=== PATIENT | male | born 1955 | race Caucasian/White ===

== ENCOUNTER 2020-03-13 07:28 | Outpatient (REF) | payer OTHER, SELFPAY ==
[2020-03-13 08:22] LABS: Alanine Aminotransferase 15 U/L (0-40); Albumin Level 4.3 g/dL (3.5-5.0); Alkaline Phosphatase 101 U/L (39-117); Aspartate Amino Transferase 14 U/L (5-37); Cholesterol 198 mg/dL; Total Protein 6.4 g/dL (6.5-8.0); Triglycerides 235 mg/dL
[2020-03-13 09:06] LABS: Bilirubin Direct 0.2 mg/dL (0.0-0.5); Bilirubin Total 0.5 mg/dL (0.0-1.0); HDL Cholesterol 22 mg/dL; LDL Cholesterol Calculated 129 mg/dl
== END 2020-03-13 07:29 | disposition home or self-care (01) ==
LOC: HO.LAB 07:28
PROVIDERS: PCP Internal Medicine; Visit Provider Internal Medicine
DX: E78.00 Pure hypercholesterolemia, unspecified (principal)
CPT/HCPCS: 80061; 80076

== ENCOUNTER 2020-06-23 06:02 | Outpatient (REF) | payer OTHER, SELFPAY ==
[2020-06-23 07:09] LABS: MANUAL DIFF FLAG NO
[2020-06-23 07:13] LABS: Basophils Absolute Auto 0.1 X10*3/uL (0.0-0.2); Basophils Percent Auto 0.7 % (0-2); Eosinophils Absolute Auto 0.2 X10*3/uL (0.0-0.4); Eosinophils Percent Auto 1.6 % (0-4); Hematocrit 45.2 % (42-52); Hemoglobin 14.6 g/dl (14.0-18.0); Imm Gran Abs Auto 0.06 X10*3/uL (0.00-0.03); Imm Gran Pct Auto 0.5 % (0.0-0.4); Lymphocytes Absolute Auto 2.8 X10*3/uL (1.2-4.9); Lymphocytes Percent Auto 24.9 % (20-40); Mean Corpuscular HGB Conc 32.3 g/dl (31.0-36.0); Mean Corpuscular Hemoglobin 29.7 pg (27.0-33.0); Mean Corpuscular Volume 91.9 fL (80-98); Monocytes Absolute Auto 0.5 X10*3/uL (0.1-1.2); Monocytes Percent Auto 4.8 % (2-11); Neutrophils Absolute Auto 7.5 X10*3/uL (2.0-8.3); Neutrophils Percent Auto 67.5 % (45-73); Platelet Count 189 X10*3/uL (160-400); Red Blood Count 4.92 X10*6/uL (4.60-5.80); Red Cell Distribution Width 12.9 % (11.0-16.0); White Blood Count 11.1 X10*3/uL (4.8-10.8)
[2020-06-23 07:57] LABS: Alanine Aminotransferase 14 U/L (0-40); Albumin Level 4.1 g/dL (3.5-5.0); Alkaline Phosphatase 95 U/L (39-117); Anion Gap 11 (12-20); Aspartate Amino Transferase 12 U/L (5-37); Bilirubin Total 0.4 mg/dL (0.0-1.0); Blood Urea Nitrogen 23 mg/dL (9-16); Calcium 8.6 mg/dL (8.4-10.2); Carbon Dioxide 25 mmol/L (22-29); Chloride 108 mmol/L (96-108); Cholesterol 163 mg/dL; Estimated Glomerular Filt Rate > 60; Glucose Random 95 mg/dL (60-115); HDL Cholesterol 21 mg/dL; LDL Cholesterol Calculated 82 mg/dl; Potassium 4.1 mmol/L (3.3-5.1); Sodium 140 mmol/L (135-145); Total Protein 6.1 g/dL (6.5-8.0); Triglycerides 304 mg/dL
[2020-06-23 08:01] LABS: Free T4 (Free Thyroxine) 1.01 ng/dL (0.71-1.85); Prostate Specific Antigen Scr 0.66 ng/mL (<0.05-4.0); Thyroid Stimulating Hormone 1.25 uIU/mL (0.32-4.0)
[2020-06-27 06:08] LABS: Folate 8.8 ng/mL (> or = 4.0); Vitamin B12 326 pg/mL (200-900)
== END 2020-06-23 06:03 | disposition home or self-care (01) ==
LOC: HO.LAB 06:02
PROVIDERS: PCP Internal Medicine; Visit Provider Internal Medicine
DX: Z12.5 Encounter for screening for malignant neoplasm of prostate (principal); E78.00 Pure hypercholesterolemia, unspecified; I25.10 Atherosclerotic heart disease of native coronary artery without angina pectoris
CPT/HCPCS: 36415; 80053; 80061; 82607; 82746; 84153; 84439; 84443; 85025

== ENCOUNTER 2020-10-06 12:29 | Outpatient (REF) | payer OTHER, SELFPAY | END 2020-10-06 12:30 | disposition home or self-care (01) | LOC: HO.LAB 12:29 | PROVIDERS: PCP Internal Medicine; Visit Provider Internal Medicine | DX: Z20.822 Contact with and (suspected) exposure to COVID-19 (principal) | CPT/HCPCS: U0003; U0005 ==

== ENCOUNTER 2021-01-14 07:15 | Outpatient (REF) | payer OTHER, SELFPAY ==
[2021-01-14 08:09] LABS: Alanine Aminotransferase 15 U/L (0-40); Albumin Level 4.1 g/dL (3.5-5.0); Alkaline Phosphatase 93 U/L (39-117); Anion Gap 9 (12-20); Aspartate Amino Transferase 12 U/L (5-37); Bilirubin Total 0.5 mg/dL (0.0-1.0); Blood Urea Nitrogen 20 mg/dL (9-16); Calcium 9.2 mg/dL (8.4-10.2); Carbon Dioxide 27 mmol/L (22-29); Chloride 110 mmol/L (96-108); Cholesterol 209 mg/dL; Estimated Glomerular Filt Rate > 60; Glucose Random 93 mg/dL (60-115); HDL Cholesterol 22 mg/dL; Potassium 4.4 mmol/L (3.3-5.1); Sodium 142 mmol/L (135-145); Total Protein 6.2 g/dL (6.5-8.0); Triglycerides 429 mg/dL
== END 2021-01-14 07:16 | disposition home or self-care (01) ==
LOC: HO.LAB 07:15
PROVIDERS: PCP Internal Medicine; Visit Provider Internal Medicine
DX: E78.00 Pure hypercholesterolemia, unspecified (principal)
CPT/HCPCS: 36415; 80053; 80061

== ENCOUNTER 2021-02-20 14:20 | Outpatient (REF) | payer OTHER, SELFPAY ==
[2021-02-20 16:06] LABS: Amphetamine Screen Urine Not Detected (Not Detect); Barbiturates, Urine Not Detected (Not Detect); Benzodiazepines Screen Urine Not Detected (Not Detect); Cannabinoid Screen Urine Not Detected (Not Detect); Cocaine Screen Urine Not Detected (Not Detect); Fentanyl, urine Not Detected (Not Detect); Opiate Screen Urine Not Detected (Not Detect); Phencyclidine Screen Urine Not Detected (Not Detect)
== END 2021-02-20 14:21 | disposition home or self-care (01) ==
LOC: HO.LAB 14:20
PROVIDERS: PCP Internal Medicine; Visit Provider Internal Medicine
DX: G89.29 Other chronic pain (principal); M54.50 Low back pain, unspecified
CPT/HCPCS: 80307; 80364; 80365

== ENCOUNTER 2021-03-10 11:25 | Outpatient (REF) | payer OTHER, SELFPAY ==
[2021-03-10 14:12] LABS: Amphetamine Screen Urine Not Detected (Not Detect); Barbiturates, Urine Not Detected (Not Detect); Benzodiazepines Screen Urine Not Detected (Not Detect); Cannabinoid Screen Urine Not Detected (Not Detect); Cocaine Screen Urine Not Detected (Not Detect); Fentanyl, urine Not Detected (Not Detect); Opiate Screen Urine Not Detected (Not Detect); Phencyclidine Screen Urine Not Detected (Not Detect)
== END 2021-03-10 11:26 | disposition home or self-care (01) ==
LOC: HO.LAB 11:25
PROVIDERS: PCP Internal Medicine; Visit Provider Internal Medicine
DX: F11.90 Opioid use, unspecified, uncomplicated (principal)
CPT/HCPCS: 80307

== ENCOUNTER 2021-03-24 13:16 | Outpatient (REF) | payer OTHER, SELFPAY | END 2021-03-24 13:17 | disposition home or self-care (01) | LOC: HO.LAB 13:16 | PROVIDERS: PCP Internal Medicine; Visit Provider Internal Medicine | DX: Z20.822 Contact with and (suspected) exposure to COVID-19 (principal) | CPT/HCPCS: C9803; U0003; U0005 ==

== ENCOUNTER 2021-05-29 12:30 | Outpatient (REF) | payer OTHER, SELFPAY ==
[2021-05-29 13:25] LABS: Alanine Aminotransferase 25 U/L (0-40); Albumin Level 4.4 g/dL (3.5-5.0); Alkaline Phosphatase 78 U/L (39-117); Anion Gap 12 (12-20); Aspartate Amino Transferase 20 U/L (5-37); Bilirubin Total 0.4 mg/dL (0.0-1.0); Blood Urea Nitrogen 18 mg/dL (9-16); Calcium 9.6 mg/dL (8.4-10.2); Carbon Dioxide 25 mmol/L (22-29); Chloride 107 mmol/L (96-108); Cholesterol 188 mg/dL; Estimated Glomerular Filt Rate > 60; Glucose Random 89 mg/dL (60-115); HDL Cholesterol 20 mg/dL; LDL Cholesterol Calculated 116 mg/dl; Potassium 4.2 mmol/L (3.3-5.1); Sodium 140 mmol/L (135-145); Total Protein 6.8 g/dL (6.5-8.0); Triglycerides 263 mg/dL
== END 2021-05-29 12:31 | disposition home or self-care (01) ==
LOC: HO.LAB 12:30
PROVIDERS: PCP Internal Medicine; Visit Provider Internal Medicine
DX: E78.00 Pure hypercholesterolemia, unspecified (principal)
CPT/HCPCS: 36415; 80053; 80061

== ENCOUNTER → 2021-07-29 13:39 | Outpatient (BNVA) | payer OTHER, SELFPAY | PROVIDERS: PCP Internal Medicine; Referring Provider Internal Medicine; Visit Provider Nurse Practitioner Family | DX: I21.3 ST elevation (STEMI) myocardial infarction of unspecified site (principal); I73.9 Peripheral vascular disease, unspecified; I25.10 Atherosclerotic heart disease of native coronary artery without angina pectoris; E78.00 Pure hypercholesterolemia, unspecified; Z98.890 Other specified postprocedural states; Z72.0 Tobacco use | CPT/HCPCS: 99212 ==

== ENCOUNTER 2021-09-15 13:45 | Outpatient (REF) | payer OTHER, SELFPAY ==
--- NOTE | ~2021-09-15 | US_ITS ---
EXAMINATION: NONINVASIVE ASSESSMENT OF THE ARTERIES OF BOTH LOWER EXTREMITIES WITH ANKLE PRESSURE MEASUREMENTS, ANKLE-BRACHIAL INDICES, PVR MEASUREMENTS AND BILATERAL LOWER EXTREMITY DUPLEX. CLINICAL INFORMATION: Peripheral arterial disease. History of aortobifemoral bypass graft in 2019. TECHNIQUE: Ankle pressure measurements, ankle-brachial indices and PVR tracings were obtained of the lower extremity arterial system bilaterally. In addition, duplex Doppler techniques with wave form analysis and measurement of velocities in the common femoral, profunda femoral, superficial femoral, popliteal and tibial arteries was performed. The study was performed only at rest. COMPARISON: Arterial ultrasound 09/06/2019 and CTA runoff on 02/23/2019. FINDINGS: NONINVASIVE ASSESSMENT OF THE ARTERIES OF BOTH LOWER EXTREMITIES WITH ABIs: RIGHT LEG: Right ankle-brachial index: VALENTÍN 1.08 PVR (ankle): Dampened. LEFT LEG: Ankle-brachial index: VALENTÍN 0.94. PVR (ankle): Dampened. BILATERAL LOWER EXTREMITY DUPLEX ULTRASOUND: RIGHT LEG: Iliac limb, bypass graft: 140 cm/s, monophasic flow. Common femoral artery: 134 cm/s, Diastolic flow reversal: Yes Profunda femoris artery: 165 cm/s, Diastolic flow reversal: Yes Superficial femoral artery (proximal): 115 cm/s, Diastolic flow reversal: Yes Superficial femoral artery (mid): 182 cm/s, Diastolic flow reversal: Yes Superficial femoral artery (distal): 215 cm/s, Diastolic flow reversal: Yes Popliteal artery: 70.7 cm/s, Diastolic flow reversal: Yes Posterior tibial artery: 66.8 cm/s, Diastolic flow reversal: Yes Peroneal artery: 34 cm/s, Diastolic flow reversal: Yes LEFT LEG: Iliac limb, bypass graft: 74.6 cm/s, monophasic flow. Common femoral artery: 201 cm/s, Diastolic flow reversal: Yes Profunda femoris artery: Not visualized Superficial femoral artery (proximal): 127 cm/s, Diastolic flow reversal: Yes Superficial femoral artery (mid): 169 cm/s, Diastolic flow reversal: Yes Superficial femoral artery (distal): 165 cm/s, Diastolic flow reversal: Yes Popliteal artery: 89.1 cm/s, Diastolic flow reversal: Yes Posterior tibial artery: 44 cm/s, Diastolic flow reversal: Yes Peroneal artery: 61.3 cm/s, Diastolic flow reversal: Yes US/US arterial duplex LE BI IMPRESSION: RIGHT LEG: VALENTÍN 1.08. Duplex evaluation of the right iliac limb of the bypass graft demonstrates normal velocity with a monophasic waveform. There is mildly increased velocity within the distal superficial femoral artery consistent with a mild stenosis. There are otherwise multiphasic waveforms throughout the right lower extremity. LEFT LEG: VALENTÍN 0.94. Similar to the contralateral side, duplex evaluation of the left iliac limb of the bypass graft demonstrates normal velocity with a monophasic waveform. The profunda femoris artery is not visualized. Mildly elevated velocity within the left common femoral artery. Otherwise multiphasic waveforms are present throughout the left lower extremity. No additional hemodynamically significant stenosis identified. VALENTÍN Reference: - >0.97-1.25 = normal - no significant arterial disease - 0.75-0.96 = mild peripheral arterial disease - 0.5-0.74 = moderate peripheral arterial disease - <0.50 = severe peripheral arterial disease
== END 2021-09-15 13:46 | disposition home or self-care (01) ==
LOC: HO.US 13:45
PROVIDERS: Visit Provider Surgery Vascular Surgery
DX: I70.213 Atherosclerosis of native arteries of extremities with intermittent claudication, bilateral legs (principal)
CPT/HCPCS: 93923; 93925

== ENCOUNTER → 2021-10-01 15:26 | Outpatient (BNVA) | payer OTHER, SELFPAY | PROVIDERS: PCP Internal Medicine; Visit Provider Surgery Vascular Surgery | DX: I73.9 Peripheral vascular disease, unspecified (principal); F17.210 Nicotine dependence, cigarettes, uncomplicated | CPT/HCPCS: 99212 ==

== ENCOUNTER 2021-10-05 06:30 | Outpatient (REF) | payer OTHER, SELFPAY ==
[2021-10-05 07:02] LABS: MANUAL DIFF FLAG NO
[2021-10-05 07:27] LABS: Basophils Absolute Auto 0.1 X10*3/uL (0.0-0.2); Basophils Percent Auto 0.9 % (0-2); Eosinophils Absolute Auto 0.2 X10*3/uL (0.0-0.4); Hematocrit 45.3 % (42.0-52.0); Hemoglobin 14.9 g/dl (14.0-18.0); Imm Gran Abs Auto 0.04 X10*3/uL (0.00-0.03); Imm Gran Pct Auto 0.4 % (0.0-0.4); Lymphocytes Absolute Auto 2.6 X10*3/uL (1.2-4.9); Lymphocytes Percent Auto 26.5 % (20-40); Mean Corpuscular HGB Conc 32.9 g/dl (31.0-36.0); Mean Corpuscular Hemoglobin 30.1 pg (27.0-33.0); Mean Corpuscular Volume 91.5 fL (80.0-98.0); Mean Platelet Volume 11.1 fL (9.4-12.4); Monocytes Absolute Auto 0.7 X10*3/uL (0.1-1.2); Monocytes Percent Auto 6.5 % (2-11); Neutrophils Absolute Auto 6.3 x10*3/uL (2.0-8.3); Neutrophils Percent Auto 63.7 % (45-73); Platelet Count 223 X10*3/uL (160-400); Red Blood Count 4.95 X10*6/uL (4.60-5.80); Red Cell Distribution Width 13.1 % (11.0-16.0)
[2021-10-05 08:10] LABS: Alanine Aminotransferase 27 U/L (0-40); Albumin Level 4.2 g/dL (3.5-5.0); Alkaline Phosphatase 71 U/L (39-117); Anion Gap 13 (12-20); Aspartate Amino Transferase 22 U/L (5-37); Bilirubin Total 0.5 mg/dL (0.0-1.0); Blood Urea Nitrogen 16 mg/dL (9-16); Calcium 9.2 mg/dL (8.4-10.2); Carbon Dioxide 22 mmol/L (22-29); Chloride 108 mmol/L (96-108); Cholesterol 120 mg/dL; Estimated Glomerular Filt Rate > 60; Glucose Random 97 mg/dL (60-115); HDL Cholesterol 20 mg/dL; LDL Cholesterol Calculated 57 mg/dl; Sodium 139 mmol/L (135-145); Total Protein 6.2 g/dL (6.5-8.0); Triglycerides 217 mg/dL
== END 2021-10-05 06:31 | disposition home or self-care (01) ==
LOC: HO.LAB 06:30
PROVIDERS: PCP Internal Medicine; Visit Provider Internal Medicine
DX: E78.00 Pure hypercholesterolemia, unspecified (principal)
CPT/HCPCS: 36415; 80053; 80061; 85025

== ENCOUNTER → 2021-12-23 12:38 | Outpatient (BNVA) | payer OTHER, SELFPAY | PROVIDERS: PCP Internal Medicine; Referring Provider Internal Medicine; Visit Provider Internal Medicine Cardiovascular Disease | DX: F17.210 Nicotine dependence, cigarettes, uncomplicated (principal); I25.10 Atherosclerotic heart disease of native coronary artery without angina pectoris; I25.2 Old myocardial infarction | CPT/HCPCS: 99212 ==

== ENCOUNTER 2022-01-06 13:19 | Outpatient (REF) | payer OTHER, SELFPAY ==
--- NOTE | ~2022-01-06 | XR_ITS ---
EXAMINATION: XR SHOULDER, LEFT CLINICAL INFORMATION: Pain left shoulder COMPARISON: None TECHNIQUE: AP external rotation, Grashey, scapular Y, and axillary views of the left shoulder. FINDINGS: The bones and soft tissues are normal. No fracture. Glenohumeral and acromioclavicular alignment is anatomic with normal joint space. There is lateral acromial spurring. No abnormal soft tissue calcifications. XR/XR shoulder LT min 2V IMPRESSION: Lateral acromial spurring otherwise no acute fracture, dislocation or subluxation seen. No bony erosive changes.
== END 2022-01-06 13:20 | disposition home or self-care (01) ==
LOC: HO.XRAY 13:19
PROVIDERS: PCP Internal Medicine; Visit Provider Internal Medicine
DX: M25.512 Pain in left shoulder (principal)
CPT/HCPCS: 73030

== ENCOUNTER → 2022-03-16 13:53 | Outpatient (BNVA) | payer OTHER, SELFPAY | PROVIDERS: PCP Internal Medicine; Visit Provider Physician Assistant | DX: M75.102 Unspecified rotator cuff tear or rupture of left shoulder, not specified as traumatic (principal); M54.12 Radiculopathy, cervical region | CPT/HCPCS: 99202; J1040 ==

== ENCOUNTER 2022-05-24 14:18 | Outpatient (REF) | payer OTHER, SELFPAY ==
--- NOTE | ~2022-05-24 | US_ITS ---
EXAMINATION: US SCROTUM CLINICAL INFORMATION: Enlarged scrotal sac. COMPARISON: None TECHNIQUE: A sonogram of the scrotum was performed assessing comer-scale appearance and color Doppler flow. Spectral Doppler analysis of the arterial and venous flow were performed in the testes bilaterally. FINDINGS: RIGHT: Right testicle measures 4.2 x 2.7 x 2.8 cm, volume 16.2 mL. No focal testicular parenchymal lesions are visualized. Spectral Doppler analysis of the arterial and venous flow is normal in the right testis. Right epididymal head is normal in size. No right varicocele is seen. A 7 mm left epididymal head cyst versus spermatocele is seen. There is a large hydrocele. Right epididymal Doppler flow is normal. LEFT: Left testicle measures 4.1 x 2.4 x 2.7 cm, volume 14.0 mL. No focal testicular parenchymal lesions are visualized. Spectral Doppler analysis of the arterial and venous flow is normal in the left testis. The appendix testis is noted. Left epididymal head is normal in size. A 6 mm left epididymal head cyst versus spermatocele is seen. No left varicocele is seen. There is a large hydrocele. Left epididymal Doppler flow is normal. US/US scrotum IMPRESSION: 1. There are are large bilateral hydroceles. 2. There are bilateral epididymal head cysts versus spermatoceles.
== END 2022-05-24 14:19 | disposition home or self-care (01) ==
LOC: HO.US 14:18
PROVIDERS: PCP Internal Medicine; Visit Provider Internal Medicine
DX: N50.89 Other specified disorders of the male genital organs (principal)
CPT/HCPCS: 76870

== ENCOUNTER → 2022-07-21 14:40 | Outpatient (BNVA) | payer MEDICAID, SELFPAY | PROVIDERS: PCP Internal Medicine; Referring Provider Internal Medicine; Visit Provider Internal Medicine Cardiovascular Disease | DX: I25.10 Atherosclerotic heart disease of native coronary artery without angina pectoris (principal); J43.9 Emphysema, unspecified | CPT/HCPCS: 93005; 99212 ==

== ENCOUNTER 2022-07-23 09:22 | Outpatient (REF) | payer MEDICAID, SELFPAY ==
[2022-07-23 09:46] LABS: MANUAL DIFF FLAG NO
[2022-07-23 11:01] LABS: Basophils Absolute Auto 0.1 X10*3/uL (0.0-0.2); Basophils Percent Auto 0.6 % (0-2); Eosinophils Absolute Auto 0.1 X10*3/uL (0.0-0.4); Eosinophils Percent Auto 0.8 % (0-4); Hematocrit 46.6 % (42.0-52.0); Hemoglobin 15.4 g/dl (14.0-18.0); Imm Gran Abs Auto 0.03 X10*3/uL (0.00-0.03); Imm Gran Pct Auto 0.3 % (0.0-0.4); Lymphocytes Absolute Auto 2.7 X10*3/uL (1.2-4.9); Lymphocytes Percent Auto 22.8 % (20-40); Mean Corpuscular Hemoglobin 29.9 pg (27.0-33.0); Mean Corpuscular Volume 90.5 fL (80.0-98.0); Mean Platelet Volume 11.2 fL (9.4-12.4); Monocytes Absolute Auto 0.7 X10*3/uL (0.1-1.2); Monocytes Percent Auto 5.9 % (2-11); Neutrophils Absolute Auto 8.4 x10*3/uL (2.0-8.3); Neutrophils Percent Auto 69.6 % (45-73); Platelet Count 236 X10*3/uL (160-400); Red Blood Count 5.15 X10*6/uL (4.60-5.80); Red Cell Distribution Width 13.3 % (11.0-16.0)
[2022-07-23 11:23] LABS: Alanine Aminotransferase 14 U/L (0-40); Albumin Level 4.2 g/dL (3.5-5.0); Alkaline Phosphatase 73 U/L (39-117); Anion Gap 14 (12-20); Aspartate Amino Transferase 16 U/L (5-37); Bilirubin Total 0.4 mg/dL (0.0-1.0); Blood Urea Nitrogen 15 mg/dL (9-16); Calcium 9.2 mg/dL (8.4-10.2); Carbon Dioxide 25 mmol/L (22-29); Chloride 107 mmol/L (96-108); Cholesterol 111 mg/dL; Estimated Glomerular Filt Rate > 60; Glucose Random 91 mg/dL (60-115); HDL Cholesterol 24 mg/dL; LDL Cholesterol Calculated 55 mg/dl; Potassium 4.1 mmol/L (3.3-5.1); Sodium 142 mmol/L (135-145); Triglycerides 161 mg/dL
[2022-07-23 11:56] LABS: Free T4 (Free Thyroxine) 1.08 ng/dL (0.71-1.85); Prostate Specific Antigen Scr 0.81 ng/mL (<0.05-4.0); Vitamin B12 468 pg/mL (200-900)
== END 2022-07-23 09:23 | disposition home or self-care (01) ==
LOC: HO.LAB 09:22
PROVIDERS: PCP Internal Medicine; Visit Provider Internal Medicine
DX: Z12.5 Encounter for screening for malignant neoplasm of prostate (principal); I25.10 Atherosclerotic heart disease of native coronary artery without angina pectoris; E78.00 Pure hypercholesterolemia, unspecified
CPT/HCPCS: 36415; 80053; 80061; 82607; 82746; 84153; 84439; 84443; 85025

== ENCOUNTER → 2022-08-18 13:27 | Outpatient (BNVA) | payer MEDICAID, SELFPAY | PROVIDERS: PCP Internal Medicine; Visit Provider Nurse Practitioner | DX: R19.5 Other fecal abnormalities (principal); K21.9 Gastro-esophageal reflux disease without esophagitis; E78.00 Pure hypercholesterolemia, unspecified; Z98.890 Other specified postprocedural states; Z95.5 Presence of coronary angioplasty implant and graft; Z95.820 Peripheral vascular angioplasty status with implants and grafts | CPT/HCPCS: 99202 ==

== ENCOUNTER 2022-11-12 14:27 | Outpatient (AMB) | payer MEDICARE, MEDICAID, SELFPAY ==
[2022-11-12 14:43] VITALS: BP 116/80; PULSE 77; O2SAT 97; BMI 22.5
--- NOTE | 2022-11-12 14:43 | MHC.PC.OV ---
Vital Signs 11/12/22 14:43 Height 5 ft 5 in Weight 135 lb BMI 22.5 BP 116/80 Blood Pressure Location Lt brachial Position Standing Pulse 77 Pulse Source Pulse Oximeter Pulse Oximetry (%) 97 Oxygen Delivery Method Room Air Intake Visit Reasons: increased fatigue and loss of balance Mud Temperer Required: No Accompanied by: Self / Same As Patient Allergies No Known Allergies [No Known Allergies*] Allergy (Verified 11/12/22 14:44) Medication List - Last Reconciled 11/12/22 by Jami Martin MD aspirin (Adult Aspirin Regimen) 81 mg PO DAILY bisacodyl 10 mg AL DAILY PRN clopidogrel (Plavix) 75 mg PO DAILY lactulose 10 grams (15 mL) PO TID metoprolol tartrate 12.5 mg (1/2 x 25 mg) PO BID multivitamin 1 tab PO DAILY nicotine 1 patch transdermal DAILY nicotine 1 patch transdermal Q24H pantoprazole 20 mg PO DAILY paroxetine HCl 10 mg PO DAILY rosuvastatin (Crestor) 40 mg PO DAILY thiamine HCl (vitamin B1) 100 mg PO DAILY Tobacco use date assessed: 11/12/22 Fall risk assessment: 1 Fall in past year Last assessed Fall Risk: 11/12/22 Dental Screening Dental Screen Date: 11/12/22 Did you have a dental visit in the last 12 months?: No Did you have a dental problem in the last 6 months where you did not have access to dental care?: No Was dental information given to patient?: No HPI increased fatigue and loss of balance HPI Details 67-year-old male smoker with a history of coronary artery disease COPD GERD hypercholesterolemia with recent CVA 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 This was complicated by an aspiration pneumonia and has been placed on a G-tube. Patient has not been using the G-tube in is been eating through the mouth and since discharge so far has not had any other complications. Recently went to the emergency room November 08 for an infected G-tube. This was worked and has advised to have the G-tube taken out on the original date November 2022. Patient was worked up had a CT scan done in [facility](I do not have the results) which was negative and to follow-up with gastroenterology. Had a lengthy conversation and discussion with the patient and regarding his case as the patient has not been taking care of himself sustaining heart attacks and strokes but this time advised to stop smoking eat healthy drink enough fluids and concentrate on exercising and following physical therapy to be able to move and be productive. As for the G-tube called gastroenterology to see him sooner for recommendations regarding taking out the G-tube as it is not being used. Patient declined taking the antibiotic as he does not feel that it is infected. [facility] Medical History (Updated 11/03/22 @ 12:37 by Jami Martin MD) Aspiration pneumonia CAD (coronary artery disease) Chronic low back pain COPD (chronic obstructive pulmonary disease) CVA (cerebral vascular accident) GERD (gastroesophageal reflux disease) Hypercholesterolemia Metabolic encephalopathy Peripheral arterial disease PFO (patent foramen ovale) Tobacco abuse Surgical History History of aorto-femoral bypass History of coronary artery stent placement S/P cardiac catheterization Family History Father Hypertension Mother Hypertension Brother In good health Brother In good health Sister In good health Sister In good health Son In good health Son In good health Son In good health Son In good health Social History Housing: House Alcohol intake: current Alcohol intake frequency: holidays/special occasions only Patient Tobacco Use Status: Former Tobacco user Tobacco use type: Cigarette Cigarette Packs Per Day: 1 Cigarettes Per Day: 20 Years Smoked: 55 +/- e-Cigarette/Vaping Use: Never Used Second Hand Smoke Exposure: Yes service: No Current occupational status: employed Cognitive needs: Yes Hearing needs: No Vision needs: No Questionnaire PHQ-9 Over the last 2 weeks, how often have you been bothered by any of the following problems? 1. Little interest or pleasure in doing things: not at all 2. Feeling down, depressed, or hopeless: not at all 3. Trouble falling or staying asleep, or sleeping too much: not at all 4. Feeling tired or having little energy: not at all 5. Poor appetite or overeating: not at all 6. Feeling bad about yourself - or that you are a failure or have let yourself or your family down: not at all 7. Trouble concentrating on things, such as reading the newspaper or watching television: not at all 8. Moving or speaking so slowly that other people could have noticed. Or the opposite - being so fidgety or restless that you have been moving around a lot more than usual: not at all 9. Thoughts that you would be better off or of hurting yourself in some way: not at all Total score: 0 Depression Screening Interpretation: Negative Source: Developed by Drs. Meet Flores, Nidia Gordon, Eddy Arriaga and colleagues, with an educational nicole from [employer]. Thrive Questionnaire Date Thrive assessed: 11/12/22 I am a: Parent/Caregiver What is your living situation today?: I have a steady place to live Within the past 12 months, did the food you bought not last and you didn't have the money to get more?: Never true Within the past 12 months, did you worry whether your food would run out before you got money to buy more?: Never true Do you have trouble paying for medicines?: No Do you have trouble getting transportation to medical appointments?: No Do you have trouble paying your heating and electricity bill?: No Do you have trouble taking care of your child, family member or friend?: No Do you have trouble with day-to-day activities such as bathing, preparing meals, shopping, managing finances, etc.?: No Are you currently unemployed and looking for a job?: No Are you interested in more education?: No Currently or been in a relationship where the following occur: no concerns reported AUDIT C Alcohol Use Questionnaire (AUDIT-C) 1. How often do you have a drink containing alcohol?: Never 3. How often do you have six or more drinks on one occasion?: Never Total Score: 0 JACQUES-7 AMB Questionnaire JACQUES-7 Date JACQUES - 7 assessed: 11/12/22 Feeling nervous, anxious, or on edge: 0 = Not at all Not being able to stop or control worryin = Not at all Worrying too much about different things: 0 = Not at all Trouble relaxin = Not at all Being so restless that it is hard to sit still: 0 = Not at all Becoming easily annoyed or irritable: 0 = Not at all Feeling afraid as if something awful might happen: 0 = Not at all Total JACQUES-7 score (0-4 normal; 5-9 mild; 10-14 moderate; 15-21 severe): 0 Source: Developed by Drs. Meet Flores, Nidia Gordon, Eddy Arriaga and colleagues, with an educational nicole from [employer]. Physical exam (Primary Care) Vital Signs: Last Vital Signs Pulse 77 11/12/22 14:43 BP 116/80 11/12/22 14:43 Pulse Ox 97 11/12/22 14:43 Oxygen Delivery Method Room Air 11/12/22 14:43 Care Plan Goal for BP management: Patient uses a walker to walk and is wobbly on the left side but is able to move around has a G-tube in the abdomen BMI result Body Mass Index 22.5 Tobacco/Smoking Status: Tobacco use Status Tobacco use date assessed 11/12/22 11/12/22 14:46 Patient Tobacco Use Status Former Tobacco user 11/12/22 14:46 Tobacco use type Cigarette 11/12/22 14:46 e-Cigarette/Vaping Use Never Used 11/12/22 14:46 PHQ-9: PHQ-9 Score PHQ-9: Total score 0 11/12/22 14:46 Depression Screening Interpretation: Negative Thrive Assessment: Date of Thrive Assessment Date Thrive assessed 11/12/22 11/12/22 14:46 Currently or been in a relationship where the following occur: no concerns reported Const General: alert; No acute distress Eyes Conjunctivae: conjunctivae normal Resp Auscultation: clear to auscultation bilaterally Cardio Rate: regular rate Rhythm: regular rhythm GI Inspection: Yes normal to inspection Extrem General: Yes normal to inspection and No edema Assessment and Plan Assessment & Plan (1) CVA (cerebral vascular accident): Comment: August 2022 basilar thrombus Code(s): I63.9 - Cerebral infarction, unspecified Plan: CVA Control the cholesterol, weight, blood pressure,stop smoking (2) Tobacco abuse: Code(s): Z72.0 - Tobacco use Plan: Stop smoking! (3) CAD (coronary artery disease): Comment: [place] [employer] 2014 Dr. Reid angioplasty GERA mid RCA March 2018 STEMI 06/2021, mid RCA thrombus, GERA placed ECHO EF 63% Code(s): I25.10 - Atherosclerotic heart disease of [place] coronary artery without angina pectoris Qualifiers: Associated angina: without angina Coronary Disease-Associated Artery/Lesion type: [place] artery [place] vs. transplanted heart: [place] heart Qualified Code(s): I25.10 - Atherosclerotic heart disease of [place] coronary artery without angina pectoris Plan: Control the cholesterol, weight, blood pressure (4) Hypercholesterolemia: Code(s): E78.00 - Pure hypercholesterolemia, unspecified Plan: Avoid fried foods, chicken skin, eggs, butter margarine, pastries and meat. Be it pork or beef they have a lot of cholesterol LDL goal of less than 70 (5) Peripheral arterial disease: Comment: 04/10/2019 - open aortobifemoral bypass Code(s): I73.9 - Peripheral vascular disease, unspecified Plan: Patient on aspirin and clopidogrel (6) G tube feedings: Code(s): Z93.1 - Gastrostomy status Plan: Patient states has been causing pain. Gastroenterology called left message and will tried to get him a soon schedule. Medications: Refilled paroxetine HCl 10 mg PO DAILY 90 tabs 1RF I63.9 - Cerebral infarction, unspecified Coding Level of Care Code Est Pt Level 4 (54552) Diagnoses CVA (cerebral vascular accident) I63.9 Tobacco abuse Z72.0 CAD (coronary artery disease) I25.10 Associated angina: without angina Coronary Disease-Associated Artery/Lesion type: [place] artery [place] vs. transplanted heart: [place] heart Hypercholesterolemia E78.00 Peripheral arterial disease I73.9 G tube feedings Z93.1
== END 2022-11-12 15:46 | disposition home or self-care (01) ==
PROVIDERS: PCP Internal Medicine; Visit Provider Internal Medicine
DX: I63.9 Cerebral infarction, unspecified (principal); I25.10 Atherosclerotic heart disease of native coronary artery without angina pectoris; I73.9 Peripheral vascular disease, unspecified; Z93.1 Gastrostomy status; Z72.0 Tobacco use; E78.00 Pure hypercholesterolemia, unspecified
CPT/HCPCS: 99214

== ENCOUNTER 2022-11-17 08:34 | Outpatient (AMB) | payer MEDICARE, MEDICAID, SELFPAY ==
--- NOTE | 2022-11-17 08:36 | MHC.OFFVIS ---
Intake Vital Signs 11/17/22 08:44 Height 5 ft 4 in Weight 140 lb BMI 24.0 BP 134/76 Blood Pressure Location Rt brachial Position Sitting Pulse 81 Intake Visit Reasons: G-tube removal Intake Note: Patient referred for G-tube removal. Tube was last used 4wks ago. C/o pain, redness and oozing yellowish discharge with bad odor. Visual Basic Programmer Required: No Accompanied by: Spouse Allergies No Known Allergies [No Known Allergies*] Allergy (Verified 11/17/22 08:42) HPI HPI Comments History of Present Illness Details Patient presents with his . He is status post a stroke which a 4 she required a G-tube for nutrition. He has resolved this situation is able to tolerate diet. He no longer requires the G-tube. He is here for its removal. [facility] Medical History Aspiration pneumonia CAD (coronary artery disease) Chronic low back pain COPD (chronic obstructive pulmonary disease) CVA (cerebral vascular accident) GERD (gastroesophageal reflux disease) Hypercholesterolemia Metabolic encephalopathy Peripheral arterial disease PFO (patent foramen ovale) Tobacco abuse Surgical History History of aorto-femoral bypass History of coronary artery stent placement S/P cardiac catheterization Family History Father Hypertension Mother Hypertension Brother In good health Brother In good health Sister In good health Sister In good health Son In good health Son In good health Son In good health Son In good health Social History Housing: House Alcohol intake: current Alcohol intake frequency: holidays/special occasions only Patient Tobacco Use Status: Former Tobacco user Tobacco use type: Cigarette Cigarette Packs Per Day: 1 Cigarettes Per Day: 20 Years Smoked: 57 +/- e-Cigarette/Vaping Use: Never Used Second Hand Smoke Exposure: Yes service: No Current occupational status: employed Cognitive needs: Yes Hearing needs: No Vision needs: No Physical Exam Vital Signs: Last Vital Signs Pulse 81 11/17/22 08:44 BP 134/76 11/17/22 08:44 BMI result Body Mass Index 24.0 GI Other: Abdomen soft, benign. G-tube uneventfully removed. Dressing applied. Assessment & Plan Assessment & Plan (1) G tube feedings: Code(s): Z93.1 - Gastrostomy status Plan Patient and significant other have been given local instructions including daily dressing changes until the drainage no longer stand dressing. They will follow-up p.r.n.. Coding Level of Care Code New Pt Level 3 (98859) Diagnoses G tube feedings Z93.1
[2022-11-17 08:44] VITALS: BP 134/76; PULSE 81; BMI 24.0
== END 2022-11-17 09:01 | disposition home or self-care (01) ==
PROVIDERS: PCP Internal Medicine; Referring Provider Internal Medicine; Visit Provider Surgery
DX: Z93.1 Gastrostomy status (principal)
CPT/HCPCS: 99203

== ENCOUNTER → 2022-11-17 08:34 | Outpatient (BNVA) | payer MEDICARE, MEDICAID, SELFPAY | PROVIDERS: PCP Internal Medicine; Referring Provider Internal Medicine; Visit Provider Surgery | DX: Z93.1 Gastrostomy status (principal) | CPT/HCPCS: 99202 ==

== ENCOUNTER 2022-12-22 09:57 | Outpatient (REF) | payer MEDICAID, SELFPAY ==
--- NOTE | ~2022-12-22 | XR_ITS ---
EXAMINATION: XR CHEST CLINICAL INFORMATION: Post aspiration pneumonia secondary to a stroke. COMPARISON: CT chest 02/24/2018 TECHNIQUE: 2 views of the chest were obtained. FINDINGS: No significant abnormality is noted involving the heart, lungs, mediastinum, bony thorax or soft tissues. The small pulmonary micronodules seen on the CAT scan are beyond the resolution of the plain film radiograph. XR/XR chest 2V IMPRESSION: No acute intrathoracic disease.
== END 2022-12-22 09:58 | disposition home or self-care (01) ==
LOC: HO.XRAY 09:57
PROVIDERS: PCP Internal Medicine; Visit Provider Internal Medicine
DX: J43.9 Emphysema, unspecified (principal); F17.200 Nicotine dependence, unspecified, uncomplicated; Z79.899 Other long term (current) drug therapy
CPT/HCPCS: 71046; 99212

== ENCOUNTER 2022-12-22 09:57 | Outpatient (AMB) | payer MEDICARE, MEDICAID, SELFPAY ==
[2022-12-22 10:00] VITALS: BP 134/70; PULSE 71; O2SAT 99; BMI 24.2
--- NOTE | 2022-12-22 10:00 | A.OFFVIS_ITS ---
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 HE WAS ALSO ADVISED TO GO FOR ANNUAL LUNG SCREENING BUT HE DID NOT GO FOR HIS APPOINTMENT. THIS GENTLEMAN WAS TREATED AT [facility] IN AUGUST 2022 WITH AN ACUTE STROKE CAUSED BY BASILAR ARTERY THROMBOSIS, IS COURSE WAS COMPLICATED BY DYSPHAGIA, ASPIRATION PNEUMONIA, G-TUBE PLACEMENT FOR FEEDING. HE HAD STENT PLACEMENT IN THE BASILAR ARTERIES, LUCKILY RECOVERED FROM HIS STROKE, EXCEPT FOR RESIDUAL UNSTABLE GAIT, HE HAD ASPIRATION PNEUMONIA HAD G-TUBE FOR FEEDING, LATELY OUTPATIENT THE TU BE HAS BEEN REMOVED AND HE IS ABLE TO EAT WELL. PATIENT ALSO HAD ATRIAL FIBRILLATION, HE WAS FOUND TO HAVE PFO, AND FROM CARDIOLOGY POINT OF VIEW WAS FELT NOT A CANDIDATE FOR CLOSURE. PATIENT IS BEING TREATED WITH ANTIPLATELET AGENT PLAVIX, AND HE IS BEING MONITORED FOR RHYTHM IRREGULARITIES. BREATHING FLOWERS HE IS FAIRLY STABLE, DENIES MUCH COUGH OR EXPECTORATION. HE WALKS SLOW WITH THE WALKER HE DOES NOT REALLY HAVE ANY SHORTNESS OF BREATH ON EXERTION. HE DENIES ANY WHEEZING. HE IS NOT USING ANY INHALERS UNFORTUNATELY HE STILL SMOKING NOW HE IS USING CIGARS ABOUT 5-6 PER DAY. STRESSED THAT HE MUST QUIT COMPLETELY Allergies No Known Allergies [No Known Allergies*] Allergy (Verified 12/22/22 10:43) Medication List - Last Reconciled 12/22/22 by Millie Castro MD aspirin (Adult Aspirin Regimen) 81 mg PO DAILY bisacodyl 10 mg [place] DAILY PRN clopidogrel (Plavix) 75 mg PO DAILY lactulose 10 grams (15 mL) PO TID metoprolol tartrate 12.5 mg PO BID multivitamin 1 tab PO DAILY pantoprazole 20 mg PO BID 90 days paroxetine HCl 10 mg PO DAILY rosuvastatin (Crestor) 40 mg PO DAILY thiamine HCl (vitamin B1) 100 mg PO DAILY [facility] Medical History (Updated 12/28/22 @ 08:54 by Millie Castro MD) Aspiration pneumonia CAD (coronary artery disease) Chronic low back pain COPD (chronic obstructive pulmonary disease) CVA (cerebral vascular accident) GERD (gastroesophageal reflux disease) Hypercholesterolemia Metabolic encephalopathy Peripheral arterial disease PFO (patent foramen ovale) Smoker Tobacco abuse Surgical History (Updated 11/17/22 @ 08:50 by Velasquez Flood MD) History of aorto-femoral bypass History of coronary artery stent placement S/P cardiac catheterization Family History Father Hypertension Mother Hypertension Brother In good health Brother In good health Sister In good health Sister In good health Son In good health Son In good health Son In good health Son In good health Social History (Updated 12/22/22 @ 10:07 by Valentina Jimenez CMA) Housing: House Alcohol intake: current Alcohol intake frequency: holidays/special occasions only Patient Tobacco Use Status: Current everyday Tobacco user Tobacco use type: Cigarette Cigarettes Per Day: 10 Years Smoked: 55 +/- e-Cigarette/Vaping Use: Never Used Second Hand Smoke Exposure: Yes service: No Current occupational status: employed Cognitive needs: Yes Hearing needs: No Vision needs: No Review of Systems Const All systems reviewed & are unremarkable except as noted in HPI and below Eyes Reports no additional complaints ENT Reports no additional complaints and Denies dysphagia Card Denies chest pain, Denies irregular heart rhythm (Has the monitor on), Denies leg edema and Reports dyspnea on exertion (Mild) Resp Reports cough (Minimal and infrequent) and Reports dyspnea on exertion (Mild) GI Denies dysphagia, Denies dyspepsia and Reports heartburn (Being treated with Protonix for prevention of GERD) Musc Reports abnormal gait (Uses walker) and Reports muscle weakness Skin/Breast Reports system reviewed and no additional complaints, except as documented Neuro Reports abnormal gait (Uses walker) Psych Reports depression (Treated with med) Endo Reports no additional complaints Sergei/Lymph Reports no additional complaints Physical Exam Vital Signs: Last Vital Signs Pulse 71 12/22/22 10:00 BP 134/70 12/22/22 10:00 Pulse Ox 99 12/22/22 10:00 Oxygen Delivery Method Room Air 12/22/22 10:00 BMI result Body Mass Index 24.2 Const General: comfortable, no acute distress, alert and awake Orientation/consciousness: patient oriented x3 HEENT Head: Yes normal to inspection General nose exam: No nasal polyps present and No nasal discharge present Face and sinus: Yes sinuses nontender Mouth: oropharynx normal Throat: Yes posterior oropharynx normal Eyes General: appearance normal, both eyes and all related structures Neck Neck: Yes normal visual inspection, Yes no lymphadenopathy, Yes trachea midline and Yes no JVD Thyroid: Thyroid normal Chest Chest palpation & inspection: normal inspection of the chest, normal palpation of entire chest wall and no tenderness Resp Other: Percussion note is resonant, has be equal breath sounds on both sides, the breath sounds are distant with prolonged expiratory phase. A few fine inspiratory Creps over the left. lower lobe No wheezes are heard. Cardio Palpation: normal PMI Rate: regular rate Rhythm: regular rhythm Heart sounds: no gallops and no murmurs GI Other: Abdomen soft, benign. G-tube uneventfully removed. Dressing applied. Palpation (GI): Soft to palpation, nontender, No hepatosplenomegaly present and no masses Auscultation: normal bowel sounds Back/Spine/Pelvis Thoracic/Lumbar Spine: thoracic and lumbar spine normal to inspection and Thoracic/lumbar scoliosis (Mild to moderate) Skin General skin exam: no rashes or lesions noted Neuro General: patient oriented x3, No gait normal (The gait is somewhat unstable, due to poor balance, needs walker) and no focal motor deficits Cranial nerves: Yes CN's II-XII intact bilaterally Extrem General: Yes normal to inspection, Yes no clubbing, cyanosis or edema and Yes no calf tenderness Psych Appearance: grossly normal and well kempt Speech and movement: Normal speech and movement present Results Reviewed Results Reviewed: CHEST XRAY TODAY : NO ABNORMALITY NOTED Assessment & Plan Assessment & Plan (1) COPD (chronic obstructive pulmonary disease): Comment: HE IS KNOWN TO HAVE MILD TO MODERATE DEGREE OF OBSTRUCTIVE AIRWAY DISORDER, IT HAS REMAINED VERY STABLE. HE IS RELATIVELY ASYMPTOMATIC AT THIS TIME. TX: ALBUTEROL HFA 2 PUFFS Q 4-6 HOURS ONLY P.R.N. Code(s): J44.9 - Chronic obstructive pulmonary disease, unspecified Qualifiers: COPD type: emphysema Emphysema type: unspecified Qualified Code(s): J43.9 - Emphysema, unspecified (2) Smoker: Comment: [employer]EL[employer] SMOKER, HAS CUT DOWN TO 5-6 CIGARS/ DAY. I HAD A GOOD DISCUSSION WITH HIM AND TOLD HIM THE RISKS OF CONTINUED SMOKING. HE IS NOT INTERESTED IN USING ANY NICOTINE AGENTS. WILL TRY TO CUT DOWN THE NUMBER OF CIGARETTES MUCH POSSIBLE. Code(s): F17.200 - Nicotine dependence, unspecified, uncomplicated Orders: Orders XR chest 2V 12/22/22 F17.200 - Nicotine dependence, unspecified, uncomplicated, J44.9 - Chronic obstructive pulmonary disease, unspecified Coding Level of Care Code Est Pt Level 4 (86296) Diagnoses COPD (chronic obstructive pulmonary disease) J43.9 COPD type: emphysema Emphysema type: unspecified Smoker F17.200
--- NOTE | 2022-12-28 09:13 | MHC.OFFVIS ---
Intake Vital Signs 12/22/22 10:00 Height 5 ft 5 in Weight 145 lb 8.081 oz BMI 24.2 BP 134/70 Blood Pressure Location Lt brachial Position Sitting Pulse 71 Pulse Source Pulse Oximeter Pulse Oximetry (%) 99 Oxygen Delivery Method Room Air Intake Visit Reasons: COPD Allergies No Known Allergies [No Known Allergies*] Allergy (Verified 02/07/23 12:59) Medication List - Last Reconciled 12/22/22 by Millie Castro MD aspirin (Adult Aspirin Regimen) 81 mg PO DAILY bisacodyl 10 mg [place] DAILY PRN clopidogrel (Plavix) 75 mg PO DAILY lactulose 10 grams (15 mL) PO TID metoprolol tartrate 12.5 mg PO BID multivitamin 1 tab PO DAILY pantoprazole 20 mg PO BID 90 days paroxetine HCl 10 mg PO DAILY rosuvastatin (Crestor) 40 mg PO DAILY thiamine HCl (vitamin B1) 100 mg PO DAILY PFSH Medical History Smoker Aspiration pneumonia Metabolic encephalopathy PFO (patent foramen ovale) CVA (cerebral vascular accident) Hypercholesterolemia Peripheral arterial disease Tobacco abuse COPD (chronic obstructive pulmonary disease) CAD (coronary artery disease) GERD (gastroesophageal reflux disease) Chronic low back pain Surgical History S/P cardiac catheterization History of coronary artery stent placement History of aorto-femoral bypass Family History Father Hypertension Mother Hypertension Brother In good health Brother In good health Sister In good health Sister In good health Son In good health Son In good health Son In good health Son In good health Social History Housing: House Alcohol intake: current Alcohol intake frequency: holidays/special occasions only Patient Tobacco Use Status: Current someday Tobacco user Tobacco use type: Cigarette Cigarettes Per Day: 10 Years Smoked: 55 +/- e-Cigarette/Vaping Use: Never Used Second Hand Smoke Exposure: Yes service: No Current occupational status: employed Cognitive needs: Yes Hearing needs: No Vision needs: No Physical Exam Vital Signs: Last Vital Signs Pulse 71 12/22/22 10:00 BP 134/70 12/22/22 10:00 Pulse Ox 99 12/22/22 10:00 Oxygen Delivery Method Room Air 12/22/22 10:00 BMI result Body Mass Index 24.2 Assessment & Plan Assessment & Plan (1) COPD (chronic obstructive pulmonary disease): Comment: HE IS KNOWN TO HAVE MILD TO MODERATE DEGREE OF OBSTRUCTIVE AIRWAY DISORDER, IT HAS REMAINED VERY STABLE. HE IS RELATIVELY ASYMPTOMATIC AT THIS TIME. TX: ALBUTEROL HFA 2 PUFFS Q 4-6 HOURS ONLY P.R.N. Code(s): J44.9 - Chronic obstructive pulmonary disease, unspecified Qualifiers: COPD type: emphysema Emphysema type: unspecified Qualified Code(s): J43.9 - Emphysema, unspecified (2) Smoker: Comment: [employer]ELONG SMOKER, HAS CUT DOWN TO 5-6 CIGARS/ DAY. I HAD A GOOD DISCUSSION WITH HIM AND TOLD HIM THE RISKS OF CONTINUED SMOKING. HE IS NOT INTERESTED IN USING ANY NICOTINE AGENTS. WILL TRY TO CUT DOWN THE NUMBER OF CIGARETTES MUCH POSSIBLE. Code(s): F17.200 - Nicotine dependence, unspecified, uncomplicated Orders: Orders XR chest 2V 12/22/22 F17.200 - Nicotine dependence, unspecified, uncomplicated, J44.9 - Chronic obstructive pulmonary disease, unspecified Coding Diagnoses Pulmonary emphysema, unspecified emphysema type J43.9 COPD type: emphysema Emphysema type: unspecified Smoker F17.200
== END 2022-12-22 10:32 | disposition home or self-care (01) ==
PROVIDERS: PCP Internal Medicine; Visit Provider Internal Medicine
DX: J43.9 Emphysema, unspecified (principal); F17.200 Nicotine dependence, unspecified, uncomplicated
CPT/HCPCS: 99214

== ENCOUNTER 2023-01-12 13:35 | Outpatient (AMB) | payer MEDICARE, MEDICAID, SELFPAY ==
--- NOTE | 2023-01-12 13:37 | MHC.OFFVIS ---
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: No Allergies No Known Allergies [No Known Allergies*] Allergy (Verified 01/12/23 13:44) Medication List - Last Reconciled 01/12/23 by Albert Pierce MD aspirin (Adult Aspirin Regimen) 81 mg PO DAILY bisacodyl 10 mg [place] DAILY PRN bisacodyl (Dulcolax (bisacodyl)) 10 mg (2 x 5 mg) PO ONCE 1 day clopidogrel (Plavix) 75 mg PO DAILY lactulose 10 grams (15 mL) PO TID metoprolol tartrate 12.5 mg PO BID multivitamin 1 tab PO DAILY pantoprazole 20 mg PO BID 90 days paroxetine HCl 10 mg PO DAILY polyethylene glycol 3350 (Miralax) 238 grams PO ONCE 1 day rosuvastatin (Crestor) 40 mg PO DAILY thiamine HCl (vitamin B1) 100 mg PO DAILY HPI HPI Comments History of Present Illness Details Background: 67-year-old gentleman here for follow-up. He has background history of tobacco abuse and previous right coronary artery PCI in 2014 when presenting inferior wall PR. Subsequent to that he had cardiac catheterization in 2017 when he developed chest discomfort showing 2 areas of stenosis in the mid and distal right coronary artery which were treated with drug-eluting stents. He continued to smoke 3 packs per day which he has cut down to 1 pack per day at this stage. In July 2021 he was in of [facility] in [place] very developed chest discomfort and was taken to hospital where was found to have inferior wall PR. He had a thrombotic occlusion of the distal right coronary artery which was treated with drug-eluting stent. He has been on aspirin and Brilinta since then. He also has peripheral vascular disease and follows up with Dr. Martinez closely. Unfortunately continues to smoke. I have discussed smoking cessation with him multiple times but it appears he is not mentally ready to quit. He was referred to pulmonology on last visit [place] go for the appointment. He is back for follow-up. He is smoking 1 pack per day. He is denying chest discomfort shortness of breath. 01/12/23: He returns for follow-up. Unfortunately was admitted to [facility] with acute CVA. He has left-sided hemiparesis with leg involvement more than the arm. He has been experiencing balance issues and has been walking with walker. Unfortunately continues to smoke. He also has colonoscopy scheduled because his Cologuard test was abnormal. [facility] Medical History (Updated 01/12/23 @ 14:09 by Albert Pierce MD) Smoker Aspiration pneumonia Metabolic encephalopathy PFO (patent foramen ovale) CVA (cerebral vascular accident) Hypercholesterolemia Peripheral arterial disease Tobacco abuse COPD (chronic obstructive pulmonary disease) CAD (coronary artery disease) GERD (gastroesophageal reflux disease) Chronic low back pain Surgical History S/P cardiac catheterization History of coronary artery stent placement History of aorto-femoral bypass Family History Father Hypertension Mother Hypertension Brother In good health Brother In good health Sister In good health Sister In good health Son In good health Son In good health Son In good health Son In good health Social History Housing: House Alcohol intake: current Alcohol intake frequency: holidays/special occasions only Patient Tobacco Use Status: Current everyday Tobacco user Tobacco use type: Cigarette Cigarettes Per Day: 10 Years Smoked: 55 +/- e-Cigarette/Vaping Use: Never Used Second Hand Smoke Exposure: Yes service: No Current occupational status: employed Cognitive needs: Yes Hearing needs: No Vision needs: No Review of Systems ENT Reports dizziness Card Denies chest pain, Denies chest pain at rest, Denies chest pain with activity, Denies rapid heart rate, Denies pedal edema, Denies edema, Denies leg edema, Denies lightheadedness, Denies palpitations, Denies dyspnea, Denies dyspnea on exertion and Denies orthopnea Resp Denies cough, Denies dyspnea and Denies dyspnea on exertion GI Denies hematochezia and Denies change in stool character Musc Denies abnormal gait, Reports limited range of motion, Reports muscle cramps, Denies muscle weakness, Denies numbness, Denies radiating pain into limb, Denies stiffness and Denies tingling Neuro Denies abnormal gait, Reports dizziness, Denies numbness and Denies tingling Endo Denies palpitations Physical Exam Vital Signs: Last Vital Signs Pulse 57 01/12/23 13:38 BP 132/74 01/12/23 13:38 BMI result Body Mass Index 23.3 GENERAL APPEARANCE: in no acute distress, pleasant. NECK: no carotid bruit, no jugular venous distention. SKIN: no suspicious lesions, warm and dry. HEART: no murmurs, regular rate and rhythm. LUNGS: clear to auscultation bilaterally. ABDOMEN: soft, nontender. EXTREMITIES: no edema. PERIPHERAL PULSES: equal. NEUROLOGIC: Left hand power 3/5, left leg 3/5. Normal right side. Assessment & Plan Assessment & Plan (1) CAD (coronary artery disease): Comment: MABEL Lopez 2014 Dr. Reid angioplasty GERA mid RCA March 2018 STEMI 06/2021, mid RCA thrombus, GERA placed ECHO EF 63% Code(s): I25.10 - Atherosclerotic heart disease of [place] coronary artery without angina pectoris Qualifiers: Coronary Disease-Associated Artery/Lesion type: [place] artery [place] vs. transplanted heart: [place] heart Associated angina: without angina Qualified Code(s): I25.10 - Atherosclerotic heart disease of [place] coronary artery without angina pectoris (2) Tobacco abuse: Code(s): Z72.0 - Tobacco use (3) CVA (cerebral vascular accident): Comment: August 2022 basilar thrombus Code(s): I63.9 - Cerebral infarction, unspecified (4) Preop cardiovascular exam: Code(s): Z01.810 - Encounter for preprocedural cardiovascular examination Plan 67-year-old gentleman who is here for follow-up. He is known to us for coronary artery disease and underwent RCA PCI in the past for acute coronary syndrome. Unfortunately he had CVA and is here for follow-up. He has left-sided weakness and is walking with a walker. Unfortunately continues to smoke. Once again I had a detailed discussion with him and his that he must stop smoking. The is saying that if he does not get cigarettes he gets very aggressive and they eventually have to give cigarettes back to him. I think this is his main issue at this point. He is on good medications otherwise. Blood pressure control is good. In terms of proceeding with colonoscopy, he has intermediate risk for perioperative cardiovascular complications. Follow-up in 6 months. Thank you for allowing me to participate in the care of your patient. Please feel free to contact me if you have any questions. Coding Level of Care Code Est Pt Level 4 (69068) Diagnoses Coronary artery disease involving [place] coronary artery of [place] heart without angina pectoris I25.10 Coronary Disease-Associated Artery/Lesion type: [place] artery [place] vs. transplanted heart: [place] heart Associated angina: without angina Tobacco abuse Z72.0 CVA (cerebral vascular accident) I63.9 Preop cardiovascular exam Z01.810
[2023-01-12 13:38] VITALS: BP 132/74; PULSE 57; BMI 23.3
== END 2023-01-12 14:05 | disposition home or self-care (01) ==
PROVIDERS: PCP Internal Medicine; Referring Provider Internal Medicine; Visit Provider Internal Medicine Cardiovascular Disease
DX: I25.10 Atherosclerotic heart disease of native coronary artery without angina pectoris (principal); Z72.0 Tobacco use; I63.9 Cerebral infarction, unspecified; Z01.810 Encounter for preprocedural cardiovascular examination
CPT/HCPCS: 99214

== ENCOUNTER → 2023-01-12 13:35 | Outpatient (BNVA) | payer MEDICAID, SELFPAY | PROVIDERS: PCP Internal Medicine; Referring Provider Internal Medicine; Visit Provider Internal Medicine Cardiovascular Disease | DX: Z01.810 Encounter for preprocedural cardiovascular examination (principal); I25.10 Atherosclerotic heart disease of native coronary artery without angina pectoris; I69.354 Hemiplegia and hemiparesis following cerebral infarction affecting left non-dominant side; F17.210 Nicotine dependence, cigarettes, uncomplicated; Z71.6 Tobacco abuse counseling | CPT/HCPCS: 99212 ==

== ENCOUNTER 2023-01-14 11:10 | Day surgery (SDC) | payer MEDICARE, MEDICAID, SELFPAY ==
[2023-01-11 15:45] VITALS: BMI 24.2
--- NOTE | 2023-01-13 12:16 | HO.ANESPROP2 ---
Documented by User: Khushi Melgar NP 01/13/23 12:22 HPI - Anesthesia Eval Consult details Narrative: 67yo M for Colonoscopy Hx CVA 08/2022. On clopidogrel. Left side weakness. Cardiac optimized Smoker PMF Active Problems Active Problems: All Active Problems (Updated 01/12/23 @ 14:09 by Albert Pierce MD) Preop cardiovascular exam (Acute) Smoker (Acute) G tube feedings (Acute) Incisional pain (Acute) Metabolic encephalopathy (Acute) Aspiration pneumonia (Acute) CVA (cerebral vascular accident) (Acute) Recurrent epistaxis (Acute) PFO (patent foramen ovale) (Acute) Seizure disorder (Acute) Vision blurring (Acute) Generalized anxiety disorder (Acute) Hydrocele (Acute) Positive colorectal cancer screening using Cologuard test (Acute) Erectile dysfunction (Acute) Scrotal sac enlargement (Acute) Hearing deficit (Acute) Vision changes (Acute) Colonoscopy refused (Acute) Colon cancer screening (Acute) Annual physical exam (Acute) Cervical radiculopathy (Acute) Painful arc syndrome of left shoulder (Acute) Shoulder pain, left (Acute) Hospital discharge follow-up (Acute) S/P cardiac catheterization (Acute) STEMI (ST elevation myocardial infarction) (Acute) Vision changes (Acute) Otitis media (Acute) Hypercholesterolemia (Acute) Peripheral arterial disease (Acute) Tobacco abuse (Acute) COPD (chronic obstructive pulmonary disease) (Acute) CAD (coronary artery disease) (Acute) GERD (gastroesophageal reflux disease) (Acute) Chronic low back pain (Acute) Past Medical History Medical History Smoker Aspiration pneumonia Metabolic encephalopathy PFO (patent foramen ovale) CVA (cerebral vascular accident) Hypercholesterolemia Peripheral arterial disease Tobacco abuse COPD (chronic obstructive pulmonary disease) CAD (coronary artery disease) GERD (gastroesophageal reflux disease) Chronic low back pain Family History Family History Father Hypertension Mother Hypertension Brother In good health Brother In good health Sister In good health Sister In good health Son In good health Son In good health Son In good health Son In good health Surgical History Surgical History S/P cardiac catheterization History of coronary artery stent placement History of aorto-femoral bypass Social History Social History Housing: House Alcohol intake: current Alcohol intake frequency: holidays/special occasions only Patient Tobacco Use Status: Current someday Tobacco user Tobacco use type: Cigarette Cigarettes Per Day: 10 Years Smoked: 55 +/- Smoked in Last 30 Days: Yes e-Cigarette/Vaping Use: Never Used Second Hand Smoke Exposure: Yes Are you DNR?: No Advance Directives: No Advance Directives Information Provided: Yes Advance Directives on File: No service: No Current occupational status: employed Cognitive needs: Yes Hearing needs: No Vision needs: No Meds Allergies Allergy/AdvReac Type Severity Reaction Status Date / Time No Known Allergies Allergy Verified 01/12/23 13:44 [No Known Allergies*] Home Medications Medication Instructions Recorded Confirmed Last Taken Type bisacodyl 10 mg rectal suppository 10 mg WI DAILY PRN 10/13/22 01/12/23 Unknown History multivitamin 1 tab PO DAILY 10/27/22 01/12/23 Unknown History metoprolol tartrate 25 mg tablet 12.5 mg PO BID 12/22/22 01/12/23 Unknown History Exam Exam Date and Time: January 13, 2023 1216 Height,Weight and Vital Signs: Height 5 ft 5 in Weight 65.998 kg Pertinent Lab Results Pertinent Lab Results: Laboratory Tests 07/23/22 09:45 WBC 12.0 H Hgb 15.4 Hct 46.6 Plt Count 236 Sodium 142 Potassium 4.1 Chloride 107 Carbon Dioxide 25 BUN 15 Creatinine 0.84 Narrative Narrative: EKG 06/2022 NSR @ 67 ECHO 08/2022 LV poorly visualized. Apical views foreshortened. LV size is normal. LV wall thickness is nml LV systolic function is normal LV EF 55-60% No obvious wall motion abn Nml diastolic function Aortic valve trileaflet. Left coronary cusp mildly thickened and calcified No . No Aortic regurg RV is nml in size and function R to L shunting suggestive of PFO Assessment and Plan Assessment Anesthesia Assessment: Chart Reviewed Documented by User: Tamanna Rice MD 01/14/23 12:54 HPI - Anesthesia Eval Consult details Narrative: 67yo M for Colonoscopy Hx CVA 07/2022. On clopidogrel. Left side weakness. Last dose 01/09/23 Cardiac optimized Smoker PMF Active Problems Active Problems: All Active Problems (Updated 01/14/23 @ 11:49 by Tamanna Rice MD) Preop cardiovascular exam (Acute) Smoker (Acute) G tube feedings (Acute) Incisional pain (Acute) Metabolic encephalopathy (Acute) Aspiration pneumonia (Acute) post CVA. Resolved CVA (cerebral vascular accident) (Acute). Residual Left sided weakness Recurrent epistaxis (Acute) PFO (patent foramen ovale) (Acute) Seizure disorder (Acute) Vision blurring (Acute) Generalized anxiety disorder (Acute) Hydrocele (Acute) Positive colorectal cancer screening using Cologuard test (Acute) Erectile dysfunction (Acute) Scrotal sac enlargement (Acute) Hearing deficit (Acute) Vision changes (Acute) Colonoscopy refused (Acute) Colon cancer screening (Acute) Annual physical exam (Acute) Cervical radiculopathy (Acute) Painful arc syndrome of left shoulder (Acute) Shoulder pain, left (Acute) Hospital discharge follow-up (Acute) S/P cardiac catheterization (Acute). Stent 07/21. On plavix STEMI (ST elevation myocardial infarction) (Acute). Denies recent chest pain Vision changes (Acute) Otitis media (Acute) Hypercholesterolemia (Acute) Peripheral arterial disease (Acute) Tobacco abuse (Acute) COPD (chronic obstructive pulmonary disease) (Acute) CAD (coronary artery disease) (Acute) GERD (gastroesophageal reflux disease) (Acute) Chronic low back pain (Acute) Past Medical History Medical History Smoker Aspiration pneumonia Metabolic encephalopathy PFO (patent foramen ovale) CVA (cerebral vascular accident) Hypercholesterolemia Peripheral arterial disease Tobacco abuse COPD (chronic obstructive pulmonary disease) CAD (coronary artery disease) GERD (gastroesophageal reflux disease) Chronic low back pain Family History Family History Father Hypertension Mother Hypertension Brother In good health Brother In good health Sister In good health Sister In good health Son In good health Son In good health Son In good health Son In good health Family history of problems with anesthesia: No Surgical History Surgical History S/P cardiac catheterization History of coronary artery stent placement History of aorto-femoral bypass History of Problems with Anesthesia: No Social History Social History Housing: House Alcohol intake: current Alcohol intake frequency: holidays/special occasions only Patient Tobacco Use Status: Current someday Tobacco user Tobacco use type: Cigarette Cigarettes Per Day: 10 Years Smoked: 55 +/- Smoked in Last 30 Days: Yes e-Cigarette/Vaping Use: Never Used Second Hand Smoke Exposure: Yes Are you DNR?: No Advance Directives: No Advance Directives Information Provided: Yes Advance Directives on File: No service: No Current occupational status: employed Cognitive needs: Yes Hearing needs: No Vision needs: No Meds Allergies Allergy/AdvReac Type Severity Reaction Status Date / Time No Known Allergies Allergy Verified 01/12/23 13:44 [No Known Allergies*] Home Medications Medication Instructions Recorded Confirmed Last Taken Type bisacodyl 10 mg rectal suppository 10 mg WI DAILY PRN 10/13/22 01/12/23 Unknown History multivitamin 1 tab PO DAILY 10/27/22 01/12/23 Unknown History metoprolol tartrate 25 mg tablet 12.5 mg PO BID 12/22/22 01/12/23 Unknown History Exam Height,Weight and Vital Signs: Height 5 ft 5 in Weight 65.998 kg Vital Signs Temp Pulse Resp BP Pulse Ox O2 Del Method 01/14/23 11:42 98.0 F 52 18 126/70 97 Room Air Airway Mallampati Class: II TM Dist: >3cm Neck ROM: Full Loose/Missing/Broken Teeth: Yes (Edentulous) Heart: RRR Lungs: Occasional wheezes. Does not use inhalers Assessment and Plan Assessment Anesthesia Assessment: Anesthesia Plan Discussed Final Anesthetic Review Family History of Problems with Anesthesia: No History of Problems with Anesthesia: No NPO: Yes ASA Class: IV Final Preanesthetic Review: No Changes in Pt Med Stat, Meds/Allgs Chart Reviewed, Consent Obtained/Reviewed and Anes Risks/Benef Reviewed Patient Risk: High Procedure Risk: Low Assessment/Block/Sedation in SS: Assess/Block/Sedation-SS Anesthetic Plan Anesthetic Plan: MAC: Disposition: Standard PACU
--- OUTSIDE RECORDS SUMMARY | 2023-01-14 11:13 | XMS_ITS | Continuity of Care Document ---
Author Name Unknown Organization [facility] Address [address] [place] [phone]- Care Team Providers Care Presser And Shaper [employer]s Name Role Phone Po Jami FREDERICK Primary Care Physician Encounter 10/08/22 - 12/03/22 [facility] [address] [place] [id number]- Discharge Disposition: GOALS MET Allergies, Adverse Reactions, Alerts No Known Allergies Immunizations Given and Recorded Vaccine Date Status Refusal Reason SARS-CoV-2 (COVID-19) mRNA BNT-162b2 vac 09/23/20 Recorded SARS-CoV-2 (COVID-19) mRNA BNT-162b2 vac 09/02/20 Recorded Medications acetaminophen 325 mg oral tablet 650 mg, 2, tablet, Nasogastric Tube, Every 6 hours, PRN, Refills 0, Maintenance, Pain , Mild, 09/17/22 14:14:00 EDT, Partial fill upon patient request if the prescription is for a schedule II opioid drug. Start Date: 09/17/22 Status: Ordered Aspirin Low Dose 81 mg oral delayed release tablet 1 tablet = 81 mg, By Mouth, Daily, Maintenance, 08/26/22 12:04:00 EDT, EC Tablet, Partial fill uponpatient request if the prescription is for a schedule II opioid drug. Start Date: 08/26/22 Status: Ordered bisacodyl 10 mg rectal suppository 1 supp = 10 mg, Rectally, Daily, PRN Constipation, 0 Refills, Maintenance, 09/17/22 14:13:00 EDT, Suppository, Partial fill upon patient request if the prescription is for a schedule II opioid drug. Start Date: 09/17/22 Status: Ordered Enoxaparin 0.4 mL = 40 mg, Subcutaneous Injection, Daily, 0 Refills, Maintenance, 09/17/22 14:13:00 EDT, Injection, Partial fill upon patient request if the prescription is for a schedule II opioid drug. Start Date: 09/17/22 Status: Ordered lactulose 10 gm/15 ml oral syrup 30 mL = 20 Gm, Nasogastric Tube, 4 times a day, PRN Constipation, 0 Refills, Maintenance, 09/17/22 14:14:00 EDT, Syrup, Partial fill upon patient request if the prescription is for a schedule II opioid drug. Start Date: 09/17/22 Status: Ordered metoprolol 25 mg oral tablet 12.5 mg, 0.5, tablet, By Mouth, 2 times a day, Refills 0, Maintenance, 09/17/22 16:11:00 EDT, Partial fill upon patient request if the prescription is for a schedule II opioid drug. Start Date: 09/17/22 Status: Ordered modafinil 100 mg oral tablet 2 tablet = 200 mg, By Mouth, Daily, 0 Refills, Maintenance, 09/17/22 14:14:00 EDT, Tablet, Partial fill upon patient request if the prescription is for a schedule II opioid drug. Start Date: 09/17/22 Status: Ordered Nicotine = 21 mg, Topically, Daily, 0 Refills, Maintenance, 09/17/22 14:14:00 EDT, Patch, Partial fill upon patient request if the prescription is for a schedule II opioid drug. Start Date: 09/17/22 Status: Ordered Plavix 75 mg oral tablet 75 mg, 1, tablet, Nasogastric Tube, Daily, Refills 0, Maintenance, 09/17/22 14:13:00 EDT, Partial fill upon patient request if the prescription is for a schedule II opioid drug. Start Date: 09/17/22 Status: Ordered Remove Patch 1 each, Topically, Daily, 0 Refills, Maintenance, Patch Start Date: 09/17/22 Status: Ordered rosuvastatin 40 mg oral tablet 1 tablet = 40 mg, By Mouth, Daily, Maintenance, 08/26/22 12:05:00 EDT, Tablet, Partial fill upon patient request if the prescription is for a schedule II opioid drug. Start Date: 08/26/22 Status: Ordered Salinex [place] 1 sprays, Nares, Both, 4 times a day, PRN Other, dryness, 0 Refills, Maintenance, 09/17/22 14:14:00EDT, Nasal [place], Partial fill upon patient request if the prescription is for a schedule II opioiddrug. Start Date: 09/17/22 Status: Ordered Salinex [place] 1 sprays, Nares, Both, 2 times a day, dryness, 0 Refills, Maintenance, 09/17/22 14:14:00 EDT, NasalSpray, Partial fill upon patient request if the prescription is for a schedule II opioid drug. Start Date: 09/17/22 Status: Ordered sildenafil 100 mg oral tablet 1 tablet = 100 mg, By Mouth, Daily, 1 hour before sexual activity, Maintenance, 08/26/22 12:04:00 EDT, Tablet, Partial fill upon patient request if the prescription is for a schedule II opioid drug. Start Date: 08/26/22 Status: Ordered thiamine 100 mg oral tablet 100 mg, 1, tablet, By Mouth, Daily, Refills 0, Maintenance, 09/17/22 14:14:00 EDT, Partial fill upon patient request if the prescription is for a schedule II opioid drug. Start Date: 09/17/22 Status: Ordered traZODone 50 mg oral tablet 25 mg, 0.5, tablet, By Mouth, Daily at bedtime, Refills 0, Maintenance, 09/17/22 14:14:00 EDT, Partial fill upon patient request if the prescription is for a schedule II opioid drug. Start Date: 09/17/22 Status: Ordered Problem List Condition Confirmation Course Effective Dates Status H ealth Status Informant CAD (coronary artery disease) Confirmed Active Dyslipidemia Confirmed Active Hyperlipidemia Confirmed Active Hypertension Confirmed Active Current smoker Confirmed Active Social History Social History Type Response Smoking Status Former smoker; Type: Cigarettes; Other: Quit in July 02 after surgery; entered on: 08/01/14 Sex Male Patient Care team information Care Team Personnel Name: Edi Carreon RN Position: [facility] RN Member Role: Primary Care Nurse Name: Jeromy Nova RN Position: S RN Member Role: Primary Care Nurse Name: Eulalia Santos RN Position: S RN Member Role: Primary Care Nurse Name: Lulu Soriano RN Position: S RN Member Role: Primary Care Nurse Name: Miller Campbell RN Position: S RN Member Role: Primary Care Nurse Name: Kia Louis RN Position: S RN Member Role: Primary Care Nurse Name: Grant Austin RN Position: S RN Member Role: Primary Care Nurse Name: Albert Pierce MD Position: [facility] Cardiology MD Member Role: Lifetime Consulting Physician Address: Address: [address] [place] [address] [facility] [place] [address]- Name: Mirela Andrade Position: S RN Member Role: Primary Care Nurse Name: Jami Martin MD Position: Reference Physician Member Role: PCP Address: Address: [address] [place] [address] - Name: Karoline Reid RN Position: S RN Member Role: Primary Care Nurse Name: Taylor Christopher RN Position: [facility] RN Supv Member Role: Primary Care Nurse Care Team Related Persons Name: SISSY POWER Address: [address] [address]
--- OUTSIDE RECORDS SUMMARY | 2023-01-14 11:13 | XMS_ITS | Continuity of Care Document ---
Author Name Unknown Organization [facility] Address [address] [place] [id number]- Care Team Providers Care Inspector Floor Sub Assembly Name Role Phone Po Jami FREDERICK Primary Care Physician Encounter [facility] [place] Date(s): 11/04/22 - 11/04/[address] [address]- Encounter Diagnosis Skin infection at gastrostomy tube site(Final) - 11/04/22 Discharge Disposition: A-D/C Home Attending Physician: Dana Dougherty MD Admitting Physician: Dana Dougherty MD Referring Physician: Not on Staff, Referring MD Allergies, Adverse Reactions, Alerts No Known Allergies [...] opioid drug. Start Date: 09/17/22 Status: Ordered cephalexin monohydrate 500 mg oral capsule 1 capsule = 500 mg, By Mouth, 4 times a day, for 7 days, # 28 capsule, 0 Refills, Acute 11/11/22 19:57:00 EDT, 11/04/22 19:57:00 EDT, Capsule, [facility]/pharmacy #[id number], Partial fill upon patient request ifthe prescription is for a schedule II opioid drug.,... Start Date: 11/04/22 Stop Date: 11/11/22 Status: Ordered doxycycline hyclate 100 mg oral capsule 1 capsule = 100 mg, By Mouth, Every 12 hours, for 7 days, # 14 capsule, 0 Refills, Acute 11/11/22 19:56:00 EDT, 11/04/22 19:56:00 EDT, Capsule, [facility]/pharmacy #[id number], Partial fill upon patient request if the prescription is for a schedule II opioid drug.... Start Date: 11/04/22 Stop Date: 11/11/22 Status: Ordered Enoxaparin 0.4 mL = 40 [...] drug. Start Date: 08/26/22 Status: Ordered Salinex [place] 1 sprays, Nares, Both, 4 times a day, PRN Other, dryness, 0 Refills, Maintenance, 09/17/22 14:14:00EDT, Nasal [place], Partial fill upon patient request if the prescription is for a schedule II opioiddrug. Start Date: 09/17/22 Status: Ordered Salinex [place] 1 sprays, Nares, Both, 2 times a [...] Hypertension Confirmed Active Current smoker Confirmed Active Results Radiology Reports * Exam Date Time Procedure Performing Provider Status 11/04/22 6:[address] Abd/Pelvis W/ IV Contrast Only Tony ChristianoTrinity; Auth (Verified) Notes: (CT Abd/Pelvis W/ IV Contrast Only) Reason For Exam: stoma purulent fluid;Other: RESULT: CT Abd/Pelvis W/ IV Contrast Only CT Abd/Pelvis W/ IV Contrast Only Hx of Present Illness: ? G tube infection . tube has not been used for feeding since august. tube place after stroke in july of 2022 . now able to eat and not have feedings; Reason: Other:; stoma purulent fluid; Clinical Question(s): Abscess; stoma infection; Order Comment: TECHNIQUE: Spiral CT through the abdomen and pelvis with IV contrast formatted in 3 planes. 75 cc of Omnipaque 300 was administered intravenously. This study was performed without oral contrast. Weight-based protocol using automatic tube modulation was used to optimize exposure parameters. CTDIvol Body: 12.30 mGy, DLP Body: 675 mGy*cm. COMPARISON: None. FINDINGS: Bootmaker Hand View Findings, Lines and Tubes: None. Visualized Chest: Lung bases are clear. No pleural effusion. The heart is normal in size. No pericardial effusion. Diaphragm: Normal. Liver: Normal. Gallbladder: No CT evidence of gallbladder pathology. Bile ducts: No biliary ductal dilation. Spleen: Normal. Pancreas: Atrophic. Adrenal glands: Normal. Kidneys and ureters: No hydronephrosis, stones, or suspicious masses. Bilateral cysts again noted, not significantly changed. Bladder: Evaluation limited by nondistended state. No abnormalities identified given this limitation. Reproductive organs: Unremarkable. Stomach, small bowel, and large bowel: Evaluation of the gastrointestinal tract limited without enteric contrast. There is a G-tube with the tip and balloon in the stomach. There is no evidence for bowel obstruction. No significant retention of stool or constipation. No diverticulitis or colitis.. Appendix: Normal. Peritoneum and retroperitoneum: No ascites or pneumoperitoneum. No omental or mesenteric lesions. Lymph nodes: No enlarged lymph nodes. Blood vessels: Stable appearance of aortoiliac bypass. No aneurysm. Abdominal and pelvic wall: There is no skin thickening, subcutaneous edema, or abscess seen along the course of the G-tube tract. Bones: No acute abnormality. Lumbosacral fusion hardware is intact. IMPRESSION: Well-positioned G-tube. There is no skin thickening, subcutaneous edema, or abscess seen along the course of the G-tube tract. No acute intra-abdominal pathology is identified. WSN: [id number] Ordering Physician: Farnaz Nix Dictated By: Hong Ceballos MD Dictated Date/Time: 11/04/22 7:09 pm Reviewed By: Hong Ceballos MD Signed By: Hong Ceballos MD Signed Date/Time: 11/04/22 7:09 pm Transcribed By: ISACC Transcribed Date/Time: 11/04/22 7:02 pm Vital Signs Most recent to oldest [Reference Range]: 1 Height 158 cm (11/04/22 10:07 AM) Oxygen Saturation [94-100 %] 98 % (11/04/22 10:07 AM) Pulse Rate [55-90 bpm] 58 bpm (11/04/22 10:07 AM) Blood Pressure [90-138/55-84 mm Hg] 117/ 69mm Hg (11/04/22 10:07 AM) Respiratory Rate [16-30 br/min] 18 br/mi n (11/04/22 10:07 AM) Temperature [96.8-100.4 DegF] 97.5 DegF (11/04/22 10:07 AM) Mode of Delivery (Oxygen) Room air (11/04/22 10:07 AM) Blood pressure sites Arm, left (11/04/22 10:07 AM) Temperature Route Oral (11/04/22 10:07 AM) Dry Weight 66.5 kg (11/04/22 10:07 AM) Dry Weight Obtained Via Patient/family s tated (11/04/22 10:07 AM) Social History Social History Type Response Smoking Status Former smoker; Type: Cigarettes; Other: Quit in July 02 after surgery; entered on: 08/01/14 Sex Male Patient Care team information Care Team Personnel Name: Julieta Marie RN Position: [facility] RN Member Role: Primary Care Nurse Name: Edi Carreon RN Position: [facility] RN Member Role: Primary Care Nurse Name: Jeromy Nova RN Position: [facility] RN Member Role: Primary Care Nurse Name: Eulalia Santos RN Position: [facility] RN Member Role: Primary Care Nurse Name: Lulu Soriano RN Position: [facility] RN Member Role: Primary Care Nurse Name: Miller Campbell RN Position: [facility] RN Member Role: Primary Care Nurse Name: Kia Louis RN Position: [facility] RN Member Role: Primary Care Nurse Name: Grant Austin RN Position: [facility] RN Member Role: Primary Care Nurse Name: Albert Pierce MD Position: [facility] Cardiology MD Member Role: Lifetime Consulting Physician Address: Address: [address] [place] [address] [facility] [place] [place] - Name: Mirela Andrade Position: [facility] RN Member Role: Primary Care Nurse Name: Jami Martin MD Position: Reference Physician Member Role: PCP Address: Address: [address] [place] [address] - Name: Karoline Reid RN Position: [facility] RN Member Role: Primary Care Nurse Name: Taylor Christopher RN Position: [facility] RN Supv Member Role: Primary Care Nurse Name: Concepcion Flores Position: [facility] ED TA [facility] Name: John Bowman RN Position: [facility] ED RN W/OE and Tasks Member Role: Patient Care Provider Name: Dana Dougherty MD Position: [facility] Resident Member Role: Admitting Physician Address: Address: [address] [place] [id number]- [place] Name: Farnaz Nix MD Position: [facility] Resident Member Role: ED Resident Address: Address: [address] [place] [id number]- Care Team Related Persons Name: SISSY POWER Address: home [address] [place] [address]
--- OUTSIDE RECORDS SUMMARY | 2023-01-14 11:13 | XMS_ITS | Continuity of Care Document ---
Author Name Unknown Organization [facility] Address [address] [facility], 3r d Floor, [address] [place] [id number]- Care Team Providers Care Security Installation Technician Name Role Phone Po Jami FREDERICK Primary Care Physician [phone] Encounter [facility] [place] Date(s): 11/24/22 - 12/24/22 [facility] [address], 3[address] Floor, [address] [place] [address]- Attending Physician: David Ambriz Admitting Physician: AdmtrDavid Referring Physician: Admtr, [id number] Allergies, Adverse Reactions, Alerts No Known Allergies [...] drug. Start Date: 08/26/22 Status: Ordered Salinex [place] 1 sprays, Nares, Both, 4 times a day, PRN Other, dryness, 0 Refills, Maintenance, 09/17/22 14:14:00EDT, Nasal [place], Partial fill upon patient request if the prescription is for a schedule II opioiddrug. Start Date: 09/17/22 Status: Ordered Salinex [place] 1 sprays, Nares, Both, 2 times a [...] Team Personnel Name: Edi Carreon RN Position: S RN Member Role: Primary Care Nurse Name: Jeromy Nova RN Position: S RN Member Role: Primary Care Nurse Name: Eulalia Santos RN Position: S RN Member Role: Primary Care Nurse Name: Lulu Soriano RN Position: S RN Member Role: Primary Care Nurse Name: Miller Campbell RN Position: [facility] RN Member Role: Primary Care Nurse Name: Kia Louis RN Position: S RN Member Role: Primary Care Nurse Name: Grant Austin RN Position: [facility] RN Member Role: Primary Care Nurse Name: Albert Pierce MD Position: [facility] Cardiology MD Member Role: Lifetime Consulting Physician Address: Address: [address] [place] [address] [place] [place] [address]- Name: Mirela Andrade Position: [facility] RN Member Role: Primary Care Nurse Name: Jami Martin MD Position: Reference Physician Member Role: PCP Address: Address: [address] [place] [id number]- Name: Karoline Reid RN Position: [facility] RN Member Role: Primary Care Nurse Name: Taylor Christopher RN Position: [facility] RN Supv Member Role: Primary Care Nurse Care Team Related Persons Name: SISSY POWER Address: home [address] [place] [id number]
--- OUTSIDE RECORDS SUMMARY | 2023-01-14 11:13 | XMS_ITS | Continuity of Care Document ---
Author Name Unknown Organization [facility] Address [address] [place] [id number]- Care Team Providers Care Deadener Name Role Phone Po Jami FREDERICK Primary Care Physician Encounter [facility] Date(s): 10/05/22 - 11/04/[address] [address] Attending Physician: Not on Staff, Attending MD Admitting Physician: Not on Staff, Admitting MD Referring Physician: Not on Staff, Referring [...] 11/11/22 19:57:00 EDT, 11/04/22 19:57:00 EDT, Capsule, [facility]/pharmacy #[id number], Partial fill upon patient request ifthe prescription is for a schedule II opioid drug.,... Start Date: 11/04/22 Stop Date: 11/11/22 Status: Ordered doxycycline hyclate 100 mg oral capsule 1 capsule = 100 mg, By Mouth, Every 12 hours, for 7 days, # 14 capsule, 0 Refills, Acute 11/11/22 19:56:00 EDT, 11/04/22 19:56:00 EDT, Capsule, [facility]/pharmacy #[id number], Partial fill upon patient request if [...] drug. Start Date: 08/26/22 Status: Ordered Salinex [place] 1 sprays, Nares, Both, 4 times a day, PRN Other, dryness, 0 Refills, Maintenance, 09/17/22 14:14:00EDT, Nasal [place], Partial fill upon patient request if the prescription is for a schedule II opioiddrug. Start Date: 09/17/22 Status: Ordered Salinex [place] 1 sprays, Nares, Both, 2 times a [...] Team Personnel Name: Julieta Marie RN Position: [facility] RN Member Role: Primary Care Nurse Name: Edi Carreon RN Position: [facility] RN Member Role: Primary Care Nurse Name: Jeromy Nova RN Position: S RN Member Role: Primary Care Nurse Name: Eulalia Santos RN Position: S RN Member Role: Primary Care Nurse Name: Lulu Soriano RN Position: [facility] RN Member Role: Primary Care Nurse Name: Miller Campbell RN Position: [facility] RN Member Role: Primary Care Nurse Name: Kia Louis RN Position: [facility] RN Member Role: Primary Care Nurse Name: Grant Austin RN Position: [facility] RN Member Role: Primary Care Nurse Name: Albert Pierce MD Position: [facility] Cardiology MD Member Role: Lifetime Consulting Physician Address: Address: [address] [place] [address] [facility] [place], [place] [address] Name: Mirela Andrade Position: [facility] RN Member Role: Primary Care Nurse Name: Jami Martin MD Position: Reference Physician Member Role: PCP Address: Address: [address] [place] [phone]- Name: Karoline Reid RN Position: S RN Member Role: Primary Care Nurse Name: Taylor Christopher RN Position: [facility] RN Supverito Member Role: Primary Care Nurse Care Team Related Persons Name: SISSY POWER Address: home [address] [place] [address]
--- OUTSIDE RECORDS SUMMARY | 2023-01-14 11:13 | XMS_ITS | Continuity of Care Document ---
Author Name Unknown Organization [facility] Address [address] [facility], 3r d Floor, [address] [place] [phone]- Care Team Providers Care Client Services Coordinator Name Role Phone Po Jami FREDERICK Primary Care Physician [place] [facility] [place]): [place] - 12/24/22 [facility] [address], [address] Floor, [address] [place] [id number]- Attending Physician: Marisela Chavez MD Admitting Physician: Marisela Chavez MD Allergies, Adverse Reactions, Alerts No Known [...] drug. Start Date: 08/26/22 Status: Ordered Salinex [place] 1 sprays, Nares, Both, 4 times a day, PRN Other, dryness, 0 Refills, Maintenance, 09/17/22 14:14:00EDT, Nasal [place], Partial fill upon patient request if the prescription is for a schedule II opioiddrug. Start Date: 09/17/22 Status: Ordered Salinex [place] 1 sprays, Nares, Both, 2 times a [...] Care Nurse Name: Miller Campbell RN Position: [facility] RN Member Role: Primary Care Nurse Name: Kia Louis RN Position: S RN Member Role: Primary Care Nurse Name: Grant Austin RN Position: S RN Member Role: Primary Care Nurse Name: Albert Pierce MD Position: [facility] Cardiology MD Member Role: Lifetime Consulting Physician Address: Address: [address] [place] [address] [place] [address]- Name: Mirela Andrade Position: [facility] RN Member Role: Primary Care Nurse Name: Jami Martin MD Position: Reference Physician Member Role: PCP Address: Address: [address] [place] [address]- Name: Karoline Reid RN Position: [facility] RN Member Role: Primary Care Nurse Name: Taylor Christopher RN Position: [facility] RN Supv Member Role: Primary Care Nurse Care Team Related Persons Name: SISSY POWER Address: [address] [address]
--- OUTSIDE RECORDS SUMMARY | 2023-01-14 11:13 | XMS_ITS | Continuity of Care Document ---
Author Name Unknown Organization [facility] ter Address [address] [place] [id number] Care Team Providers Care Oracle Adf Developer Name Role Phone Po Jami FREDERICK Primary Care Physician [phone] [facility] Date(s): 08/26/22 - 09/17/[address] [id number]- Encounter Diagnosis CVA (cerebral vascular accident)(Final) - 08/26/22 Discharge Disposition: Transferred to short-term general hospit Attending Physician: Laxmi Santizo MD Admitting Physician: Juan Rust MD Referring Physician: Not on Staff, Referring [...] opioid drug. Start Date: 09/17/22 Status: Ordered acetaminophen 325 mg oral tablet 650 mg, Tablet, Nasogastric Tube, Every 6 hours, PRN for Pain , Mild, Routine, 08/30/22 13:01:00 EDT Start Date: 08/30/22 Stop Date: 09/18/22 Status: Discontinued Aspirin Low Dose 81 mg oral delayed [...] metoprolol 25 mg oral tablet 12.5 mg, Tablet, By Mouth, 09/17/22 9:00:00 EDT Start Date: 09/17/22 Stop Date: 09/17/22 Status: Completed modafinil 100 mg oral tablet 2 tablet [...] drug. Start Date: 08/26/22 Status: Ordered Salinex [place] 1 sprays, Nares, Both, 4 times a day, PRN Other, dryness, 0 Refills, Maintenance, 09/17/22 14:14:00EDT, Nasal [place], Partial fill upon patient request if the prescription is for a schedule II opioiddrug. Start Date: 09/17/22 Status: Ordered Salinex [place] 1 sprays, Nares, Both, 2 times a [...] Confirmed Active Current smoker Confirmed Active Results Orders for Microbiology Reports Name Date Blood Culture 09/16/22 Blood Culture #2 09/16/22 Blood Culture 09/04/22 Blood Culture #2 09/04/22 Sputum Culture w/ Gram Smear 08/27/22 Blood Culture 08/27/22 Blood Culture #2 08/27/22 Microbiology Reports TEST:Blood Culture STATUS:Unauthenticated BODY SITE: SOURCE:Blood COLLECTED DATE/TIME:09/16/22 11:03 AM Blood Culture SPECIMEN DESCRIPTION : BLOOD R ARM SPECIAL REQUESTS : NONE CULTURE : NO GROWTH AFTER 24 HOURS REPORT STATUS : PRELIMINARY REPORT TEST:Blood Culture, Second Order STATUS:Unauthenticated BODY SITE: SOURCE:Blood COLLECTED DATE/TIME:09/16/22 11:00 AM Blood Culture, Second Order SPECIMEN DESCRIPTION : BLOOD NO SITE SPECIAL REQUESTS : NONE CULTURE : NO GROWTH AFTER 24 HOURS REPORT STATUS : PRELIMINARY REPORT TEST:Blood Culture, Second Order STATUS:Auth (Verified) BODY SITE: SOURCE:Blood COLLECTED DATE/TIME:09/04/22 11:20 AM Blood Culture, Second Order SPECIMEN DESCRIPTION : BLOOD L SPECIAL REQUESTS : NONE CULTURE : NO GROWTH 5 DAYS. REPORT STATUS : FINAL 09/09/2022 TEST:Blood Culture STATUS:Auth (Verified) BODY SITE: SOURCE:Blood COLLECTED DATE/TIME:09/04/22 10:35 AM Blood Culture SPECIMEN DESCRIPTION : BLOOD R SPECIAL REQUESTS : NONE CULTURE : NO GROWTH 5 DAYS. REPORT STATUS : FINAL 09/09/2022 TEST:Blood Culture, Second Order STATUS:Auth (Verified) BODY SITE: SOURCE:Blood COLLECTED DATE/TIME:08/27/22 11:23 PM Blood Culture, Second Order SPECIMEN DESCRIPTION : BLOOD NO SITE SPECIAL REQUESTS : NONE CULTURE : NO GROWTH 5 DAYS. REPORT STATUS : FINAL 09/02/2022 TEST:Sputum Culture STATUS:Auth (Verified) BODY SITE: SOURCE:ENDOTR COLLECTED DATE/TIME:08/27/22 11:10 PM Sputum Culture SPECIMEN DESCRIPTION : ENDOTRACHEAL ASPIRATE SPECIAL REQUESTS : NONE GRAM STAIN : 2+ POLYMORPHONUCLEAR LEUKOCYTES 3+ GRAM POSITIVE COCCI 1+ GRAM NEGATIVE RODS CULTURE : 4+ STREPTOCOCCUS PNEUMONIAE. This isolate was identified using Maldi-TOF system These AST results were performed on the Microscan ID and AST system THIS PENICILLIN RESULT INDICATES SUSCEPTIBILITY FOR PENICILLIN THERAPY OF INFECTIONS AT ALL BODY SITES, INCLUDING CSF. FOR NONMENINGITIS ISOLATES, PENICILLIN MICS OF LESS THAN OR EQUAL TO 2.0 MCG/ML INDICATE SUSCEPTIBILITY TO AMOXICILLIN. REPORT STATUS : FINAL 08/30/2022 ORGANISM 4+ STREPTOCOCCUS PNEUMONIAE. This isolate was identified using Maldi-TOF system These AST results were performed on the Microscan ID and AST system METHOD MIN. INHIB. CONC. (MCG/ML) PENICILLIN SUSCEPTIBLE PENICILLIN PEN TRACY <0.03 CEFTRIAXONE SUSCEPTIBLE ERYTHROMYCIN SUSCEPTIBLE LEVOFLOXACIN SUSCEPTIBLE MEROPENEM SUSCEPTIBLE TETRACYCLINE SUSCEPTIBLE TRIMETH/SULFAMETHOX SUSCEPTIBLE CEFTRIAXONE(MENINGIT SUSCEPTIBLE TEST:Blood Culture STATUS:Auth (Verified) BODY SITE: SOURCE:Blood COLLECTED DATE/TIME:08/27/22 10:49 PM Blood Culture SPECIMEN DESCRIPTION : BLOOD RFA SPECIAL REQUESTS : NONE CULTURE : NO GROWTH 5 DAYS. REPORT STATUS : FINAL 09/02/2022 Radiology Reports (Most Recent Ten) * Exam Date Time Procedure Performing Provider Status 09/16/22 12:35 PM IR End of Case Report Au th (Verified) IR End of Case Report * Exam Date Time Procedure Performing Provider Status 09/16/22 1:36 PM IR Insert Gastrostomy Tube Auth (Verified) Notes: (IR Insert Gastrostomy Tube) Reason For Exam: Dysphagia;Other: IR Insert Gastrostomy Tube Patient: CATIE MARTINEZ Study Date: 09/16/2022 Performing: Lex Benitez MD Referring: : 1955 Age: 67 Gender: MALE Pre-procedure diagnosis and Indication: Request for G-tube dyphagia 67 year old Bosnian speaking male with past history significant for CAD (STEMI s/p GERA to RCA 1 in 2014 and x 2 in 2018), CVA without deficits in June 2021 on DAPT, hyperlipidemia, inhaled tobacco use disorder who initially presented 08/25 with sudden onset vision change and right facial droop and in the ED became unresponsive with sonorous breathing, right eye deviation and right upper extremity jerks requiring intubation. CT head/CTA with basilar true occlusion and was out of window for TNK and taken for basilar arterial stent placement. Exam: Prior to the procedure, the patient was seen and the nature of the procedure explained along with its attendant risks and benefits to a family member over the phone . Informed consent was obtained from, a family member over the phone . The patient underwent a pre-anesthesia assessment. On completion of this it was determined the patient is suitable for moderate sedation. The patient arrived in IR room 1 for a gastrostomy tube insertion PROCEDURE: The patient was positioned supine and secured with arm boards. The access site was evaluated, then prepped with chloraprep and draped in the usual sterile fashion. Patient received moderate sedation administered under my direct supervision. Local anesthetic was given and Using multiplanar fluoroscopy and with substantial difficulty as the patient is unable to retain much in the way of gas to distend the stomach or to displace the heavily opacified transverse colon out of the way t-fasteners were used to secure the stomach contrast was used to verify placement of each. A 18g needle was inserted into the area that had been secured with the T fasteners and a wire was inserted. A serial dilator was used to dilate the tract and a , 16 FR gastrostomy tube.was inserted the retention balloon was filled to a volume of 5 ml's of water at a depth of 3 cm. contrast injected to check placement of new tube and the tube was secured using 0 prolene suture. , 16 FR gastrostomy tube . and patient tolerated the procedure well with no complications of the procedure Tube inserted: Yevgeniyyard (Avanos) GASTROSTOMY TUBE ENFIT 16FR - Qty: 1 Each Part #: [id number] Requires extended level of service as it is difficult to see a clear way to the stomach. This patient unable to hold gas in. The heavily opacified transverse colon was also obscuring view of the stomach required multiple orientations with multiplanar imaging to identify a safe tract in the stomach well beyond the usual level of service required for G-tube insertion. estimated blood loss was minimal Specimens/samples: no specimens or samples were sent for this procedure Patient transferred [address] Post procedure instructions sent in envelope with the patient Impression: Satisfactory ultrasound and fluoroscopically guided placement of a gastrostomy tube patient tolerated the procedure well with no complications of the procedure Please Note: Arrangements should be made for the patent to have the 3 retention sutures removed in 10-14 days. The sutures are held in place by 1cm diameter buttons on the skin. Cut these. Do not cut the any suture encircling the G-tube collar. 1. The G-tube can be used after 6 hours if clear gastric juices are draining from the G-tube and there is no evidance of peritoneal irritation (i.e. no abdominal pain, or tenderness, normal bowel sounds). 2. Please consult with nutrition service concerning starting g-tube feeds. 3. When initiating G-tube feeds have the patient in right side down decubitus. 4. Written instructions and other information concerning G-tubes were given to [ ] and/or also placed in the patients chart. These orders were entered into [facility]. 5. We recommend that the patient return for removal of the retention sutures 10-14 days after G-tube placement. The sutures should not remain in place longer than 2 weeks.. 6. Please ensure that the white port on the hub of the catheter is used for balloon inflation and deflation only. This port should only be manipulated by an interventional radiologist. This should not be used for flushing or administration of feeds. 7. We recommend that G-tubes of this type be replaced at 3 month intervals to avoid inadvertent loss of access due to deterioration in the G-tube retention balloon material. We will make arrangements. TO PREVENT CLOGGING OF THE G-TUBE FLUSH VIGOROUSLY WITH 30ML OF WATER AFTER EACH FEEDING. WHENEVER POSSIBLE GIVE MEDICATIONS IN LIQUID FORM; IF SOLID MEDICATIONS ARE ABSOLUTELY REQUIRED HAVE THE MEDICATIONS GROUND TO A FINE PASTE (preferably by a compounding pharmacy) SUSPEND IN WATER AND FLUSH AFTER EACH DOSE. IF CLUMPS OF MEDICATION ARE SEEN IN THE SUSPENSION, RESUSPEND. Fluoroscopy time and dose Total Fluoro Time: 4.3 mins Total dose 150 mGy Total DAP 1126.6 - ?Gy/m2 Contrast used Contrast used: Omnipaque_300 20 ml's Local Anesthetic Lidocaine 1% w/ 4.2% sodium bicarbonate 10 ml's SQ Bupivacaine 0.5% 10 ml's SQ Moderate sedation was provided From 13:06:00 to 13:30:00 Moderate Sedation Agent Dose Route Time By Fentanyl 25 mcg IV 13:06:44 LC Versed 0.5 mg IV 13:06:50 LC Fentanyl 25 mcg IV 13:24:42 LC Signed By Lex Benitez MD On 09/16/2022 13:42:35 Lex Benitez MD Dictated By: Lex Benitez MD Dictated Date/Time: 09/16/22 12:35 p Reviewed By: Lex Benitez MD Signed By: Lex Benitez MD Signed Date/Time: 09/16/22 1:36 pm Transcribed By: [facility] Transcribed Date/Time: 09/16/22 1:36 pm * Exam Date Time Procedure Performing Provider Status 09/15/22 9:16 PM Chest Portable Jostin Joy; Auth (Ve rified) Notes: (Chest Portable) Reason For Exam: Tube Placement RESULT: Chest Portable Chest Portable Reason: Tube Placement; Clinical Question(s): Tube Placement COMPARISON: 09/04/2022 FINDINGS: LINES AND TUBES: Central venous catheter tip in the SVC/RA junction area. Enteric tube tip in the stomach. LUNGS AND PLEURA: Clear lungs. Normal pulmonary vascularity. No pleural effusion. No pneumothorax. HEART, MEDIASTINUM AND CASSANDRA: Heart is normal in size. Normal mediastinal and hilar contour. BONES AND SOFT TISSUES: No acute abnormality. IMPRESSION: PICC line and enteric tube appear in good position. WSN: [id number] Ordering Physician: Yared Roberts Dictated By: Dario Pond MD Dictated Date/Time: 09/15/22 9:59 pm Reviewed By: Dario Pond MD Signed By: Dario Pond MD Signed Date/Time: 09/15/22 9:59 pm Transcribed By: ISACC Transcribed Date/Time: 09/15/22 9:59 pm * Exam Date Time Procedure Performing Provider Status 09/10/22 10:32 AM Modified Barium Swal low W/ Speech (Radio Ramon , Antonina; Auth (Verified) Notes: (Modified Barium Swallow W/ Speech (Radio) Reason For Exam: Aspiration;Aspiration RESULT: Modified Barium Swallow W/ Speech (Radio Modified Barium Swallow WITH SPEECH PATHOLOGY CLINICAL INDICATION: Reason: Aspiration; Clinical Question(s): Aspiration; Order Comment: Modified Barium Swallow W Speech (Radiology) Prep COMPARISON: None Technique: Lateral cine-videofluoroscopy was performed during the oral administration of various barium containing consistencies, as described below. Fluoroscopic imaging provided by Ceasar Ag PA-C. Pulsed fluoroscopy time: 2.1 minutes Dose Area Product (DAP): 123.4 uGy*m2 Findings: Honey, applesauce, pudding, and nectar barium consistencies were tested. Subglottic aspiration of nectar consistency was seen, prompting a cough response. Inconsistent deep laryngeal penetration was seen with Honey consistency. The oral and pharyngeal phases of swallowing were otherwise without evidence of laryngeal penetration or subglottic aspiration box revealed significant vallecular and piriform retention of food consistencies. IMPRESSION: Subglottic aspiration, laryngeal penetration and residuals as described. For dietary concerns or recommendations, please refer to speech pathologist report. By undersigning and finalizing the report, the attending radiologist confirms he/she has personallyreviewed and interpreted the images and agrees with the description of the findings. I have personally reviewed the images and I agree with this report. WSN: [id number] Ordering Physician: Atiya Souza Dictated By: Alvaro Rice Dictated Date/Time: 09/10/22 11:42 a Reviewed By: Ector Palencia MD, V Signed By: Ector Palencia MD, V Signed Date/Time: 09/10/22 11:47 am Transcribed By: ISACC Transcribed Date/Time: 09/10/22 9:56 am * Exam Date Time Procedure Performing Provider Status 09/08/22 2:56 PM US Doppler Ext Upper Venous Bilat Prov Dorcas ferrer (Verified) Notes: (US Doppler Ext Upper Venous Bilat) Reason For Exam: Swelling;Immobility RESULT: US Doppler Ext Upper Venous Bilat US Doppler Ext Upper Venous Bilat REASON: Swelling; Clinical Question(s): Thrombosis COMPARISON: None. IMAGING TECHNIQUE: Ultrasound examination of the bilateral upper extremity deep venous systems was performed using grayscale, color, and spectral wave analysis including response to compression. FINDINGS: RIGHT UPPER EXTREMITY: Internal jugular vein: Patent. No thrombosis. Subclavian vein: Patent. No thrombosis. Axillary vein: Patent. No thrombosis. Brachial vein: Patent. No thrombosis. Basilic vein: Patent. No thrombosis. Cephalic vein: Occlusive thrombus from the antecubital fossa to the mid arm measuring greater than 5 cm in length. LEFT UPPER EXTREMITY: Internal jugular vein: Patent. No thrombosis. Subclavian vein: Patent. No thrombosis. Axillary vein: Patent. No thrombosis. Brachial vein: Patent. No thrombosis. Basilic vein: Patent. No thrombosis. Cephalic vein: Patent. No thrombosis. IMPRESSION: Occlusive thrombus of the SUPERFICIAL cephalic vein from the antecubital fossa to the mid arm measure greater than 5 cm in length. No DEEP vein thrombosis in the upper arms bilaterally. Findings discussed by Abhi Díaz with Atiya Souza DO on 09/08/2022 at 3:20 PM. I have personally reviewed the images and I agree with this report. WSN: [id number] Ordering Physician: Atiya Souza Dictated By: Abhi Díaz DO Dictated Date/Time: 09/08/22 3:28 pm Reviewed By: Hong Cintron MD Signed By: Hong Cintron MD Signed Date/Time: 09/08/22 3:33 pm Transcribed By: ISACC Transcribed Date/Time: 09/08/22 3:20 pm * Exam Date Time Procedure Performing Provider Status 09/05/22 6:[address] Angio Neck Aisha Nicole; Auth (Verified) Notes: (CT Angio Neck) Reason For Exam: coughing up blood;Other: RESULT: CT Angio Neck CT Angio Neck Reason: Hemoptysis: TECHNIQUE: CT angiogram of the neck was performed after bolus administration of intravenous contrast. 100 mL of Omnipaque 300 was administered intravenously. Coronal and sagittal MIP reformatted images were obtained. All stenoses are measured using NASCET criteria. Weight-based protocol using automatic tube modulation was used to optimize exposure parameters. RADIATION DOSE PARAMETERS: COMPARISON: Noncontrast CT head performed concurrently. FINDINGS: CTA OF THE NECK: Arch: There is a three vessel aortic arch. The origins of the supra aortic vessels are patent. Right carotid system: The common carotid and cervical internal carotid arteries are patent. No stenosis (0%) by NASCET criteria. There is no dissection or aneurysm. Left carotid system: The common carotid and cervical internal carotid arteries are patent. No stenosis (0%) by NASCET criteria. There is no dissection or aneurysm. There is a right-dominant vertebral artery system. Right vertebral: No significant stenosis. No evidence of dissection or aneurysm. Left vertebral: No significant stenosis. No evidence of dissection or aneurysm. Other: Soft tissues and bones: No evidence of lymphadenopathy or mass. No active hemorrhage into the trachea or upper aerodigestive tract. There is some fluid- debris within the nasopharynx possibly relatedto secretions. IMPRESSION: Normal carotid and vertebral arteries. No tumor within the cervical trachea. No active hemorrhage within the visualized aerodigestive tract . WSN: [id number] Ordering Physician: Meet Keller Dictated By: Hong Ceballos MD Dictated Date/Time: 09/05/22 7:54 pm Reviewed By: Hong Ceballos MD Signed By: Hong Ceballos MD Signed Date/Time: 09/05/22 7:54 pm Transcribed By: ISACC Transcribed Date/Time: 09/05/22 7:49 pm * Exam Date Time Procedure Performing Provider Status 09/05/22 6:[address] Angio Chest Aisha Nicole; Auth (Verified) Notes: (CT Angio Chest) Reason For Exam: coughing up blood;Other: RESULT: CT Angio Chest CT Angio Chest INDICATION: Hemoptysis. TECHNIQUE: Spiral CTA of the chest was performed after rapid IV contrast administration without cardiac gating, triggered by an GUZMAN on the main pulmonary artery. Images are formatted in multiple planes using 2-D multiplanar and 3-D maximum intensity projection. 100 cc of Omnipaque 300 was administered intravenously. Weight-based protocol using automatic tube modulation was used to optimize exposure parameters. CTDIvol Body: 13.31 mGy, DLP Body: 698 mGy*cm. COMPARISONS: Chest CT performed 5 days ago dated 08/31/2022. ANGIOGRAPHIC FINDINGS: Evaluation is mildly limited by motion artifact. No pulmonary embolism to the subsegmental level. Normal caliber pulmonary arteries. No acute aortic abnormality seen on this study performed without cardiac gating. NON-ANGIOGRAPHIC FINDINGS: Truck Farmer View Findings, Lines and Tubes: None. Trachea and Airways: Patent without evidence of tracheal or endobronchial lesion. No site of activebleeding is identified. Lungs and Pleura: There are patchy indistinct groundglass opacities within the posterior medial dependent aspects of both lower lobes, slightly worse on the left. This is a nonspecific finding that can be seen in association with intra- alveolar blood of indeterminate etiology. No pleural effusion or pneumothorax. No consolidative pneumonia. Mediastinum and cassandra: No mass or hematoma. No mediastinal or hilar lymphadenopathy. No esophageal abnormality. Heart: Heart is normal in size. No pericardial effusion. Chest Wall Soft Tissues: Unremarkable. Diaphragm and upper abdomen: No significant abnormality. Bones: No acute abnormality. IMPRESSION: No evidence of pulmonary embolism. No active hemorrhage into the airway is identified. Patchy groundglass opacities within the posterior medial aspects of both lower lobes consistent with intra-alveolar blood. No endobronchial lesion is identified. No pulmonary mass is identified. WSN: [id number] Ordering Physician: Meet Keller Dictated By: Hong Ceballos MD Dictated Date/Time: 09/05/22 7:49 pm Reviewed By: Hong Ceballos MD Signed By: Hong Ceballos MD Signed Date/Time: 09/05/22 7:49 pm Transcribed By: ISACC Transcribed Date/Time: 09/05/22 7:41 pm * Exam Date Time Procedure Performing Provider Status 09/04/22 11:38 AM Shoulder Min 2 Views Left Avtar Peralta; Carmen (Verified) Notes: (Shoulder Min 2 Views Left) Reason For Exam: fall on , having left shoulder pain prior to intubation;Pain RESULT: Shoulder Min 2 Views Left Shoulder Min 2 Views Left, 2 views Reason: Pain; fall on , having left shoulder pain prior to intubation; Clinical Question(s): Fracture COMPARISON: None. FINDINGS: No fracture or dislocation. No arthritic change of the glenohumeral joint. Normal AC joint and portions of the clavicle included on the exam. No calcification of the rotator cuff. IMPRESSION: Normal. WSN: [id number] Ordering Physician: Elo Grissom Dictated By: Zafar Luna MD Dictated Date/Time: 09/04/22 2:53 pm Reviewed By: Zafar Luna MD Signed By: Zafar Luna MD Signed Date/Time: 09/04/22 2:53 pm Transcribed By: ISACC Transcribed Date/Time: 09/04/22 2:53 pm * Exam Date Time Procedure Performing Provider Status 09/04/22 3:57 AM Chest Portable [place]; Carmen (V erified) Notes: (Chest Portable) Reason For Exam: Hemoptysis RESULT: Chest Portable Chest Portable AP upright at 3:39 AM Reason: Hemoptysis; Clinical Question(s): Aspiration COMPARISON: Multiple priors, the most recent 09/03/2022 FINDINGS: LINES AND TUBES: Tip of endotracheal tube 2.2 cm above the aminata. Enteric tube in good position with tip and side-port in the stomach. LUNGS AND PLEURA: Clear lungs. Normal pulmonary vascularity. No pleural effusion. No pneumothorax. HEART, MEDIASTINUM AND CASSANDRA: Heart is normal in size. Normal mediastinal and hilar contour. BONES AND SOFT TISSUES: Normal. IMPRESSION: Tip of endotracheal tube 2.2 cm above the aminata. Enteric tube in good position. No acute disease. WSN: [id number] Ordering Physician: Valentina Jacinto Dictated By: Zafar Luna MD Dictated Date/Time: 09/04/22 10:46 a Reviewed By: Zafar Luna MD Signed By: Zafar Luna MD Signed Date/Time: 09/04/22 10:46 am Transcribed By: ISACC Transcribed Date/Time: 09/04/22 10:44 am * Exam Date Time Procedure Performing Provider Status 09/03/22 8:54 PM Elbow Min 3 Views Left Jostin Joy; Avtar ut (Verified) Notes: (Elbow Min 3 Views Left) Reason For Exam: Pain RESULT: Elbow Min 3 Views Left Elbow Min 3 Views Left CLINICAL INDICATION: Reason: Pain; Clinical Question(s): Other: COMPARISONS: None TECHNIQUE: 3 views of the left elbow were obtained. FINDINGS: No fracture or dislocation. No joint effusion. No foreign body. IMPRESSION: No fracture or dislocation. WSN: [id number] Ordering Physician: Braxton Braden Dictated By: Hong Ceballos MD Dictated Date/Time: 09/03/22 10:52 p Reviewed By: Hong Ceballos MD Signed By: Hong Ceballos MD Signed Date/Time: 09/03/22 10:52 pm Transcribed By: ISACC Transcribed Date/Time: 09/03/22 10:52 pm Vital Signs Most recent to oldest [Reference Range]: 1 2 3 Height 168 cm (09/15/22 3:40 PM) 168 cm (09/15/22 11:47 AM) 168 cm (09/15/22 7:35 AM) Weight 61.2 kg (09/17/22 5:05 AM) 61.8 kg (09/16/22 8:11 AM) 62.2 kg (09/16/22 3:37 AM) Oxygen Saturation [94-100 %] 99 % (09/17/22 3:00 PM) 98 % (09/17/22 11:00 AM) 100 % (09/17/22 7:00 AM) Pulse Rate [55-90 bpm] 82 bpm (09/17/22 3:00 PM) 90 bpm (09/17/22 11:51 AM) 90 bpm (09/17/22 7:00 AM) Body Mass Index [18.5-24.99 kg/m2] 24.38 kg/m2 (08/26/22 6:41 AM) Blood Pressure [90-138/55-84 mm Hg] 103/60mm Hg (09/17/22 3:00 PM) 116/66mm Hg (09/17/22 11:51 AM) 116/66mm Hg (09/17/22 7:00 AM) Respiratory Rate [16-30 br/min] 19 br/min (09/17/22 3:00 PM) 19 br/min (09/17/22 12:52 PM) 19 br/min (09/17/22 11:00 AM) Temperature [96.8-100.4 DegF] 97.8 DegF (09/17/22 3:00 PM) 98.5 DegF (09/17/22 11:00 AM) 98.0 DegF (09/17/22 7:00 AM) Liters per Minute 6 L/min (09/04/22 9:00 PM) 6 L/min (09/04/22 8:00 PM) 6 L/min (09/04/22 7:00 PM) Mode of Delivery (Oxygen) Room air (09/17/22 3:00 PM) Room air (09/17/22 11:00 AM) Room air (09/17/22 7:00 AM) Blood pressure sites Leg, right (09/17/22 3:00 PM) Leg, right (09/17/22 11:00 AM) Leg, left (09/17/22 7:00 AM) Temperature Route Temporal (09/17/22 3:00 PM) Temporal (09/17/22 11:00 AM) Temporal (09/17/22 7:00 AM) Dry Weight 68.8 kg (08/26/22 6:41 AM) Weight Obtained Via Bed scale (09/17/22 5:05 AM) Bed scale (09/16/22 8:11 AM) Bed scale (09/16/22 3:37 AM) Dry Weight Obtained Via Bed scale (08/26/22 6:41 AM) Social History Social History Type Response Smoking Status Former smoker; Type: Cigarettes; Other: Quit in July 02 after surgery; entered on: 08/01/14 Sex Note * Casi Velez RN: PERFORM Event Display: Discharge/Transfer Note Hospital Authored Date: [id number] Nursing Discharge Note Entered On: 09/17/2022 18:19 EDT Performed On: 09/17/2022 18:18 EDT by Casi Velez RN Nursing Discharge Note 2 Discharge Time : 09/17/2022 18:12 EDT Discharge Level of Care at Discharge : Inpatient Rehab Facility/Unit Discharge Nursing Homes/Rehab Facilities : [facility] Patient Left Unit Via : Ambulance Patient Accompanied Off Unit with : Ambulance/Chair Van Personnel Handover Given to Transport Personnel : Yes DC Instructions Provided & Signed by Pt : Unable Patient Understands D/C Instructions : Unable Patient Instructions Discharge Signed : Yes Did Pt have Specialty Bed or Wound Vac : No Casi Velez RN - 09/17/2022 18:18 EDT * Sukhdev FREDERICK, Laxmi: MODIFY, PERFORM, MODIFY Event Display: Discharge/Transfer Note Hospital Authored Date: [id number] Patient: ??MALIC, EMRUSH ? Age:??67 Years?Sex:??Male?:??1955?? 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 _ Discharge Medications Acetaminophen (acetaminophen 325 mg oral tablet)?650?Milligram?2?tablet?Nasogastric Tube?Every 6 hours?as needed?Pain , Mild Aspirin (Aspirin Low Dose 81 mg oral delayed release tablet)?1?tab(s)?81?Milligram?By Mouth?Daily Bisacodyl (bisacodyl 10 mg rectal suppository)?1?suppository(ies)?10?Milligram?Rectal ly?Daily?as needed?Constipation Clopidogrel (Plavix 75 mg oral tablet)?75?Milligram?1?tablet?Nasogastric Tube?Daily Enoxaparin?0.4?Milliliter?40?Milligram?Subcutaneous Injection?Daily Lactulose (lactulose 10 gm/15 ml oral syrup)?30?Milliliter?20?gram?Nasogastric Tube?4 times a day?as needed?Constipation Metoprolol (metoprolol 25 mg oral tablet)?12.5?Milligram?0.5?tablet?By Mouth?2 times a day Modafinil (modafinil 100 mg oral tablet)?2?tab(s)?200?Milligram?By Mouth?Daily Nicotine?21?Milligram?Topically?Daily Remove Patch (Remove ??Patch)?1?Each?Topically?Daily Rosuvastatin (rosuvastatin 40 mg oral tablet)?1?tab(s)?40?Milligram?By Mouth?Daily Sildenafil (sildenafil 100 mg oral tablet)?1?tab(s)?100?Milligram?By Mouth?Daily?1 hour before sexual activity Sodium Chloride Nasal (Salinex [place])?1?spray(s)?Nares, Both?4 times a day?as needed?Other?dryness Sodium Chloride Nasal (Salinex [place])?1?spray(s)?Nares, Both?2 times a day?dryness Thiamine (thiamine 100 mg oral tablet)?100?Milligram?1?tablet?By Mouth?Daily Trazodone (traZODone 50 mg oral tablet)?25?Milligram?0.5?tablet?By Mouth?Daily atbedtime ? Quality Measures Stroke Quality Measures:? Medications Started Clopidogrel 75 mg daily Modafinil 200 mg daily Nicotine patch Trazodone 25 mg daily at bedtime Rosuvastatin Enoxaparin sq Medications Discontinued Brillinta Doses Changed None Allergies Allergies ?(Active and Proposed Allergies Only) NKA? (Severity: Unknown severity, Onset: Unknown) ? PCP Follow-Up/Heads-Up See below Future Appointments Tuesday 4:00 PM EDT ?? With: Marisela Felipe MD Where: [facility] [address] [facility] 3rd [facility], [address] [place] [id number]- Status: Pending Hospital Course ??See below Objective Assessment and Plan Catie Martinez is a 67 year old Bosnian speaking male with past??history significant for??CAD (STEMI s/p GERA to RCA 1 in 2015 and x 2 in 2018), CVA without deficits in June 2021??on DAPT,??hyperlipidemia, inhaled tobacco use disorder??who initially presented 08/25 with??sudden??onset vision change and right facial droop??and in the ED became??unresponsive with sonorous breathing, right eye deviation and right upper extremity jerks??requiring intubation. CT??head/CTA??with basilar??true occlusion??and was out of window for TNK and taken for??basilar arterial stent placement.??Extubated 08/28??andtransferred to the floor??with??epistaxis and hemoptysis noted??requiring Rhino Rocket placement??and??subsequent reintubation??09/04??for airway protection.?? His MICU course was complicated by altered mental status postextubation??and??febrile??episode initiating??Unasyn given concern for possible aspiration??versus pneumonitis.?? He also failed this??speech eval and remained n.p.o.??postextubation. He continued to have epistaxis despite placement of Rhino Rocket??after restarting DAPT??given his basilar stent??and required??1 PRBC transfusion during his ICU stay. ??Unfortunately on arrival to floor, he continued to have posterior rhino rocket bleeding, and underwent angioembolization on 09/07. Patient was transferred to [facility], and is now stable to acute. Hospital course further complicated by dysphagia and high aspiration risk, likely in setting of stroke. ? 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 High aspiration risk CTH and CTA w/loss of clements white differentiation in bl occipital lobes and superior??segment of basilar artery occlusion at the level of the jayjay NEVT with Dr. Martínez where he initially had TICI 3 after 2 passes, but re- occluded almost immediately requiring placement of a stent and started on DAPT and MRI showed extensive posterior circulation infarcts TTE??shows PFO and cardiology was consulted but??patient is not a candidate for closure given levoscoliosis, recommended anticoagulation but??neurology does not recommend starting DOAC Differentials for altered mental status to include hypoactive delirium,??infection (febrile with concern for aspiration pneumonia), underlying??stroke Being followed by Speech, MBS on 09/09 showed sublottic aspiration and laryngeal penetration with residuals. ?? Plan: -Transitioned to to TPN after PICC line on 09/11. Previous provider discussed continued risk of aspiration with , and despite that, decision was made to pursue PEG tube placement -PEG placed 09/16 with follow up instructions as below. Dw dietitian, TF started and pt??tolerating without issues: ??Return for removal of the retention sutures 10-14 days after G-tube placement. The sutures shouldnot remain in place longer than 2 weeks.. Please ensure that the white port on the hub of the catheter is used for balloon inflation and deflation only. This port should only be manipulated by an interventional radiologist. This should not be used for flushing or administration of feeds. We recommend that G-tubes of this type be replaced at 3 month intervals to avoid inadvertent loss of access due to deterioration in the G-tube retention balloon material. We will make arrangements. TO PREVENT CLOGGING OF THE G-TUBE FLUSH VIGOROUSLY WITH 30ML OF WATER AFTER EACH FEEDING. WHENEVER POSSIBLE GIVE MEDICATIONS IN LIQUID FORM; IF SOLID MEDICATIONS ARE ABSOLUTELY REQUIRED HAVE THE MEDICATIONS GROUND TO A FINE PASTE (preferably by a compounding pharmacy) SUSPEND IN WATER AND FLUSH AFTER EACH DOSE. IF CLUMPS OF MEDICATION ARE SEEN IN THE SUSPENSION, RESUSPEND.? -Continue Plavix and ASA (for new basilar artery stent). Continue Lovenox subq for DVT prophylaxis -Cardiology does not plan for PFO closure, rec 30 day loop recorder; contacted Dr. Willian Moeller from cardiology who is to arrange this through their office; A fib suspected to be the cause of patient's thrombosis -As per neurology note on 09/05 we do not rec NOAC given he is on DAPT for basilar stent ; d/w [place] -Continue modafinil 200mg daily -STAT CT head if change in mental status -BP goal 100-160 ?? Recurrent Epistaxis (requiring intubation for airway protection??09/04)?? Acute blood loss anemia S/p bilateral Rhino Rocket??placed by ENT, has also received 1 PRBC transfusion 09/06??given persistent??bleeding??and cannot be taken off DAPT given recent basilar artery stent Likely anterior bleeding from trauma/dryness in the background of DAPT and NGT placement S/p angioembolization by Neuro intervention on 09/07. Hgb stable. Left rhino rocket removed by ENT on09/08. Right rhino rocket removed 09/09. ?? Plan: -No further bleeding while inpatient, continue saline sprays and if needed, he can be prescribed afrin x3 days ?? Delirium reports patient is confused When asked about the year, he reports it is 2012 or 2013 - but then correctly said 2022 The reports the patient has been seeing people and saw her fall on the floor in a yellow shirt. The reports she does not have a yellow shirt. ?? Plan: -Scheduled trazodone at bedtime -Delirium precautions -Uninterrupted sleep at night ?? RUE superficial thrombus Occlusive thrombus of the SUPERFICIAL cephalic vein from the antecubital fossa to the mid arm measure greater than 5 cm in length Ok for DOAC as has been 2 weeks out from stroke, but would need to be triple therapy with DAPT as recent stent placement and given recent bleeding - will defer at this time given neurology recommendations as below ?? Plan: -Will need to clinically monitor; neuro recommends against NOAC, continue DAPT ?? Leukocytosis: Improved. No symptoms or signs of infection Monitored off abx and he remained stable ?? Chronic stable resolved medical conditions CAD, HTN: continue metoprolol 12.5mg BID, rosuvastatin, ASA Hypernatremia - resolved Aspiration pneumonia s/p Unasyn 09-03-09/09 ?? Vital Signs?? Temperature: 98.5 DegF (09/17/22 11:00:00) Temperature Route: Temporal (09/17/22 11:00:00) Pulse Rate: 90 bpm (09/17/22 11:51:00) Respiratory Rate: 19 br/min (09/17/22 12:52:00) Systolic Blood Pressure: 116 mm Hg (09/17/22 11:51:00) Diastolic Blood Pressure: 66 mm Hg (09/17/22 11:51:00) Blood pressure sites: Leg, right (09/17/22 11:00:00) Mean Arterial Pressure: 89 mm Hg (09/17/22 05:05:00) Pulse Pressure: 50 mm Hg (09/17/22 07:00:00) Oxygen Saturation: 98 % (09/17/22 11:00:00) Mode of Delivery (Oxygen): Room air (09/17/22 11:00:00) Early Warning Score: 0 (09/17/22 13:04:45) SOFA Calculated: -1 (09/17/22 10:20:25) ? Mobility & Ambulation Level Mobility & Ambulation Level Activity Assistance: Maximum assistance, One person assistance (09/17/22) Activity Status ADL: Reposition every 2 hours, Up to chair (09/17/22) Ambulatory devices needed: None (08/29/22) Patient Effort Up to Chair: Non weight bearing (08/29/22) Progressive Mobility Level 1: Turn q 2 hours (08/27/22) Progressive Mobility Level 2: Assist turn q2 hours, Passive>Active ROM TID (08/27/22) Range of Motion LLE: Active (09/06/22) Range of Motion LUE: Active (09/06/22) Range of Motion RLE: Active (09/06/22) Range of Motion RUE: Active (09/06/22) Repositioning: Total care (09/17/22) ?? Therapeutic Activity Therapeutic Activities/Mobility/Balance Comments on treatment indicated: OT to address ADLs, B UE function, bed mob, func xfers/mob as able, safety, pt education. Rehab recommended. (08/31/22 16:54:00) Plan of care PT: Gait training, Transfer training, Therapeutic exercise, Functional Activities, Balance training, Neuromuscular education (08/31/22 08:53:00) Problems PT: Impaired strength/ROM, Impaired functional mobility, Impaired balance, Impaired safety, Difficulty walking (08/31/22 08:53:00) Treatment Indicated-PT: Yes (08/31/22 08:53:00) Discharge recommendations: Post acute rehab facility (09/10/22 09:58:00) Distance pt will ambulate: >50 ft c RW (08/31/22 08:53:00) Ambulation, ??PT Plan: Supervision (09/16/22 13:53:00) Barriers to goal achievement: Multiple medical problems (09/10/22 09:58:00) Bed mobility: PT Plan: Supervision (09/16/22 13:53:00) Complete Rehab Discharge Index Now: No (09/10/22 09:58:00) Equipment PT: Walker (08/31/22 08:53:00) Facilitators to goal achievement: Supportive family, Previously Independent (09/10/22 09:58:00) Goals Patient/Family: return home (09/16/22 13:53:00) terminal carman PT goals: At baseline for functional mobility (08/31/22 08:53:00) Plan Discussed w/Pt,Family/Agreed Upon: Yes (08/31/22 16:54:00) Plan discussed with care team PT: RN (08/31/22 08:53:00) PT Duration: 1 week (08/31/22 08:53:00) PT Short Term Goals: able to demonstrate fair static sitting balance at EOB x 5 minutes perform 10 repetitions of UE/LE therex. (09/16/22 13:53:00) Rehab potential: Fair (09/10/22 09:58:00) Transfer bed to chair PT Plan: Supervision (09/16/22 13:53:00) Transfer Sit to Stand, PT Plan: Supervision (09/16/22 13:53:00) ?? . Physical Exam General: elderly male, lying in bed, in no acute distress;??AAOx2 Neck: Supple, no JVD HEENT: oral membranes moist Heart: regular rhythm, S1 and S2 heard, no MRGs Lungs: CTA bilaterally, no rales, rhonchi, wheezing or rubs. Patient not in respiratory distress Abdomen: soft, non-tender, non-distended, +BS in all quadrants. No organomegaly Extremities: Warm, no edema b/l. Neuro: slow but able to speak in few words, confused but??no focal neurological deficit on exam except for difficulty speaking. CN 2-12 grossly intact. Strength 5/5 in all major limbs Psych: appropriate mood, calm, cooperative Consultants Neurology Cardiology Pending Results Add On Lab Order ordered on 08/30/2022 Add On Lab Order ordered on 09/09/2022 Add On Lab Order ordered on 09/10/2022 Basic Metabolic Panel ordered on 09/12/2022 Basic Metabolic Panel ordered on 09/14/2022 Basic Metabolic Panel ordered on 09/17/2022 Blood Culture ordered on 09/16/2022 Blood Culture #2 ordered on 09/16/2022 CBC ordered on 09/14/2022 Hold Gel Top Tube ordered on 09/17/2022 Hold Lavender Tube (BB) ordered on 08/25/2022 Ionized Calcium ordered on 09/11/2022 Magnesium Level ordered on 09/11/2022 Magnesium Level ordered on 09/14/2022 Phosphorus Level ordered on 09/11/2022 Phosphorus Level ordered on 09/14/2022 RBCs on Hold ordered on 09/07/2022 Transfuse RBCs ordered on 09/06/2022 Transfuse RBCs ordered on 09/07/2022 Follow-Up Appointments Added Follow Up ?Time Frame ?Comments Marisela Felipe?11/24/2022 16:00?THIS IS A PHONE FOLLOW UP-DR FELIPE WILL CALL YOU-PLEASE DO NOT COME TO THE OFFICE Jami Martin MD Patient Instructions Please continue aspirin and plavix, and modafinil Follow up with neurology as instructed by their team Ok to discontinue??subq??lovenox when ambulating better Post Discharge Care Discharge ?09/17/22 14:18:00 EDT Discharge Prescriptions ?ePrescribed, ??09/17/22 14:18:00 EDT Home Health Face to Face ^HomeHealthFTF Results Discharge Labs BLOOD BANK Blood Type A Positive ()?? 09/06/2022 03:25 Antibody Screen Negative ()?? 09/06/2022 03:25 RBC Unit ID [id number] ()?? 09/07/2022 12:40 RBC Available PT ()?? 09/07/2022 12:40 ?? BLOOD COUNT & DIFF WBC 15.9 k/mm3 (High)?? 09/17/2022 06:43 RBC 2.93 m/mm3 (Low)?? 09/17/2022 06:43 Hgb 8.6 Gm/dL (Low)?? 09/17/2022 06:43 Hct 27.1 % (Low)?? 09/17/2022 06:43 MCV 92.5 femtoliters ()?? 09/17/2022 06:43 MCH 29.4 pg ()?? 09/17/2022 06:43 MCHC 31.7 g/dL (Low)?? 09/17/2022 06:43 Platelet Count 365 k/mm3 ()?? 09/17/2022 06:43 RDW-SD 43.6 femtoliters ()?? 09/17/2022 06:43 MPV 11.4 femtoliters ()?? 09/17/2022 06:43 Nucleated RBC (Automated) 0.0 #/100 WBC'S ()?? 09/17/2022 06:43 Abs. NRBC 0.0 k/mm3 ()?? 09/17/2022 06:43 Abs. Neut 13.2 k/mm3 (High)?? 09/17/2022 06:43 Abs. Lymph 1.5 k/mm3 ()?? 09/17/2022 06:43 Abs. [place] 1.0 k/mm3 ()?? 09/17/2022 06:43 Abs. Eo 0.1 k/mm3 ()?? 09/17/2022 06:43 Abs. Baso 0.1 k/mm3 ()?? 09/17/2022 06:43 Neut % 82.8 % (High)?? 09/17/2022 06:43 Lymph % 9.3 % (Low)?? 09/17/2022 06:43 [place] % 6.3 % ()?? 09/17/2022 06:43 Eos % 0.6 % ()?? 09/17/2022 06:43 Baso % 0.4 % ()?? 09/17/2022 06:43 Platelet Estimate ADEQUATE ()?? 08/25/2022 22:09 Platelet Comment FEW ()?? 08/25/2022 22:09 Hemoglobin (POC) POC Cartridge 16.7 Gm/dL ()?? 08/25/2022 21:53 Hematocrit (POC) POC Cartridge 49 % ()?? 08/25/2022 21:53 Imm Gran 0.6 % ()?? 09/17/2022 06:43 Abs. Imm Gran 0.1 k/mm3 ()?? 09/17/2022 06:43 ?? BLOOD GAS pH Venous (POC) POC Cartridge 7.43 ()?? 08/25/2022 21:53 pCO2 Venous (POC) POC Cartridge 40.0 mm Hg (Low)?? 08/25/2022 21:53 pO2 Venous (POC) POC Cartridge 28 mm Hg (Low)?? 08/25/2022 21:53 Est Bicarbonate (POC) POC Cartridge 26.5 mmol/L ()?? 08/25/2022 21:53 % O2 Sat Venous (POC) POC Cartridge 55 ()?? 08/25/2022 21:53 Base Excess (POC) POC Cartridge 2 ()?? 08/25/2022 21:53 Specimen Type - Blood Gas VENOUS ()?? 08/25/2022 21:53 ? CARDIAC High Sensitivity Troponin (HSTnT) 9 ng/L ()?? 08/25/2022 22:09 ? CHEM GENERAL Sodium 137 mmol/L ()?? 09/17/2022 06:43 Potassium 4.3 mmol/L ()?? 09/17/2022 06:43 Chloride 100 mmol/L ()?? 09/17/2022 06:43 Bicarbonate Level 27 mmol/L ()?? 09/17/2022 06:43 Anion Gap 10 ()?? 09/17/2022 06:43 Sodium (POC) POC Cartridge 139 mmol/L ()?? 08/25/2022 21:53 Potassium (POC) POC Cartridge 4.6 mmol/L ()?? 08/25/2022 21:53 Glucose Level 131 mg/dL (High)?? 09/17/2022 06:43 Glucose (POC) POC Cartridge 118 (High)?? 08/25/2022 21:53 Glucose, POC 193 mg/dL (High)?? 09/17/2022 11:35 Hemoglobin A1C (Monitoring) 5.8 % (High)?? 08/26/2022 06:03 BUN 27 mg/dL (High)?? 09/17/2022 06:43 Creatinine-Blood 0.6 mg/dL (Low)?? 09/17/2022 06:43 Estimated GFR Creatinine 106 ML/MIN/1.73 M2 ()?? 09/17/2022 06:43 Calcium 9.0 mg/dL ()?? 09/17/2022 06:43 Calcium, Ionized pH Corrected 1.28 mmol/L ()?? 09/15/2022 01:23 Ionized Calcium (POC) POC Cartridge 1.16 mmol/L ()?? 08/25/2022 21:53 Phosphorus 4.2 mg/dL ()?? 09/17/2022 06:43 Magnesium 2.1 mg/dL ()?? 09/17/2022 06:43 Protein, Total 4.9 Gm/dL (Low)?? 09/06/2022 04:15 Albumin 3.2 Gm/dL (Low)?? 09/06/2022 04:15 AG Ratio 2.3 ()?? 08/26/2022 06:03 Alkaline Phosphatase 62 units/L ()?? 09/06/2022 04:15 AST (SGOT) 19 units/L ()?? 09/06/2022 04:15 ALT (SGPT) 32 units/L ()?? 09/06/2022 04:15 Bilirubin, Total 0.3 mg/dL ()?? 09/06/2022 04:15 Bilirubin, Direct <0.2 mg/dL ()?? 09/06/2022 04:15 Bilirubin, Indirect Direct bilirubin is less than the measureable limit. Therefore, indirect mg/dL ()?? 09/06/2022 04:15 ?? COAG INR 1.1 ()?? 09/15/2022 11:30 Protime (PT) 11.6 seconds (High)?? 09/15/2022 11:30 APTT 32.3 seconds ()?? 09/07/2022 14:13 Fibrinogen 853 mg/dL (High)?? 08/31/2022 08:20 ?? ENDOCRINE/TUMOR MARKER TSH 1.17 uIU/mL ()?? 08/25/2022 22:09 ? HEME OTHER Hold Lavender Top SPECIMEN DISCARDED AFTER 24 HOURS. ()?? 09/17/2022 06:43 ? LIPID STUDIES Cholesterol 106 mg/dL ()?? 08/26/2022 06:03 Triglycerides 229 mg/dL (High)?? 08/26/2022 06:03 HDL Cholesterol 22 mg/dL (Low)?? 08/26/2022 06:03 LDL Cholesterol 38 mg/dL ()?? 08/26/2022 06:03 Non HDL Cholesterol 84 mg/dL ()?? 08/26/2022 06:03 ? MISC. CHEMISTRY Procalcitonin 0.08 ng/mL ()?? 08/30/2022 04:37 ? TOXICOLOGY/TDM Ethanol, Serum or Plasma NONE DETECTED mg/dL ()?? 08/25/2022 22:09 Barbiturate Screen, Urine NONE DETECTED ()?? 08/26/2022 08:40 Cannabinoid Screen, Urine NONE DETECTED ()?? 08/26/2022 08:40 Cocaine Metabolite Screen, Urine NONE DETECTED ()?? 08/26/2022 08:40 Benzodiazepine Screen, Urine NONE DETECTED ()?? 08/26/2022 08:40 Amphetamine Screen, Urine NONE DETECTED ()?? 08/26/2022 08:40 Opiate Screen, Urine NONE DETECTED ()?? 08/26/2022 08:40 Acetaminophen Level <5 mg/L (Low)?? 08/25/2022 22:09 ?? UA/URINALYSIS Appear/Color, Urine YELLOW ()?? 09/17/2022 06:39 Clarity CLEAR (N)?? 09/17/2022 06:39 Specific [place], Urine 1.032 (High)?? 09/17/2022 06:39 pH, Urine 6.0 ()?? 09/17/2022 06:39 Albumin, Urine TRACE (Abnormal)?? 09/17/2022 06:39 Glucose, Urine NEGATIVE (N)?? 09/17/2022 06:39 Ketones, Urine NEGATIVE (N)?? 09/17/2022 06:39 Bilirubin, Urine NEGATIVE (N)?? 09/17/2022 06:39 Hemoglobin, Urine NEGATIVE (N)?? 09/17/2022 06:39 Nitrite, Urine NEGATIVE (N)?? 09/17/2022 06:39 Leukocyte, Urine NEGATIVE (N)?? 09/17/2022 06:39 Urobilinogen >12 mg/dL (Abnormal)?? 09/17/2022 06:39 WBC's, Urine 4 /HPF ()?? 09/17/2022 06:39 RBC's, Urine 2 /HPF ()?? 09/17/2022 06:39 Bacteria SLIGHT HPF (Abnormal)?? 09/17/2022 06:39 Squamous Epith <1 /HPF ()?? 09/04/2022 11:25 Amorphous Crystals SLIGHT /HPF ()?? 08/26/2022 08:40 Mucus SLIGHT /LPF ()?? 09/17/2022 06:39 Hold Urine Culture Testing available 48 hours from time of collection. ()?? 09/04/2022 11:25 Culture Indication CULTURE NOT INDICATED ()?? 09/17/2022 06:39 ?? URINE OTHER Est Creatinine Clearance 111.33 mL/min ()?? 09/06/2022 05:46 ? VIROLOGY COVID-19 by RT-PCR NEGATIVE ()?? 08/25/2022 22:09 ? Blood Glucose Trend Glucose Level:??131 mg/dL??High (09/17/22 06:43:00) Glucose, POC:??193 mg/dL??High (09/17/22 11:35:00) Glucose, POC:??140 mg/dL??High (09/17/22 06:12:00) Glucose, POC:??105 mg/dL??High (09/16/22 23:31:00) Glucose, POC:??132 mg/dL??High (09/16/22 18:06:00) ? Microbiology ?? Blood Culture?? Completed?? Source: Blood Body Site: ?? Collected Dt/Tm: 09/04/2022 09:36 Last Updated Dt/Tm: 09/04/2022 09:37 ?SPECIMEN DESCRIPTION : BLOOD ??RSPECIAL REQUESTS : NONECULTURE : NO GROWTH 5 DAYS.REPORT STATUS: FINAL 09/09/2022 Blood Culture #2?? Completed?? Source: Blood Body Site: ?? Collected Dt/Tm: 09/04/2022 09:36 Last Updated Dt/Tm: 09/04/2022 09:37 ?SPECIMEN DESCRIPTION : BLOOD ??LSPECIAL REQUESTS : NONECULTURE : NO GROWTH 5 DAYS.REPORT STATUS: FINAL 09/09/2022 ? 40 minutes spent on discharge * Alexandru SNYDER, Mariaelena: PERFORM Event Display: Patient Education/Instruction Authored Date: [id number] Inpatient Adult Discharge Instructions [address] [address] Name: CATIE MARTINEZ : 1955 Visit: 08/26/2022 00:55:00 Current Date: 09/17/2022 16:21 Account: [id number] Inpatient Adult Discharge Instructions We would like to thank you for allowing us to assist you with your healthcare needs. The following includes patient education materials and information regarding your injury/illness. Our entire staffstrives to provide an excellent experience for our patients and their families. PLEASE ENSURE YOU FOLLOW-UP PER THE INSTRUCTIONS BELOW! ?? YOUR OPINION IS IMPORTANT TO US! Please complete the survey you may receive by mail or email. Your feedback will be used to make improvements to the healthcare experiences of our patients and their families. Surveys are administered by [employer] ?? If further treatment with your primary care physician or another doctor is recommended, it is important for you to keep the appointment. Call your primary care physician or return to the Emergency Department immediately if your condition worsens, fails to improve, or new symptoms develop. If you need to find a doctor, you can call [facility] for a referral at [phone] or toll free at [phone] or log in to [email or web address].. ?? You can view and manage your care through the patient portal or by using a health care renetta of your choosing. [employer] is a website that allows you to securely view your medical information including your hospital discharge summary, office visit summaries, medications and follow-up visits. You can also request appointments, renew medications, and request access to your medical information using a health care renetta of your choosing, or just ask a question. You can enroll at [email or web address] or register during your next office visit. You have been discharged from [facility], Patient Care Unit: D5A. If you have any questions regarding these instructions after you leave, please call us and we will be happy to assist you. [facility] Your Care Team Attending Physician Sukhdev FREDERICK, Laxmi Consulting Providers Khushbu FREDERICK, Tamia; Kathy FREDERICK, Marisela; Krishna FREDERICK, Meet Ray; Thien FREDERICK, Tessy Lofton; Lennie FREDERICK, Eddie Discharging Providers Sukhdev FREDERICK, Laxmi Reason for Your Visit Medical Acceptance from MICU; CVA Your Diagnosis Basilar artery thrombosis Delirium Anemia due to blood loss Epistaxis Leukocytosis Aspiration pneumonia Hypernatremia Hypertension Hyperlipidemia Pure hypercholesterolemia General medical Tests Performed Below is a partial list of the tests performed during your hospitalization. You may have had other tests and procedures not included in this list. Please discuss all test results with your provider. Acetaminophen Level Alcohol Level Amphetamine Urine Screen Barbiturate Urine Screen BASE EXCESS POC CARTRIDGE Basic Metabolic Panel Benzodiazepine Urine Screen BUN Calcium Ionized CALCIUM IONIZED POC CART Cannabinoid Urine Screen CBC CBC w/ Differential Cocaine Urine Screen Comprehensive Metabolic Panel COVID-19 (Novel Coronavirus), Rapid PCR Creatinine Electrolytes Fibrinogen Glucose Level GLUCOSE POC GLUCOSE POC CARTRIDGE H + H HEMATOCRIT POC CARTRIDGE Hemoglobin A1C (Monitoring) HEMOGLOBIN POC CARTRIDGE High??Sensitivity??Troponin T HOLD LAVENDER TUBE INR Ionized Calcium LFT's Lipid Panel Lytes Magnesium Level Mg Level Opiate Screen Urine Phosphorus Level POTASSIUM POC CARTRIDGE PROCALCITONIN, SERUM PTT SODIUM POC CARTRIDGE TSH with T4 Reflex (Adults Only) Type and Screen Urinalysis Complete Urinalysis Reflex Culture Urinalysis w/hold for Urine Culture VBG POC CARTRIDGE Brain MRI W/O Contrast CT Angio Chest CT Angio Head Hyperacute Stroke CT Angio Neck CT Angio Neck Hyperacute Stroke CT Head-Hyper Acute Stroke CT Head/Brain W/O Contrast CT Soft Tissue Neck W/ Contrast CXR Portable Elbow Min 3 Views Left IR Generic Order Portable Chest US Doppler Ext Upper Venous Bilat XR Chest Portable XR Modified Barium Swallow W/ Speech RAD XR Shoulder Min 2 Views Left Primary Care Provider Jami Martin MD Advance Directive . Discharge Vitals Temperature: 98.5 DegF Height: 168 cm Pulse Rate: 90 bpm Weight: 61.2 kg Respiratory Rate: 19 br/min Body Mass Index: 24.38 kg/m2 Systolic Blood Pressure: 116 mm Hg Body surface area: 1.79 Diastolic Blood Pressure: 66 mm Hg ?? Oxygen Saturation: 98 % ?? Studies Pending All tests and labs ordered during this hospital stay have been completed unless listed below. Please discuss all pending results with your provider listed above in these instructions. ?? Add On Lab Order Basic Metabolic Panel Blood Culture Blood Culture #2 CBC Hold Gel Top Tube (HOLD GEL TUBE) Hold Lavender Tube (BB) Ionized Calcium Magnesium Level Phosphorus Level RBCs on Hold Transfuse RBCs What to do next Instructions From Your Doctor Please continue aspirin and plavix, and modafinil Follow up with neurology as instructed by their team Ok to discontinue??subq??lovenox when ambulating better Discharge Orders Scheduled Follow-Up Appointments Tuesday 4:00 PM EDT ?? With: Kathy FREDERICK, Marisela Where: [facility] [address] [place] [address], [address] [place] [address]- Status: Pending You Need to Schedule the Following Appointments Follow Up with??Marisela Felipe When:??11/24/2022 04:00 PM EDT Why: THIS IS A PHONE FOLLOW UP-DR FELIPE WILL CALL YOU-PLEASE DO NOT COME TO THE OFFICE Follow Up with??Jami Martin MD When:??In 0 days Where: [address] [address]- Business (1) Discharge Medications CATIE MARTINEZ :1955 Visit Date:08/26/2022 Medications: Please continue your medications until treatment is completed or stopped by your provider. Medications not listed below should be discontinued. Discuss any questions related to medications with your provider. What How Much When Instructions Next Dose New Acetaminophen (acetaminophen 325 mg oral tablet) 2 tab(s) Nasogastric tube Every 6 hours as needed for Pain , Mild Tonight 09/17/22 6pm as needed New Bisacodyl (bisacodyl 10 mg rectal suppository) 1 suppository(ies) Per rectum Daily as needed for Constipation Take as prescribed New Clopidogrel (Plavix 75 mg oral tablet) 1 tab(s) Nasogastric tube Daily Tomorrow 09/18/22 9am New Enoxaparin 40 Milligram Subcutaneous Injection Daily Tomorrow 09/18/22 9am New Lactulose (lactulose 10 gm/ 15 ml oral syrup) 30 Milliliter Nasogastric tube 4 times a day as needed for Constipation Tonight 09/17/22 5pm as needed New Modafinil (modafinil 100 mg oral tablet) 2 tab(s) Oral Daily Tomorrow 09/18/22 9am New Nicotine 21 Milligram Topically Daily Tomorrow 09/18/22 9am Remove old patch prior to applying new patch New Remove Patch (Remove Patch) 1 Each Topically Daily Remove Tomorrow 09/18/22 9am New Sodium Chloride Nasal (Salinex [place]) 1 spray(s) Nares, Both 4 times a day as needed for Other dryness ?? Take as prescribed New Sodium Chloride Nasal (Salinex [place]) 1 spray(s) Nares, Both Twice a day dryness ?? Tonight 09/17/22 9pm New Thiamine (thiamine 100 mg oral tablet) 1 tab(s) Oral Daily Tomorrow 09/18/22 9am New Trazodone (traZODone 50 mg oral tablet) 0.5 tab(s) Oral Daily at Bedtime Tonight 09/17/22 9pm Changed Metoprolol (metoprolol 25 mg oral tablet) 0.5 tab(s) Oral Twice a day Tonight 09/17/22 9pm Unchanged Aspirin (Aspirin Low Dose 81 mg oral delayed release tablet) 1 tab(s) Oral Daily Tomorrow 09/18/22 9am Unchanged Rosuvastatin (rosuvastatin 40 mg oral tablet) 1 tab(s) Oral Daily Tonight 09/17/22 9pm Unchanged Sildenafil (sildenafil 100 mg oral tablet) 1 tab(s) Oral Daily 1 hour before sexual activity ?? Take as prescribed ?? What How Much When Comments Stop Taking Ticagrelor (Brilinta (ticagrelor) 90 mg oral tablet) 1 tab(s) Oral Twice a day Test Results Below is a partial list of the most recent Laboratory test results done prior to this discharge. You may have had other tests and procedures not included in this list. Please discuss all test resultswith your provider. Est Creatinine Clearance - 111.33 mL/min (09/06/2022) RBC Available - PT (09/07/2022) RBC Unit ID - [id number] (09/07/2022) Acetaminophen Level (08/25/2022) ? ?Acetaminophen Level - <5 mg/L Alcohol Level (08/25/2022) ???Ethanol, Serum or Plasma - NONE DETECTED Amphetamine Urine Screen (08/26/2022) ???Amphetamine Screen, Urine - NONE DETECTED Barbiturate Urine Screen (08/26/2022) ???Barbiturate Screen, Urine - NONE DETECTED BASE EXCESS POC CARTRIDGE (08/25/2022) ???Base Excess (POC) POC Cartridge - 2 Basic Metabolic Panel (09/17/2022) ???Sodium - 137 mmol/L???Potassium - 4.3 mmol/L???Chloride - 100 mmol/L???Bicarbonate Level - 27 mmol/L???Anion Gap - 10???Glucose Level - 131 mg/dL???BUN - 27 mg/dL???Creatinine-Blood - 0.6 mg/dL???Estimated GFR Creatinine - 106 ML/MIN/1.73 M2???Calcium - 9.0 mg/dL Benzodiazepine Urine Screen (08/26/2022) ???Benzodiazepine Screen, Urine - NONE DETECTED BUN (09/08/2022) ???BUN - 18 mg/dL Calcium Ionized (08/25/2022) ???Calcium, Ionized pH Corrected - 1.24 mmol/L CALCIUM IONIZED POC CART (08/25/2022) ???Ionized Calcium (POC) POC Cartridge - 1.16 mmol/L Cannabinoid Urine Screen (08/26/2022) ???Cannabinoid Screen, Urine - NONE DETECTED CBC (09/16/2022) ???WBC - 24.0 k/mm3???RBC - 3.10 m/mm3???Hgb - 9.4 Gm/dL???Hct - 28.9 %???MCV - 93.2 femtoliters???MCH - 30.3 pg???MCHC - 32.5 g/dL???Platelet Count - 402 k/mm3???RDW-SD - 45.1 femtoliters???MPV - 11.2 femtoliters???Nucleated RBC (Automated) - 0.0 #/100 WBC'S???Abs. NRBC - 0.0 k/mm3 CBC w/ Differential (09/17/2022) ???WBC - 15.9 k/mm3???RBC - 2.93 m/mm3???Hgb - 8.6 Gm/dL???Hct - 27.1 %???MCV - 92.5 femtoliters???MCH - 29.4 pg???MCHC - 31.7 g/dL???Platelet Count - 365 k/mm3???RDW-SD - 43.6 femtoliters???MPV - 11.4 femtoliters???Nucleated RBC (Automated) - 0.0 #/100 WBC'S???Abs. NRBC - 0.0 k/mm3???Abs. Neut - 13.2 k/mm3???Abs. Lymph - 1.5 k/mm3???Abs. [place] - 1.0 k/mm3???Abs. Eo - 0.1 k/mm3???Abs. Baso - 0.1 k/mm3???Neut % - 82.8 %???Lymph % - 9.3 %???[place] % - 6.3 %???Eos % - 0.6 %???Baso % - 0.4 %???Imm Gran - 0.6 %???Abs. Imm Gran - 0.1 k/mm3 Cocaine Urine Screen (08/26/2022) ???Cocaine Metabolite Screen, Urine - NONE DETECTED Comprehensive Metabolic Panel (08/26/2022) ???Sodium - 139 mmol/L???Potassium - 4.4 mmol/L???Chloride - 101 mmol/L???Bicarbonate Level - 26 mmol/L???Anion Gap - 12???Glucose Level - 110 mg/dL???BUN - 12 mg/dL???Creatinine-Blood - 0.8 mg/dL???Estimated GFR Creatinine - 98 ML/MIN/1.73 M2???Calcium - 9.2 mg/dL???Protein, Total - 5.6 Gm/dL???Albumin - 3.9 Gm/dL???AG Ratio - 2.3???Alkaline Phosphatase - 77 units/L???AST (SGOT) - 18 units/L???ALT (SGPT) - 16 units/L???Bilirubin, Total - 0.4 mg/dL COVID-19 (Novel Coronavirus), Rapid PCR (08/25/2022) ???COVID-19 by RT-PCR - NEGATIVE Creatinine (09/08/2022) ???Creatinine-Blood - 0.6 mg/dL???Estimated GFR Creatinine - 106 ML/MIN/1.73 M2 Electrolytes (09/11/2022) ???Sodium - 140 mmol/L???Potassium - 4.0 mmol/L???Chloride - 102 mmol/L???Bicarbonate Level - 27 mmol/L???Anion Gap - 11 Fibrinogen (08/31/2022) ???Fibrinogen - 853 mg/dL Glucose Level (09/11/2022) ???Glucose Level - 121 mg/dL GLUCOSE POC (09/17/2022) ???Glucose, POC - 193 mg/dL GLUCOSE POC CARTRIDGE (08/25/2022) ???Glucose (POC) POC Cartridge - 118 H + H (09/07/2022) ???Hgb - 9.3 Gm/dL???Hct - 27.7 % HEMATOCRIT POC CARTRIDGE (08/25/2022) ???Hematocrit (POC) POC Cartridge - 49 % Hemoglobin A1C (Monitoring) (08/26/2022) ???Hemoglobin A1C (Monitoring) - 5.8 % HEMOGLOBIN POC CARTRIDGE (08/25/2022) ???Hemoglobin (POC) POC Cartridge - 16.7 Gm/dL High??Sensitivity??Troponin T (08/25/2022) ???High Sensitivity Troponin (HSTnT) - 9 ng/L HOLD LAVENDER TUBE (09/17/2022) ???Hold Lavender Top - SPECIMEN DISCARDED AFTER 24 HOURS. INR (09/15/2022) ???INR - 1.1???Protime (PT) - 11.6 seconds Ionized Calcium (09/15/2022) ???Calcium, Ionized pH Corrected - 1.28 mmol/L LFT's (09/06/2022) ???Protein, Total - 4.9 Gm/dL???Albumin - 3.2 Gm/dL???Alkaline Phosphatase - 62 units/L???AST (SGOT) - 19 units/L? ?ALT (SGPT) - 32 units/L? ?Bilirubin, Total - 0.3 mg/dL? ?Bilirubin, Direct - <0.2 mg/dL???Bilirubin, Indirect - Direct bilirubin is less than the measureable limit. Therefore, indirect Lipid Panel (08/26/2022) ???Cholesterol - 106 mg/dL???Triglycerides - 229 mg/dL???HDL Cholesterol - 22 mg/dL???LDL Cholesterol - 38 mg/dL???Non HDL Cholesterol - 84 mg/dL Lytes (09/06/2022) ???Sodium - 148 mmol/L???Potassium - 3.9 mmol/L???Chloride - 114 mmol/L???Bicarbonate Level - 22 mmol/L???Anion Gap - 12 Magnesium Level (09/17/2022) ???Magnesium - 2.1 mg/dL Mg Level (08/29/2022) ???Magnesium - 2.3 mg/dL Opiate Screen Urine (08/26/2022) ???Opiate Screen, Urine - NONE DETECTED Phosphorus Level (09/17/2022) ???Phosphorus - 4.2 mg/dL POTASSIUM POC CARTRIDGE (08/25/2022) ???Potassium (POC) POC Cartridge - 4.6 mmol/L PROCALCITONIN, SERUM (08/30/2022) ???Procalcitonin - 0.08 ng/mL PTT (09/07/2022) ???APTT - 32.3 seconds SODIUM POC CARTRIDGE (08/25/2022) ???Sodium (POC) POC Cartridge - 139 mmol/L TSH with T4 Reflex (Adults Only) (08/25/2022) ???TSH - 1.17 uIU/mL Type and Screen (09/06/2022) ???Blood Type - A Positive???Antibody Screen - Negative Urinalysis Complete (09/07/2022) ???Appear/Color, Urine - YELLOW???Specific [place], Urine - 1.026???pH, Urine - 7.0???Albumin, Urine - TRACE???Glucose, Urine - NEGATIVE???Ketones, Urine - NEGATIVE???Bilirubin, Urine - NEGATIVE???Hemoglobin, Urine - NEGATIVE???Nitrite, Urine - NEGATIVE???Leukocyte, Urine - NEGATIVE???Urobilinogen - 2 mg/dL???WBC's, Urine - 3 /HPF???RBC's, Urine - NONE SEEN Urinalysis Reflex Culture (09/17/2022) ???Appear/Color, Urine - YELLOW???Clarity - CLEAR???Specific [place], Urine - 1.032???pH, Urine - 6.0???Albumin, Urine - TRACE???Glucose, Urine - NEGATIVE???Ketones, Urine - NEGATIVE???Bilirubin, Urine - NEGATIVE???Hemoglobin, Urine - NEGATIVE???Nitrite, Urine - NEGATIVE???Leukocyte, Urine - NEGATIVE? ?Urobilinogen - >12 mg/dL? ?WBC's, Urine - 4 /HPF? ?RBC's, Urine - 2 /HPF? ?Bacteria - SLIGHT???Mucus - SLIGHT???Culture Indication - CULTURE NOT INDICATED Urinalysis w/hold for Urine Culture (09/04/2022) ???Appear/Color, Urine - LIGHT YELLOW???Specific [place], Urine - 1.031???pH, Urine - 6.0???Albumin, Urine - TRACE???Glucose, Urine - TRACE???Ketones, Urine - NEGATIVE???Bilirubin, Urine - NEGATIVE???Hemoglobin, Urine - NEGATIVE???Nitrite, Urine - NEGATIVE???Leukocyte, Urine - NEGATIVE???Urobilinogen - NORMAL? ?WBC's, Urine - 2 /HPF? ?RBC's, Urine - 2 /HPF? ?Squamous Epith - <1 /HPF? ?Mucus - SLIGHT???Hold Urine Culture - Testing available 48 hours from time of collection. VBG POC CARTRIDGE (08/25/2022) ???pH Venous (POC) POC Cartridge - 7.43???pCO2 Venous (POC) POC Cartridge - 40.0 mm Hg???pO2 Venous(POC) POC Cartridge - 28 mm Hg???Est Bicarbonate (POC) POC Cartridge - 26.5 mmol/L???% O2 Sat Venous (POC) POC Cartridge - 55???Specimen Type - Blood Gas - VENOUS Allergies (NKA means No Known Allergies) NKA Problems Active Problems??(6) CAD (coronary artery disease)?? Current smoker?? CVA (cerebral vascular accident)?? Dyslipidemia?? Hyperlipidemia?? Hypertension?? Education Materials Below is the list of Educational Leaflet Providered with your Discharge Instructions. Valuables and Belongings I fully understand and agree that [facility] accepts no responsibility for all my personal property including clothing, toilet articles, radios, jewelry, dentures, hearing aids, rings, money, or any other property that is in my possession or is brought to me after admission. I understand certain valuables may be placed in a hospital safe for a short period of time. I understand that the hospital is not liable for loss or damage due to accident, fire, or other natural occurrence while said property is in the safe. I accept full responsibility for any personal property that I keep with me, and will not hold the hospital responsible in case of loss or disappearance. I acknowledge that i have been encouraged to send valuables and belongings home. ?? No Valuables/Belongings: No valuables/belongings present Review of Valuable and Belonging List: With patient Date for Pt to Sign Valuables/Belongings: 09/11/22 03:12:00 ?? Other Discharge Information ? Case Management Discharge Plan?? Discharge Plan?? Discharge Level of Care at Discharge: Inpatient Rehab Facility/Unit Discharge Transportation Arranged: [facility] [address] [place] [address] ??[phone] Mode of Transportation Arranged: Ambulance Discharge Arranged Transport Date/Time: 09/17/22 16:00:00 Discharge Nursing Homes/Rehab Facilities: [facility] ??[facility] ?? Pulmonary Rehab Status?? Pulmonary Rehab Discharge Status?? Respiratory Rate: 19 br/min PEEP: 5 ? Common Emergency Awareness Tips IS IT A STROKE? Act FAST and Check for these signs: FACE Does the face look uneven? ARM Does one arm drift down? SPEECH Does their speech sound strange? TIME Call at any sign of stroke ?? Heart Attack Signs Chest discomfort: Most heart attacks involve discomfort in the center of the chest and lasts more than a few minutes, or goes away and comes back. It can feel like uncomfortable pressure, squeezing, fullness or pain. Discomfort in upper body: Symptoms can include pain or discomfort in one or both arms, back, neck, jaw or stomach. Shortness of breath: With or without discomfort. Other signs: Breaking out in a cold sweat, nausea, or lightheaded. Remember, MINUTES DO MATTER. If you experience any of these heart attack warning signs, call to get immediate medical attention! ?? Smoking can increase your chances of developing chronic health problems and can cause harmful effects to other family members in your house. If you smoke, you are strongly encouraged to quit. Please call [facility] at [phone] or [phone] ([phone]) or log in to [email or web address] for referrals to smoking cessation programs. ?? 272 Suicide & Crisis Lifeline is available 22/11 if you or someone you know needs to find a reason to keep living. By calling 381 you'll be connected to a skilled, trained counselor at a crisis center in your area. INPATIENT DISCHARGE INSTRUCTIONS SIGNATURE CATIE BENNETT Location:[facility] Registration Date and Time:08/26/2022 00:55 EDT Primary Care Physician: Jami Martin MD, Attending Physician: Sukhdev FREDERICK, [facility], I CATIE MARTINEZ, have received the above patient education materials/instructions and have verbalized understanding. If ambulance or transport services are being used I further acknowledge being given a choice of service. ?? If you need to contact me, please call me at this number: . Patient/Human Performance Professor Name: Patient/Human Performance Professor Signature: Relationship to Patient: Witness Name/Signature: Date: * Moni Thomas RN: PERFORM Event Display: Procedures Invasive Line Authored Date: [id number] Vascular Access Insertion Entered On: 09/10/2022 13:55 EDT Performed On: 09/10/2022 13:51 EDT by Moni Thomas RN Vascular Access Insertion Date of Vascular Access Insertion : 09/10/2022 EDT Procedure Location Vascular Access : IV Room W4 Person recording insertion : Plastics Tooling Engineer Plastics Tooling Engineer of Vascular Access : Moni Thomas RN Occupation of Vascular Access Plastics Tooling Engineer : Registered nurse Was tonguer a member of PICC/IV Team : Yes Moni Thomas RN - 09/10/2022 13:51 EDT Procedural Comments Risk Factors and Labs Reviewed : Yes Anticoagulation Therapy : Yes Antiplatelet Therapy : No Moni Thomas RN - 09/10/2022 13:51 EDT Was vascular access order placed : Yes Vascular Access Type : Central line Time Out Performed : Yes Time Out Data : Patient identified, Site verified, Procedure verified, Consent signed Reason for Vascular Access Insertion : Medication requires use of vascular access Suspected Vascular Access Infection : No, the access was not exchanged over a guide wire Vascular Access Procedure Check : Consent obtained Patient/Family Teaching done : Yes Hand Hygiene prior to insertion : Yes Maximal sterile barriers used : Mask, Sterile gown, Large sterile full body drape, Sterile gloves, Ultrasound sterile cover, Cap Sterile Field Maintained : Yes Skin Preparation : Chlorhexidine (CHG) Skin Prep dry at first skin puncture : Yes Antimicrobial coated catheter used : No Successful central line placement : Yes Vascular Access Catheter Type : PICC line Vascular Access Insertion Site : Upper extremity Vascular Access Insertion Side : Left Vascular Access Catheter Size : 5fr Vascular Access Catheter Length : 40 cm Vessel Identified By : Ultrasound Vascular Access Insertion Circumstance : Non-emergent Vascular Access Catheter Securement : Statlock Vascular Access Dressing : Occlusive Follow-up CXR : Not ordered CXR Comment : Tip of the PICC line in SVC was confirmed via Sherlock 3CG technology Moni Thomas RN - 09/10/2022 13:51 EDT DCP GENERIC CODE Suture needles : 0 Hadley : 2 Scalpels : 1 Clamps : 1 Guide Wires : 1 Moni Thomas RN 09/10/2022 13:51 EDT Complications during Insertion : None Tolerated CLIP procedure well : Yes Insertion Attempts : 1 Vascular Access Device QA : BARD CT PICC TL 5fr @ 40 cm Vascular Access Device Lot Number : [id number] Vascular Access Device Code : [id number] Vascular Access Device Expiration Date : 2023 EST Vascular Access Insertion Comments : Mid bicep cir = 29 cm. PICC line is ready to use Moni Thomas RN 09/10/2022 13:51 EDT * Alexsander Feldman RN: VERIFY, PERFORM, SIGN Event Display: Nursing Discharge Status Report Authored Date: Patient: CATIE MARTINEZ Age: 67 years Sex: Male : 1955 Associated Diagnoses: None Author: Alexsander Feldman RN Findings Problem Related to Alteration in Neurological : Alteration in Neurological Function/new 09/10/2022 19:00 EDT Alteration in Neuro status Related to Acute Stroke (CVA) Goals & Outcomes, Neurological Pt is safe with transfers & activities, Pt will be discharged without infection, Pt will be hemodynamically stable, Pt will be Neurologically stable, Pt will become pain free with appropriate intervention, Pt will maintain intact skin integrity, Pt will remainfree from injury, Pt will resume/maintain adequate cardiac output Interventions, Neurological Assess/monitor facial symmetry and tongue deviation, Maintain oral suction at bedside BH Goals/Interventions, Neurological Yes Neurological, Problem Start 09/07/2022 12:30 Reviewed plan with, Neurological Patient Patient Progression, Neurological Pt progressing according to plan . Nursing Data Vital Signs : VITAL SIGNS SECTION 09/10/2022 16:00 EDT Temperature 98.6 DegF Temperature Route Temporal Pulse Rate 66 bpm Respiratory Rate 17 br/min Systolic Blood Pressure 104 mm Hg Diastolic Blood Pressure 61 mm Hg Pulse Pressure 43 mm Hg Oxygen Saturation 97 % Mode of Delivery (Oxygen) Room air . Narrative/Incidental Attempted to call Neuro to give report x2. Pt failed Baruim swallow eval Triple lumen PICC inserted D/C/I . * Event Display: Hemodynamic Procedure Report Authored Date: * Perla Sandoval RN: PERFORM, SIGN, VERIFY Event Display: Patient Education Handout Authored Date: * Event Display: Hemodynamic Procedure Report Authored Date: Admission evaluation note * Collin Garcia MD: PERFORM Event Display: Admission Note Authored Date: Patient: ??CATIE MARTINEZ ? Age:??67 Years?Sex:??Male?:??1955?? Chief Complaint/Reason for Consultation Medical Acceptance from MICU; CVA History of Present Illness Catie Moody is a 67[facility] PMH CAD s/p GERA to RCA, HLD, initially presented 08/25 stroke alert NIHSS 24, stent placed by neuro interventional on 08/26, was transferred out to MICU on 09/01 and intubated on floor for severe epistaxis this evening, subsequently readmitted to MICU. ?? HPI obtained via chart review due to patient's intubated status ?? Patient had some episodes of hemoptysis on 08/31, CT angio neck did not find any obvious source of hemoptysis. ?? 09/03 primary team note mentions that patient had a little bit of hemoptysis but was otherwise doing well, was able to tolerate pur??ed diet. ?? Evening 09/03 - 09/04 early a.m. patient developed significantly worsening hemoptysis with epistaxis, primary team placed Rhino Rocket's but epistaxis persisted along with rhonchorous breathing, worsening hemoptysis therefore decision made to intubate patient and bring to MICU. ?? I placed bilateral TXA soaked Rhino Rocket's after patient arrived in MICU ?? Review of Systems Unable to assess 2/2 intubated ?? Objective Measurements?? Height: 168 cm (09/03/22) Weight: 61.5 kg (09/04/22) Dry Weight: 68.8 kg (08/26/22) Body Mass Index: 24.38 kg/m2 (08/26/22) ? Vital Signs?? Temperature:??101.3 DegF??High (09/04/22 08:00:00) Temperature Route: Oral (09/04/22 08:00:00) Pulse Rate:??102 bpm??High (09/04/22 08:32:00) Heart Rate Monitored:??104 bpm??High (09/04/22 08:00:00) Respiratory Rate: 20 br/min (09/04/22 08:00:00) Vented: Yes (09/04/22 08:00:00) Systolic Blood Pressure: 119 mm Hg (09/04/22 08:32:00) Diastolic Blood Pressure:??85 mm Hg??High (09/04/22 08:32:00) Blood pressure sites: Arm, left (09/04/22 08:00:00) Mean Arterial Pressure: 99 mm Hg (09/04/22 00:15:00) Pulse Pressure: 34 mm Hg (09/04/22 08:00:00) Oxygen Saturation: 99 % (09/04/22 08:00:00) Liters per Minute: 10 L/min (09/04/22 02:45:00) Mode of Delivery (Oxygen): Ventilator (09/04/22 08:00:00) FiO2: 40 % (09/04/22 07:54:00) End Tidal CO2: 1 mm Hg (09/04/22 04:10:00) Early Warning Score: 7 (09/04/22 02:53:41) SOFA Calculated: -1 (09/03/22 22:18:42) ? Intake/Output? 08/26 00:55 05/06 07:00 09/03 07:00 09/02 07:00 09/01 07:00 ?? 09/04 09:06 09/04 09:06 09/04 06:59 05 06:59 09/02 06:59 Intake ? 6995.7 ?0 ?0 ? 20 ?100 Output ?57019 ? 50 ?0 ?200 ?725 Net Total ?-4491.3 ?-50 ?0 ? -180 ? -625 ? Urine Count ?3 ?0 ?1 ?0 ?2 ? Physical Exam General: Intubated, sedated HEENT:??B/l rhino rockets in place, no ongoing epistaxis Respiratory: Clear to auscultation. No wheezing, rales or rhonchi. Cardiovascular: S1 S2 regular. No murmurs, rubs or gallops. Gastrointestinal: Abdomen soft, non-tender, non-distended. Normal bowel sounds. No organomegaly MSK:??No cyanosis or clubbing. No gross deformities. Normal range of motion. Skin: No rashes or lesions. No petechiae or purpura.?? Neurologic: Intubated, sedated, non focal exam Psychiatric: Unable to assess ?? Assessment/Plan ?? Neuro: #Basilar artery occlusion s/p stents Although patient had significant hemoptysis requiring intubation, given basilar artery stent is only 8 days old will not stop DAPT unless patient becomes hemodynamically unstable *Continue DAPT ?? ENT: #Epistaxis Unclear exact source but patient has had cessation of hemorrhage with bilateral TXA soaked Rhino Rocket's, may need plexus embolization versus cautery *Will need ENT consult ?? Pulmonary: #Hemoptysis #Intubated #Possible aspiration CXR broadly patent, indication for bronchoscopy at this time particularly given patient satting well on minimal FiO2 patient. ??Given worsening leukocytosis and hemoptysis with likely aspiration willrestart antibiotics *Unasyn ? Collin Garcia MD Fellow, Pulmonary Disease & Critical Care Medicine [facility] MICU consult pager: [phone] Histories Allergies Allergies ?(Active and Proposed Allergies Only) NKA? (Severity: Unknown severity, Onset: Unknown) ? Past Medical History/Problem List Active Problems??(4) CAD (coronary artery disease) Current smoker CVA (cerebral vascular accident) Dyslipidemia ? Past Surgical History No surgery history documented. ? Medications Inpatient Medications Medications (25) Active SCHEDULED: (13) Ampicillin/Sulbactam 3 Gm Inj (Unasyn IVPB) ??3 Gm, IVPB, Every 6 hours Aspirin 81 mg Chew Tablet (aspirin 81 mg oral tablet, chewable) ??81 mg, Nasogastric Tube, Daily Chlorhexidine 0.12% Oral Rinse UD (Peridex 0.12% Liquid) ??15 mL, Topically, 2 times a day Clopidogrel 75 mg Tablet (Plavix 75 mg oral tablet) ??75 mg, Nasogastric Tube, Daily Insulin Lispro 100 units/mL Inj (3mL) (Insulin LISPRO Sliding Scale) ??2-10 units, Subcutaneous Injection, 3 times a day before meals Metoprolol 25mg Tablet (metoprolol 25 mg oral tablet) ??12.5 mg, Nasogastric Tube, 2 times a day Nicotine 21 mg / 24 hour Patch (Nicotine Topical) ??21 mg, Topically, Daily Polyethylene Glycol 17 Gm Powder (MiraLax Powder) ??17 Gm 1 pack/packet, Nasogastric Tube, 2 times a day Remove Patch (Remove ??Patch) ??1 each, Topically, Daily Rosuvastatin 20 mg Tablet (rosuvastatin 40 mg oral tablet) ??40 mg, Nasogastric Tube, Daily at bedtime Senna 8.6 mg / Docusate 50 mg tablet (Docusate/Senna Tablet) ??1 tablet, Nasogastric Tube, 2 times a day Sodium Chloride 0.65% Nasal [place] (Salinex Suitland) ??1 sprays, Nares, Both, 2 times a day Tamsulosin 0.4 mg Capsule (tamsulosin 0.4 mg oral capsule) ??0.4 mg, By Mouth, Daily at bedtime CONTINUOUS: (2) NaCL 0.9% (1000 mL) Cont IV 1,000 mL (0.9% NaCL 1,000 mL) ??1,000 mL, IV Infusion, 100 mL/hr Propofol 10mg/mL Cont IV (100mL) 1,000 mg (Propofol 1% /100 mL 1,000 mg) ??1,000 mg 100 mL, IV Infusion PRN: (10) Acetaminophen 325 mg Tablet (acetaminophen 325 mg oral tablet) ??650 mg, Nasogastric Tube, Every 6 hours Albuterol 0.083% Inhalation Solution (Albuterol 0.083% inhalation kirsty) ??2.5 mg 3 mL, BAND Nebulizer, Every 4 hours Bisacodyl 10 mg Suppository (Bisacodyl Supp) ??10 mg 1 supp, Rectally, Daily Dextrose Inj Syringe (Dextrose 50% Inj Syringe (25Gm)) ??12.5 Gm, IV Push Slowly, Every 20 minutes Dextrose Inj Syringe (Dextrose 50% Inj Syringe (25Gm)) ??25 Gm, IV Push Slowly, Every 15 minutes Glucagon 1 mg Inj (Glucagon Inj) ??1 mg, Intramuscular, Once Glucose 40% Gel (15 Gm) (Glucose Gel) ??15 Gm, By Mouth, Every 20 minutes Glucose 40% Gel (15 Gm) (Glucose Gel) ??30 Gm, By Mouth, Every 20 minutes Lactulose 20 Gm/30mL Syrup (lactulose 10 gm/15 ml oral syrup) ??20 Gm 30 mL, Nasogastric Tube, 4 times a day Sodium Chloride 0.65% Nasal [place] (Salinex [place]) ??1 sprays, Nares, Both, 4 times a day ? Results Recent Labs BLOOD COUNT & DIFF WBC 25.8 k/mm3 (High)?? 09/04/2022 05:10 RBC 3.94 m/mm3 (Low)?? 09/04/2022 05:10 Hgb 11.7 Gm/dL (Low)?? 09/04/2022 05:10 Hct 36.7 % (Low)?? 09/04/2022 05:10 MCV 93.1 femtoliters ()?? 09/04/2022 05:10 MCH 29.7 pg ()?? 09/04/2022 05:10 MCHC 31.9 g/dL (Low)?? 09/04/2022 05:10 Platelet Count 369 k/mm3 ()?? 09/04/2022 05:10 RDW-SD 43.7 femtoliters ()?? 09/04/2022 05:10 MPV 11.6 femtoliters ()?? 09/04/2022 05:10 Nucleated RBC (Automated) 0.0 #/100 WBC'S ()?? 09/04/2022 05:10 Abs. NRBC 0.0 k/mm3 ()?? 09/04/2022 05:10 ?? CHEM GENERAL Sodium 141 mmol/L ()?? 09/04/2022 05:10 Potassium 4.9 mmol/L ()?? 09/04/2022 05:10 Chloride 105 mmol/L ()?? 09/04/2022 05:10 Bicarbonate Level 24 mmol/L ()?? 09/04/2022 05:10 Anion Gap 12 ()?? 09/04/2022 05:10 Glucose Level 180 mg/dL (High)?? 09/04/2022 05:10 Glucose, POC 171 mg/dL (High)?? 09/04/2022 06:36 BUN 43 mg/dL (High)?? 09/04/2022 05:10 Creatinine-Blood 0.8 mg/dL ()?? 09/04/2022 05:10 Estimated GFR Creatinine 100 ML/MIN/1.73 M2 ()?? 09/04/2022 05:10 Calcium 9.1 mg/dL ()?? 09/04/2022 05:10 Magnesium 2.1 mg/dL ()?? 09/04/2022 00:37 ?? COAG INR 1.0 ()?? 09/03/2022 20:59 Protime (PT) 10.9 seconds ()?? 09/03/2022 20:59 APTT 27.7 seconds ()?? 09/03/2022 20:59 ?? URINE OTHER Est Creatinine Clearance 83.50 mL/min ()?? 09/04/2022 06:42 ? * David FREDERICK, Joycelyn White: PERFORM Event Display: Admission Note Authored Date: I have personally seen and evaluated??CATIE MARTINEZ. I have discussed the case with the??fellow??andagree with the findings and plan as documented below with the following clarifications and addenda: ? Assessment: #??Nasopharyngeal bleeding with??impending??compromise of the airway, s/p intubation, now on mechanical ventilation # Basilar artery occlusion, s/p stent, on DAPT # Aspiration, suspected # CAD s/p GERA x1 # HLD ?? Plan: -??Rhino Rockets soaked in TKA placed in nares bilaterally - Needs ENT evaluation - Continue lung protective ventilation - Empiric Unasyn for possible aspiration (can likely de-escalate in 24-48 hours if infectious workup is negative and clinical course otherwise unremarkable) ?? Rest of plan per fellow's note. ?? Critical Care Time = 60??minutes ?? (This represents the total time I personally spent evaluating, managing and providing care exclusive of time spent for separately billable procedures.) ? Joycelyn Hernandez MD Pulmonary and Critical Care Medicine [facility] [employer] Executivesteeping press tender [facility] - [facility] Available on [facility]\ [id number] \ [phone] * Catracho Alanis DO W: MODIFY, MODIFY, MODIFY, MODIFY, MODIFY, PERFORM, MODIFY Event Display: Admission Note Authored Date: Patient: ??CATIE MARTINEZ ? Age:??67 Years?Sex:??Male?:??1955?? Chief Complaint/Reason for Consultation Medical Acceptance from MICU; CVA History of Present Illness ??Catie Martinez is a 67-year-old primarily Bosnian speaking gentleman with medical history notable for CAD status post inferior ST elevation myocardial infarction status post GERA to distal RCA x3, tobacco use, dyslipidemia, and prior CVA who presents to the emergency department on 08/25 with right-sided facial droop and vision loss. ??He quickly decompensated and was admitted to the medical ICU.??After a complicated MICU course, is now appropriate for discharge to the acute medical service.??Evaluated??with??[employer]??[employer]??senior research executive. ?? Initially presented on 08/25/2022 as a stroke alert due to headache followed by decrease in vision bilaterally with complete and total vision loss???only seeing black. ??While in the emergency department became unresponsive with sonorous breathing, right forced gaze, and right upper extremity shaking. ??Outside the CT scan, patient desaturated with oxygen in the 70% range. ??He was subsequently intubated for airway protection and admitted to the ICU. ??Work-up notable for a basilar artery occlusion of the superior segment at the level of the jayjay, which correlated to his bilateral vision loss and unresponsiveness. ??Given this, underwent thrombectomy with the neuro endovascular service. ??During the procedure, there was reocclusion after 10 minutes of monitoring and stenting/angioplasty undertaken. ??While in the medical ICU, was treated for aspiration pneumonia, noted to have hemoptysis, urinary retention, constipation, and was assessed for possible seizures in setting of myoclonic jerking and airway compromise. ??EEG was not concerning for seizure. Work-up thus far, with echocardiogram finding of a PFO. ?? On day of transfer out of the medical ICU, vital stable with patient saturating well on room air. ??Labs with stable anemia, hemoglobin 12.3, BUN 29/creatinine 0.8, magnesium 2.4. ??He did pass a speech therapy evaluation with recommendation for dysphagia diet, pur??e level 1 and nectar thick liquids. ??This must be administered with one-to-one assist, single sips, and strict precautions in place. ?? In the evening??of 09/02, after??having been accepted??to the medical service??yet??prior to having been??assessed??by??hospital medicine team,??Mr. Martinez sustained a witnessed fall without head strike nor loss of consciousness. In discussing with nursing staff, patient's legs gave out and he essentially sat down. When evaluated for medical acceptance,??Mr. Martinez acknowledges this and denies anypain or new symptoms??following??this. Mr. Martinez was oriented x3??at that time??and states that??hehas??ongoing??weakness in his??legs bilaterally.?? He endorses??a significant thirst and is curiouswhere his?and other family members are.?? At times during the conversation is somewhat tangential, but generally??a fair historian. Review of Systems A full review of systems was completed and is otherwise negative except as mentioned in history of present illness. Objective Vital Signs?? Temperature: 98.1 DegF (09/02/22 20:00:00) Temperature Route: Oral (09/02/22 20:00:00) Pulse Rate:??93 bpm??High (09/02/22 21:00:00) Heart Rate Monitored: 65 bpm (09/02/22 14:00:00) Respiratory Rate: 18 br/min (09/02/22 21:00:00) Vented: No (09/02/22 21:00:00) Systolic Blood Pressure: 120 mm Hg (09/02/22 21:00:00) Diastolic Blood Pressure: 61 mm Hg (09/02/22 21:00:00) Blood pressure sites: Arm, left (09/02/22 21:00:00) Mean Arterial Pressure: 78 mm Hg (09/02/22 16:14:00) Pulse Pressure: 59 mm Hg (09/02/22 21:00:00) Oxygen Saturation: 95 % (09/02/22 21:00:00) Mode of Delivery (Oxygen): Room air (09/02/22 21:00:00) Early Warning Score: 2 (09/02/22 21:01:14) SOFA Calculated: -1 (09/02/22 10:16:32) ? Physical Exam General:??Alert, in no acute cardiopulmonary distress. Mental Status:??Normal affect. Responding appropriately to questions.?? Oriented x3. HEENT:??Normocephalic. Respiratory:??Clear to auscultation. No wheezing, rales or rhonchi. Cardiovascular:??Regular rate and rhythm, no murmurs, rubs, or gallops.?? Gastrointestinal:??Abdomen soft, nontender, nondistended, bowel tones present. No hepatosplenomegaly appreciated. Neurologic:??Cranial nerves II-XII grossly intact. Moves all extremities spontaneously. --??Muscle strength 5/5 bilaterally??in upper and lower extremities??while laying in bed. -- Present and??equal patellar reflexes??bilaterally -- No sensory deficits -- Pupils equal and reactive to light Extremities:??No edema. Musculoskeletal:??No gross deformities. ?? Assessment/Plan Assessment:??Mr. Catie Martinez is a 67-year-old primarily Bosnian speaking gentleman with medical history notable for CAD status post inferior ST elevation myocardial infarction status post GERA to distal RCA x3, tobacco use, dyslipidemia, and prior CVA who presents to the emergency department on 08/25 with right-sided facial droop and vision loss. He quickly decompensated and was admitted to the medical ICU. After a complicated MICU course, is now appropriate for discharge to the acute medical service. ?? Cerebrovascular accident: Patient with prior CVA presented with acute basilar artery ischemic stroke (NIHSS 24) s/p basilar thrombectomy TICI 3?? (2 passes) and stent for basilar stenosis 08/26. Course has been complicated by myoclonic jerking, airway compromise required intubation 08/25-08/28. EEG not concerning for seizure and off antiepileptics, s/p Integrilin, now on DAPT. MRI brain 08/28: early subacute bilateral posterior cerebral artery vascular territory infarcts, bilateral thalamic and multiple cerebellar lacunar infarcts, and??diffuse subacute ischemic change of the jayjay. Continues to be very confused and have generalized weakness, but gradually regaining strength. Repeat CT head on 08/31 stable and neurology team feels exam stable enough for continued q4h neuro checks. Echo with bubble study revealed PFO. ?? Plan: -??Neurology team consulted - PM&R consulted - PT, OT, ST - Neuro checks q4h - Stat CTH for neuro status change -??DAPT: 75mg Plavix and 81mg aspirin -??Seroquel 12.5mg TID and PRN, titrate up as needed - Video monitoring - senior manager creative services - Cardiology consult ([facility])??for evaluation of PFO closure -- Consult placed by MICU, will likely need CTS consult ?? Hemoptysis: Suspect combination of bleeding risk with recent Integrilin and DAPT and nasopharyngeal trauma. CT neck and chest without obvious source and appears to be self resolving. No evidence of coagulopathy ?? Plan: - Monitor CBC - Nasal saline BID and PRN for dryness - Consented for blood if needed but do not anticipate ?? Dyslipidemia: Coronary artery disease: History of CAD status post inferior STEMI 2015 status post GERA to distal RCA, GERA to RCA again x2 in 2018. Patient was hypertensive on admission. Subsequently developed HTN, likely from changes to??multipleantihypertensives. Improved with fluids. ?? Plan: - Resume metoprolol at reduced dose of 12.5 mg BID -??Hold lisinopril, tamsulosin - Continue rosuvastatin 40 mg daily - Neuro to coordinate if requiring loop recorder at discharge ?? Community Acquired Aspiration Pneumonia: Fevers followed by bilateral lower lobe consolidations on CXR. Sputum culture growing strep pneumoniae. CT chest does not suggest worsening pneumonia or hemorrhage. ?? Plan: - Ceftriaxone, last day 09/02 ?? Hematuria: resolved Urinary Retention: Possible??in setting of??stroke vs acute illnesses exacerbating existing prostate disease. Per , had elevated PSA and urinary frequency / urgency outpatient that were under workup. Unclear source for hematuria, possibly exacerbated by Integrilin or irritation from jeffers placement(now removed), improving. ?? Plan: - Monitor I/O, renal function and electrolytes - Bladder scan PRN for concern for retention - Avoid nephrotoxic agents - Outpatient PSA workup as planned - Restart tamsulosin ?? Hyperglycemia: Impaired fasting glucose: No history of diabetes, though appears to have??elevated??glucose levels inpatient, hemoglobin A1c 5.8%. --??Consistent with prediabetes/impaired fasting glucose. ?? Plan: - Insulin sliding scale/POC glucose - Hypoglycemia emergency measures ?? Tobacco Use Disorder: Smoking at least 1 pack per day prior to admission per son, frequently asking to leave to smoke. ?? Plan: - Nicotine patch - Smoking cessation counseling prior to discharge ?? Constipation: Resolved No stools documented since admission until 08/31 at which time patient started having bowel movements. ?? Plan: - Monitor bowel movements - Bowel regimen ?? Quality Measures: Code Status: full code, confirmed with family on admission to MICU Diet: Pur??ed diet, nectar thick liquids DVT prophylaxis: Subcutaneous heparin Family:??, Sissy [phone]??- updated by MICU team??09/02 at bedside. -- Requesting that if patient needs senior research executive to be called for it at anytime. -- Emphasizing the importance of communicating information about stroke in the presence of family/support only. Patient seen and evaluated 09/02/2022. ?? Histories Allergies Allergies ?(Active and Proposed Allergies Only) NKA? (Severity: Unknown severity, Onset: Unknown) ? Past Medical History/Problem List Active Problems??(4) CAD (coronary artery disease) Current smoker CVA (cerebral vascular accident) Dyslipidemia ? Medications Home Medications Aspirin (Aspirin Low Dose 81 mg oral delayed release tablet)?1?tab(s)?81?Milligram?By Mouth?Daily Metoprolol (Metoprolol Succinate ER 50 mg oral tablet, extended release)?1?tab(s)?50?Milligram?By Mouth?Daily Rosuvastatin (rosuvastatin 40 mg oral tablet)?1?tab(s)?40?Milligram?By Mouth?Daily Sildenafil (sildenafil 100 mg oral tablet)?1?tab(s)?100?Milligram?By Mouth?Daily?1 hour before sexual activity Ticagrelor (Brilinta (ticagrelor) 90 mg oral tablet)?1?tab(s)?90?Milligram?By Mouth?2 times a day ? * Zafar Campbell DO: PERFORM, MODIFY, MODIFY, MODIFY Event Display: Admission Note Authored Date: [id number] Patient: ??MALIC, EMRUSH ? Age:??67 Years?Sex:??Male?:??1955?? Chief Complaint/Reason for Consultation Pt. coming from home. LKW 10am. Complaining of headache and decrease in vision. Pt. now endorses novision and ems assessed a R sided facial droop. Pt. was a/ox4 for family. Fast of 3 from ems. History of Present Illness Addendum 5:44 am 08/26 From neuro-intervention note Continue??Integrilin??gtt overnight. Please make sure??Heparin??gtt is discontinued upon return to ICU (requested it was stopped prior to case). Please obtain AM head CT (dual energy if possible). Ifno evidence of hemorrhage, please administer Plavix 300 and ASA 650 with AM medications 08/26. Continue Integrilin gtt for another 24 hours. Then given another Plavix 300 and ASA 650 the following morning 08/27. Stop the Integrilin gtt 4 afters after that second load (per [facility] protocol). Then thefollowing morning 08/28 give Plavix 75 and ASA 81 and continue DAPT daily if Stroke Neurology is in agreement.? Patient will be sent for CT scan of head now 08/26 am morning Please follow up these recommendations as above when formal read of CT head comes back ? Catie is a 67-year-old male with past medical history of CAD status post inferior STEMI 2014 status post GERA to distal RCA, GERA to RCA again x2 2017, tobacco use disorder, dyslipidemia, history of CVA without deficits per in June 2021 who presents to [facility] ED on 08/25 with right-sided facial droop and vision loss ?? HPI obtained via chart review and talking to family.?? Apparently, the patient's stated that he was having difficulty seeing around 10 AM this morning.?? At some point the afternoon, he lost allvision bilaterally and started to be confused described as not being able to recognize his or children.?? EMS was called.?? When EMS arrived, he was responding to his and communicating but still confused.?? At some point during transport, he became more confused.?? In ED, he was minimallyresponsive and noted to have what appeared to be myoclonic jerking as well as desaturations to the mid 60s and was brought back as a resuscitation.?? He was given 2 mg Ativan x2 to see if seizure could be stopped which was unsuccessful.?? He remained unresponsive.?? He also had right axis gaze deviation.?? He was intubated for airway protection with propofol and succinylcholine.?? He was taken for CT head and CT a head and neck which demonstrated significant basilar artery occlusion.?? Neurology was at bedside and recommended patient be taken for thrombectomy.?? He is not a candidate for lytics because of the??duration of his symptoms for roughly 12 hours ago. ?? While in emergency department, temperature 98.5, heart rate 82, blood pressure 167/93, saturating 97% on room air.?? Patient intubated for airway protection.?? Initial labs showed WBC 25.9, hemoglobin 16.1, platelets 264, 91% neutrophil predominance, INR 1.0, sodium 142, potassium hemolyzed, bicarbonate 24, anion gap 15, creatinine 0.8 (baseline creatinine 1.0 from September 2021), AST hemolyzed, ALT 17, bilirubin total 0.2.?? High-sensitivity troponin 9.?? TSH 1.17.?? Ethanol negative, acetaminophen level less than 5.?? COVID-negative. ?? Imaging: Chest x-ray showed clear lungs, endotracheal tube tip in good position, enteric tube incompletely visualized CT head hyperacute stroke showed loss of comer-white matter differentiation in the posterior right occipital lobe and possibly the left occipital lobe, suspicious for acute/subacute infarct.?? Upon review of the concurrent CTA, basilar occlusion. ?? Interventions: Patient taken emergently for thrombectomy ?? In MICU 15, patient sedated not responding to commands. Sissy [phone] is at bedside and very distraught. She said that he said he had a terrible headache in am but wanted to rest and didnot want to go to ER. He then had nausea and vomiting and then blurred vision a couple hours later and then he was eventually brought into the hospital for evaluation. Review of Systems Review of systems is negative except for what is described in history of present illness Objective Vital Signs?? Oxygen Saturation: 100 % (08/25/22 22:40:00) FiO2: 40 % (08/25/22 22:57:00) End Tidal CO2: 38 mm Hg (08/25/22 22:40:00) Early Warning Score: 3 (08/25/22 23:24:47) ? Intake/Output? No Data Available ? Physical Exam General:??intubated and sedated, not responding to commands Mental Status:??intubated and sedated, not responding to commands Head:??Normocephalic. Eyes:??Pupils are equal, round and reactive to light. Extraocular muscles intact. Ear, Nose and Throat:??Oropharynx clear, mucous membranes moist. Nose without masses, lesions or deformities. Trachea midline. Neck:??Supple, Full range of motion. Respiratory:??Clear to auscultation bilaterally, no wheezes or crackles Cardiovascular:??regular rate and rhythm, normal S1/S2, no murmurs Gastrointestinal:??Abdomen soft, non-tender, non-distended. Normal bowel sounds. No pulsatile mass.No hepatosplenomegaly. Neurologic:??No focal neurological deficits. Moves all extremities spontaneously. Sensation intact bilaterally. Skin:??No rashes or lesions. No petechiae or purpura. No edema. Musculoskeletal:??No cyanosis or clubbing. No gross deformities. Normal range of motion Assessment/Plan Diagnoses CVA (cerebral vascular accident) ??(I63.9) ? Assessment: Catie is a 67-year-old male with past medical history of CAD status post inferior STEMI 2014 status post GERA to distal RCA, GERA to RCA again x2 2017, tobacco use disorder, dyslipidemia, history of CVA without deficits per in June 2021 who presents to [facility] ED on 08/25 with right-sided facial droop and vision loss. Patient had worsening altered mental status, seizure, and was intubated for airway protection 08/25 night. He was found to have acute basilar artery ischemic stroke s/p basilar artery stent??08/26 morning ?? Neuro Bilateral vision loss Confusion Acute basilar artery ischemic stroke s/p basilar stent 08/26 morning Intubated 08/25 for airway protection night History of previous CVA without deficits per in June 2021 Baseline functional status unknown. On presentation, patient was having vision loss, and confusion,and right-sided facial droop.?? Apparently he had some difficulty seeing in 1 eye around 10 AM on day of admission and at some point in the afternoon, he had bilateral vision loss and became more confused not being able to recognize his or children.?? EMS was called.?? In ED, patient's mental status continued to decline and there was a reported seizure episode with 2 mg Ativan IV x2 given which was unsuccessful in breaking the seizure.?? Due to inability to protect airway, patient was intubated CT head hyperacute stroke showed loss of comer-white matter differentiation in the posterior right occipital lobe and possibly the left occipital lobe, suspicious for acute/subacute infarct.?? Upon review of the concurrent CTA, basilar occlusion.?? Patient taken emergently for thrombectomy as he wasout of the window for lytics because of the duration of his symptoms roughly 12 hours ago prior to presentation ?? Per neuro preliminary,??Integrilin going??for 6 hours, patient was aspirin loaded, Plavix loaded, stent placed in basilar artery.? Plan: Follow-up neuro recommendations from neurointervention Propofol drip Fentanyl drip Keppra 2 grams IV X1 for keppra load due to concern for seizure Keppra 1 gram every 12 hours after Follow-up neuro consult Every hour neurochecks CT head without contrast at 24-hour annette status post treatment Stat CT head if any worsening neurological status MRI brain without contrast, if MRI done prior to repeat CT head at 24 hours, DC CT head BP goal less than 180/105 for 24 hours, consider starting nicardipine drip if elevated No antiplatelets or anticoagulation including heparin in the first 24 hours A1c, LDL PM&R consult Cardiac telemetry N.p.o. until patient passes swallow evaluation ? Cardiovascular History of CAD status post inferior STEMI 2014 status post GERA to distal RCA, GERA to RCA again x2 in 2018 Dyslipidemia Patient was hypertensive on admission ?? Plan: Goal BP less than 180/105 for 24 hours Consider starting nicardipine drip if elevated Hold antiplatelets per neuro hold metoprolol succinate 50 mg daily rosuvastatin 40 mg daily ? Respiratory Intubated 08/25 for airway protection Chest x-ray showed lungs no acute abnormality, endotracheal tube tip in good position, enteric tubeincompletely visualized ?? Plan: Vent bundle Spontaneous breathing trial daily Wean as tolerated ? Infectious disease Leukocytosis WBC on admission 26, afebrile, hemodynamically stable ?? Etiology most likely secondary to stress from stroke ?? Plan: No antibiotics at this time Daily CBC ? Renal No acute issues Admission creatinine 0.8 (baseline creatinine 1.0 from September 2021) ?? Plan: Jeffers catheter Avoid nephrotoxic agents Daily BMP ? GI No acute issues ?? Plan: Famotidine 20 mg IV twice daily ? Heme No acute issues ?? Plan: Daily CBC ? MSK/skin No acute issues ?? Plan: Continue to monitor ? Quality Measures DVT prophylaxis: Pneumoboots, chemical prophylaxis contraindicated Diet: NPO strict Code Status: full code, confirmed with family on admission to MICU ?? Sissy [phone] is at bedside and very distraught. She said that he said he had a terrible headache in am but wanted to rest and did not want to go to ER. He then had nausea and vomiting and then blurred vision a couple hours later and then he was eventually brought into the hospital for evaluation. ? Paul Campbell, DO PGY-3 Internal Medicine Pager #[phone] ? Patient seen and discussed with attending physician ??Barrera Histories Allergies Allergies ?(Active and Proposed Allergies Only) NKA? (Severity: Unknown severity, Onset: Unknown) ? Past Medical History/Problem List Active Problems??(4) CAD (coronary artery disease) Current smoker CVA (cerebral vascular accident) Dyslipidemia ? Past Surgical History No surgery history documented. ? Social History Tobacco Details:??Former smoker, Other: Quit in July 02 after surgery. ??Type: Cigarettes. ? Family History No family history recorded. ? Medications Home Medications Aspirin (aspirin 81 mg oral tablet, chewable)?81?Milligram?Chew?Daily?for 30?Days Atorvastatin (atorvastatin 80 mg oral tablet)?1?tab(s)?80?Milligram?By Mouth?Daily?for 30?Days Clopidogrel (Plavix 75 mg oral tablet)?75?Milligram?By Mouth?Daily?for 30?Days Clopidogrel (Plavix 75 mg oral tablet)?75?Milligram?By Mouth?Daily?for 30?Days Nicotine (nicotine 21 mg-14 mg-7 mg transdermal film, extended release)?See Instructions?Use 1-2 patches daily as needed for smoking cravings. Remove existing patches before applying new patches. Wean as tolerated. [place]-3 Polyunsaturated Fatty Acids (Fish Oil 1000 mg oral capsule)?1?capsule?1,000?Milligram?By Mouth?3 times a day?for 30?Days Pantoprazole (Protonix 40 mg oral delayed release tablet)?1?tab(s)?40?Milligram?By Mouth?Daily?for 30?Days ? Results Recent Labs BLOOD COUNT & DIFF WBC 25.9 k/mm3 (High)?? 08/25/2022 22:09 RBC 5.31 m/mm3 ()?? 08/25/2022 22:09 Hgb 16.1 Gm/dL ()?? 08/25/2022 22:09 Hct 49.2 % ()?? 08/25/2022 22:09 MCV 92.7 femtoliters ()?? 08/25/2022 22:09 MCH 30.3 pg ()?? 08/25/2022 22:09 MCHC 32.7 g/dL (Low)?? 08/25/2022 22:09 Platelet Count 264 k/mm3 ()?? 08/25/2022 22:09 RDW-SD 44.3 femtoliters ()?? 08/25/2022 22:09 MPV 11.2 femtoliters ()?? 08/25/2022 22:09 Nucleated RBC (Automated) 0.0 #/100 WBC'S ()?? 08/25/2022 22:09 Abs. NRBC 0.0 k/mm3 ()?? 08/25/2022 22:09 Abs. Neut 23.6 k/mm3 (High)?? 08/25/2022 22:09 Abs. Lymph 1.3 k/mm3 ()?? 08/25/2022 22:09 Abs. [place] 0.8 k/mm3 ()?? 08/25/2022 22:09 Abs. Eo 0.0 k/mm3 ()?? 08/25/2022 22:09 Abs. Baso 0.3 k/mm3 (High)?? 08/25/2022 22:09 Neut % 91.0 % (High)?? 08/25/2022 22:09 Lymph % 5.0 % (Low)?? 08/25/2022 22:09 [place] % 3.0 % (Low)?? 08/25/2022 22:09 Eos % 0.0 % ()?? 08/25/2022 22:09 Baso % 1.0 % ()?? 08/25/2022 22:09 Platelet Estimate ADEQUATE ()?? 08/25/2022 22:09 Platelet Comment FEW ()?? 08/25/2022 22:09 Hemoglobin (POC) POC Cartridge 16.7 Gm/dL ()?? 08/25/2022 21:53 Hematocrit (POC) POC Cartridge 49 % ()?? 08/25/2022 21:53 ?? BLOOD GAS pH Venous (POC) POC Cartridge 7.43 ()?? 08/25/2022 21:53 pCO2 Venous (POC) POC Cartridge 40.0 mm Hg (Low)?? 08/25/2022 21:53 pO2 Venous (POC) POC Cartridge 28 mm Hg (Low)?? 08/25/2022 21:53 Est Bicarbonate (POC) POC Cartridge 26.5 mmol/L ()?? 08/25/2022 21:53 % O2 Sat Venous (POC) POC Cartridge 55 ()?? 08/25/2022 21:53 Base Excess (POC) POC Cartridge 2 ()?? 08/25/2022 21:53 Specimen Type - Blood Gas VENOUS ()?? 08/25/2022 21:53 ?? CARDIAC High Sensitivity Troponin (HSTnT) 9 ng/L ()?? 08/25/2022 22:09 ?? CHEM GENERAL Sodium 142 mmol/L ()?? 08/25/2022 22:09 Potassium HEMOLYZED mmol/L ()?? 08/25/2022 22:09 Chloride 103 mmol/L ()?? 08/25/2022 22:09 Bicarbonate Level 24 mmol/L ()?? 08/25/2022 22:09 Anion Gap 15 ()?? 08/25/2022 22:09 Sodium (POC) POC Cartridge 139 mmol/L ()?? 08/25/2022 21:53 Potassium (POC) POC Cartridge 4.6 mmol/L ()?? 08/25/2022 21:53 Glucose Level 112 mg/dL (High)?? 08/25/2022 22:09 Glucose (POC) POC Cartridge 118 (High)?? 08/25/2022 21:53 Glucose, POC 115 mg/dL (High)?? 08/25/2022 21:45 BUN 16 mg/dL ()?? 08/25/2022 22:09 Creatinine-Blood 0.8 mg/dL ()?? 08/25/2022 22:09 Estimated GFR Creatinine 98 ML/MIN/1.73 M2 ()?? 08/25/2022 22:09 Calcium 9.8 mg/dL ()?? 08/25/2022 22:09 Calcium, Ionized pH Corrected 1.24 mmol/L ()?? 08/25/2022 22:09 Ionized Calcium (POC) POC Cartridge 1.16 mmol/L ()?? 08/25/2022 21:53 Magnesium 2.3 mg/dL ()?? 08/25/2022 22:09 Protein, Total 7.0 Gm/dL ()?? 08/25/2022 22:09 Albumin 4.7 Gm/dL ()?? 08/25/2022 22:09 AG Ratio 2.0 ()?? 08/25/2022 22:09 Alkaline Phosphatase 91 units/L ()?? 08/25/2022 22:09 AST (SGOT) HEMOLYZED units/L ()?? 08/25/2022 22:09 ALT (SGPT) 17 units/L ()?? 08/25/2022 22:09 Bilirubin, Total 0.2 mg/dL ()?? 08/25/2022 22:09 ?? COAG INR 1.0 ()?? 08/25/2022 22:09 Protime (PT) 10.7 seconds ()?? 08/25/2022 22:09 APTT 24.2 seconds ()?? 08/25/2022 22:09 ?? ENDOCRINE/TUMOR MARKER TSH 1.17 uIU/mL ()?? 08/25/2022 22:09 ?? TOXICOLOGY/TDM Ethanol, Serum or Plasma NONE DETECTED mg/dL ()?? 08/25/2022 22:09 Acetaminophen Level <5 mg/L (Low)?? 08/25/2022 22:09 ?? VIROLOGY COVID-19 by RT-PCR NEGATIVE ()?? 08/25/2022 22:09 ? Blood Gases Specimen Type - Blood Gas: VENOUS (21:53) pH Venous (POC) POC Cartridge: 7.43 (21:53) pCO2 Venous (POC) POC Cartridge:??40 mm Hg??Low (21:53) pO2 Venous (POC) POC Cartridge:??28 mm Hg??Low (21:53) Est Bicarbonate (POC) POC Cartridge: 26.5 mmol/L (21:53) % O2 Sat Venous (POC) POC Cartridge: 55 (21:53) Base Excess (POC) POC Cartridge: 2 (21:53) ?? * Juan Rust MD: PERFORM Event Display: Admission Note Authored Date: [id number] The patient was seen and examined??on the day of service,??08/26/2022.?? The chart was reviewed??andthe plan of care discussed??in detail with ICU resident, fellow??and other members of the ICU team.?? I agree??with the evaluation and management as outlined in the accompanying note??with the following additions. ?? Assessment/plan: Acute basilar artery stroke, acute respiratory failure requiring intubation and mechanical ventilation, patient has a background history of a possible previous CVA, and coronary artery disease. Agree with ICU admission, mechanical ventilation and oxygenation, neurochecks per ICU protocol, recommendations as outlined by interventional neuroradiology with regard to the use of Integrilin and dual antiplatelet therapy. Patient's prognosis is guarded at this time, he is a full code. ?? Critical care time: 42 minutes, this excludes time spent performing separately billable procedures. EKG study * Event Display: ECG 12-Lead Authored Date: Please click on pdf link to open report * Event Display: ECG 12-Lead Authored Date: Ventricular Rate: 85 BPM Atrial Rate: 85 BPM P-R Interval: 142 ms QRS Duration: 80 ms Q-T Interval: 386 ms QTC Calculation(Bazett): 459 ms P [place]: 44 degrees R [place]: 40 degrees T [place]: 37 degrees Normal sinus rhythm Possible Inferior infarct (cited on or before 26-AUG-2022) Possible Anterior infarct , age undetermined Abnormal ECG When compared with ECG of 26-AUG-2022 08:42, T wave amplitude has decreased in Anterior leads Confirmed by GUNNAR SEGOVIA MD ([id number]) on 09/01/2022 10:52:36 AM [place]: GUNNAR SEGOVIA MD * Event Display: ECG 12-Lead Authored Date: [id number] Please click on pdf link to open report * Event Display: ECG 12-Lead Authored Date: Ventricular Rate: 66 BPM Atrial Rate: 66 BPM P-R Interval: 152 ms QRS Duration: 76 ms Q-T Interval: 442 ms QTC Calculation(Bazett): 463 ms P [place]: 69 degrees R [place]: 59 degrees T [place]: 28 degrees Normal sinus rhythm Possible Inferior infarct , age undetermined Abnormal ECG When compared with ECG of 15-MAR-2018 08:36, Borderline criteria for Inferior infarct are now Present Confirmed by YULISSA XIONG MD ([id number]) on 08/30/2022 10:32:37 AM [place]: YULISSA XIONG MD Heart * Event Display: Echocardiogram - Complete Authored Date: [id number] Transthoracic Echocardiography Report (TTE) Patient Demographics Patient Name CATIE MARTINEZ Date of Study 08/31/2022 Corporate Gender Male Facility Race / Ethnicity Date of 1955 Height: 64.17 inches Age 67 year(s) Weight: 152.56 pounds Accession Number [id number] BSA: 1.75 m2 Room Number [id number] BMI: 26.05 kg/m2 Referring Vance Segovia MD Physician Physician Web Content Executive Letty May Indications CVA. Clinical History CAD. Stroke. Study Data Type of Study TTE procedure:Echo Complete-(Doppler, Colorflow) with Contrast. Procedure Information:Saline (bubble study) was administered by RN . Study Date08/31/2022 Start Time: 02:51 PM Study Location: [facility] [place] Adult Echo Study Status: ICU/CCU Patient Status: Routine Technical Quality: Adequate Blood Pressure:125/70 mmHg EKG: Normal sinus rhythm HR: 91 bpm Allergies - No known allergies. 2D Measurements LV Diastolic Dimension: 4.43 cm LV Systolic Dimension: 2.9 cm LV Septum Diastolic: 1 cm LV PW Diastolic: 1 cm AO Root Dimension: 2.9 cm LA ESV (BP):17.8 ml LVOT Stroke Volume: 66.03 ml LA ESV Index: 10 ml/m2 Stroke Volume Index37.73 ml/m2 LVOT: 2.18 cm Cardiac Index:3.43 l/min/m2 Ascending Aorta:2.7 cm Doppler Measurements AV Peak Velocity: 158 cm/s MV Peak E-Wave: 71.5 cm/s AV Peak Gradient: 9.99 mmHg MV Peak A-Wave: 85.6 cm/s MV E/A Ratio: 0.84 LVOT Peak Velocity: 122 cm/s LVOT VTI17.7 cm MV Deceleration Time: 183 msec E' Septal Velocity: 9.14 cm/s PV Peak Velocity: 125 cm/s E' Lateral Velocity: 14 cm/s PV Peak Gradient: 6.25 mmHg E/Med E':[id number] E/Lat E':[id number] Cardiac Anatomy Left Ventricle/Interventricular Septum The left ventricle is poorly visualized. The apical views are foreshortened. The left ventricular size is normal. Left ventricular wall thickness is normal. The LV systolic function is normal . The left ventricular ejection fraction is 55-60 %. No obvious wall motion abnormalities seen on limited views. Normal diastolic function. Left Atrium/Interatrial Septum The left atrium is normal in size. Agitated saline study (bubble study) shows right to left shunting suggestive of patent foramen ovale. Aortic Valve The aortic valve is trileaflet . The left coronary cusp is mildly thickened and calcified . There is no aortic stenosis. There is no aortic regurgitation. Mitral Valve The mitral valve opening is normal. There is trivial mitral regurgitation. Aorta The aortic root is normal in size. The ascending aorta is not well visualized. Right Ventricle The right ventricle is normal in size and function. Right Atrium The right atrium is normal in size. Pulmonic Valve The pulmonic valve appears grossly normal. Tricuspid Valve The tricuspid valve is poorly visualized. Pumonary Artery An accurate pulmonary artery pressure could not be obtained. Venous Structures The inferior vena cava appears grossly normal. Pericardium/Extracardiac There is no significant pericardial effusion. Summary The left ventricle is poorly visualized. The apical views are foreshortened. The left ventricular size is normal. Left ventricular wall thickness is normal. The LV systolic function is normal . The left ventricular ejection fraction is 55-60 %. No obvious wall motion abnormalities seen on limited views. Normal diastolic function. The aortic valve is trileaflet . The left coronary cusp is mildly thickened and calcified . There is no aortic stenosis. There is no aortic regurgitation. The right ventricle is normal in size and function. Agitated saline study (bubble study) shows right to left shunting suggestive of patent foramen ovale. Comparison No prior study available for comparison. Signature * Event Display: Echocardiogram - Complete Authored Date: Cardiology * Event Display: Cardiac Rhythm Strips Authored Date: * Event Display: Cardiac Rhythm Strips Authored Date: * Event Display: Cardiac Rhythm Strips Authored Date: Hospital Progress note * Casi Velez RN: PERFORM, MODIFY, SIGN, VERIFY Event Display: Progress Note Hospital Authored Date: Patient: CATIE MARTINEZ Age: 67 years Sex: Male : 1955 Associated Diagnoses: None Author: Casi Velez RN Findings Problem Related to Alteration in Neurological : Alteration in Neurological Function/new 09/17/2022 11:00 EDT Alteration in Neuro status Related to Acute Stroke (CVA) Goals & Outcomes, Neurological Pt is safe with transfers & activities, Pt will be discharged without infection, Pt will be hemodynamically stable, Pt will be Neurologically stable, Pt will become pain free with appropriate intervention, Pt will maintain intact skin integrity, Pt will remainfree from injury, Pt will resume/maintain adequate cardiac output Interventions, Neurological Assess/monitor neurologic status, Assess/monitor VS per unit standards & prn, Call/Report variances in assessments to provider, Collaborate w/ provider to implement appropriate guidelines, Collaborate with Nutrition, Collaborate with provider re: medication regime, Identify psychosocial issues related to diagnosis/illness, If no bowel movement in 3 days activate bowel regime, [place] alternate means of communication, Keep patient's head & body in good alignment, Maintain HOB at least 30 deg, Maintain patient safety if unsteady gait, Physical assessment per unit standards, Provide emotional support to Pt/caregiver Goals/Interventions, Neurological Yes Neurological, Problem Start 09/07/2022 12:30 Reviewed plan with, Neurological Patient Patient Progression, Neurological Pt progressing according to plan . Nursing Data Neurological Data. : Neurological Data. 09/17/2022 11:00 EDT Tongue Disposition Midline Neurological Symptoms Alteration in level of consciousness, Alteration in speech quality, Difficulty swallowing, Impaired mental ability, Weakness or loss of muscle strength Level of Consciousness Confusion Orientated to person, place, time Person, Place, Time Facial Symmetry Intact Characteristics of Speech Slurred Pupil description, left Round Pupil description, right Round Pupil reaction, left Brisk Pupil reaction, right Brisk Pupil Size, Left 3 mm Pupil Size, Right 3 mm Strength LUE 5-Active movement against gravity & full resistance Strength RUE 5-Active movement against gravity & full resistance Strength LLE 5-Active movement against gravity & full resistance Strength RLE 5-Active movement against gravity & full resistance Tone LUE Normal Tone RUE Normal Tone LLE Normal Tone RLE Normal Sensation LUE Intact Sensation RUE Intact Sensation LLE Intact Sensation RLE Intact Movement LUE Spontaneous, To command Movement RUE Spontaneous, To command Movement LLE Spontaneous, To command Movement RLE Spontaneous, To command Gait Unable to assess Tremors None Neuro WNL except Eyes and Movements Conjugate gaze: Move in same direction at same speed Headache None Memory Unable to assess . Evaluation AO self, hospital, date. Speech slurred. Disoriented and converses. PERRLA. Denies pain, POOL, dizziness, visual changes, numbness, tingling. PINEDA 5/5. Nicotine patch left arm. OOB to recliner X 1. Teled/c'd. On RA, satting 98-100%. Lungs dim at base. Denies CP, SOB. Occasional productive cough. Suctions mouth with [place]. LBM 05-19. Mixed continence. Left PICC d/c'd. LFA IV patent. PEG site, no drainage. Running TF at 65/hr. Pills crushed and given via PEG. Tolerating TF and water bolus well. Bed in lowest position, rails up, wheels locked, bed alarm on. Call jeffery within reach. Hourly rounding maintained, will continue to monitor and document changes in CIS. . * Kannan FREDERICK, Abhi Ritchie: PERFORM Event Display: Progress Note Hospital Authored Date: Patient: ??MALIC, EMRUSH ? Age:??67 Years?Sex:??Male?:??1955?? Chief Complaint Medical Acceptance from MICU; CVA History of Present Illness Seen and examined at bedside. Received peg and tolerating tube feeds. C/o mild pain at peg site. Wishes he could eat. Review of Systems 14 point review of systems negative except as noted above in HPI. Physical Exam Vitals & Measurements T:??98.5?F?? HR:??90??(Peripheral)?? RR:??19?? BP:??116/66?? SpO2:??98%?? HT:??168??cm?? WT:??61.2??kg?? BMI:??24.38?? Gen: Alert, tracking bilat HEENT: no JVD CV: Reg, no murmurs Chest: CTA bilat Abd: +BS, soft, NT Exts: trace pedal edema Neuro: CN II-XII intact Elevated bilat upper and lower exts off bed to command. 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 Successfully extubated.? Alert and following one-step commands.?Moving all extremities with left sided weakness.?? MRI shows??early subacute bilateral posterior cerebral artery vascular territory infarcts, early subacute bilateral thalamic and multiple cerebellar lacunar infarcts and diffuse subacute ischemic change of the jayjay. ?? PM&R Recs: NPO except meds in applesauce--speech following. Had MBS on 09/10. NPO still recommended but could trial purees with honey thick liquids with the caveat that he is increased risk for aspiration. After discussion with pt, , and Dr. Schumacher, they have opted to proceed with PEG which was placed. Now tolerating tube feeds and TPN d/c'd. PT following. OT following. Disposition: Rehab--when medically stable. ?? Signing off, call if status changes. ?? Problem List/Past Medical History Ongoing CAD (coronary artery disease) Current smoker CVA (cerebral vascular accident) Dyslipidemia Hyperlipidemia Hypertension Procedure/Surgical History No qualifying data available. Hospital Medications Medications (27) Active SCHEDULED: (14) Aspirin 81 mg Chew Tablet (aspirin 81 mg oral tablet, chewable) ??81 mg, By Mouth, Daily Clopidogrel 75 mg Tablet (Plavix 75 mg oral tablet) ??75 mg, Nasogastric Tube, Daily Enoxaparin 40 mg Inj (Enoxaparin Inj) ??40 mg 0.4 mL, Subcutaneous Injection, Daily Heparin Lock Flush 50 units / 5 mL (Heparin Flush 10 units/mL Inj) ??50 units 5 mL, IV Push, Daily Insulin Lispro 100 units/mL Inj (3mL) (Insulin LISPRO Sliding Scale) ??2-10 units, Subcutaneous Injection, 3 times a day before meals Metoprolol 25mg Tablet (metoprolol 25 mg oral tablet) ??12.5 mg, By Mouth, 2 times a day Modafinil 100 mg Tablet (modafinil 100 mg oral tablet) ??200 mg, By Mouth, Daily NaCl 0.9% Flush 3ml (NaCL 0.9% Flush) ??5 mL, IV Push, Daily Nicotine 21 mg / 24 hour Patch (Nicotine Topical) ??21 mg, Topically, Daily Remove Patch (Remove ??Patch) ??1 each, Topically, Daily Rosuvastatin 20 mg Tablet (rosuvastatin 40 mg oral tablet) ??40 mg, Nasogastric Tube, Daily at bedtime Sodium Chloride 0.65% Nasal [place] (Salinex [place]) ??1 sprays, Nares, Both, 2 times a day Thiamine 100 mg Tablet (thiamine 100 mg oral tablet) ??100 mg, By Mouth, Daily Trazodone 50 mg Tablet (traZODone 50 mg oral tablet) ??25 mg, By Mouth, Daily at bedtime CONTINUOUS: (0) PRN: (13) Acetaminophen 325 mg Tablet (acetaminophen 325 mg oral tablet) ??650 mg, Nasogastric Tube, Every 6 hours Albuterol 0.083% Inhalation Solution (Albuterol 0.083% inhalation kirsty) ??2.5 mg 3 mL, BAND Nebulizer, Every 4 hours Bisacodyl 10 mg Suppository (Bisacodyl Supp) ??10 mg 1 supp, Rectally, Daily Dextrose Inj Syringe (Dextrose 50% Inj Syringe (25Gm)) ??12.5 Gm, IV Push Slowly, Every 20 minutes Dextrose Inj Syringe (Dextrose 50% Inj Syringe (25Gm)) ??25 Gm, IV Push Slowly, Every 15 minutes Glucagon 1 mg Inj (Glucagon Inj) ??1 mg, Intramuscular, Once Glucose 40% Gel (15 Gm) (Glucose Gel) ??15 Gm, By Mouth, Every 20 minutes Glucose 40% Gel (15 Gm) (Glucose Gel) ??30 Gm, By Mouth, Every 20 minutes Heparin Lock Flush 50 units / 5 mL (Heparin Flush 10 units/mL Inj) ??50 units 5 mL, IV Push, Every hour Lactulose 20 Gm/30mL Syrup (lactulose 10 gm/15 ml oral syrup) ??20 Gm 30 mL, Nasogastric Tube, 4 times a day NaCl 0.9% Flush 3ml (NaCL 0.9% Flush) ??5 mL, IV Push, Every hour Ondansetron 2mg/mL Inj (2mL Vial) (Zofran Inj) ??4 mg, IV Push, Every 6 hours Sodium Chloride 0.65% Nasal [place] (Salinex [place]) ??1 sprays, Nares, Both, 4 times a day Follow-Up Appointments Added Follow Up ?Time Frame ?Comments Mariselaasim Felipe?11/24/2022 16:00?THIS IS A PHONE FOLLOW UP-DR FELIPE WILL CALL YOU-PLEASE DO NOT COME TO THE OFFICE Jami Martin MD Lab Results PM&R Labs WBC:??15.9 k/mm3??High (09/17/22) Platelet Count: 365 k/mm3 (09/17/22) Hemoglobin (POC) POC Cartridge: 16.7 Gm/dL (08/25/22) Hematocrit (POC) POC Cartridge: 49 % (08/25/22) Sodium: 137 mmol/L (09/17/22) BUN:??27 mg/dL??High (09/17/22) Creatinine-Blood:??0.6 mg/dL??Low (09/17/22) AST (SGOT): 19 units/L (09/06/22) ALT (SGPT): 32 units/L (09/06/22) * Natasha Todd RN: PERFORM, SIGN, VERIFY Event Display: Progress Note Hospital Authored Date: [id number] Patient: CATIE MARTINEZ Age: 67 years Sex: Male : 1955 Associated Diagnoses: None Author: Peyton SNYDER, Natasha Findings Problem Related to Alteration in Neurological : Alteration in Neurological Function/new 09/17/2022 0:27 EDT Alteration in Neuro status Related to Acute Stroke (CVA) Goals & Outcomes, Neurological Pt is safe with transfers & activities, Pt will be discharged without infection, Pt will be hemodynamically stable, Pt will be Neurologically stable, Pt will become pain free with appropriate intervention, Pt will maintain intact skin integrity, Pt will remainfree from injury, Pt will resume/maintain adequate cardiac output Interventions, Neurological Assess/monitor neurologic status, Assess/monitor VS per unit standards & prn, Collaborate with provider re: medication regime, Physical assessment per unit standards BH Goals/Interventions, Neurological Yes Neurological, Problem Start 09/07/2022 12:30 Reviewed plan with, Neurological Patient Patient Progression, Neurological Pt progressing according to plan . Nursing Data Neurological Data. : Neurological Data. 09/16/2022 21:00 EDT Tongue Disposition Midline Neurological Symptoms Alteration in speech quality, Weakness or loss of muscle strength Level of Consciousness Full Consciousness Orientated to person, place, time Person, Place, Time Hallucinations None Facial Symmetry Intact Characteristics of Speech Slurred Pupil description, left Regular Pupil description, right Regular Pupil reaction, left Brisk Pupil reaction, right Brisk Pupil Size, Left 3 mm Pupil Size, Right 3 mm Strength LUE 5-Active movement against gravity & full resistance Strength RUE 5-Active movement against gravity & full resistance Strength LLE 5-Active movement against gravity & full resistance Strength RLE 5-Active movement against gravity & full resistance Tone LUE Normal Tone RUE Normal Tone LLE Normal Tone RLE Normal Sensation LUE Intact Sensation RUE Intact Sensation LLE Intact Sensation RLE Intact Movement LUE Spontaneous Movement RUE Spontaneous Movement LLE Spontaneous Movement RLE Spontaneous Gait Unable to assess Tremors None Neuro WNL except Eyes and Movements Conjugate gaze: Move in same direction at same speed Headache None Memory Intact . Evaluation Pt A&Ox3 w/ slurred speech, +PERRLA, symmetrical smile w/ tongue midline. Pt maintained on seizure precautions w/ out evidence of seizure like activity noted at this time, will continue to monitor. Pt 5/5 strength BUE and BLE. Pt on tele box #16 in NSR w/ diminished and crackles in the lungs w/an occasional productive cough and pt self suctions using the [place]. Pt has occasional mixed incontinence but using the urinal w/ last BM 09/12 w/ +BSx4 and abd soft and nontender, PRN bowel medications given for constipation. Pt skin is intact and has 4/10 nose pain, PRN pain medication given w/positive effect. Pt denies nausea, vomiting, or vision changes. Pt got PEG tube places 09/16 at 1:30pm, pt was able to start getting clear liquids down PEG at 7:30pm09/16 and at 1:30am 09/17 pt will be able to start receiving tube feeds starting at 10mL/hr and titrated up to goal of 65mL/hr w/ H2O boluses of 300mL every 8hrs. Will continue to monitor and maintain pt safety. . Radiology * Event Display: IR End of Case Report * Lex Benitez MD: PERFORM, TRANSCRIBE, VERIFY, VERIFY Event Display: Result: Authored Date: [id number] Patient: BERENICE MARTINEZUSH Study Date: 09/16/2022 Performing: Lex Benitez MD Referring: : 1955 Age: 67 Gender: MALE Pre-procedure diagnosis and Indication: Request for G-tube dyphagia 67 year old Bosnian speaking male with past history significant for CAD (STEMI s/p GERA to RCA 1 in 2014 and x 2 in 2017), CVA without deficits in June 2021 on DAPT, hyperlipidemia, inhaled tobacco use disorder who initially presented 08/25 with sudden onset vision change and right facial droop and in the ED became unresponsive with sonorous breathing, right eye deviation and right upper extremity jerks requiring intubation. CT head/CTA with basilar true occlusion and was out of window for TNK and taken for basilar arterial stent placement. Exam: Prior to the procedure, the patient was seen and the nature of the procedure explained along with its attendant risks and benefits to a family member over the phone . Informed consent was obtained from, a family member over the phone . The patient underwent a pre-anesthesia assessment. On completion of this it was determined the patient is suitable for moderate sedation. The patient arrived in IR room 1 for a gastrostomy tube insertion PROCEDURE: The patient was positioned supine and secured with arm boards. The access site was evaluated, then prepped with chloraprep and draped in the usual sterile fashion. Patient received moderate sedation administered under my direct supervision. Local anesthetic was given and Using multiplanar fluoroscopy and with substantial difficulty as the patient is unable to retain much in the way of gas to distend the stomach or to displace the heavily opacified transverse colon out of the way t-fasteners were used to secure the stomach contrast was used to verify placement of each. A 18g needle was inserted into the area that had been secured with the T fasteners and a wire was inserted. A serial dilator was used to dilate the tract and a , 16 FR gastrostomy tube.was inserted the retention balloon was filled to a volume of 5 ml's of water at a depth of 3 cm. contrast injected to check placement of new tube and the tube was secured using 0 prolene suture. , 16 FR gastrostomy tube . and patient tolerated the procedure well with no complications of the procedure Tube inserted: Halyard (Avanos) GASTROSTOMY TUBE ENFIT 16FR - Qty: 1 Each Part #: [id number] Requires extended level of service as it is difficult to see a clear way to the stomach. This patient unable to hold gas in. The heavily opacified transverse colon was also obscuring view of the stomach required multiple orientations with multiplanar imaging to identify a safe tract in the stomach well beyond the usual level of service required for G-tube insertion. estimated blood loss was minimal Specimens/samples: no specimens or samples were sent for this procedure Patient transferred to[address] [facility] procedure instructions sent in envelope with the patient Impression: Satisfactory ultrasound and fluoroscopically guided placement of a gastrostomy tube patient tolerated the procedure well with no complications of the procedure Please Note: Arrangements should be made for the patent to have the 3 retention sutures removed in 10-14 days. The sutures are held in place by 1cm diameter buttons on the skin. Cut these. Do not cut the any suture encircling the G-tube collar. 1. The G-tube can be used after 6 hours if clear gastric juices are draining from the G-tube and there is no evidance of peritoneal irritation (i.e. no abdominal pain, or tenderness, normal bowel sounds). 2. Please consult with nutrition service concerning starting g-tube feeds. 3. When initiating G-tube feeds have the patient in right side down decubitus. 4. Written instructions and other information concerning G-tubes were given to [ ] and/or also placed in the patients chart. These orders were entered into [facility]. 5. We recommend that the patient return for removal of the retention sutures 10-14 days after G-tube placement. The sutures should not remain in place longer than 2 weeks.. 6. Please ensure that the white port on the hub of the catheter is used for balloon inflation and deflation only. This port should only be manipulated by an interventional radiologist. This should not be used for flushing or administration of feeds. 7. We recommend that G-tubes of this type be replaced at 3 month intervals to avoid inadvertent loss of access due to deterioration in the G-tube retention balloon material. We will make arrangements. TO PREVENT CLOGGING OF THE G-TUBE FLUSH VIGOROUSLY WITH 30ML OF WATER AFTER EACH FEEDING. WHENEVER POSSIBLE GIVE MEDICATIONS IN LIQUID FORM; IF SOLID MEDICATIONS ARE ABSOLUTELY REQUIRED HAVE THE MEDICATIONS GROUND TO A FINE PASTE (preferably by a compounding pharmacy) SUSPEND IN WATER AND FLUSH AFTER EACH DOSE. IF CLUMPS OF MEDICATION ARE SEEN IN THE SUSPENSION, RESUSPEND. Fluoroscopy time and dose Total Fluoro Time: 4.3 mins Total dose 150 mGy Total DAP 1126.6 - ?Gy/m2 Contrast used Contrast used: Omnipaque_300 20 ml's Local Anesthetic Lidocaine 1% w/ 4.2% sodium bicarbonate 10 ml's SQ Bupivacaine 0.5% 10 ml's SQ Moderate sedation was provided From 13:06:00 to 13:30:00 Moderate Sedation Agent Dose Route Time By Fentanyl 25 mcg IV 13:06:44 LC Versed 0.5 mg IV 13:06:50 LC Fentanyl 25 mcg IV 13:24:42 LC Signed By Lex Benitez MD On 09/16/2022 13:42:35 Lex Benitez MD Dictated By: Lex Benitez MD Dictated Date/Time: 09/16/22 12:35 p Reviewed By: Lex Benitez MD Signed By: Lex Benitez MD Signed Date/Time: 09/16/22 1:36 pm Transcribed By: EVENS Transcribed Date/Time: 09/16/22 1:36 pm * [facility] , CIS S: TRANSCRIBE Alvaro Rice: SIGN Ector Palencia MD, V: VERIFY Event Display: Result: Authored Date: Modified Barium Swallow WITH SPEECH PATHOLOGY CLINICAL INDICATION: Reason: Aspiration; Clinical Question(s): Aspiration; Order Comment: Modified Barium Swallow W Speech (Radiology) Prep COMPARISON: None Technique: Lateral cine-videofluoroscopy was performed during the oral administration of various barium containing consistencies, as described below. Fluoroscopic imaging provided by Ceasar Ag PA-C. Pulsed fluoroscopy time: 2.1 minutes Dose Area Product (DAP): 123.4 uGy*m2 Findings: Honey, applesauce, pudding, and nectar barium consistencies were tested. Subglottic aspiration of nectar consistency was seen, prompting a cough response. Inconsistent deep laryngeal penetration was seen with Honey consistency. The oral and pharyngeal phases of swallowing were otherwise without evidence of laryngeal penetration or subglottic aspiration box revealed significant vallecular and piriform retention of food consistencies. IMPRESSION: Subglottic aspiration, laryngeal penetration and residuals as described. For dietary concerns or recommendations, please refer to speech pathologist report. By undersigning and finalizing the report, the attending radiologist confirms he/she has personallyreviewed and interpreted the images and agrees with the description of the findings. I have personally reviewed the images and I agree with this report. 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 Clinical History Additional Clinical History:INDICATION: 67 M with CAD, STEMI s/p stents, HLD, tobacco smoker, and prior stroke in June 2021 w/o deficits per who presented as a stroke alert. LKW 1000. Patient w/ a headache and then decrease in his vision bilaterally starting this morning around 1100. Throughout the day, his vision worsened to complete and total vision loss (only seeing black). He is on ASA. With EMS, patient was alert but not conversing as he is Bosnian speaking only. On arrival to the ED, patient became unresponsive with sonorous breathing, R forced gaze, and RUE shaking. He was evaluated by KELIN Taveras and Dr. Marisela Felipe. At the time of decompensation his NIHSS was 24. His O2 sat dropped to the mid 70s. Patient given a total of Ativan 4 mg, Keppra 1.5 g, and was intubated with propofol and succinylcholine for airway protection. CTH without hemorrhage or large territory infarct (some incomplete bilateral MARINE MACHINIST territory) and CTA w/ basilar artery occlusion. Patient's updated on the phone by KELIN Taveras. Patient's was in agreement with endovascular treatment. After a discussion with KELIN Taveras and Dr. Marisela Felipe, a decision was made to pursue endovascular treatment. Patient was brought to the operating room as emergent case. Please refer to the electronic medical record for further information. PROCEDURE: Transradial cerebral angiogram, endovascular thrombectomy, angioplasty/stenting IMPLANTS: Neuroform EZ Stent 4.5x20 (MRI safe). CATHETERIZATION OF THE FOLLOWING VESSELS: Right radial Right subclavian Right vertebral Basilar Right Posterior cerebral Left Posterior cerebral ANGIOGRAPHY AND INTERPRETATION OF THE FOLLOWING IMAGES: Right radial (sheath injection) Right subclavian: cervical Right vertebral: cranial Right vertebral: cranial, post first pass Right posterior cerebral: cranial (roadmap) Right vertebral: cranial, post second pass Right vertebral: cranial, post 10 min delay Right posterior cerebral: cranial (roadmap) Right vertebral: cranial, post third pass Right vertebral: cranial, magnified working projection Left posterior cerebral: cranial (roadmap) Right vertebral: cranial, magnified working projection post stent placement Right vertebral: cranial, magnified working projection post angioplasty Right vertebral: cranial, post 5 min delay Right vertebral: cranial, post 10 min delay Right vertebral: cervical IN ROOM: 2357 PUNCTURE: 0015 FIRST PASS: 0033 SECOND PASS (TICI 3 ACHIEVED): 0048 THIRD PASS (SINCE RE-OCCLUDED): 0115 STENT PLACED: 0139 ANGIOPLASTY: 0208 FINAL ANGIOGRAM (REMAINED PATENT): 0225 SHEATH OUT: 0227 MATERIALS EMPLOYED: Radial puncture kit 6 Fr Radial sheath Benchmark guide catheter 5 Fr Select catheter [employer] guide wire 0.035 Terumo guide wire 5 Fr Eunice catheter and aspiration system Headway 21 microcatheter Synchro 2 microwire Solitaire 4x40 XT27 microcatheter Neuroform EZ 4.5x20 Scepter balloon microcatheter 4x10 TR Band Contrast TECHNIQUE: The patient was emergently brought to the neuroangiography suite and placed supine on the fluoroscopy table with full spine precautions. General anesthesia was maintained by Anesthesiology Staff. Right forearm and groins were prepped and draped in the usual sterile fashion. A timeout and team briefing were performed to confirm patient identification and the planned procedure with all staff present in the procedure room. The right radial artery was accessed under ultrasound guidance with a radial puncture kit using the [id number] technique. A 0.018 wire was passed after brisk bleed back was obtained and a 6Fr radial sheath was placed over the wire. A mixture of 5 mg Verapamil and 200 mg Nitroglycerin were given through the sheath. Radial angiography was performed through the sheath. Right radial (sheath injection) Procedure Data Procedure Date Date: 08/25/2022Start: 23:43End: 02:46 The procedure was explained in detail to the patient. Risks, complications and alternative treatments were reviewed. Written consent was obtained. Entry Locations - Percutaneous access was performed through the Radial artery. A 6 Fr sheath was inserted. Hemostasis was successfully obtained using TR Band. Procedure Medications - Verapamil I.A. 5 mg. - Nitroglycerin I.A. 100 mcg. - Verapamil I.A. 2.5 mg. - Nitroglycerin I.A. 100 mcg. - Verapamil I.A. 2.5 mg. Sedation: A separate physician or qualified healthcare provider administered the sedation services. Refer to separate documentation in patient's record. Contrast Material - Omnipaque 90 ml Diagnostic Catheters - [id number] STR MARTINE DISTAL ACCESS CATHETER. - [id number] STR/NATHAN BENCHMARK .071 CATHETER. - [id number] STR HEADWAY 21 ADVANCED MICROCATHETER. Fluoroscopy Time: PCI: 43:00 minutes. Total: 43:00 minutes. Fluoroscopy Dose: PCI: 1030 mGy. Total: 1030 mGy. Procedure Narrative The Benchmark over the Select catheter over the Bentson wire were inserted into the sheath and navigated into the subclavian artery under roadmap guidance. The Bentson was removed and the Select was double flushed. An angiogram was obtained from the subclavian artery. Under roadmap guidance, the Benchmark over the Select catheter over the Terumo wire were navigated into the right vertebral artery. The Select and Terumo were removed. The Benchmark was double flushed and connected to continuous heparinized saline flush. An angiogram was obtained, which showed basilar occlusion. Right subclavian: cervical Right vertebral: cranial A first pass of aspiration thrombectomy was performed. The 5Fr Eunice over the Headway over the Synchro were carefully inserted into the Benchmark and navigated to the site of occlusion in the basilar under roadmap guidance. The Headway and Synchro were removed. The Eunice was connected to aspiration, and it was continued for 2 min. The Eunice was carefully removed under aspiration. Post aspiration angiographic evaluation showed persistent basilar occlusion. Right vertebral: cranial, post first pass A second pass of combined stent retriever plus aspiration thrombectomy was performed. The 5Fr Eunice over the Headway over the Synchro were carefully inserted into the Benchmark and navigated to the site of occlusion in the basilar under roadmap guidance. The Headway over the Synchro were gently navigated beyond the occlusion and into the right MARINE MACHINIST. The Synchro was removed. Contrast injection in the Headway confirmed proper placement in the right MARINE MACHINIST. A Solitaire 4x40 was advanced through the Headway and carefully unsheathed across the presumed thrombus. Aspiration was initiated, and it was allowed to continue for 2 min while the thrombus integrated with the Solitaire. The Eunice and Solitaire were carefully removed under aspiration. Post aspiration angiographic evaluation showed TICI 3 reperfusion without any evidence of new thromboembolic complications. However, there was persistent mid basilar stenosis. Right posterior cerebral: cranial (roadmap) Right vertebral: cranial, post second pass A decision was made to wait 10 min and repeat angiography given the persistent stenosis. After 10 min had passed, repeat angiography showed that there was apparent re-occlusion. Right vertebral: cranial, post 10 min delay A third pass of combined stent retriever plus aspiration thrombectomy was performed. The 5Fr Eunice over the Headway over the Synchro were carefully inserted into the Benchmark and navigated to the site of occlusion in the basilar under roadmap guidance. The Headway over the Synchro were gently navigated beyond the occlusion and into the right MARINE MACHINIST. The Synchro was removed. Contrast injection in the Headway confirmed proper placement in the right MARINE MACHINIST. A Solitaire 4x40 was advanced through the Headway and carefully unsheathed across the presumed thrombus. Aspiration was initiated, and it was allowed to continue for 2 min while the thrombus integrated with the Solitaire. The Eunice and Solitaire were carefully removed under aspiration. Post aspiration angiographic evaluation showed TICI 3 reperfusion without any evidence of new thromboembolic complications. However, there was persistent mid basilar stenosis. Right posterior cerebral: cranial (roadmap) Right vertebral: cranial, post third pass The benefits and the risks of stenting/angioplasty were discussed with Dr. Marisela Felipe. All were in agreement that the benefits outweighed the risks given his high NIHSS, lack of large infarct, and apparent re-occlusion of the stenosis despite conservative measures. The patient was loaded with the Neuro dose of Integrilin (90mcg/kg), then continued on a maintenance Integrilin gtt (per [facility] protocol). Angiographic Findings Peripheral Arteries and Lesion Findings Basilar: Lesion in Proximal: Hemodynamics Condition: Rest O2 Consumption: Estimated: 236.25 Shunts Oxygen Values O2 Capacity 218.96 O2 Consumption 236.25 Interventional Procedure Peripheral lesions: Basilar: Lesion in Proximal: Devices used - 4.2wdl25la SOLITAIRE X REVASCULARIZATION DEVICE. Number of passes: 1. - 4.9cft82ym NEUROFORM EZ 3 STENT. Diameter: 4.5 mm. Length: 20 mm. Number of passes: 1. - 4.6wfp20uh SCEPTER C OCCLUSION BALLOON. Diameter: 4 mm. Length: 10 mm. 7 inflation(s) Conclusions Interventional Summary The 5Fr Eunice over the XT27 over the Synchro were carefully inserted into the Benchmark and navigated to the distal V4 under roadmap guidance, where the Eunice remained for the stenting procedure. The XT27 over the Synchro were then gently navigated beyond the stenosis and into the left MARINE MACHINIST under roadmap guidance. The Synchro was removed. Contrast injection in the XT27 confirmed proper placement in the left MARINE MACHINIST. A Neuroform EZ 4.5x20 was then advanced into the XT27 until it reached the appropriate position across the basilar stenosis. Under roadmap guidance, stent was carefully unsheathed across the lesion. Angiography post stent placement showed improved lumen diameter but there was persistent residual stenosis. Right vertebral: cranial, magnified working projection Left posterior cerebral: cranial (roadmap) Right vertebral: cranial, magnified working projection post stent placement Since there was persistent residual stenosis, a decision was made to perform submaximal gentle angioplasty to avoid snow-plowing thrombus into perforators. The Scepter 4x10 was prepared on the back table. It was advanced over the Synchro reena position across the residual stenosis, under roadmap guidance. Gentle angioplasty was performed. The Scepter and Synchro were removed from the patient. Angiography post angioplasty showed further improved lumen diameter with residual moderate stenosis. A decision was made that the risks of further angioplasty outweighed the potential benefit given the desire to avoid snow-plowing thrombus into perforators. Right vertebral: cranial, magnified working projection post angioplasty A decision was made to wait 10 min and repeat angiography given the persistent stenosis. After 10 min had passed, repeat angiography showed that there was stable, improved lumen diameter with residual moderate stenosis. Given this good result, the catheters were withdrawn. A cervical right vertebral angiogram was obtained that did not reveal evidence of complications. A TR band was used to close the right radial artery. 15cc of air was left in the TR band. The patient was then transported to the ICU in stable condition. Right vertebral: cranial, post 5 min delay Right vertebral: cranial, post 10 min delay Right vertebral: cervical Interventional Recommendations FINDINGS: Right radial (sheath injection) Appropriate access without vascular abnormality. Right subclavian: cervical There is good filling of the right subclavian artery, vertebral artery, thyrocervical trunk, and internal mammary artery. Right vertebral: cranial There is occlusion of the mid basilar artery. There is good filling of the distal right vertebral artery, right PICA, the vertebrobasilar junction. There is no evidence of aneurysm, pseudoaneurysm, AV shunts or any other vascular malformation. Right vertebral: cranial, post first pass There is persistent occlusion of the mid basilar artery. Right posterior cerebral: cranial (roadmap) There is good catheter placement in the right MARINE MACHINIST. Right vertebral: cranial, post second pass There is TICI 3 reperfusion, but there is persistent stenosis of the mid basilar artery. There is otherwise good filling of the distal right vertebral artery, the vertebrobasilar junction and basilar artery. PICA, AICAs, SCAs, and licensed nursing assistant have normal course and flow. There is no evidence of aneurysm, pseudoaneurysm, AV shunts or any other vascular malformation. Right vertebral: cranial, post 10 min delay There is re-occlusion of the persistent stenosis of the mid basilar artery. Right posterior cerebral: cranial (roadmap) There is good catheter placement in the right MARINE MACHINIST. Right vertebral: cranial, post third pass There is TICI 3 reperfusion, but there is persistent stenosis of the mid basilar artery. Right vertebral: cranial, magnified working projection There is TICI 3 reperfusion, but there is persistent stenosis of the mid basilar artery. Left posterior cerebral: cranial (roadmap) There is good catheter placement in the left MARINE MACHINIST. Right vertebral: cranial, magnified working projection post stent placement There is appropriate placement of the stent along the region of basilar stenosis. The stent has good wall apposition. There is persistent stenosis of the mid basilar artery. Right vertebral: cranial, magnified working projection post angioplasty After angioplasty, there is improved lumen diameter with residual moderate basilar stenosis. Right vertebral: cranial, post 5 min delay After 5 min, there is stable, improved lumen diameter with residual moderate basilar stenosis. Right vertebral: cranial, post 10 min delay After 10 min, there is stable, improved lumen diameter with residual moderate basilar stenosis. There is appropriate placement of the stent along the region of basilar stenosis. The stent has good wall apposition. There remains TICI 3 reperfusion. There is no evidence of thromboembolic or hemorrhagic complications. Right vertebral: cervical There is good filling of the right vertebral artery. There is no evidence of thromboembolic or hemorrhagic complications. IMPRESSION: 1. Mid basilar occlusion. 2. TICI 3 reperfusion following two passes of thrombectomy. 3. Since there was re-occlusion after 10 min of monitoring, a decision was made to perform stenting/angioplasty 4. TICI 3 reperfusion again after a third pass of thrombectomy. 5. After stenting/angioplasty, there is improved lumen diameter with residual moderate basilar stenosis that remained stable after 10 min of monitoring. Signatures * BHSPowerscribe , CIS S: TRANSCRIBE Dario Pond MD S: VERIFY Ashley LUCIANhi: SIGN Event Display: Result: Authored Date: CT Head-Hyper Acute Stroke INDICATION: Reason: Neuro deficit, acute, stroke suspected; Clinical Question(s): Hematoma Infarction TECHNIQUE: Noncontrast head CT using axial technique and reconstructed in axial and coronal planes.Iterative reconstruction techniques are used to optimize dose and image quality. CTDIvol Body: 11.03 mGy, DLP Body: 414 mGy*cm. CTDIvol Head: 45.80 mGy, DLP Head: 773 mGy*cm. COMPARISON: None. FINDINGS: Truck Farmer view findings, lines and tubes: None. BRAIN AND EXTRA-AXIAL SPACES: Subtle loss of comer-white matter differentiation in the posterior right occipital lobe (axial image68 and coronal image 39). There is also more diffuse apparent loss of comer-white differentiation involving the more inferior right occipital lobe and possibly also the left occipital lobe. While these findings can be seen sometimes is artifact, given the appearance of the CTA demonstrating likely basilar occlusion, I believe the findings likely represent acute infarcts. No parenchymal hemorrhage, midline shift, or mass effect. Negative insular ribbon sign. Atherosclerotic vascular calcification of the carotid arteries. Ventricles, sulci, and basilar cisterns are normal. Mild low-density white matter changes. No subarachnoid hemorrhage. No subdural or epidural collection. CALVARIUM, SKULL BASE, AND SOFT TISSUES: No fractures or suspicious bony lesions. Mild mucosal thickening of bilateral maxillary sinuses and the ethmoid air cells. Right mastoid effusion. Visualized orbits and globes are intact. The extracranial soft tissues are unremarkable. IMPRESSION: Loss of comer-white matter differentiation in the posterior right occipital lobe and possibly the left occipital lobe, suspicious for acute/subacute infarct. Upon review of the concurrent CTA, basilar occlusion. Findings communicated to Chuy Reed at 11:10 PM on 08/25/2022. I have personally reviewed the images and I agree with this report. WSN: [id number] Ordering Physician: Michel Lux Dictated By: Nhi Ramirez DO Dictated Date/Time: 08/25/22 11:31 p Reviewed By: Dario Pond MD Signed By: Dario Pond MD Signed Date/Time: 08/25/22 11:36 pm Transcribed By: ISACC Transcribed Date/Time: 08/25/22 11:20 pm * [facility] , RUTH S: TRANSCRIBE Nhi Ramirez DO: JANUSZ Briscoe MD, Shan: VERIFY Event Display: Result: Authored Date: [id number] CT Angio Head Hyperacute Stroke, CT Angio Neck Hyperacute Stroke Reason: Stroke; Clinical Question(s): Other:; Hematoma Aneurysm / Other: TECHNIQUE: CT angiogram of the head and neck was performed after bolus administration of intravenous contrast. 100 mL of Omnipaque 300 was administered intravenously. Coronal and sagittal MIP reformatted images were obtained. Additional 3-D images were created on a separate workstation under concurrent supervision by the attending radiologist. All stenoses are measured using NASCET criteria. Weight-based protocol using automatic tube modulation was used to optimize exposure parameters. RADIATION DOSE PARAMETERS: CTDIvol Body: 11.03 mGy, DLP Body: 414 mGy*cm. CTDIvol Head: 45.80 mGy, DLP Head: 773 mGy*cm. COMPARISON: Noncontrast CT head performed concurrently. FINDINGS: There is a 3 vessel arch. The supraaortic proximal great neck vessels appear normal in caliber and appearance. No hemodynamically significant stenosis. The right common carotid artery is normal in caliber. The right carotid bulb is patent. Mild mural calcifications are seen the right proximal internal carotid artery. 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 This area causes 65% stenosis by NASCET criteria. The left common carotid artery is normal in caliber. The left carotid bulb is patent. The left proximal ICA shows 0% stenosis by NASCET criteria. Right vertebral artery: Dominant. Patent without stenosis. Focal mural calcification is seen at theV3 segment without causing stenosis. Left vertebral artery: Hypoplastic. Patent without stenosis. Cervical spine: No acute pathology. Mild spondylosis. Soft tissues and lung apices: Status post ET and NG tube insertion which have normal positions. Thevisualized upper lungs are clear. No pneumothorax. Bilateral thyroid lobes are normal. There is no definite abnormality throughout the soft tissue neck. [place]: Concurrent CT of head showed a small low-attenuation area in the right temporal posterior medial parietal lobe suspicious for a focal acute infarct. Please correlate clinically. Mild generalized volume loss and bilateral periventricular hypodensities are noted. Bilateral internal carotid arteries at the skull base have mural calcifications. There is a focal area of moderate stenosis at supraclinoid segment of left ICA. Bilateral posterior communicating arteries are not visualized. No posterior communicating artery aneurysm is seen. The left SIERRA is hypoplastic. Otherwise ACAs, MCAs and their branches are patent. No stenosis or vessel cut off is seen. No definite aneurysm is noted. The right vertebral artery is dominant. A focal mural calcification is seen at the V4 segment. No definite stenosis. The left vertebral artery is hypoplastic and contains focal areas of moderate to severe stenosis. The vertebrobasilar junction is normal. The proximal basilar artery is patent. 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 The basilar tip is opacified. Bilateral licensed nursing assistant and their branches are patent. The superior sagittal sinuses, the straight sinus, bilateral transverse and sigmoid sinuses: Patentwithout dural sinus thrombosis. IMPRESSION: Concurrent CT of head showed a small low-attenuation area in the right temporal posterior medial parietal lobe suspicious for a focal acute infarct. Please correlate clinically. There is a focal area of moderate stenosis at the supraclinoid segment of the left ICA. The anterior intracranial arterial circulation shows no vessel cut off or high- grade stenosis. The left intracranial vertebral artery is hypoplastic and contains focal areas of moderate to severe stenosis. 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 The basilar tip is opacified. 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 This area causes 65% stenosis by NASCET criteria. The left proximal internal carotid artery show no significant stenosis by NASCET criteria. The right cervical vertebral artery shows no significant stenosis. The left cervical vertebral artery shows no significant stenosis. The impression above was relayed to Dr. Chuy Reed by Dr. Nhi Ramirez over the phone on 08/25/2022 at 11:10 PM. The first finding was not described in the preliminary report given by [facility]. I have personally reviewed the images and I agree with this report. WSN: [id number] Ordering Physician: Michel Lux Dictated By: Nhi Ramirez DO Dictated Date/Time: 08/26/22 10:12 a Reviewed By: Ricardo Briscoe MD Signed By: Ricardo Briscoe MD Signed Date/Time: 08/26/22 10:17 am Transcribed By: ISACC Transcribed Date/Time: 08/26/22 10:03 am * [facility] , CIS S: TRANSCRIBE Nhi Ramirez DO: SIGN Ricardo Briscoe MD: VERIFY Event Display: Result: Authored Date: [id number] CT Angio Head Hyperacute Stroke, CT Angio Neck Hyperacute Stroke Reason: Stroke; Clinical Question(s): Other:; Hematoma Aneurysm / Other: TECHNIQUE: CT angiogram of the head and neck was performed after bolus administration of intravenous contrast. 100 mL of Omnipaque 300 was administered intravenously. Coronal and sagittal MIP reformatted images were obtained. Additional 3-D images were created on a separate workstation under concurrent supervision by the attending radiologist. All stenoses are measured using NASCET criteria. Weight-based protocol using automatic tube modulation was used to optimize exposure parameters. RADIATION DOSE PARAMETERS: CTDIvol Body: 11.03 mGy, DLP Body: 414 mGy*cm. CTDIvol Head: 45.80 mGy, DLP Head: 773 mGy*cm. COMPARISON: Noncontrast CT head performed concurrently. FINDINGS: There is a 3 vessel arch. The supraaortic proximal great neck vessels appear normal in caliber and appearance. No hemodynamically significant stenosis. The right common carotid artery is normal in caliber. The right carotid bulb is patent. Mild mural calcifications are seen the right proximal internal carotid artery. 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 This area causes 65% stenosis by NASCET criteria. The left common carotid artery is normal in caliber. The left carotid bulb is patent. The left proximal ICA shows 0% stenosis by NASCET criteria. Right vertebral artery: Dominant. Patent without stenosis. Focal mural calcification is seen at theV3 segment without causing stenosis. Left vertebral artery: Hypoplastic. Patent without stenosis. Cervical spine: No acute pathology. Mild spondylosis. Soft tissues and lung apices: Status post ET and NG tube insertion which have normal positions. Thevisualized upper lungs are clear. No pneumothorax. Bilateral thyroid lobes are normal. There is no definite abnormality throughout the soft tissue neck. [place]: Concurrent CT of head showed a small low-attenuation area in the right temporal posterior medial parietal lobe suspicious for a focal acute infarct. Please correlate clinically. Mild generalized volume loss and bilateral periventricular hypodensities are noted. Bilateral internal carotid arteries at the skull base have mural calcifications. There is a focal area of moderate stenosis at supraclinoid segment of left ICA. Bilateral posterior communicating arteries are not visualized. No posterior communicating artery aneurysm is seen. The left SIERRA is hypoplastic. Otherwise ACAs, MCAs and their branches are patent. No stenosis or vessel cut off is seen. No definite aneurysm is noted. The right vertebral artery is dominant. A focal mural calcification is seen at the V4 segment. No definite stenosis. The left vertebral artery is hypoplastic and contains focal areas of moderate to severe stenosis. The vertebrobasilar junction is normal. The proximal basilar artery is patent. 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 The basilar tip is opacified. Bilateral licensed nursing assistant and their branches are patent. The superior sagittal sinuses, the straight sinus, bilateral transverse and sigmoid sinuses: Patentwithout dural sinus thrombosis. IMPRESSION: Concurrent CT of head showed a small low-attenuation area in the right temporal posterior medial parietal lobe suspicious for a focal acute infarct. Please correlate clinically. There is a focal area of moderate stenosis at the supraclinoid segment of the left ICA. The anterior intracranial arterial circulation shows no vessel cut off or high- grade stenosis. The left intracranial vertebral artery is hypoplastic and contains focal areas of moderate to severe stenosis. 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 The basilar tip is opacified. 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 This area causes 65% stenosis by NASCET criteria. The left proximal internal carotid artery show no significant stenosis by NASCET criteria. The right cervical vertebral artery shows no significant stenosis. The left cervical vertebral artery shows no significant stenosis. The impression above was relayed to Dr. Chuy Reed by Dr. Nhi Ramirez over the phone on 08/25/2022 at 11:10 PM. The first finding was not described in the preliminary report given by [facility]. I have personally reviewed the images and I agree with this report. WSN: [id number] Ordering Physician: Michel Lux Dictated By: Nhi Ramirez DO Dictated Date/Time: 08/26/22 10:12 a Reviewed By: Ricardo Briscoe MD Signed By: Ricardo Briscoe MD Signed Date/Time: 08/26/22 10:17 am Transcribed By: ISACC Transcribed Date/Time: 08/26/22 10:03 am Portable XR Chest Views * RUTH Vazquez S: TRANSCRIDario Zapata MD: VERIFY Event Display: Result: Authored Date: [id number] Chest Portable Reason: Tube Placement; Clinical Question(s): Tube Placement COMPARISON: 09/04/2022 FINDINGS: LINES AND TUBES: Central venous catheter tip in the SVC/RA junction area. Enteric tube tip in the stomach. LUNGS AND PLEURA: Clear lungs. Normal pulmonary vascularity. No pleural effusion. No pneumothorax. HEART, MEDIASTINUM AND CASSANDRA: Heart is normal in size. Normal mediastinal and hilar contour. BONES AND SOFT TISSUES: No acute abnormality. IMPRESSION: PICC line and enteric tube appear in good position. WSN: [id number] Ordering Physician: Yared Roberts Dictated By: Dario Pond MD Dictated Date/Time: 09/15/22 9:59 pm Reviewed By: Dario Pond MD Signed By: Dario Pond MD Signed Date/Time: 09/15/22 9:59 pm Transcribed By: ISACC Transcribed Date/Time: 09/15/22 9:59 pm * RUTH Vazquez S: TRANSCRIZafar Hickman MD: VERIFY Event Display: Result: Authored Date: [id number] Chest Portable AP upright at 3:39 AM Reason: Hemoptysis; Clinical Question(s): Aspiration COMPARISON: Multiple priors, the most recent 09/03/2022 FINDINGS: LINES AND TUBES: Tip of endotracheal tube 2.2 cm above the aminata. Enteric tube in good position with tip and side-port in the stomach. LUNGS AND PLEURA: Clear lungs. Normal pulmonary vascularity. No pleural effusion. No pneumothorax. HEART, MEDIASTINUM AND CASSANDRA: Heart is normal in size. Normal mediastinal and hilar contour. BONES AND SOFT TISSUES: Normal. IMPRESSION: Tip of endotracheal tube 2.2 cm above the aminata. Enteric tube in good position. No acute disease. WSN: [id number] Ordering Physician: Valentina Jacinto Dictated By: Zafar Luna MD Dictated Date/Time: 09/04/22 10:46 a Reviewed By: Zafar Luna MD Signed By: Zafar Luna MD Signed Date/Time: 09/04/22 10:46 am Transcribed By: ISACC Transcribed Date/Time: 09/04/22 10:44 am * [facility] , CIS S: TRANSCRIHong Bryant MD: VERIFY Event Display: Result: Authored Date: [id number] Chest Portable Reason: Hemoptysis; Clinical Question(s): Aspiration COMPARISON: X-ray 08/31/2022 FINDINGS: LINES AND TUBES: Enteric tube has been removed. LUNGS AND PLEURA: Clear lungs. Normal pulmonary vascularity. No pleural effusion. No pneumothorax. HEART, MEDIASTINUM AND CASSANDRA: Heart is normal in size. Normal mediastinal and hilar contour. BONES AND SOFT TISSUES: No acute abnormality. IMPRESSION: No acute abnormality. WSN: [id number] Ordering Physician: Valentina Jacinto Dictated By: Hong Ceballos MD Dictated Date/Time: 09/03/22 10:36 p Reviewed By: Hong Ceballos MD Signed By: Hong Ceballos MD Signed Date/Time: 09/03/22 10:36 pm Transcribed By: ISACC Transcribed Date/Time: 09/03/22 10:35 pm * [facility] , CIS S: TRANSCRIBE Billy Jackson MD: VERIFY Event Display: Result: Authored Date: [id number] Chest Portable Reason: Hemoptysis; Clinical Question(s): Pneumonia; or NG displacement COMPARISON: 08/30/22 FINDINGS: LINES AND TUBES: Enteric tube courses below the diaphragm, extending outside the [id number]. LUNGS AND PLEURA: Low lung volumes. Persistent left basilar subsegmental atelectasis No pleural effusion. No pneumothorax. HEART, MEDIASTINUM AND CASSANDRA: Heart is normal in size. Normal mediastinal and hilar contour. BONES AND SOFT TISSUES: No acute abnormality. IMPRESSION: No acute abnormality. WSN: [id number] Ordering Physician: Blanca Woodard Dictated By: Billy Jackson MD Dictated Date/Time: 08/31/22 8:28 am Reviewed By: Billy Jackson MD Signed By: Billy Jackson MD Signed Date/Time: 08/31/22 8:28 am Transcribed By: ISACC Transcribed Date/Time: 08/31/22 8:27 am * [facility] , CIS S: TRANSCRIHong Malloy MD: VERIFY Event Display: Result: Authored Date: [id number] Chest Portable Reason: Tube Placement; NG tube; Clinical Question(s): Other: COMPARISON: 08/19/2022 FINDINGS: LINES AND TUBES: Enteric tube replaced, tip in mid gastric body directed distally, projecting over the left side pedicle of the L1 vertebra. Endotracheal tube removed. LUNGS AND PLEURA: Clear lungs. Normal pulmonary vascularity. No pleural effusion. No pneumothorax. HEART, MEDIASTINUM AND CASSANDRA: Heart is normal in size. Normal mediastinal and hilar contour. BONES AND SOFT TISSUES: No acute abnormality. IMPRESSION: Enteric tube replaced as above. Improved bibasilar aeration. No acute findings. WSN: [id number] Ordering Physician: Willian Jones Dictated By: Hong Ramon MD Dictated Date/Time: 08/30/22 11:15 a Reviewed By: Hong Ramon MD Signed By: Hong Ramon MD Signed Date/Time: 08/30/22 11:15 am Transcribed By: ISACC Transcribed Date/Time: 08/30/22 11:13 am * [facility] , CIS S: TRANSCRIBE Dario Pond MD: VERIFY Event Display: Result: Authored Date: [id number] Chest Portable Reason: Shortness of Breath; Clinical Question(s): Aspiration COMPARISON: 08/25/2022 FINDINGS: LINES AND TUBES: Endotracheal tube 4 cm above the aminata. Enteric tube in good position. LUNGS AND PLEURA: Patchy density lower lobes, nonspecific may relate to volume loss or aspiration/pneumonia. No pleural effusion. No pneumothorax. HEART, MEDIASTINUM AND CASSADNRA: Heart is normal in size. Normal mediastinal and hilar contour. BONES AND SOFT TISSUES: No acute abnormality. IMPRESSION: Patchy density in the lower lung rodríguez appears to represent a slight change from previous exam. Possible aspiration or pneumonia. WSN: [id number] Ordering Physician: Zafar Campbell Dictated By: Dario Pond MD Dictated Date/Time: 08/27/22 11:49 p Reviewed By: Dario Pond MD Signed By: Dario Pond MD Signed Date/Time: 08/27/22 11:49 pm Transcribed By: ISACC Transcribed Date/Time: 08/27/22 11:48 pm * CHELSEASPdeliabe , CIS S: TRANSCRIDario Zapata MD: VERIFY Event Display: Result: Authored Date: [id number] Chest Portable Reason: Other:; Stroke; Clinical Question(s): CHF COMPARISON: 06/29/2014 FINDINGS: LINES AND TUBES: Endotracheal tube tip 4 cm above the aminata. Enteric tube incompletely visualized LUNGS AND PLEURA: Clear lungs. Normal pulmonary vascularity. No pleural effusion. No pneumothorax. HEART, MEDIASTINUM AND CASSANDRA: Heart is normal in size. Normal mediastinal and hilar contour. BONES AND SOFT TISSUES: No acute abnormality. IMPRESSION: The lungs appear clear. Endotracheal tube tip in good position. Enteric tube incompletely visualized. WSN: [id number] Ordering Physician: Michel Lux Dictated By: Dario Pond MD Dictated Date/Time: 08/25/22 10:34 p Reviewed By: Dario Pond MD Signed By: Dario Pond MD Signed Date/Time: 08/25/22 10:34 pm Transcribed By: ISACC Transcribed Date/Time: 08/25/22 10:33 pm XR Shoulder - left GE 2 Views * [facility] , CIS S: TRANSCRIBE Zafar Luna MD: VERIFY Event Display: Result: Authored Date: [id number] Shoulder Min 2 Views Left, 2 views Reason: Pain; fall on , having left shoulder pain prior to intubation; Clinical Question(s): Fracture COMPARISON: None. FINDINGS: No fracture or dislocation. No arthritic change of the glenohumeral joint. Normal AC joint and portions of the clavicle included on the exam. No calcification of the rotator cuff. IMPRESSION: Normal. WSN: [id number] Ordering Physician: Elo Grissom Dictated By: Zafar Luna MD Dictated Date/Time: 09/04/22 2:53 pm Reviewed By: Zafar Luna MD Signed By: Zafar Luna MD Signed Date/Time: 09/04/22 2:53 pm Transcribed By: ISACC Transcribed Date/Time: 09/04/22 2:53 pm MR Brain WO contrast * Stephen Sultana MD: VERIFY Stephen Sultana MD: VERIFY Event Display: Result: Authored Date: [id number] MRI Brain W/O Contrast INDICATION: Reason: TIA; Clinical Question(s): Infarction; Order Comment: Please see Reference Textfor complete list of contraindications Infarction TECHNIQUE: MRI of the brain was performed without contrast utilizing sagittal T1, axial T2, axial FLAIR, coronal T2, coronal FLAIR, axial SWAN, and axial DWI sequences. COMPARISON: CT scan of the head 08/26/2022 and CTA of the head 08/25/2022 FINDINGS: BRAIN and EXTRA-AXIAL SPACES: Susceptibility artifact related to the basilar artery correlates withthe basilar artery stent. No abnormal extra-axial or intraparenchymal susceptibility artifact is present to indicate hemorrhage. * There is confluent restricted diffusion of the occipital lobes and posterior- medial temporal lobes (with involvement of the hippocampal formations (right greater than left). These are bright on thelong TR images with gyral swelling and sulcal effacement. * Smaller foci of restricted diffusion are present within the posterior right thalamus, left thalamus (punctate), and cerebellum. Confluent DWI bright and ADC isointense signal within the jayjay is bright on the long TR images.. Left paramedian pontine restricted diffusion. The ventricles are normal in size, although there is probable effacement of the occipital horns. Noextra-axial fluid collection. The cervicomedullary junction is unremarkable. Scattered FLAIR brightfoci within the supratentorial white matter are nonspecific, but compatible with chronic microangiopathic/small vessel ischemic change. EXTRACRANIAL SOFT TISSUES: Orbits are unremarkable. Paranasal sinuses and mastoids are unremarkable. BONES: Marrow signal is preserved. Fluid is present within the nasopharynx and left middle ear cavity. Fluid is also present within the right mastoid air cells. IMPRESSION: 1. 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 No hemorrhagic transformation. 2. Early subacute bilateral thalamic and multiple cerebellar lacunar infarcts. 3. Diffuse subacute ischemic change of the jayjay. WSN: [id number] Ordering Physician: Yasmine Lezama Dictated By: Stephen Sultana MD Dictated Date/Time: 08/28/22 10:10 a Reviewed By: Stephen Sultana MD Signed By: Stephen Sultana MD Signed Date/Time: 08/28/22 10:10 am Transcribed By: ISACC Transcribed Date/Time: 08/28/22 10:00 am US.doppler Upper extremity vein - bilateral * [facility] , CIS S: TRANSCRIBE Abhi Díaz DO: SIGN Hong Cintron MD A: VERIFY Event Display: Result: Authored Date: [id number] US Doppler Ext Upper Venous Bilat REASON: Swelling; Clinical Question(s): Thrombosis COMPARISON: None. IMAGING TECHNIQUE: Ultrasound examination of the bilateral upper extremity deep venous systems was performed using grayscale, color, and spectral wave analysis including response to compression. FINDINGS: RIGHT UPPER EXTREMITY: Internal jugular vein: Patent. No thrombosis. Subclavian vein: Patent. No thrombosis. Axillary vein: Patent. No thrombosis. Brachial vein: Patent. No thrombosis. Basilic vein: Patent. No thrombosis. Cephalic vein: Occlusive thrombus from the antecubital fossa to the mid arm measuring greater than 5 cm in length. LEFT UPPER EXTREMITY: Internal jugular vein: Patent. No thrombosis. Subclavian vein: Patent. No thrombosis. Axillary vein: Patent. No thrombosis. Brachial vein: Patent. No thrombosis. Basilic vein: Patent. No thrombosis. Cephalic vein: Patent. No thrombosis. IMPRESSION: Occlusive thrombus of the SUPERFICIAL cephalic vein from the antecubital fossa to the mid arm measure greater than 5 cm in length. No DEEP vein thrombosis in the upper arms bilaterally. Findings discussed by Abhi Díaz with Atiya Souza DO on 09/08/2022 at 3:20 PM. I have personally reviewed the images and I agree with this report. WSN: [id number] Ordering Physician: Atiya Souza Dictated By: Abhi Díaz DO Dictated Date/Time: 09/08/22 3:28 pm Reviewed By: Hong Cintron MD Signed By: Hong Cintron MD Signed Date/Time: 09/08/22 3:33 pm Transcribed By: ISACC Transcribed Date/Time: 09/08/22 3:20 pm CTA Chest vessels W contrast IV * [facility] , CIS S: TRANSCRIBE Hong Ceballos MD: VERIFY Event Display: Result: Authored Date: [id number] CT Angio Chest INDICATION: Hemoptysis. TECHNIQUE: Spiral CTA of the chest was performed after rapid IV contrast administration without cardiac gating, triggered by an GUZMAN on the main pulmonary artery. Images are formatted in multiple planes using 2-D multiplanar and 3-D maximum intensity projection. 100 cc of Omnipaque 300 was administered intravenously. Weight-based protocol using automatic tube modulation was used to optimize exposure parameters. CTDIvol Body: 13.31 mGy, DLP Body: 698 mGy*cm. COMPARISONS: Chest CT performed 5 days ago dated 08/31/2022. ANGIOGRAPHIC FINDINGS: Evaluation is mildly limited by motion artifact. No pulmonary embolism to the subsegmental level. Normal caliber pulmonary arteries. No acute aortic abnormality seen on this study performed without cardiac gating. NON-ANGIOGRAPHIC FINDINGS: Truck Farmer View Findings, Lines and Tubes: None. Trachea and Airways: Patent without evidence of tracheal or endobronchial lesion. No site of activebleeding is identified. Lungs and Pleura: There are patchy indistinct groundglass opacities within the posterior medial dependent aspects of both lower lobes, slightly worse on the left. This is a nonspecific finding that can be seen in association with intra- alveolar blood of indeterminate etiology. No pleural effusion or pneumothorax. No consolidative pneumonia. Mediastinum and cassandra: No mass or hematoma. No mediastinal or hilar lymphadenopathy. No esophageal abnormality. Heart: Heart is normal in size. No pericardial effusion. Chest Wall Soft Tissues: Unremarkable. Diaphragm and upper abdomen: No significant abnormality. Bones: No acute abnormality. IMPRESSION: No evidence of pulmonary embolism. No active hemorrhage into the airway is identified. Patchy groundglass opacities within the posterior medial aspects of both lower lobes consistent with intra-alveolar blood. No endobronchial lesion is identified. No pulmonary mass is identified. WSN: [id number] Ordering Physician: Meet Keller Dictated By: Hong Ceballos MD Dictated Date/Time: 09/05/22 7:49 pm Reviewed By: Hong Ceballos MD Signed By: Hong Ceballos MD Signed Date/Time: 09/05/22 7:49 pm Transcribed By: ISACC Transcribed Date/Time: 09/05/22 7:41 pm * George , RUTH S: TRANSCRINancy Cadena MD: VERIFY Event Display: Result: Authored Date: EXAMINATION: CT Angio Chest INDICATION: Reason: Other:; Pneumonia now with frequent hemoptysis; Clinical Question(s): Other:; Hemorrhage, woresning pneumonia; Order Comment: TECHNIQUE: Spiral CTA of the chest was performed after rapid IV contrast administration without cardiac gating, triggered by an GUZMAN on the main pulmonary artery. Images are formatted in multiple planes using 2-D multiplanar and 3-D maximum intensity projection. 100 cc of Omnipaque 300 was administered intravenously. Weight-based protocol using automatic tube modulation was used to optimize exposure parameters. CTDIvol Body: 10.03 mGy, DLP Body: 578 mGy*cm. COMPARISONS: No relevant. FINDINGS: The heart is normal in size. There is no pericardial effusion. No filling defects are seen within the pulmonary arteries to suggest the presence of a pulmonary embolism. Prominent mediastinal and hilar lymph nodes are seen without adenopathy by size criteria. No endobronchial lesions are present. There are scattered areas of atelectasis bilaterally, most notable within the right upper lobe. Groundglass consolidation within the left upper lobe is present. There is more focal consolidation within the left lower lobe. No pleural effusions are seen. A dystrophic calcification at the hepatic dome is present. Enteric tube has the tip within the stomach. The visualized upper abdomen is otherwise unremarkable. The osseous structures are intact. IMPRESSION: There is no pulmonary embolism. Airspace disease within the left lung which may represent infection or inflammation. WSN: [id number] Ordering Physician: Blanca Woodard Dictated By: Nancy Trejo MD Dictated Date/Time: 08/31/22 10:02 a Reviewed By: Nancy Trejo MD Signed By: Nancy Trejo MD Signed Date/Time: 08/31/22 10:02 am Transcribed By: CSAlfonzo Transcribed Date/Time: 08/31/22 9:[address] Head WO contrast * [facility] , CIS S: TRANSCRIBE Nancy Trejo MD: VERIFY Jose Roberto Jin DO L: SIGN Event Display: Result: Authored Date: [id number] CT Head/Brain W/O Contrast INDICATION: Stroke, now with mental status change; Clinical Question(s): Hematoma TECHNIQUE: Noncontrast head CT using axial technique and reconstructed in axial and coronal planes.Iterative reconstruction techniques are used to optimize dose and image quality. CTDIvol Head: 45.70 mGy, DLP Head: 773 mGy*cm. COMPARISON: CT head 08/26/2022. MRI brain 08/28/2022. FINDINGS: Motion artifact and beam hardening artifact from the basilar artery stent mildly limit evaluation of the skull base. Truck Farmer view findings, lines and tubes: Basilar artery stent and nasogastric tube are noted. BRAIN AND EXTRA-AXIAL SPACES: Loss of comer-white matter differentiation and increased hypoattenuation within the bilateral medialoccipital lobes and medial temporal lobes, compatible with subacute infarcts. There is mild associated sulcal effacement in the occipital lobes. Ventricles, sulci, and basilar cisterns are otherwise normal. Focal hypoattenuation within the right thalamus. Previously described infarcts within the cerebellum are not well evaluated on this motion degraded CT. No parenchymal hemorrhage, midline shift, or mass effect. Mild low-density white matter changes. No subarachnoid hemorrhage. No subdural or epidural collection. CALVARIUM, SKULL BASE, AND SOFT TISSUES: No fractures or suspicious bony lesions. Partial opacification of of the left ethmoid sinuses with fluid and gas. The mastoid air cells are clear. Visualized orbits and globes are intact. The extracranial soft tissues are unremarkable. IMPRESSION: Expected evolution of post infarct changes and mild vasogenic edema within the bilateral medial occipital lobes and temporal lobes compatible subacute infarcts. No evidence for hemorrhagic transformation or vertebral herniation Infarcts within the cerebellum and right thalamus are better appreciated on recent MRI. I have personally reviewed the images and I agree with this report. WSN: [id number] Ordering Physician: Blanca Woodard Dictated By: Jose Roberto Jin DO Dictated Date/Time: 08/31/22 10:31 a Reviewed By: Nancy Trejo MD Signed By: Nancy Trejo MD Signed Date/Time: 08/31/22 10:36 am Transcribed By: ISACC Transcribed Date/Time: 08/31/22 10:21 am * BHRUTH Zhang S: TRANSCRIJENNIFER Azul MD, Bj Mejía: VERIFY Donnell FREDERICK, Roman León: SIGN Event Display: Result: Authored Date: [id number] CT Head/Brain W/O Contrast INDICATION: Stats post basilar stent artery placement. TECHNIQUE: Noncontrast head CT using axial technique and reconstructed in axial and coronal planes.Iterative reconstruction techniques are used to optimize dose and image quality. CTDIvol Head: 47.10 mGy, DLP Head: 773 mGy*cm. COMPARISON: 08/25/2022 FINDINGS: Truck Farmer view findings, lines and tubes: Endotracheal tube and enteric tube overlying the oropharynx. BRAIN AND EXTRA-AXIAL SPACES: No parenchymal hemorrhage, midline shift, or mass effect. Questionable loss of comer-white matter differentiation in the occipital lobes, similar when compared to the previous study. Negative insular ribbon sign. Atherosclerotic vascular calcification of the carotid arteries but negative hyperdense vessel sign. Basilar artery stent. Ventricles, sulci, and basilar cisterns are normal. No white matter lesions. No subarachnoid hemorrhage. No subdural or epidural collection. CALVARIUM, SKULL BASE, AND SOFT TISSUES: No fractures or suspicious bony lesions. Mild mucosal thickening is noted in the sphenoid and ethmoid sinuses. There is also sclerosis notedin the left mastoid air cells which is stable and there are areas of opacification in the right mastoid air cells which are also chronic.. Visualized orbits and globes are intact. The extracranial soft tissues are unremarkable. IMPRESSION: Unchanged questionable loss comer-white matter differentiation posterior occipital lobes. I have personally reviewed the images and I agree with this report. WSN: [id number] Ordering Physician: Carie Sterling Dictated By: Roman Jacobo MD Dictated Date/Time: 08/26/22 10:03 a Reviewed By: Bj Azul MD Signed By: Bj Azul MD Signed Date/Time: 08/26/22 10:08 am Transcribed By: ISACC Transcribed Date/Time: 08/26/22 8:[address] Neck W contrast IV * [facility] , CIS S: TRANSCRIBE Zafar Luna MD: VERIFY Event Display: Result: Authored Date: [id number] CT Soft Tissue Neck W/ Contrast INDICATION/CLINICAL QUESTION: Reason: Other:; Hemoptysis; Clinical Question(s): Other:; Hematoma, source for bleed / Other:. TECHNIQUE: Spiral CT neck with IV contrast formatted in 3 planes. cc of was administered intravenously. Weight-based protocol using automatic tube modulation was used to optimize exposure parameters. CTDIvol Body: 9.30 mGy, DLP Body: 315 mGy*cm. COMPARISON: CTA of chest of the same date. FINDINGS: Truck Farmer View Findings, Lines and Tubes: Nasogastric tube in place. Intracranial structures: Visualized portions are unremarkable. Orbits: Visualized portions are unremarkable. Paranasal sinuses and mastoids: There is extensive opacification of the left sphenoid sinus with milder opacification of the right sphenoid sinus. The visualized portions of the paranasal sinuses areotherwise clear. Mastoids are well aerated. There is substantial opacification of the left nasal passage. Mucosal surfaces: Mucosal surfaces appear normal and symmetric, including the pharynx, larynx, and visualized portions of the upper trachea and esophagus. There are some secretions in the oropharynx. Superficial and deep neck spaces: No mass, fluid collection, or inflammatory change. Cervical lymph nodes: Normal in size and morphology. Salivary glands: The parotid glands and submandibular glands are normal. Thyroid gland: Normal CT appearance Vascular structures: Unremarkable. Upper chest: There is again area of consolidation in the posterior aspect of the left upper lobe visible in series 201 images 82 through 88. The upper mediastinum is unremarkable. Bones and teeth: No acute abnormalities. IMPRESSION: No specific etiology of hemoptysis is demonstrated. Nasogastric tube in good position. Bilateral sphenoid sinusitis. Secretions in the left nasopharynx and oropharynx. Left upper lobe consolidation with differential including both atelectasis and infiltrate. WSN: [id number] Ordering Physician: Blanca Woodard Dictated By: Zafar Luna MD Dictated Date/Time: 08/31/22 10:56 a Reviewed By: Zafar Luna MD Signed By: Zafar Luna MD Signed Date/Time: 08/31/22 10:56 am Transcribed By: ISACC Transcribed Date/Time: 08/31/22 10:27 am CTA Neck vessels W contrast IV * [facility] , CIS S: TRANSCRIBE Hong Ceballos MD: VERIFY Event Display: Result: Authored Date: [id number] CT Angio Neck Reason: Hemoptysis: TECHNIQUE: CT angiogram of the neck was performed after bolus administration of intravenous contrast. 100 mL of Omnipaque 300 was administered intravenously. Coronal and sagittal MIP reformatted images were obtained. All stenoses are measured using NASCET criteria. Weight-based protocol using automatic tube modulation was used to optimize exposure parameters. RADIATION DOSE PARAMETERS: COMPARISON: Noncontrast CT head performed concurrently. FINDINGS: CTA OF THE NECK: Arch: There is a three vessel aortic arch. The origins of the supra aortic vessels are patent. Right carotid system: The common carotid and cervical internal carotid arteries are patent. No stenosis (0%) by NASCET criteria. There is no dissection or aneurysm. Left carotid system: The common carotid and cervical internal carotid arteries are patent. No stenosis (0%) by NASCET criteria. There is no dissection or aneurysm. There is a right-dominant vertebral artery system. Right vertebral: No significant stenosis. No evidence of dissection or aneurysm. Left vertebral: No significant stenosis. No evidence of dissection or aneurysm. Other: Soft tissues and bones: No evidence of lymphadenopathy or mass. No active hemorrhage into the trachea or upper aerodigestive tract. There is some fluid- debris within the nasopharynx possibly relatedto secretions. IMPRESSION: Normal carotid and vertebral arteries. No tumor within the cervical trachea. No active hemorrhage within the visualized aerodigestive tract . WSN: [id number] Ordering Physician: Meet Keller Dictated By: Hong Ceballos MD Dictated Date/Time: 09/05/22 7:54 pm Reviewed By: Hong Ceballos MD Signed By: Hong Ceballos MD Signed Date/Time: 09/05/22 7:54 pm Transcribed By: ISACC Transcribed Date/Time: 09/05/22 7:49 pm XR Elbow - left GE 3 Views * [facility] , CIS S: TRANSCRIBE Hong Ceballos MD: VERIFY Event Display: Result: Authored Date: [id number] Elbow Min 3 Views Left CLINICAL INDICATION: Reason: Pain; Clinical Question(s): Other: COMPARISONS: None TECHNIQUE: 3 views of the left elbow were obtained. FINDINGS: No fracture or dislocation. No joint effusion. No foreign body. IMPRESSION: No fracture or dislocation. WSN: [id number] Ordering Physician: Braxton Braden Dictated By: Hong Ceballos MD Dictated Date/Time: 09/03/22 10:52 p Reviewed By: Hong Ceballos MD Signed By: Hong Ceballos MD Signed Date/Time: 09/03/22 10:52 pm Transcribed By: ISACC Transcribed Date/Time: 09/03/22 10:52 pm Patient Care team information Care Team Personnel Name: Julieta Marie RN Position: [facility] RN Member Role: Primary Care Nurse Name: Edi Carreon RN Position: [facility] RN Member Role: Primary Care Nurse Name: Alexsander Feldman RN Position: [facility] RN Member Role: Primary Care Nurse Name: Jeromy Nova RN Position: [facility] RN Member Role: Primary Care Nurse Name: Eulalia Santos RN Position: [facility] RN Member Role: Primary Care Nurse Name: Lulu Soriano RN Position: [facility] RN Member Role: Primary Care Nurse Name: Miller Campbell RN Position: [facility] RN Member Role: Primary Care Nurse Name: Kia Louis RN Position: [facility] RN Member Role: Primary Care Nurse Name: Grant Austin RN Position: [facility] RN Member Role: Primary Care Nurse Name: Albert Pierce MD Position: [facility] Cardiology MD Member Role: Lifetime Consulting Physician Address: Address: [address] [place] [address] [facility] [place] [phone]- Name: Mirela Andrade Position: S RN Member Role: Primary Care Nurse Name: Jami Martin MD Position: Reference Physician Member Role: PCP Address: Address: [address] [place] [id number]- [place] Name: Karoline Reid RN Position: [facility] RN Member Role: Primary Care Nurse Name: Taylor Christopher RN Position: [facility] RN Supv Member Role: Primary Care Nurse Name: Jacques Cabezas MD Position: [facility] ED Medicine MD Address: Address: [address] [place] [phone]- Name: Derek LUCIA, Chuy Position: [facility] Resident Member Role: Covering Resident Address: Address: [address] [place] [id number]- Name: Lynette Potter RN Position: [facility] ED RN W/OE and Tasks Member Role: Patient Care Provider Name: Contreras Green Position: [facility] ED TA [facility] Member Role: Roll Cleaner Name: Regi Zelaya Position: [facility] ED OA Charge Member Role: ED Associate Care Team Related Persons Name: SISSY MARTINEZ Address: home [address] [place] [address]
--- NOTE | 2023-01-14 11:36 | MHC.SHP ---
Pre-Procedural Eval Section A Date of Service: 01/14/23 Section B Chief Complaint: Positive cologuard Details of Present Illness: On DAPT, stopped plavix 5 days ago. PMH: CAD (coronary artery disease) Chronic low back pain COPD (chronic obstructive pulmonary disease) GERD (gastroesophageal reflux disease) Hypercholesterolemia Peripheral arterial disease Tobacco abuse Surgical History: History of aorto-femoral bypass History of coronary artery stent placement S/P cardiac catheterization Present Medications: see Short Stay Collaborative assessment Allergies: Allergies Allergy/AdvReac Type Severity Reaction Status Date / Time No Known Allergies Allergy Verified 01/12/23 13:44 [No Known Allergies*] Review of Systems Review of Systems Comment: Ten point ROS negative Exam Exam Comment: Gen appear: No acute distress HEENT: no icterus Chest: No overt resp distress Abd: soft, nontender, nondistended Psych: Stable affect, answering questions appropriately Neuro: A/Ox3 noted to move all extremities spontaneously Ext: no peripheral edema Plan Diagnosis/Plan: Unchanged I have reviewed the history and physical and performed a pertinent physical examination on my patient. No changes have occurred unless specified. Time Spent With Patient Time: Total time managing care of this patient today ____ minutes.
[2023-01-14 11:42] VITALS: BP 126/70; PULSE 52; RESP 18; TEMP 36.7; O2SAT 97
[2023-01-14] MEDS: Lactated Ringers 1,000 ML 100 ML IVCONT (11:47)
--- NOTE | 2023-01-14 12:12 | W.PM.OPN ---
Operative Note Operative Note Date of Service: 01/14/23 Narrative: Procedure: Colonoscopy Indication: Positive cologuard Endoscopist: Sonja Nevarez MD Anesthesia Provider: Dina Barahona CRNA Anesthesia type: MAC Instrument: Olympus PCF-H190L Consent: Indication, risks vs benefits, and alternatives were discussed with the patient who gave written informed consent to proceed. An language interpreter was utilized to assist with the consent. EKG, pulse, pulse oximetry and blood pressure were monitored throughout the procedure. Please see anesthesia flowsheet. Procedure: The patient was brought to the procedure room and placed in the left lateral decubitus position. IV medications were administered by the anesthesia provider in attendance. A digital rectal exam was performed which was abnormal for enlarged prostate. A distal attachment was affixed to the tip of the scope and the colonoscope was then inserted through the anus and advanced through the colon to the cecum at 70 cm,and terminal ileum. Mucosa was carefully examined under high definition white light as the instrument was slowly withdrawn in a retrograde panoramic fashion. Retroflexion was performed in rectum. The procedure was not difficult. There were no immediate obvious complications. The quality of the prep was BBPS: 1+2+2 = inadequate in R colon Withdrawal time 20 minutes. Limitations: Poor prep. Findings: Mucosa: Residual liquid opaque stool was seen in most of the colon madai on the R side. Protruding lesions: 1 sessile polyp of size 5 mm in ascending colon. Cold snare polypectomy was performed. The polyp was completely removed and retrieved. 2 sessile polyp of size 4-8 mm in transverse colon. Cold snare polypectomy was performed. The polyp was completely removed and retrieved. Medium internal hemorrhoids without stigmata of recent bleeding. Impression: 1. Poor prep 2. Total of 3 polyps removed 3. Internal hemorrhoids 4. Prostatomegaly Recommendations: - Follow path results. - Repeat colonoscopy within 1 year due to poor prep.
[2023-01-14 13:13] VITALS: BP 128/72; PULSE 54; RESP 16; TEMP 36.1; O2SAT 99
[2023-01-14 13:28] VITALS: BP 136/69; PULSE 49; RESP 20; O2SAT 100
[2023-01-14 13:47] VITALS: BP 153/69; PULSE 51; RESP 16; TEMP 36.4; O2SAT 99
== END 2023-01-14 14:58 | disposition home or self-care (01) ==
PROVIDERS: PCP Internal Medicine; Visit Provider Internal Medicine
PROC: 0DJD8ZZ Inspection of Lower Intestinal Tract, Via Natural or Artificial Opening Endoscopic (ICD-10-PCS; CPT 45378; principal; 2023-01-14 13:10)
DX: R19.5 Other fecal abnormalities (principal); D12.3 Benign neoplasm of transverse colon; K63.5 Polyp of colon; K64.8 Other hemorrhoids; N40.0 Benign prostatic hyperplasia without lower urinary tract symptoms; K21.9 Gastro-esophageal reflux disease without esophagitis; J44.9 Chronic obstructive pulmonary disease, unspecified; I25.10 Atherosclerotic heart disease of native coronary artery without angina pectoris; I25.2 Old myocardial infarction; F17.210 Nicotine dependence, cigarettes, uncomplicated; Z95.5 Presence of coronary angioplasty implant and graft; E78.00 Pure hypercholesterolemia, unspecified; I73.9 Peripheral vascular disease, unspecified; Z98.890 Other specified postprocedural states
CPT/HCPCS: 45385; 88305

== ENCOUNTER → 2023-01-14 11:10 | Outpatient (BNV) | payer MEDICARE, MEDICAID, SELFPAY | PROVIDERS: PCP Internal Medicine; Visit Provider Internal Medicine | DX: Z12.11 Encounter for screening for malignant neoplasm of colon (principal); Z91.199 Patient's noncompliance with other medical treatment and regimen due to unspecified reason; D12.2 Benign neoplasm of ascending colon; D12.3 Benign neoplasm of transverse colon; K64.9 Unspecified hemorrhoids | CPT/HCPCS: 45385 ==

== ENCOUNTER 2023-02-04 11:14 | Outpatient (REF) | payer MEDICARE, MEDICAID, SELFPAY ==
[2023-02-04 11:31] LABS: MANUAL DIFF FLAG NO
[2023-02-04 12:08] LABS: Basophils Absolute Auto 0.1 X10*3/uL (0.0-0.2); Basophils Percent Auto 0.5 % (0-2); Eosinophils Absolute Auto 0.1 X10*3/uL (0.0-0.4); Eosinophils Percent Auto 0.9 % (0-4); Hematocrit 42.3 % (42.0-52.0); Imm Gran Abs Auto 0.05 X10*3/uL (0.00-0.03); Imm Gran Pct Auto 0.4 % (0.0-0.4); Lymphocytes Absolute Auto 2.4 X10*3/uL (1.2-4.9); Lymphocytes Percent Auto 18.5 % (20-40); Mean Corpuscular HGB Conc 33.1 g/dl (31.0-36.0); Mean Corpuscular Hemoglobin 29.2 pg (27.0-33.0); Mean Corpuscular Volume 88.3 fL (80.0-98.0); Mean Platelet Volume 11.7 fL (9.4-12.4); Monocytes Absolute Auto 0.8 X10*3/uL (0.1-1.2); Neutrophils Absolute Auto 9.5 x10*3/uL (2.0-8.3); Neutrophils Percent Auto 73.7 % (45-73); Platelet Count 253 X10*3/uL (160-400); Red Blood Count 4.79 X10*6/uL (4.60-5.80); White Blood Count 12.9 X10*3/uL (4.8-10.8)
[2023-02-04 14:08] LABS: Free T4 (Free Thyroxine) 0.97 ng/dL (0.71-1.85); Thyroid Stimulating Hormone 1.04 uIU/mL (0.32-4.0)
[2023-02-04 14:13] LABS: Alanine Aminotransferase 14 U/L (0-40); Albumin Level 4.2 g/dL (3.5-5.0); Alkaline Phosphatase 99 U/L (39-117); Anion Gap 14 (12-20); Aspartate Amino Transferase 16 U/L (5-37); Bilirubin Total 0.4 mg/dL (0.0-1.0); Blood Urea Nitrogen 13 mg/dL (9-16); Calcium 9.7 mg/dL (8.4-10.2); Carbon Dioxide 26 mmol/L (22-29); Chloride 106 mmol/L (96-108); Cholesterol 103 mg/dL (<200); Estimated Glomerular Filt Rate > 60; Glucose Random 89 mg/dL (60-115); HDL Cholesterol 25 mg/dL (>40); LDL Cholesterol Calculated 47 mg/dL (<100); Potassium 4.1 mmol/L (3.3-5.1); Sodium 142 mmol/L (135-145); Total Protein 6.8 g/dL (6.5-8.0); Triglycerides 158 mg/dL (<150)
[2023-02-04 16:40] LABS: Folate 14.5 ng/mL (> or = 4.0); Prostate Specific Antigen Scr 0.74 ng/mL (<0.05-4.0); Vitamin B12 771 pg/mL (200-900)
== END 2023-02-04 11:15 | disposition home or self-care (01) ==
LOC: HO.LAB 11:14
PROVIDERS: PCP Internal Medicine; Visit Provider Internal Medicine
DX: Z12.5 Encounter for screening for malignant neoplasm of prostate (principal); I63.9 Cerebral infarction, unspecified; E78.00 Pure hypercholesterolemia, unspecified
CPT/HCPCS: 36415; 80053; 80061; 82607; 82746; 84153; 84439; 84443; 85025

== ENCOUNTER 2023-02-07 12:44 | Outpatient (AMB) | payer MEDICARE, MEDICAID, SELFPAY ==
[2023-02-07 12:59] VITALS: BP 122/70; PULSE 61; O2SAT 97; BMI 24.1
--- NOTE | 2023-02-07 12:59 | MHC.PC.OV ---
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 Last seen in October 2022. Patient's colonoscopy was done December 2022 patient had a colonoscopy done December 2022 had tubular adenoma due to the poor prep advise repeat colonoscopy in 1 year also noted to have an enlarged prostate. Patient also follows up with Cardiology. Review of the notes in October was in the ER for an infected skin at the gastrostomy tube which has not been used. Patient was treated with antibiotics. Echocardiogram done in August 2022 has normal ejection fraction no aortic stenosis concern about right to left shunting suggestive of patent Avelar ovale. Patient did see Pulmonary also in November 2022 diagnosis of COPD mild to moderate degree of obstructive airway disease concern about the smoking. Patient did have the gastrostomy taken out in October 2019. declinevaccine. complains of leg painbilateral PFSH Medical History Smoker Aspiration pneumonia Metabolic encephalopathy PFO (patent foramen ovale) CVA (cerebral vascular accident) Hypercholesterolemia Peripheral arterial disease Tobacco abuse COPD (chronic obstructive pulmonary disease) CAD (coronary artery disease) GERD (gastroesophageal reflux disease) Chronic low back pain Surgical History S/P cardiac catheterization History of coronary artery stent placement History of aorto-femoral bypass Family History Father Hypertension Mother Hypertension Brother In good health Brother In good health Sister In good health Sister In good health Son In good health Son In good health Son In good health Son In good health Social History Housing: House Alcohol intake: current Alcohol intake frequency: holidays/special occasions only Patient Tobacco Use Status: Current someday Tobacco user Tobacco use type: Cigarette Cigarettes Per Day: 10 Years Smoked: 55 +/- e-Cigarette/Vaping Use: Never Used Second Hand Smoke Exposure: Yes service: No Current occupational status: employed Cognitive needs: Yes Hearing needs: No Vision needs: No Questionnaire Thrive Questionnaire Date Thrive assessed: 11/12/22 AUDIT C Alcohol Use Questionnaire (AUDIT-C) 1. How often do you have a drink containing alcohol?: Never 3. How often do you have six or more drinks on one occasion?: Never Total Score: 0 JACQUES-7 AMB Questionnaire JACQUES-7 Date JACQUES - 7 assessed: 11/12/22 Source: Developed by Drs. Meet Flores, Nidia Gordon, Eddy Arriaga and colleagues, with an educational nicole from [employer]. Physical exam (Primary Care) Vital Signs: Last Vital Signs Pulse 61 02/07/23 12:59 BP 122/70 02/07/23 12:59 Pulse Ox 97 02/07/23 12:59 Oxygen Delivery Method Room Air 02/07/23 12:59 BMI result Body Mass Index 24.1 Tobacco/Smoking Status: Tobacco use Status Tobacco use date assessed 02/07/23 02/07/23 13:00 Patient Tobacco Use Status Current someday Tobacco 02/07/23 13:00 Tobacco use type Cigarette 02/07/23 13:00 e-Cigarette/Vaping Use Never Used 02/07/23 13:00 Thrive Assessment: Date of Thrive Assessment Date Thrive assessed 11/12/22 02/07/23 13:00 Const General: alert; No acute distress Eyes Conjunctivae: conjunctivae normal Resp Auscultation: clear to auscultation bilaterally Cardio Rate: regular rate Rhythm: regular rhythm GI Inspection: Yes normal to inspection Extrem General: Yes normal to inspection and No edema Assessment and Plan Assessment & Plan (1) CVA (cerebral vascular accident): Comment: August 2022 basilar thrombus Code(s): I63.9 - Cerebral infarction, unspecified Plan: Continue with aspirin (2) Tobacco abuse: Code(s): Z72.0 - Tobacco use Plan: Patient is strongly advised to stop smoking (3) COPD (chronic obstructive pulmonary disease): Comment: HE IS KNOWN TO HAVE MILD TO MODERATE DEGREE OF OBSTRUCTIVE AIRWAY DISORDER, IT HAS REMAINED VERY STABLE. HE IS RELATIVELY ASYMPTOMATIC AT THIS TIME. TX: ALBUTEROL HFA 2 PUFFS Q 4-6 HOURS ONLY P.R.N. Code(s): J44.9 - Chronic obstructive pulmonary disease, unspecified Qualifiers: COPD type: emphysema Emphysema type: unspecified Qualified Code(s): J43.9 - Emphysema, unspecified Plan: Continue with inhaler but need to stop smoking! (4) CAD (coronary artery disease): Comment: MABEL Lopez 2014 Dr. Reid angioplasty GERA mid RCA March 2018 STEMI 06/2021, mid RCA thrombus, GERA placed ECHO EF 63% Code(s): I25.10 - Atherosclerotic heart disease of [place] coronary artery without angina pectoris Qualifiers: Coronary Disease-Associated Artery/Lesion type: [place] artery [place] vs. transplanted heart: [place] heart Associated angina: without angina Qualified Code(s): I25.10 - Atherosclerotic heart disease of [place] coronary artery without angina pectoris Plan: Control the cholesterol, weight, blood pressurecontinue with aspirin and Plavix (5) GERD (gastroesophageal reflux disease): Code(s): K21.9 - Gastro-esophageal reflux disease without esophagitis Qualifiers: Esophagitis presence: without esophagitis Qualified Code(s): K21.9 - Gastro-esophageal reflux disease without esophagitis Plan: Avoid the foods that causes that usually spicy foods, tomato products, juices, coffee, soda and foods that your sensitive to. After eating do not lie down, allow 3-4 hours before in lie down. And keep the head of bed above 30 degrees to avoid the acid from going up. (6) Hypercholesterolemia: Code(s): E78.00 - Pure hypercholesterolemia, unspecified Plan: Avoid fried foods, chicken skin, eggs, butter margarine, pastries and meat. Be it pork or beef they have a lot of cholesterol LDL goal of less than 70 and triglyceride of less than 150 patient on rosuvastatin 40 mg once a day January 2023 last blood work (7) Tubular adenoma of colon: Comment: december 2022 Code(s): D12.6 - Benign neoplasm of colon, unspecified Plan: A patient is advised to repeat colonoscopy next year (8) BPH (benign prostatic hyperplasia): Code(s): N40.0 - Benign prostatic hyperplasia without lower urinary tract symptoms (9) Claudication: Code(s): I73.9 - Peripheral vascular disease, unspecified Orders: Orders US arterial duplex LE BI Today I73.9 - Peripheral vascular disease, unspecified Medications: New tamsulosin 0.4 mg PO BEDTIME 30 caps 5RF N40.0 - Benign prostatic hyperplasia without lower urinary tract symptoms Coding Level of Care Code Est Pt Level 4 (91214) Diagnoses CVA (cerebral vascular accident) I63.9 Tobacco abuse Z72.0 Pulmonary emphysema, unspecified emphysema type J43.9 COPD type: emphysema Emphysema type: unspecified Coronary artery disease involving [place] coronary artery of [place] heart without angina pectoris I25.10 Coronary Disease-Associated Artery/Lesion type: [place] artery [place] vs. transplanted heart: [place] heart Associated angina: without angina Gastroesophageal reflux disease without esophagitis K21.9 Esophagitis presence: without esophagitis Hypercholesterolemia E78.00 Tubular adenoma of colon D12.6 BPH (benign prostatic hyperplasia) N40.0 Claudication I73.9
== END 2023-02-07 13:47 | disposition home or self-care (01) ==
PROVIDERS: PCP Internal Medicine; Visit Provider Internal Medicine
DX: I69.354 Hemiplegia and hemiparesis following cerebral infarction affecting left non-dominant side (principal); J43.9 Emphysema, unspecified; I73.9 Peripheral vascular disease, unspecified; Z72.0 Tobacco use; I25.10 Atherosclerotic heart disease of native coronary artery without angina pectoris; K21.9 Gastro-esophageal reflux disease without esophagitis; E78.00 Pure hypercholesterolemia, unspecified; D12.6 Benign neoplasm of colon, unspecified; N40.0 Benign prostatic hyperplasia without lower urinary tract symptoms
CPT/HCPCS: 99214

== ENCOUNTER 2023-03-04 10:25 | Outpatient (REF) | payer MEDICARE, MEDICAID, SELFPAY | END 2023-03-04 10:26 | disposition home or self-care (01) | LOC: HO.SH 10:25 | PROVIDERS: Visit Provider Internal Medicine | DX: H90.3 Sensorineural hearing loss, bilateral (principal); H69.92 Unspecified Eustachian tube disorder, left ear | CPT/HCPCS: 92553; 92555; 92567 ==

== ENCOUNTER 2023-03-07 10:28 | Outpatient (REF) | payer MEDICARE, MEDICAID, SELFPAY ==
--- NOTE | 2023-03-07 11:22 | PFT_ITS ---
Forced vital capacity is 63%, FEV1 75%, FEV1/FVC ratio is 92. NXV69-75 102% and MVV 46%. Post bronchodilator therapy, there is some improvement in FVC, but the FEV1 and UDW46-35 are somewhat decreased. Total lung capacity could not be performed. Diffusion capacity 47% CONCLUSION: Moderately severe restrictive pulmonary disorder. No significant obstructive disorder and no response to bronchodilator therapy. MD PAM Walker/RACHAEL / [phone]
== END 2023-03-07 10:29 | disposition home or self-care (01) ==
LOC: HO.RESP 10:28
PROVIDERS: PCP Internal Medicine; Visit Provider Internal Medicine
DX: J43.9 Emphysema, unspecified (principal); F17.200 Nicotine dependence, unspecified, uncomplicated
CPT/HCPCS: 94010; 94727; 94729

== ENCOUNTER → 2023-03-07 11:22 | Outpatient (BNV) | payer MEDICARE, MEDICAID, SELFPAY | PROVIDERS: PCP Internal Medicine; Visit Provider Internal Medicine | DX: J43.9 Emphysema, unspecified (principal) | CPT/HCPCS: 94060; 94729 ==

== ENCOUNTER 2023-03-09 10:55 | Outpatient (REF) | payer MEDICARE, MEDICAID, SELFPAY ==
--- NOTE | ~2023-03-09 | US_ITS ---
EXAMINATION: NONINVASIVE ASSESSMENT OF THE ARTERIES OF BOTH LOWER EXTREMITIES WITH PVR EXAM AND BILATERAL LOWER EXTREMITY DUPLEX Solange Jonas MD CLINICAL INFORMATION: Peripheral vascular disease COMPARISON: Noninvasive arterial exam on 09/15/2021 TECHNIQUE: duplex Doppler techniques with wave form analysis and measurement of velocities in the common femoral, profunda femoral, superficial femoral, popliteal, tibial and peroneal arteries. The study was performed only at rest. FINDINGS: There is mild atherosclerotic disease bilaterally. RIGHT LEG Common femoral artery: 162 cm/s, Multiphasic Profunda femoris artery: 207 cm/s, Multiphasic Superficial femoral artery (proximal): 122 cm/s, Multiphasic Superficial femoral artery (mid): 192 cm/s, Multiphasic Superficial femoral artery (distal): 121 cm/s, Multiphasic Proximal Popliteal artery: 71 cm/s, Multiphasic Mid posterior tibial artery: 70 cm/s, Multiphasic LEFT LEG: Common femoral artery: 226 cm/s, Multiphasic Profunda femoris artery: 236 cm/s, Multiphasic Superficial femoral artery (proximal): 130 cm/s, Multiphasic Superficial femoral artery (mid): 134 cm/s, Multiphasic Superficial femoral artery (distal): 104 cm/s, Multiphasic Proximal Popliteal artery: 56 cm/s, Multiphasic Mid posterior tibial artery: 24 cm/s, Multiphasic US/US arterial duplex LE BI IMPRESSION: Mild atherosclerotic disease. No hemodynamically significant stenosis in the bilateral lower extremities.
== END 2023-03-09 10:56 | disposition home or self-care (01) ==
LOC: HO.US 10:55
PROVIDERS: PCP Internal Medicine; Visit Provider Internal Medicine
DX: I73.9 Peripheral vascular disease, unspecified (principal)
CPT/HCPCS: 93925

== ENCOUNTER 2023-03-10 12:25 | Outpatient (AMB) | payer MEDICARE, MEDICAID, SELFPAY ==
--- NOTE | 2023-03-10 12:28 | MHC.OFFVIS ---
Intake Vital Signs 03/10/23 12:31 Height 5 ft 5 in Weight 154 lb BMI 25.6 Blood Pressure Location Lt brachial Position Sitting Intake Visit Reasons: s/p colon zulema Intake Note: Emrush presents in the office as a follow up colonoscopy. CC: No concerns today Registered Land Surveyor Required: Yes Registered Land Surveyor Name: - Gricelda Allergies No Known Allergies [No Known Allergies*] Allergy (Verified 03/14/23 11:46) HPI s/p colon zulema HPI Details Assessment & Plan (1) Positive colorectal cancer screening using Cologuard test: Code(s): R19.5 - Other fecal abnormalities Plan: French/Bosnian #Female family member translates per pt request. I explain what the + Cologuard means and about colonoscopy. This will be is 1st colonoscopy as he has never had 1 before. He denies any bowel problems or upper GI problems. There are no prior problems with anesthesia or sedation. 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 Both providers are located [facility]. There are no known infectious disease problems. There is no known FHX of crc or polyps. . COLONOSCOPY Findings: Mucosa: Residual liquid opaque stool was seen in most of the colon madai on the R side. Protruding lesions: 1 sessile polyp of size 5 mm in ascending colon. Cold snare polypectomy was performed. The polyp was completely removed and retrieved. 2 sessile polyp of size 4-8 mm in transverse colon. Cold snare polypectomy was performed. The polyp was completely removed and retrieved. Medium internal hemorrhoids without stigmata of recent bleeding. Impression: 1. Poor prep 2. Total of 3 polyps removed 3. Internal hemorrhoids 4. Prostatomegaly Recommendations: - Follow path results. - Repeat colonoscopy within 1 year due to poor prep. BIOPSY Received: 01/14/23 Diagnosis A. Colon, ascending, polypectomy: Clinically polypoid colonic mucosa noted; negative for a hyperplastic or neoplastic process. B. Colon, transverse, polypectomy x2: Tubular adenoma (1); sessile serrated polyp/lesion without dysplasia (1); negative for high-grade dysplasia TODAY'S VISIT FRANKLYN ENRIQUEZ # translates per pt request. They are agreeable to the 1 year r/t poor prep and TA's. Denies any trouble with the prep so next time we will probably have to do a 2 day prep. The procedure was well tolerated. The results were explained and the patient is agreeable to the follow-up interval as stated. The bowel pattern has returned to normal. Education was provided to tell any 1st degree relatives about their findings to be sure that they are screened by age 45. Educated that they will be put on a recall list when it is time for their repeat scope but should they move out of state or away from the hospital they will need to remember along with their primary to repeat the procedure in a timely fashion to avoid any adverse complications. ROV 9 mos. PFSH Medical History (Updated 03/14/23 @ 11:53 by Millie Castro MD) Restrictive lung disease Smoker Aspiration pneumonia Metabolic encephalopathy PFO (patent foramen ovale) CVA (cerebral vascular accident) Hypercholesterolemia Peripheral arterial disease Tobacco abuse COPD (chronic obstructive pulmonary disease) CAD (coronary artery disease) GERD (gastroesophageal reflux disease) Chronic low back pain Surgical History S/P cardiac catheterization History of coronary artery stent placement History of aorto-femoral bypass Family History Father Hypertension Mother Hypertension Brother In good health Brother In good health Sister In good health Sister In good health Son In good health Son In good health Son In good health Son In good health Social History Housing: House Alcohol intake: current Alcohol intake frequency: holidays/special occasions only Patient Tobacco Use Status: Current someday Tobacco user Tobacco use type: Cigarette Cigarettes Per Day: 10 Years Smoked: 57 +/- e-Cigarette/Vaping Use: Never Used Second Hand Smoke Exposure: Yes service: No Current occupational status: employed Cognitive needs: Yes Hearing needs: No Vision needs: No Review of Systems Const Denies fatigue, Denies fever(s), Denies night sweats, Denies poor appetite and Denies weight loss ENT Reports Normal hearing present, Denies dental pain, Denies dysphagia, Denies hearing loss, Denies mouth pain, Denies odynophagia, Denies throat swelling, Denies tongue swelling and Reports other (Dentition adequate) Card Reports no additional complaints Resp Reports no additional complaints GI Denies abdominal pain, Denies melena, Denies bloating, Denies hematochezia, Denies constipation, Denies GI cramping, Denies dysphagia, Denies excessive flatus, Denies early satiety, Denies heartburn, Denies diarrhea, Denies nausea, Denies odynophagia, Denies vomiting and Denies hematemesis Skin/Breast Denies pruritus, Denies lesions, Denies rash and Denies jaundice Neuro Reports Normal hearing present and Denies Abnormal speech present Endo Denies fatigue Aller/Immun Denies throat swelling and Denies tongue swelling Physical Exam Vital Signs: BMI result Body Mass Index 25.6 Const General: cooperative, no acute distress, well developed and well groomed Nutritional Appearance: average body habitus and well nourished Orientation/consciousness: oriented to person, oriented to place and oriented to time Limitations: language barrier, ambulation with walker and other limitations HEENT Head: Yes normocephalic and Yes atraumatic Eyes General: appearance normal, both eyes and all related structures Pupils: Equal, round and reactive pupils present Neck Neck: Yes normal visual inspection and Yes no lymphadenopathy Thyroid: Thyroid normal Resp Effort & Inspection: normal respiratory effort and able to speak in complete sentences Auscultation: clear to auscultation bilaterally Cardio Rate: regular rate Rhythm: regular rhythm Heart sounds: Normal, physiologic split S2 sound present Peripheral pulses: radial pulses present and posterior tibial pulses present GI Inspection: No distended and No Abdominal panniculus present Palpation (GI): Soft to palpation, nontender, no guarding, not rigid and No hepatosplenomegaly present Percussion: Yes normal to percussion Auscultation: normal bowel sounds Rectal Exam - Male: Yes deferred Skin General skin exam: no rashes or lesions noted, turgor normal, skin not dry, no jaundice, No spider nevi and no striae Rashes: no rashes Nails: normal Neuro General: oriented to person, oriented to place and oriented to time Cranial nerves: Yes Equal, round and reactive pupils present and Yes Normal hearing present Speech: No Abnormal speech present Extrem General: Yes normal to inspection, No clubbing, No cyanosis and No edema Psych Appearance: grossly normal and well kempt Mental Status: mental status grossly normal Speech and movement: Normal speech and movement present Affect: normal affect Attitude: cooperative Thought process: Normal thought process present and not confabulating Thought content: Normal thought content present Insight: Limited insight present (Psych) Judgement: Limited judgement present (Psych) Assessment & Plan Assessment & Plan (1) Tubular adenoma of colon: Comment: december 2022 Code(s): D12.6 - Benign neoplasm of colon, unspecified Plan: FRANKLYN ENRIQUEZ # translates per pt request. They are agreeable to the 1 year r/t poor prep and TA's. Denies any trouble with the prep so next time we will probably have to do a 2 day prep. The procedure was well tolerated. The results were explained and the patient is agreeable to the follow-up interval as stated. The bowel pattern has returned to normal. Education was provided to tell any 1st degree relatives about their findings to be sure that they are screened by age 45. Educated that they will be put on a recall list when it is time for their repeat scope but should they move out of state or away from the hospital they will need to remember along with their primary to repeat the procedure in a timely fashion to avoid any adverse complications. ROV 9 mos. Coding Level of Care Code Est Pt Level 3 (07106) Diagnoses Tubular adenoma of colon D12.6
[2023-03-10 12:31] VITALS: BMI 25.6
== END 2023-03-10 12:41 | disposition home or self-care (01) ==
PROVIDERS: PCP Internal Medicine; Visit Provider Nurse Practitioner
DX: D12.6 Benign neoplasm of colon, unspecified (principal)
CPT/HCPCS: 99213

== ENCOUNTER → 2023-03-10 12:25 | Outpatient (BNVA) | payer MEDICARE, MEDICAID, SELFPAY | PROVIDERS: PCP Internal Medicine; Visit Provider Nurse Practitioner | DX: D12.6 Benign neoplasm of colon, unspecified (principal) | CPT/HCPCS: 99212 ==

== ENCOUNTER 2023-03-14 11:02 | Outpatient (AMB) | payer MEDICARE, MEDICAID, SELFPAY ==
--- NOTE | 2023-03-14 11:19 | A.OFFVIS_ITS ---
Intake Vital Signs 03/14/23 11:20 Height 5 ft 5 in Weight 150 lb BMI 25.0 BP 122/68 Blood Pressure Location Lt brachial Position Sitting Pulse 54 Pulse Source Pulse Oximeter Pulse Oximetry (%) 98 Oxygen Delivery Method Room Air Intake Visit Reasons: COPD Intake Note: pt is here for follow up and states he is okay besides a cough that he started with a cold. Miniature Set Builder Required: No Allergies No Known Allergies [No Known Allergies*] Allergy (Verified 03/14/23 11:46) Medication List - Last Reconciled 03/14/23 by Millie Castro MD aspirin (Adult Aspirin Regimen) 81 mg PO DAILY bisacodyl 10 mg [place] DAILY PRN clopidogrel (Plavix) 75 mg PO DAILY lactulose 10 grams (15 mL) PO TID metoprolol succinate ER 50 mg PO DAILY pantoprazole 20 mg PO BID 90 days paroxetine HCl 10 mg PO DAILY prednisolone acetate 1% drps ophthalmic (eye) rosuvastatin (Crestor) 40 mg PO DAILY tamsulosin 0.4 mg PO BEDTIME Do you need a note to return to daycare/school/sports/work: No HPI COPD HPI Details 67 years old gentleman, smoker, comes fo r follow-up after his pulmonary function test and chest x-ray. He claims that breathing mg has been okay. According to his he has had common cold symptoms last week, from which he is now recovering, and due to that he does have mild intermittent cough. Unfortunately this gentleman still continues to smoke, cigars, 1 pack a day. He denies any breathing trouble. He does not use any albuterol or other inhalers. [facility] Medical History (Updated 03/14/23 @ 11:53 by Millie Castro MD) Restrictive lung disease Smoker Aspiration pneumonia Metabolic encephalopathy PFO (patent foramen ovale) CVA (cerebral vascular accident) Hypercholesterolemia Peripheral arterial disease Tobacco abuse COPD (chronic obstructive pulmonary disease) CAD (coronary artery disease) GERD (gastroesophageal reflux disease) Chronic low back pain Surgical History S/P cardiac catheterization History of coronary artery stent placement History of aorto-femoral bypass Family History Father Hypertension Mother Hypertension Brother In good health Brother In good health Sister In good health Sister In good health Son In good health Son In good health Son In good health Son In good health Social History Housing: House Alcohol intake: current Alcohol intake frequency: holidays/special occasions only Patient Tobacco Use Status: Current someday Tobacco user Tobacco use type: Cigarette Cigarettes Per Day: 10 Years Smoked: 55 +/- e-Cigarette/Vaping Use: Never Used Second Hand Smoke Exposure: Yes service: No Current occupational status: employed Cognitive needs: Yes Hearing needs: No Vision needs: No Review of Systems Const All systems reviewed & are unremarkable except as noted in HPI and below Eyes Reports no additional complaints ENT Reports no additional complaints and Denies dysphagia Card Denies chest pain, Denies irregular heart rhythm (Has the monitor on), Denies leg edema and Reports dyspnea on exertion (Mild) Resp Reports cough (Minimal and infrequent) and Reports dyspnea on exertion (Mild) GI Denies dysphagia, Denies dyspepsia and Reports heartburn (Being treated with Protonix for prevention of GERD) Musc Reports abnormal gait (Uses walker) and Reports muscle weakness Skin/Breast Reports system reviewed and no additional complaints, except as documented Neuro Reports abnormal gait (Uses walker) Psych Reports depression (Treated with med) Endo Reports no additional complaints Sergei/Lymph Reports no additional complaints Physical Exam Vital Signs: Last Vital Signs Pulse 54 03/14/23 11:20 BP 122/68 03/14/23 11:20 Pulse Ox 98 03/14/23 11:20 Oxygen Delivery Method Room Air 03/14/23 11:20 BMI result Body Mass Index 25.0 Const General: comfortable, no acute distress, alert and awake Orientation/consciousness: patient oriented x3 HEENT Head: Yes normal to inspection General nose exam: No nasal polyps present and No nasal discharge present Face and sinus: Yes sinuses nontender Mouth: oropharynx normal Throat: Yes posterior oropharynx normal Eyes General: appearance normal, both eyes and all related structures Neck Neck: Yes normal visual inspection, Yes no lymphadenopathy, Yes trachea midline and Yes no JVD Thyroid: Thyroid normal Chest Chest palpation & inspection: normal inspection of the chest, normal palpation of entire chest wall and no tenderness Resp Other: Percussion note is resonant, has be equal breath sounds on both sides, the breath sounds are distant with prolonged expiratory phase. A few fine inspiratory Creps over the left. lower lobe No wheezes are heard. Cardio Palpation: normal PMI Rate: regular rate Rhythm: regular rhythm Heart sounds: no gallops and no murmurs GI Other: Abdomen soft, benign. G-tube uneventfully removed. Dressing applied. Palpation (GI): Soft to palpation, nontender, No hepatosplenomegaly present and no masses Auscultation: normal bowel sounds Back/Spine/Pelvis Thoracic/Lumbar Spine: thoracic and lumbar spine normal to inspection and Thoracic/lumbar scoliosis (Mild to moderate) Skin General skin exam: no rashes or lesions noted Neuro General: patient oriented x3, No gait normal (The gait is somewhat unstable, due to poor balance, needs walker) and no focal motor deficits Cranial nerves: Yes CN's II-XII intact bilaterally Extrem General: Yes normal to inspection, Yes no clubbing, cyanosis or edema and Yes no calf tenderness Psych Appearance: grossly normal and well kempt Speech and movement: Normal speech and movement present Results Reviewed Results Reviewed: Chest x-ray was NORMAL. PULMONARY FUNCTION TEST SHOWED MODERATELY SEVERE RESTRICTIVE DISORDER AND NO SIGNIFICANT OBSTRUCTIVE DISORDER. DUE TO HIS POOR UNDERSTANDING HE HAD DIFFICULTY IN PERFORMING THE MIN NEW HOURS FOR LUNG VOLUMES AND DIFFUSION CAPACITY. Assessment & Plan Assessment & Plan (1) Smoker: Comment: [employer]MO[employer], HAD CUT DOWN TO 5-6 CIGARS/ DAY, BUT TODAY HE TELLS ME THAT HE IS SMOKING THE FULL PACK A DAY . ACCORDING TO HIS , HE JUST WOULD NOT QUIT SMOKING. I HAD A GOOD DISCUSSION AND AGAIN ADVISED HIM TO AT LEAST CUT IT DOWN TO 4-5 CIGARETTES A DAY. ALSO I WOULD REGISTER HIM FOR AN WILL LUNG SCREENING PROGRAM. Code(s): F17.200 - Nicotine dependence, unspecified, uncomplicated (2) Restrictive lung disease: Comment: PER PULMONARY FUNCTION TEST, HE HAS MODERATE DEGREE OF RESTRICTIVE LUNG DISEASE. THIS MAY BE PARTLY DUE TO HIS POOR EFFORTS. ANYWAY HE DOES NOT SEEM TO HAVE ANY OBSTRUCTIVE DISORDER, HE DOES HAVE COUGH . SECONDARY TO SMOKING ADVISED TO USE ALBUTEROL INHALER 2 PUFFS Q 4-6 HOURS ONLY P.R.N. FOR SUSTAINED COUGH OR WHEEZING. Code(s): J98.4 - Other disorders of lung Orders: Orders CT lung screening Today F17.210 - Nicotine dependence, cigarettes, uncomplicated Referrals Thoracic Surgery Referral F17.200 - Nicotine dependence, unspecified, uncomplicated, J98.4 - Other disorders of lung Medications: New albuterol sulfate 90 mcg/actuation 2 puffs inhalation Q4-6H PRN 6.7 grams 1RF shortness of breath or wheezing 30 days Coding Level of Care Code Est Pt Level 3 (60971) Diagnoses Smoker F17.200 Restrictive lung disease J98.4
[2023-03-14 11:20] VITALS: BP 122/68; PULSE 54; O2SAT 98; BMI 25.0
== END 2023-03-14 11:46 | disposition home or self-care (01) ==
PROVIDERS: PCP Internal Medicine; Visit Provider Internal Medicine
DX: F17.200 Nicotine dependence, unspecified, uncomplicated (principal); J98.4 Other disorders of lung
CPT/HCPCS: 99213

== ENCOUNTER → 2023-03-14 11:02 | Outpatient (BNVA) | payer MEDICARE, MEDICAID, SELFPAY | PROVIDERS: PCP Internal Medicine; Visit Provider Internal Medicine | DX: J98.4 Other disorders of lung (principal); F17.210 Nicotine dependence, cigarettes, uncomplicated | CPT/HCPCS: 99212 ==

== ENCOUNTER 2023-04-27 14:19 | Outpatient (REF) | payer MEDICARE, MEDICAID, SELFPAY ==
--- NOTE | 2023-04-27 15:14 | MHC.AU.HA1 ---
Hearing Aid Evaluation Date of Visit: 04/27/23 Head Of Training And Development Used: interpreted, signed form. Historical Information: Description of Hearing: Borderline normal sloping to severe sensorineural hearing loss Ad. Mild sloping to severe sensorineural hearing loss As. Current personal amplification information, if applicable: none. Summary: Catie is accompanied by his today. She reports that he saw ENT following his evaluation on 03/04/2023. Medical clearance for amplification has been received from Dr. Keller. Today we reviewed amplification options. Binaural product ambassador in the ear hearing aids are recommended, patient would like rechargeable aids, they are not concerned with pairing to any phones at this time. Hearing Aid Prescription: Based on the individual?s shared listening needs, communication environments, dexterity, desire for connectivity, and personal preferences, the following prescription for amplification has been made: Right ear: Make, Model, Color: Bibulu Real 2 miniRITE R, chroma beige. Battery Size: Rechargeable Coal Loader/Slim Tube: 3 Type of Earmold/Dome/CShell/SlimTip: 8mm double roman Left ear: Left ear prescription to be same as Right Hearing Aid above: Plan of Care: Patient wishes to purchase hearing aids as prescribed Action Taken/Action Needed: Hearing Instrument Fitting to be scheduled when materials arrive Primary Diagnosis: H90.3 Bilateral Sensorineural Hearing Loss Secondary Diagnosis: H69.92 Unspecified Eustachian Tube Dysfunction, Left Ear Signature: Provider: Kimmie Ba, CCC-A
== END 2023-04-27 14:20 | disposition home or self-care (01) ==
LOC: HO.HAP 14:19
PROVIDERS: Visit Provider Internal Medicine
DX: Z46.1 Encounter for fitting and adjustment of hearing aid (principal); H90.3 Sensorineural hearing loss, bilateral
CPT/HCPCS: 92591

== ENCOUNTER 2023-05-10 13:36 | Outpatient (AMB) | payer MEDICARE, MEDICAID, SELFPAY ==
[2023-05-10 13:38] VITALS: BP 148/80; PULSE 56; O2SAT 97; BMI 25.6
--- NOTE | 2023-05-10 13:38 | A.OFFPC_ITS ---
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 Real Estate Required: No Allergies No Known Allergies [No Known Allergies*] Allergy (Verified 05/10/23 13:38) Medication List - Last Reconciled 05/10/23 by Jami Martin MD albuterol sulfate 90 mcg/actuation 2 puffs inhalation Q4-6H PRN 30 days aspirin (Adult Aspirin Regimen) 81 mg PO DAILY bisacodyl 10 mg SD DAILY PRN clopidogrel (Plavix) 75 mg PO DAILY gabapentin 100 mg PO BEDTIME lactulose 10 grams (15 mL) PO TID metoprolol succinate ER 50 mg PO DAILY pantoprazole 20 mg PO BID 90 days paroxetine HCl 10 mg PO DAILY prednisolone acetate 1% drps ophthalmic (eye) rosuvastatin (Crestor) 40 mg PO DAILY tamsulosin 0.4 mg PO BEDTIME Tobacco use date assessed: 05/10/23 Fall risk assessment: No Falls in past year Last assessed Fall Risk: 05/10/23 HPI cva HPI Details 67-year-old male smoker with a history o f CVA COPD CAD GERD hypercholesterolemia last seen in January 2023. Patient is up-to-date with colonoscopy December 2022 advised repeat this year. Review of the notes was in the ER May for urinary incontinence concern about urinary retention with overflow. Patient did see Pulmonary also for the COPD diagnosis restrictive lung disease no asthma but advised inhaler to use CT scan requested [facility] Medical History (Updated 05/10/23 @ 14:44 by Jami Martin MD) Restrictive lung disease Smoker Aspiration pneumonia Metabolic encephalopathy PFO (patent foramen ovale) CVA (cerebral vascular accident) Hypercholesterolemia Peripheral arterial disease Tobacco abuse COPD (chronic obstructive pulmonary disease) CAD (coronary artery disease) GERD (gastroesophageal reflux disease) Chronic low back pain Surgical History S/P cardiac catheterization History of coronary artery stent placement History of aorto-femoral bypass Family History Father Hypertension Mother Hypertension Brother In good health Brother In good health Sister In good health Sister In good health Son In good health Son In good health Son In good health Son In good health Social History Housing: House Alcohol intake: current Alcohol intake frequency: holidays/special occasions only Patient Tobacco Use Status: Current someday Tobacco user Tobacco use type: Cigarette Cigarettes Per Day: 10 Years Smoked: 55 +/- e-Cigarette/Vaping Use: Never Used Second Hand Smoke Exposure: Yes service: No Current occupational status: employed Cognitive needs: Yes Hearing needs: No Vision needs: No Questionnaire PHQ-9 Over the last 2 weeks, how often have you been bothered by any of the following problems? 1. Little interest or pleasure in doing things: not at all 2. Feeling down, depressed, or hopeless: not at all 3. Trouble falling or staying asleep, or sleeping too much: not at all 4. Feeling tired or having little energy: not at all 5. Poor appetite or overeating: not at all 6. Feeling bad about yourself - or that you are a failure or have let yourself or your family down: not at all 7. Trouble concentrating on things, such as reading the newspaper or watching television: not at all 8. Moving or speaking so slowly that other people could have noticed. Or the opposite - being so fidgety or restless that you have been moving around a lot more than usual: not at all 9. Thoughts that you would be better off or of hurting yourself in some way: not at all Total score: 0 Depression Screening Interpretation: Negative Depression Screening Done: Yes Source: Developed by Drs. Meet Flores, Nidia Gordon, Eddy Arriaga and colleagues, with an educational nicole from [employer]. Thrive Questionnaire Date Thrive assessed: 11/12/22 JACQUES-7 AMB Questionnaire JACQUES-7 Date JACQUES - 7 assessed: 05/10/23 Feeling nervous, anxious, or on edge: 0 = Not at all Not being able to stop or control worryin = Not at all Worrying too much about different things: 0 = Not at all Trouble relaxin = Not at all Being so restless that it is hard to sit still: 0 = Not at all Becoming easily annoyed or irritable: 0 = Not at all Feeling afraid as if something awful might happen: 0 = Not at all Total JACQUES-7 score (0-4 normal; 5-9 mild; 10-14 moderate; 15-21 severe): 0 Source: Developed by Drs. Meet Flores, Nidia Gordon, Eddy Arriaga and colleagues, with an educational nicole from [employer]. Physical exam (Primary Care) Vital Signs: Last Vital Signs Pulse 56 05/10/23 13:38 BP 148/80 H 05/10/23 13:38 Pulse Ox 97 05/10/23 13:38 Oxygen Delivery Method Room Air 05/10/23 13:38 BMI result Body Mass Index 25.6 Tobacco/Smoking Status: Tobacco use Status Tobacco use date assessed 05/10/23 05/10/23 13:39 Patient Tobacco Use Status Current someday Tobacco 05/10/23 13:39 Tobacco use type Cigarette 05/10/23 13:39 e-Cigarette/Vaping Use Never Used 05/10/23 13:39 PHQ-9: PHQ-9 Score PHQ-9: Total score 0 05/10/23 13:39 Depression Screening Interpretation: Negative Thrive Assessment: Date of Thrive Assessment Date Thrive assessed 11/12/22 05/10/23 13:39 Const General: alert; No acute distress Eyes Conjunctivae: conjunctivae normal Resp Auscultation: clear to auscultation bilaterally Cardio Rate: regular rate Rhythm: regular rhythm GI Inspection: Yes normal to inspection Extrem General: Yes normal to inspection and No edema Assessment and Plan Assessment & Plan (1) Restrictive lung disease: Comment: PER PULMONARY FUNCTION TEST, HE HAS MODERATE DEGREE OF RESTRICTIVE LUNG DISEASE. THIS MAY BE PARTLY DUE TO HIS POOR EFFORTS. ANYWAY HE DOES NOT SEEM TO HAVE ANY OBSTRUCTIVE DISORDER, HE DOES HAVE COUGH . SECONDARY TO SMOKING ADVISED TO USE ALBUTEROL INHALER 2 PUFFS Q 4-6 HOURS ONLY P.R.N. FOR SUSTAINED COUGH OR WHEEZING. Code(s): J98.4 - Other disorders of lung Plan: Patient has seen Pulmonary and has advised the inhalers. 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 (6) CAD (coronary artery disease): Comment: MABEL Holiness 2014 Dr. Reid angioplasty GERA mid RCA March 2018 STEMI 06/2021, mid RCA thrombus, GERA placed ECHO EF 63% Code(s): I25.10 - Atherosclerotic heart disease of [place] coronary artery without angina pectoris Qualifiers: Coronary Disease-Associated Artery/Lesion type: [place] artery [place] vs. transplanted heart: [place] heart Associated angina: without angina Quali fied Code(s): I25.10 - Atherosclerotic heart disease of [place] coronary artery without angina pectoris Plan: Control the cholesterol, weight, blood pressure, continue with aspirin (7) GERD (gastroesophageal reflux disease): Code(s): K21.9 - Gastro-esophageal reflux disease without esophagitis Qualifiers: Esophagitis presence: without esophagitis Qualified Code(s): K21.9 - Gastro-esophageal reflux disease without esophagitis Plan: Avoid the foods that causes that usually spicy foods, tomato products, juices, coffee, soda and foods that your sensitive to. After eating do not lie down, allow 3-4 hours before in lie down. And keep the head of bed above 30 degrees to avoid the acid from going up. Stop smoking (8) Urinary incontinence: Code(s): R32 - Unspecified urinary incontinence Plan: this has resolved but has frequency-n will call for urology evaluation (9) Peripheral neuropathic pain: Code(s): M79.2 - Neuralgia and neuritis, unspecified Plan: Will start on gabapentin 100 mg once a day Medications: New metoprolol succinate ER 50 mg PO DAILY 90 tabs 3RF gabapentin 100 mg PO BEDTIME 30 caps 3RF M79.2 - Neuralgia and neuritis, unspecified Refilled paroxetine HCl 10 mg PO DAILY 90 tabs 1RF I63.9 - Cerebral infarction, unspecified rosuvastatin (Crestor) 40 mg PO DAILY 90 tabs 3RF I63.9 - Cerebral infarction, unspecified tamsulosin 0.4 mg PO BEDTIME 90 caps 1RF N40.0 - Benign prostatic hyperplasia without lower urinary tract symptoms clopidogrel (Plavix) 75 mg PO DAILY 90 tabs 3RF I63.9 - Cerebral infarction, unspecified aspirin (Adult Aspirin Regimen) 81 mg PO DAILY 90 tabs 3RF I25.10 - Atherosclerotic heart disease of [place] coronary artery without angina pectoris pantoprazole 20 mg PO BID 90 days 180 tabs 1RF I63.9 - Cerebral infarction, unspecified Coding Level of Care Code Est Pt Level 4 (56700) Diagnoses Restrictive lung disease J98.4 BPH (benign prostatic hyperplasia) N40.0 Tubular adenoma of colon D12.6 CVA (cerebral vascular accident) I63.9 Tobacco abuse Z72.0 Coronary artery disease involving [place] coronary artery of [place] heart without angina pectoris I25.10 Coronary Disease-Associated Artery/Lesion type: [place] artery [place] vs. transplanted heart: [place] heart Associated angina: without angina Gastroesophageal reflux disease without esophagitis K21.9 Esophagitis presence: without esophagitis Urinary incontinence R32 Peripheral neuropathic pain M79.2
[2023-05-10 14:43] VITALS: BP 132/82
== END 2023-05-10 14:53 | disposition home or self-care (01) ==
PROVIDERS: PCP Internal Medicine; Visit Provider Internal Medicine
DX: J98.4 Other disorders of lung (principal); N40.0 Benign prostatic hyperplasia without lower urinary tract symptoms; D12.6 Benign neoplasm of colon, unspecified; I63.9 Cerebral infarction, unspecified; Z72.0 Tobacco use; I25.10 Atherosclerotic heart disease of native coronary artery without angina pectoris; K21.9 Gastro-esophageal reflux disease without esophagitis; R32 Unspecified urinary incontinence; M79.2 Neuralgia and neuritis, unspecified
CPT/HCPCS: 99214

== ENCOUNTER 2023-05-12 12:57 | Outpatient (REF) | payer MEDICARE, MEDICAID, SELFPAY ==
--- NOTE | 2023-05-13 12:45 | MHC.AU.HA2 ---
Hearing Instrument Fitting- Adult- Binaural Date of Visit: 05/12/23 Family Readiness Support Assistant Used: interpreted, signed refusal form. Hearing Instruments Dispensed: Right Ear: Make, Model, Color, Serial Number: Oticon Real 2 miniRITE R [place] SN [id number] Community Development Coordinator Repair Warranty: 05/27/2026 Community Development Coordinator Loss and Damage Warranty: 05/27/2026 [facility] Service Plan: 05/12/12 Battery Size: Rechargeable Mainspring Strip Gauger/Slim Tube: 3/85 Earmold/Dome/CShell/SlimTip: 8mm double roman Type of Wax Guard: ProWax MiniFit Left Ear: Make, Model, Color, Serial Number: Oticon Real 2 miniRITE R Chroma Beige SN [id number] Oticon Real 2 miniRITE R [place] [id number] Community Development Coordinator Repair Warranty: 05/27/2026 Community Development Coordinator Loss and Damage Warranty: 05/27/2026 [facility] Service Plan: 05/12/22 Battery Size: Rechargeable [place] Strip Gauger/Slim Tube: 3/85 Earmold/Dome/CShell/SlimTip: 8mm double roman Type of Wax Guard: ProWax MiniFit Accessories/Assistive Technology: Oticon minirite wire charger S#[id number] Warranty end date 05/27/2026 Summary of Fitting: Catie is here for fitting with Oticon Real 2 miniRITE Rs, accompanied by his who interpreted (signed form). He is a first time hearing aid user. Reviewed basics of use, care/cleaning/wax guards, charging, removal and insertion. Programmed and verified to NAL-NL2 targets and decreased to level 2 per pt request, auto-adapt turned on. VC disabled. Follow up in 3 weeks. Recommendations: Recommendations: A hearing instrument follow-up is recommended in 2-3 weeks. Recommendations (Other): Diagnosis Code(s): Primary Diagnosis: H90.3 Bilateral Sensorineural Hearing Loss Secondary Diagnosis: H69.92 Unspecified Eustachian Tube Dysfunction, Left Ear Signature: Provider: Leticia Doss, CCC-A
== END 2023-05-12 12:58 | disposition home or self-care (01) ==
LOC: HO.HAP 12:57
PROVIDERS: Visit Provider Otolaryngology
DX: Z46.1 Encounter for fitting and adjustment of hearing aid (principal); H90.3 Sensorineural hearing loss, bilateral
CPT/HCPCS: V5011; V5020; V5160; V5261

== ENCOUNTER 2023-05-26 09:31 | Outpatient (AMB) | payer MEDICARE, MEDICAID, SELFPAY ==
--- NOTE | 2023-05-26 09:13 | A.OFFVIS_ITS ---
Intake Intake Visit Reasons: LDCT SD Allergies No Known Allergies [No Known Allergies*] Allergy (Verified 05/10/23 13:38) HPI HPI Comments History of Present Illness Details Catie is a pleasant 67 year old male, current 1ppd smoker with a 75 PYH. Patient has been smoking since approximately age 17 for 50 years at 1-2 ppd. Denies marijuana use. Denies exposure to chemicals or substances like asbestos. Denies second hand smoke exposure. Denies known family history of lung cancer. Denies personal history of cancers. Denies chest CT in last year. Reports recent travel outside the [place] to [place]. Denies testing positive for COVID. Admits receiving COVID Vaccine. Denies fever, chills, chest pain, new cough, hemoptysis or unintentional weight loss. Lung Cancer Screening Questionnaire reviewed with patient by provider. Shared Decision Making Completed. Discussed in detail with patient, the risk versus benefit of LDCT screening. Patient in agreement of proceeding with scan. [facility] Medical History (Updated 05/26/23 @ 09:47 by Shweta Cohen NP) Restrictive lung disease Smoker Aspiration pneumonia Metabolic encephalopathy PFO (patent foramen ovale) CVA (cerebral vascular accident) Hypercholesterolemia Peripheral arterial disease Tobacco abuse COPD (chronic obstructive pulmonary disease) CAD (coronary artery disease) GERD (gastroesophageal reflux disease) Chronic low back pain Surgical History S/P cardiac catheterization History of coronary artery stent placement History of aorto-femoral bypass Family History Father Hypertension Mother Hypertension Brother In good health Brother In good health Sister In good health Sister In good health Son In good health Son In good health Son In good health Son In good health Social History Housing: House Alcohol intake: current Alcohol intake frequency: holidays/special occasions only Patient Tobacco Use Status: Current someday Tobacco user Tobacco use type: Cigarette Cigarettes Per Day: 10 Years Smoked: 55 +/- e-Cigarette/Vaping Use: Never Used Second Hand Smoke Exposure: Yes service: No Current occupational status: employed Cognitive needs: Yes Hearing needs: No Vision needs: No Assessment & Plan Assessment & Plan (1) Nicotine dependence, cigarettes, uncomplicated: Code(s): F17.210 - Nicotine dependence, cigarettes, uncomplicated Plan Shared decision-making visit completed via telehealth visit. This patient meets criteria for LDCT for lung cancer screening purposes and is asymptomatic. Offered smoking cessation. Patient has been scheduled for a low dose chest CT for screening purposes at [facility]. We discussed how the results will be obtained depending on CT findings. RADS 1 and RADS 2 will receive a letter with results and will follow up for annual LDCT. Patient informed they will be contacted at later date to schedule upcoming LDCT scan. RADS 3 and RADS 4 will receive a telephone call, or an office visit after reviewing case at our Lung Cancer Conference to determine when the next LDCT will be scheduled or further interventions that may be needed. Discussed importance of screening program and compliance with yearly LDCT scan as scheduled. Risks, benefits, and alternatives were discussed in detail and patient agrees to proceed. Risks discussed include but are not limited to: radiation exposure and possibility of additional intervention for benign disease. Benefits include detection of lung cancer at an early stage. A copy of today's visit and LDCT results will be sent to patient's PCP. Incidental findings on LDCT are PCP's responsibility. If there are incidental findings, our office will ensure that PCP office is aware of these findings. All questions were answered and patient is in agreement of plan Telehealth Telehealth Location of provider rendering services: practice address Location of patient: address on file Patient Identification confirmed using: Name, : Yes Telehealth method: voice only Patient verbally consented to treatment: Yes Patient verbally consented to billing insurance company: Yes Patient informed of any privacy concerns related to visit: Yes Coding Level of Care Code Lung Cancer Screening G0296 Diagnoses Nicotine dependence, cigarettes, uncomplicated F17.210
== END 2023-05-26 10:04 | disposition home or self-care (01) ==
LOC: HO.HPS 09:31
PROVIDERS: PCP Internal Medicine; Referring Provider Internal Medicine; Visit Provider Nurse Practitioner Family
DX: F17.210 Nicotine dependence, cigarettes, uncomplicated (principal)
CPT/HCPCS: G0296

== ENCOUNTER → 2023-05-26 09:31 | Outpatient (BNVA) | payer MEDICARE, MEDICAID, SELFPAY | PROVIDERS: PCP Internal Medicine; Visit Provider Nurse Practitioner Family | DX: F17.210 Nicotine dependence, cigarettes, uncomplicated (principal) | CPT/HCPCS: G0296 ==

== ENCOUNTER 2023-07-15 12:00 | Outpatient (AMB) | payer MEDICARE, MEDICAID, SELFPAY ==
[2023-07-15 12:13] VITALS: BP 128/80; PULSE 60; O2SAT 98; BMI 26.8
--- NOTE | 2023-07-15 12:13 | A.OFFPC_ITS ---
Vital Signs 07/15/23 12:13 Height 5 ft 5 in Weight 161 lb BMI 26.8 BP 128/80 Blood Pressure Location Lt brachial Position Sitting Pulse 60 Pulse Source Pulse Oximeter Pulse Oximetry (%) 98 Oxygen Delivery Method Room Air Intake Visit Reasons: Annual Exam Allergies No Known Allergies [No Known Allergies*] Allergy (Verified 07/15/23 12:14) Medication List - Last Reconciled 07/15/23 by Jami Martin MD albuterol sulfate 90 mcg/actuation 2 puffs inhalation Q4-6H PRN 30 days aripiprazole 2 mg PO DAILY aspirin (Adult Aspirin Regimen) 81 mg PO DAILY bisacodyl [address] DAILY PRN clopidogrel (Plavix) 75 mg PO DAILY gabapentin 100 mg PO BEDTIME lactulose 10 grams (15 mL) PO TID metoprolol succinate ER 50 mg PO DAILY pantoprazole 20 mg PO BID 90 days paroxetine HCl 10 mg PO DAILY prednisolone acetate 1% drps ophthalmic (eye) rosuvastatin (Crestor) 40 mg PO DAILY trazodone 50 mg PO BEDTIME PRN Tobacco use date assessed: 05/10/23 Fall risk assessment: No Falls in past year Last assessed Fall Risk: 07/15/23 Dental Screening Dental Screen Date: 07/15/23 Did you have a dental visit in the last 12 months?: No Did you have a dental problem in the last 6 months where you did not have access to dental care?: No Was dental information given to patient?: No HPI Annual Exam HPI Details 68-year-old male smoker with a history C VA CAD GERD peripheral neuropathic pain restrictive lung disease BPH last seen in May 2023. Patient is here for physical exam. December 2022 last colonoscopy to repeat in 1 year. Patient was seen by Pulmonary for lung cancer screening and was order for CT scan but I do not see the results. CT lung 08/2023 [facility] Medical History (Updated 07/15/23 @ 13:19 by Jami Martin MD) Nicotine dependence, cigarettes, uncomplicated Restrictive lung disease Smoker Aspiration pneumonia Metabolic encephalopathy PFO (patent foramen ovale) CVA (cerebral vascular accident) Hypercholesterolemia Peripheral arterial disease Tobacco abuse COPD (chronic obstructive pulmonary disease) CAD (coronary artery disease) GERD (gastroesophageal reflux disease) Chronic low back pain Surgical History S/P cardiac catheterization History of coronary artery stent placement History of aorto-femoral bypass Family History Father Hypertension Mother Hypertension Brother In good health Brother In good health Sister In good health Sister In good health Son In good health Son In good health Son In good health Son In good health Social History (Updated 07/15/23 @ 13:06 by Jami Martin MD) Housing: House Alcohol intake: former Patient Tobacco Use Status: Current someday Tobacco user Tobacco use type: Cigarette Cigarettes Per Day: 20 Years Smoked: 55 +/- n (07/2023) e-Cigarette/Vaping Use: Never Used Second Hand Smoke Exposure: Yes service: No Current occupational status: employed Cognitive needs: Yes Hearing needs: No Vision needs: No Questionnaire PHQ-9 Over the last 2 weeks, how often have you been bothered by any of the following problems? 1. Little interest or pleasure in doing things: not at all 2. Feeling down, depressed, or hopeless: not at all 3. Trouble falling or staying asleep, or sleeping too much: not at all 4. Feeling tired or having little energy: not at all 5. Poor appetite or overeating: not at all 6. Feeling bad about yourself - or that you are a failure or have let yourself or your family down: not at all 7. Trouble concentrating on things, such as reading the newspaper or watching television: not at all 8. Moving or speaking so slowly that other people could have noticed. Or the opposite - being so fidgety or restless that you have been moving around a lot more than usual: not at all 9. Thoughts that you would be better off or of hurting yourself in some way: not at all Total score: 0 Depression Screening Interpretation: Negative Depression Screening Done: Yes Source: Developed by Drs. Meet Flores, Nidia Gordon, Eddy Arriaga and colleagues, with an educational nicole from [employer]. Thrive Questionnaire Date Thrive assessed: 07/15/23 I am a: Patient What is your living situation today?: I have a steady place to live Within the past 12 months, did the food you bought not last and you didn't have the money to get more?: Never true Within the past 12 months, did you worry whether your food would run out before you got money to buy more?: Never true Do you have trouble paying for medicines?: No Do you have trouble getting transportation to medical appointments?: No Do you have trouble paying your heating and electricity bill?: No Do you have trouble taking care of your child, family member or friend?: No Do you have trouble with day-to-day activities such as bathing, preparing meals, shopping, managing finances, etc.?: No Are you currently unemployed and looking for a job?: No Are you interested in more education?: No Currently or been in a relationship where the following occur: no concerns reported THRIVE Score: 0 AUDIT C Alcohol Use Questionnaire (AUDIT-C) 1. How often do you have a drink containing alcohol?: Never 3. How often do you have six or more drinks on one occasion?: Never Total Score: 0 JACQUES-7 AMB Questionnaire JACQUES-7 Date JACQUES - 7 assessed: 05/10/23 Source: Developed by Drs. Meet Flores, Nidia Gordon, Eddy Arriaga and colleagues, with an educational nicole from [employer]. Review of Systems Const Denies poor appetite and Denies weakness Eyes Denies no additional complaints ENT Reports Normal hearing present, Denies dizziness, Denies nasal congestion, Denies tinnitus and Denies sore throat Card Denies chest pain, Denies syncope, Denies rapid heart rate and Denies dyspnea Resp Denies cough and Denies dyspnea GI Denies change in stool character, Reports constipation, Denies diarrhea, Denies nausea and Denies vomiting Denies dysuria and Denies urinary frequency Neuro Reports Normal hearing present, Denies confusion, Denies dizziness, Denies syncope and Denies weakness Psych Denies confusion Physical exam (Primary Care) Vital Signs: Last Vital Signs Pulse 60 07/15/23 12:13 BP 128/80 07/15/23 12:13 Pulse Ox 98 07/15/23 12:13 Oxygen Delivery Method Room Air 07/15/23 12:13 BMI result Body Mass Index 26.8 Tobacco/Smoking Status: Tobacco use Status Tobacco use date assessed 05/10/23 07/15/23 12:15 Patient Tobacco Use Status Current someday Tobacco 07/15/23 12:15 Tobacco use type Cigarette 07/15/23 12:15 e-Cigarette/Vaping Use Never Used 07/15/23 12:15 PHQ-9: PHQ-9 Score PHQ-9: Total score 0 07/15/23 12:33 Depression Screening Interpretation: Negative Thrive Assessment: Date of Thrive Assessment Date Thrive assessed 07/15/23 07/15/23 12:15 Currently or been in a relationship where the following occur: no concerns reported Const General: alert and awake; No confusion Orientation/consciousness: No confusion HENMT Head: Yes normocephalic Ears: external ears normal and TM's normal bilaterally Face and sinus: Yes normal facial exam Mouth: moist mucous membranes Throat: Yes tonsils normal Eyes Conjunctivae: conjunctivae normal Pupils: Equal, round and reactive pupils present and Pupil accommodation reflex normal Direct Ophthalmoscopy: normal light reflex Neck Neck: No lymphadenopathy Thyroid: Thyroid normal Chest Chest palpation & inspection: normal inspection of the chest Resp Effort & Inspection: normal respiratory effort and no audible wheezes Auscultation: clear to auscultation bilaterally, no crackles, no wheezes and lung sounds not diminished Cardio Rate: regular rate Rhythm: regular rhythm Peripheral pulses: radial pulses present and dorsalis pedis present GI Palpation (GI): no masses Auscultation: normal bowel sounds and normoactive bowel sounds Rectal Exam - Male: Yes deferred Skin General skin exam: no rashes or lesions noted Rashes: no rashes Neuro General: deep tendon reflexes 2+ bilaterally and No confusion Cranial nerves: Yes Equal, round and reactive pupils present, Yes Midline tongue present, Yes Normal hearing present and Yes Ability to bilaterally elevate shoulders present Cognition (Neuro): normal cognition Gait exam (Neuro): Normal gait present Motor exam (neuro): 5/5 motor strength present throughout Deep tendon reflexes (DTR's): Right brachioradialis reflex intensity grade: 2+, Left brachioradialis reflex intensity grade: 2+, Right patellar reflex intensity grade: 2+ and Left patellar reflex intensity grade: 2+ Extrem General: No edema Assessment and Plan Assessment & Plan (1) Annual physical exam: Code(s): Z00.00 - Encounter for general adult medical examination without abnormal fi ndings (2) Tubular adenoma of colon: Comment: december 2022 Code(s): D12.6 - Benign neoplasm of colon, unspecified Plan: Patient has seen gastroenterology last year and was advised to repeat colonoscopy this year (3) CVA (cerebral vascular accident): Comment: 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 Reid angioplasty GERA mid RCA March 2018 STEMI 06/2021, mid RCA thrombus, GERA placed ECHO EF 63% Code(s): I25.10 - Atherosclerotic heart disease of [place] coronary artery without angina pectoris Qualifiers: Coronary Disease-Associated Artery/Lesion type: [place] artery [place] vs. transplanted heart: [place] heart Associated angina: without angina Qualified Code(s): I25.10 - Atherosclerotic heart disease of [place] coronary artery without angina pectoris Plan: Control the cholesterol, weight, blood pressure, diabetes on aspirin and Plavix (6) GERD (gastroesophageal reflux disease): Code(s): K21.9 - Gastro-esophageal reflux disease without esophagitis Qualifiers: Esophagitis presence: without esophagitis Qualified Code(s): K21.9 - Gastro-esophageal reflux disease without esophagitis Plan: Avoid the foods that causes that usually spicy foods, tomato products, juices, coffee, soda and foods that your sensitive to. After eating do not lie down, allow 3-4 hours before in lie down. And keep the head of bed above 30 degrees to avoid the acid from going up. (7) COPD (chronic obstructive pulmonary disease): Comment: HE IS KNOWN TO HAVE MILD TO MODERATE DEGREE OF OBSTRUCTIVE AIRWAY DISORDER, IT HAS REMAINED VERY STABLE. HE IS RELATIVELY ASYMPTOMATIC AT THIS TIME. TX: ALBUTEROL HFA 2 PUFFS Q 4-6 HOURS ONLY P.R.N. Code(s): J44.9 - Chronic obstructive pulmonary disease, unspecified Qualifiers: COPD type: emphysema Emphysema type: unspecified Qualified Code(s): J43.9 - Emphysema, unspecified Plan: Patient is strongly advised to stop smoking (8) Tobacco abuse: Code(s): Z72.0 - Tobacco use Plan: Patient is advised strongly stop smoking (9) Peripheral arterial disease: Comment: 04/10/2019 - open aortobifemoral bypass Code(s): I73.9 - Peripheral vascular disease, unspecified Plan: Stop smoking! On clopidogrel (10) Hypercholesterolemia: Code(s): E78.00 - Pure hypercholesterolemia, unspecified Plan: Avoid fried foods, chicken skin, eggs, butter margarine, pastries and meat. Be it pork or beef they have a lot of cholesterol LDL goal of less than 70 and triglyceride of less than 150 on rosuvastatin 40 mg once a day (11) Peripheral neuropathic pain: Code(s): M79.2 - Neuralgia and neuritis, unspecified (12) Hypersomnia: Code(s): G47.10 - Hypersomnia, unspecified Orders: Orders Free T4 (Free Thyroxine) 6 Months I63.9 - Cerebral infarction, unspecified Prostate Specific Antigen Scr 6 Months I63.9 - Cerebral infarction, unspecified Lipid Panel 6 Months E78.00 - Pure hypercholesterolemia, unspecified, I63.9 - Cerebral infarction, unspecified Thyroid Stimulating Hormone 6 Months I63.9 - Cerebral infarction, unspecified Vitamin B12 and Folate 6 Months I63.9 - Cerebral infarction, unspecified RT home sleep study Today G47.10 - Hypersomnia, unspecified Complete Blood Count Auto Diff 6 Months I63.9 - Cerebral infarction, unspecified Comprehensive Met. Panel 6 Months I63.9 - Cerebral infarction, unspecified Medications: Changed From gabapentin 100 mg PO BEDTIME 30 caps 3RF M79.2 - Neuralgia and neuritis, unspecified To gabapentin 300 mg PO BEDTIME 30 caps 3RF M79.2 - Neuralgia and neuritis, unspecified Coding Level of Care Code Est Pt Prev Care >65y(85015) Diagnoses Annual physical exam Z00.00 Tubular adenoma of colon D12.6 CVA (cerebral vascular accident) I63.9 Generalized anxiety disorder F41.1 Coronary artery disease involving [place] coronary artery of [place] heart without angina pectoris I25.10 Coronary Disease-Associated Artery/Lesion type: [place] artery [place] vs. transplanted heart: [place] heart Associated angina: without angina Gastroesophageal reflux disease without esophagitis K21.9 Esophagitis presence: without esophagitis Pulmonary emphysema, unspecified emphysema type J43.9 COPD type: emphysema Emphysema type: unspecified Tobacco abuse Z72.0 Peripheral arterial disease I73.9 Hypercholesterolemia E78.00 Peripheral neuropathic pain M79.2 Hypersomnia G47.10
== END 2023-07-15 13:24 | disposition home or self-care (01) ==
PROVIDERS: Visit Provider Internal Medicine
DX: Z00.00 Encounter for general adult medical examination without abnormal findings (principal); I63.9 Cerebral infarction, unspecified; J43.9 Emphysema, unspecified; I73.9 Peripheral vascular disease, unspecified; D12.6 Benign neoplasm of colon, unspecified; F41.1 Generalized anxiety disorder; I25.10 Atherosclerotic heart disease of native coronary artery without angina pectoris; K21.9 Gastro-esophageal reflux disease without esophagitis; Z72.0 Tobacco use; E78.00 Pure hypercholesterolemia, unspecified; M79.2 Neuralgia and neuritis, unspecified; G47.10 Hypersomnia, unspecified
CPT/HCPCS: 99397

== ENCOUNTER 2023-07-25 09:52 | Outpatient (REF) | payer MEDICARE, MEDICAID, SELFPAY ==
--- NOTE | ~2023-07-25 | CT_ITS ---
EXAMINATION: CT CHEST SCREENING CLINICAL INFORMATION: Nicotine dependence. COMPARISON: CT chest 02/24/2018. TECHNIQUE: Multidetector volumetric CT imaging of the chest is performed without contrast using low dose technique. Additional 2D coronal and sagittal reformatted images and axial 3D maximum intensity projection (MIP) images are generated on the CT workstation. This CT examination was performed using dose optimization techniques as appropriate, variously including the following: *Automated exposure control *Adjustment of mA and/or kV according to patient size (this includes techniques or standardized protocols for targeted exams where dose is matched to indication/reason for exam; i.e. extremities or head) *Use of iterative reconstruction technique DLP: 55 mGy-cm FINDINGS: LUNGS: Mild emphysematous changes are present along with mild bronchial wall thickening. Significant motion artifact is present on this exam compared to the prior study so comparisons are difficult. However, there is no change in some benign-appearing micronodules all 3 mm in size or under (see saved brooks images). There is no new or concerning finding seen worrisome for malignancy. MEDIASTINUM: The mediastinum is normal. CORONARY ARTERY CALCIFICATION: Moderate. PLEURA: There is no pleural effusion. No pleural mass or thickening. AXILLA: No lymphadenopathy. UPPER ABDOMEN: A large partially visualized benign Bosniak class I cyst upper pole left kidney again noted and needs no additional imaging or followup. A calcified hepatic granuloma is present. A hepatic granuloma is again noted. OSSEOUS STRUCTURES: Unremarkable. Rounded sclerotic density in the upper thoracic vertebral body is unchanged. CT/CT lung screening IMPRESSION: No findings concerning for malignancy. Stable benign micronodules. Mild emphysema and bronchial wall thickening. ASSESSMENT: Lung-RADS category 2: Benign. RECOMMENDATION: Routine annual low-dose CT screening in 12 months.
== END 2023-07-25 09:53 | disposition home or self-care (01) ==
LOC: HO.CT 09:52
PROVIDERS: PCP Internal Medicine; Visit Provider Nurse Practitioner Family
DX: Z12.2 Encounter for screening for malignant neoplasm of respiratory organs (principal); F17.210 Nicotine dependence, cigarettes, uncomplicated
CPT/HCPCS: 71271

== ENCOUNTER 2023-08-24 11:24 | Outpatient (AMB) | payer MEDICARE, MEDICAID, SELFPAY ==
--- NOTE | 2023-08-24 11:26 | MHC.OFFVIS ---
Vital Signs 08/24/23 11:27 Height 5 ft 5 in Weight 161 lb BMI 26.8 BP 130/74 Blood Pressure Location Lt brachial Position Sitting Pulse 60 Intake Visit Reasons: 6 mth fu (rs) Intake Note: pt states that he its florecita schmitt Registered Nurse Cardiovascular Icu Required: No Accompanied by: Self / Same As Patient Allergies No Known Allergies [No Known Allergies*] Allergy (Verified 07/15/23 12:14) Medication List - Last Reconciled 08/24/23 by Albert Pierce MD albuterol sulfate 90 mcg/actuation 2 puffs inhalation Q4-6H PRN 30 days aripiprazole 2 mg PO DAILY aspirin (Adult Aspirin Regimen) 81 mg PO DAILY bisacodyl 10 mg DC DAILY PRN clopidogrel (Plavix) 75 mg PO DAILY gabapentin 300 mg PO BEDTIME lactulose 10 grams (15 mL) PO TID metoprolol succinate ER 50 mg PO DAILY pantoprazole 20 mg PO BID 90 days paroxetine HCl 10 mg PO DAILY prednisolone acetate 1% drps ophthalmic (eye) rosuvastatin (Crestor) 40 mg PO DAILY trazodone 50 mg PO BEDTIME PRN HPI Comments Details: Background: 67-year-old gentleman here for follow-up. He has background history of tobacco abuse and previous right coronary artery PCI in 2014 when presenting inferior wall ID. Subsequent to that he had cardiac catheterization in 2018 when he developed chest discomfort showing 2 areas of stenosis in the mid and distal right coronary artery which were treated with drug-eluting stents. He continued to smoke 3 packs per day which he has cut down to 1 pack per day at this stage. In July 2021 he was in of [facility] in [place] very developed chest discomfort and was taken to hospital where was found to have inferior wall ID. He had a thrombotic occlusion of the distal right coronary artery which was treated with drug-eluting stent. He has been on aspirin and Brilinta since then. He also has peripheral vascular disease and follows up with Dr. Martinez closely. Unfortunately continues to smoke. I have discussed smoking cessation with him multiple times but it appears he is not mentally ready to quit. He was referred to pulmonology on last visit but [place] not go for the appointment. He is back for follow-up. He is smoking 1 pack per day. He is denying chest discomfort shortness of breath. 01/12/23: He returns for follow-up. Unfortunately was admitted to [facility] with acute CVA. He has left-sided hemiparesis with leg involvement more than the arm. He has been experiencing balance issues and has been walking with walker. Unfortunately continues to smoke. He also has colonoscopy scheduled because his Cologuard test was abnormal. 08/24/23: He returns for follow-up. He continues to smoke 1 pack per day. He is walking with a walker and is able to walk between rooms with walker. With difficulty can go up stairs. Denying chest pain or shortness of breath. [facility] Medical History (Updated 07/15/23 @ 13:19 by Jami Martin MD) Nicotine dependence, cigarettes, uncomplicated Restrictive lung disease Smoker Aspiration pneumonia Metabolic encephalopathy PFO (patent foramen ovale) CVA (cerebral vascular accident) Hypercholesterolemia Peripheral arterial disease Tobacco abuse COPD (chronic obstructive pulmonary disease) CAD (coronary artery disease) GERD (gastroesophageal reflux disease) Chronic low back pain Surgical History S/P cardiac catheterization History of coronary artery stent placement History of aorto-femoral bypass Family History Father Hypertension Mother Hypertension Brother In good health Brother In good health Sister In good health Sister In good health Son In good health Son In good health Son In good health Son In good health Social History Housing: House Alcohol intake: former Patient Tobacco Use Status: Current someday Tobacco user Tobacco use type: Cigarette Cigarettes Per Day: 20 Years Smoked: 55 +/- n (07/2023) e-Cigarette/Vaping Use: Never Used Second Hand Smoke Exposure: Yes service: No Current occupational status: employed Cognitive needs: Yes Hearing needs: No Vision needs: No Review of Systems Const Denies chills, Denies fatigue, Denies fever(s), Denies frequent falls, Denies weakness, Denies weight gain and Denies weight loss ENT Denies dizziness Card Denies chest pain, Denies leg edema, Denies lightheadedness, Denies palpitations, Denies dyspnea and Denies dyspnea on exertion Resp Denies cough, Denies dyspnea and Denies dyspnea on exertion GI Denies hematochezia Musc Denies abnormal gait, Denies muscle weakness, Denies numbness, Denies radiating pain into limb and Denies tingling Neuro Denies abnormal gait, Denies dizziness, Denies frequent falls, Denies numbness, Denies tingling and Denies weakness Endo Denies fatigue and Denies palpitations Physical Exam Vital Signs: Last Vital Signs Pulse 60 08/24/23 11:27 BP 130/74 08/24/23 11:27 BMI result Body Mass Index 26.8 GENERAL APPEARANCE: in no acute distress, pleasant. NECK: no carotid bruit, no jugular venous distention. SKIN: no suspicious lesions, warm and dry. HEART: no murmurs, regular rate and rhythm. LUNGS: clear to auscultation bilaterally. ABDOMEN: soft, nontender. EXTREMITIES: no edema. PERIPHERAL PULSES: equal. NEUROLOGIC: Left hand power 3/5, left leg 3/5. Normal right side. Office Procedures EKG Details: Sinus rhythm 60 beats per minute, inferior infarct, QTC 432 milliseconds. [id number], Complete Assessment & Plan Assessment & Plan (1) CAD (coronary artery disease): Comment: MABEL Lopez 2014 Dr. Reid angioplasty GERA mid RCA March 2018 STEMI 06/2021, mid RCA thrombus, GERA placed ECHO EF 63% Code(s): I25.10 - Atherosclerotic heart disease of [place] coronary artery without angina pectoris Category: Medical Qualifiers: Coronary Disease-Associated Artery/Lesion type: [place] artery [place] vs. transplanted heart: [place] heart Associated angina: without angina Qualified Code(s): I25.10 - Atherosclerotic heart disease of [place] coronary artery without angina pectoris (2) Tobacco abuse: Code(s): Z72.0 - Tobacco use Category: Medical (3) CVA (cerebral vascular accident): Comment: August 2022 basilar thrombus Code(s): I63.9 - Cerebral infarction, unspecified Category: Medical (4) Preop cardiovascular exam: Code(s): Z01.810 - Encounter for preprocedural cardiovascular examination Category: Medical Plan 68-year-old gentleman who is here for follow-up. He is known to us for coronary artery disease and underwent RCA PCI in the past for acute coronary syndrome. Unfortunately he had CVA and is walking with a walker.. Unfortunately continues to smoke. Once again I had a detailed discussion with him and his that he must stop smoking. The is saying that if he does not get cigarettes he gets very aggressive and they eventually have to give cigarettes back to him. I think this is his main issue at this point. He is on good medications otherwise. Blood pressure control is good. He is unable to ambulate on his own and I discussed with the that who provides him the cigarettes. It appears she is a smoker herself and he uses her cigarettes. I have advised her that she should stop smoking and in particular stop smoking inside the house because the smell will cause more cravings for [place]. I have explained to the patient his that he had 3 MIs and a stroke already and it is paramount that he stops smoking. Follow-up in few months. Thank you for allowing me to participate in the care of your patient. Please feel free to contact me if you have any questions. Coding Level of Care Code Est Pt Level 4 (70281) Diagnoses Coronary artery disease involving [place] coronary artery of [place] heart without angina pectoris I25.10 Coronary Disease-Associated Artery/Lesion type: [place] artery [place] vs. transplanted heart: [place] heart Associated angina: without angina Tobacco abuse Z72.0 CVA (cerebral vascular accident) I63.9 Preop cardiovascular exam Z01.810 CPT Codes EKG - CPT: 69990-[id number], Complete ([id number])
[2023-08-24 11:27] VITALS: BP 130/74; PULSE 60; BMI 26.8
== END 2023-08-24 11:57 | disposition home or self-care (01) ==
PROVIDERS: PCP Internal Medicine; Visit Provider Internal Medicine Cardiovascular Disease
DX: I25.10 Atherosclerotic heart disease of native coronary artery without angina pectoris (principal); Z72.0 Tobacco use; I63.9 Cerebral infarction, unspecified; Z01.810 Encounter for preprocedural cardiovascular examination
CPT/HCPCS: 93010; 99214

== ENCOUNTER → 2023-08-24 12:32 | Outpatient (REF) | payer MEDICARE, MEDICAID, SELFPAY | LOC: HO.SL 12:32 | PROVIDERS: PCP Internal Medicine; Visit Provider Internal Medicine | DX: Z01.810 Encounter for preprocedural cardiovascular examination (principal); G47.33 Obstructive sleep apnea (adult) (pediatric); G47.10 Hypersomnia, unspecified; I25.10 Atherosclerotic heart disease of native coronary artery without angina pectoris; I63.9 Cerebral infarction, unspecified; Z72.0 Tobacco use | CPT/HCPCS: 93005; 95806; 99212 ==

== ENCOUNTER → 2023-08-24 12:53 | Outpatient (BNV) | payer MEDICARE, MEDICAID, SELFPAY | PROVIDERS: PCP Internal Medicine; Visit Provider Internal Medicine | DX: G47.33 Obstructive sleep apnea (adult) (pediatric) (principal) | CPT/HCPCS: 95806 ==

== ENCOUNTER 2023-09-12 10:40 | Outpatient (AMB) | payer MEDICARE, MEDICAID, SELFPAY ==
[2023-09-12 10:52] VITALS: BP 144/72; PULSE 65; O2SAT 97; BMI 29.5
--- NOTE | 2023-09-12 10:52 | A.OFFVIS_ITS ---
Vital Signs 09/12/23 10:52 Height 5 ft 5 in Weight 177 lb 7.554 oz BMI 29.5 BP 144/72 H Blood Pressure Location Lt brachial Position Sitting Pulse 65 Pulse Source Pulse Oximeter Pulse Oximetry (%) 97 Oxygen Delivery Method Room Air Intake Visit Reasons: COPD Intake Note: pt is here for follow up and is little wheezing today, and follow up of ailyn Dewatering Filtering Supervisor Required: No Allergies No Known Allergies [No Known Allergies*] Allergy (Verified 09/12/23 11:10) Medication List - Last Reconciled 09/12/23 by Millie Castro MD albuterol sulfate 90 mcg/actuation 2 puffs inhalation Q4-6H PRN 30 days [APAP 6-16 cm H20 humidified AIR As directed] aripiprazole 2 mg PO DAILY aspirin (Adult Aspirin Regimen) 81 mg PO DAILY bisacodyl 10 mg SD DAILY PRN clopidogrel (Plavix) 75 mg PO DAILY gabapentin 300 mg PO BEDTIME lactulose 10 grams (15 mL) PO TID metoprolol succinate ER 50 mg PO DAILY pantoprazole 20 mg PO BID 90 days paroxetine HCl 10 mg PO DAILY prednisolone acetate 1% drps ophthalmic (eye) rosuvastatin (Crestor) 40 mg PO DAILY trazodone 50 mg PO BEDTIME PRN Do you need a note to return to daycare/school/sports/work: No HPI HPI COPD: Details: 68 YEARS OLD GENTLEMAN, COMES AFTER 6 MONTHS FOR FOLLOW-UP FOR HIS COPD, AND CONTINUED SMOKING. FAR HIS BREATHING IS CONCERNED IT HAS REMAINED VERY STABLE. HE HAS HAD. NO RESPIRATORY INFECTIONS HE HAS INTERMITTENT COUGH MOSTLY RELATED TO SMOKING, DENIES ANY WHEEZING ATTACKS. HE DOES HAVE ALBUTEROL INHALER AT HOME BUT HAS NOT USED IT IN THE LAST 6 MONTHS. HE FINDS IT HARD TO QUIT SMOKING, DOES NOT WANT TO USE ANY NICOTINE PATCH. HE IS PARTICIPATING IN THE ANNUAL LUNG SCREENING PROGRAM. CT SCAN IN JUNE OF THIS YEAR WAS BENIGN, CATEGORY 2. HE HAS HAD DIFFICULTY IN SLEEPING DUE TO FREQUENT AWAKENINGS. AND HAS UNDERGONE A HOME-BASED SLEEP STUDY. WHICH DOES CONFIRM DIAGNOSIS OF OBSTRUCTIVE SLEEP APNEA, IT IS MILD TO MODERATE AND PREDOMINANTLY IN SUPINE POSITION. HE HAS COMORBIDITIES INCLUDING HYPERTENSION, HISTORY OF STROKE, HYPERLIPIDEMIA, DEPRESSION, AND GERD SYMPTOMS. [facility] Medical History Nicotine dependence, cigarettes, uncomplicated Restrictive lung disease Smoker Aspiration pneumonia Metabolic encephalopathy PFO (patent foramen ovale) CVA (cerebral vascular accident) Hypercholesterolemia Peripheral arterial disease Tobacco abuse COPD (chronic obstructive pulmonary disease) CAD (coronary artery disease) GERD (gastroesophageal reflux disease) Chronic low back pain Surgical History S/P cardiac catheterization History of coronary artery stent placement History of aorto-femoral bypass Family History Father Hypertension Mother Hypertension Brother In good health Brother In good health Sister In good health Sister In good health Son In good health Son In good health Son In good health Son In good health Social History Housing: House Alcohol intake: former Patient Tobacco Use Status: Current someday Tobacco user Tobacco use type: Cigarette Cigarettes Per Day: 20 Years Smoked: 55 +/- n (07/2023) e-Cigarette/Vaping Use: Never Used Second Hand Smoke Exposure: Yes service: No Current occupational status: employed Cognitive needs: Yes Hearing needs: No Vision needs: No Review of Systems Const All systems reviewed & are unremarkable except as noted in HPI and below Eyes Reports no additional complaints ENT Reports no additional complaints and Denies dysphagia Card Denies chest pain, Denies irregular heart rhythm (Has the monitor on), Denies leg edema and Reports dyspnea on exertion (Mild) Resp Reports cough (Minimal and infrequent) and Reports dyspnea on exertion (Mild) GI Denies dysphagia, Denies dyspepsia and Reports heartburn (Being treated with Protonix for prevention of GERD) Musc Reports abnormal gait (Uses walker) and Reports muscle weakness Skin/Breast Reports system reviewed and no additional complaints, except as documented Neuro Reports abnormal gait (Uses walker) Psych Reports depression (Treated with med) Endo Reports no additional complaints Sergei/Lymph Reports no additional complaints Physical Exam Vital Signs: Last Vital Signs Pulse 65 09/12/23 10:52 BP 144/72 H 09/12/23 10:52 Pulse Ox 97 09/12/23 10:52 Oxygen Delivery Method Room Air 09/12/23 10:52 BMI result Body Mass Index 29.5 Const General: comfortable, no acute distress, alert and awake Orientation/consciousness: patient oriented x3 HEENT Head: Yes normal to inspection General nose exam: No nasal polyps present and No nasal discharge present Face and sinus: Yes sinuses nontender Mouth: oropharynx normal Throat: Yes posterior oropharynx normal Eyes General: appearance normal, both eyes and all related structures Neck Neck: Yes normal visual inspection, Yes no lymphadenopathy, Yes trachea midline and Yes no JVD Thyroid: Thyroid normal Chest Chest palpation & inspection: normal inspection of the chest, normal palpation of entire chest wall and no tenderness Resp Other: Percussion note is resonant, has be equal breath sounds on both sides, the breath sounds are distant with prolonged expiratory phase. No wheezes are heard. Cardio Palpation: normal PMI Rate: regular rate Rhythm: regular rhythm Heart sounds: no gallops and no murmurs GI Other: Abdomen soft, benign. G-tube uneventfully removed. Dressing applied. Palpation (GI): Soft to palpation, nontender, No hepatosplenomegaly present and no masses Auscultation: normal bowel sounds Back/Spine/Pelvis Thoracic/Lumbar Spine: thoracic and lumbar spine normal to inspection and Thoracic/lumbar scoliosis (Mild to moderate) Skin General skin exam: no rashes or lesions noted Neuro General: patient oriented x3, No gait normal (The gait is somewhat unstable, due to poor balance, needs walker) and no focal motor deficits Cranial nerves: Yes CN's II-XII intact bilaterally Extrem General: Yes normal to inspection, Yes no clubbing, cyanosis or edema and Yes no calf tenderness Psych Appearance: grossly normal and well kempt Speech and movement: Normal speech and movement present Results Reviewed Results Reviewed: Results of his home-based sleep study on. 08/24/2023 are reviewed Total sleep time AHI 15, supine position in which he slept most of the night AHI 16.5. Lateral position AHI 12 Results are consistent with mild to moderate obstructive sleep apnea. Assessment & Plan Assessment & Plan (1) Smoker: Comment: LIFELONG SMOKER, STILL SMOKING CLOSE TO 1 PACK OF CIGARETTES A DAY. ACCORDING TO HIS , HE JUST WOULD NOT QUIT SMOKING. Code(s): F17.200 - Nicotine dependence, unspecified, uncomplicated Category: Social Hx Plan: I HAD A GOOD DISCUSSION AND AGAIN ADVISED HIM TO AT LEAST CUT IT DOWN TO HALF PACK A DAY. HE IS PARTICIPATING IN ANNUAL LUNG SCREENING PROGRAM. (2) COPD (chronic obstructive pulmonary disease): Comment: HE IS KNOWN TO HAVE MILD TO MODERATE DEGREE OF OBSTRUCTIVE AIRWAY DISORDER, IT HAS REMAINED VERY STABLE. HE IS RELATIVELY ASYMPTOMATIC AT THIS TIME. Code(s): J44.9 - Chronic obstructive pulmonary disease, unspecified Category: Medical Qualifiers: COPD type: emphysema Emphysema type: unspecified Qualified Code(s): J43.9 - Emphysema, unspecified Plan: TX: ALBUTEROL HFA 2 PUFFS Q 4-6 HOURS ONLY P.R.N. (3) Restrictive lung disease: Comment: PER PULMONARY FUNCTION TEST, HE HAS MODERATE DEGREE OF RESTRICTIVE LUNG DISEASE. THIS MAY BE PARTLY DUE TO HIS POOR EFFORTS. Code(s): J98.4 - Other disorders of lung Category: Medical Plan: ADVISED TO TRY DOING DEEP BREATHING EXERCISES 2 TO 3 TIMES A DAY (4) Obstructive sleep apnea: Comment: Sleep study done 08/24/2023 mild to moderate AHI 15 . Code(s): G47.33 - Obstructive sleep apnea (adult) (pediatric) Category: Medical Plan: DISCUSSED ABOUT SLEEP APNEA WITH THE PATIENT AND HIS . .HIS AILYN IS MILD TO MODERATE BECAUSE OF HIS ASSOCIATED COMORBIDITIES HE IS GOOD CANDIDATE FOR USING. THE CPAP AT NIGHT Plan CPAP WITH AUTO PAP MODE AND PRESSURE SETTING 6 TO 20 CM. WITH FULLFACE MASK IS ORDERED HE SHOULD ALSO. USE HUMIDIFICATION REGULARLY WILL BE MONITORED FOR COMPLIANCE AND BENEFITS. Coding Level of Care Code Est Pt Level 4 (30160) Diagnoses Smoker F17.200 Pulmonary emphysema, unspecified emphysema type J43.9 COPD type: emphysema Emphysema type: unspecified Restrictive lung disease J98.4 Obstructive sleep apnea G47.33
== END 2023-09-12 11:22 | disposition home or self-care (01) ==
PROVIDERS: PCP Internal Medicine; Visit Provider Internal Medicine
DX: F17.200 Nicotine dependence, unspecified, uncomplicated (principal); J43.9 Emphysema, unspecified; J98.4 Other disorders of lung; G47.33 Obstructive sleep apnea (adult) (pediatric)
CPT/HCPCS: 99214

== ENCOUNTER → 2023-09-12 10:40 | Outpatient (BNVA) | payer MEDICARE, MEDICAID, SELFPAY | PROVIDERS: PCP Internal Medicine; Visit Provider Internal Medicine | DX: J43.9 Emphysema, unspecified (principal); J98.4 Other disorders of lung; G47.33 Obstructive sleep apnea (adult) (pediatric); F17.210 Nicotine dependence, cigarettes, uncomplicated | CPT/HCPCS: 99212 ==

== ENCOUNTER 2023-11-14 10:49 | Outpatient (AMB) | payer MEDICARE, MEDICAID, SELFPAY ==
[2023-11-14 11:11] VITALS: BP 122/64; PULSE 67; O2SAT 97; BMI 29.9
--- NOTE | 2023-11-14 11:11 | A.OFFVIS_ITS ---
Vital Signs 11/14/23 11:11 Height 5 ft 5 in Weight 179 lb 10.828 oz BMI 29.9 BP 122/64 Blood Pressure Location Lt brachial Position Sitting Pulse 67 Pulse Source Pulse Oximeter Pulse Oximetry (%) 97 Oxygen Delivery Method Room Air Intake Visit Reasons: COPD Intake Note: pt is here for follow up of starting cpap. He is doing well most nights and also states some coughing and wheezing Brown Sourer Required: No Allergies No Known Allergies [No Known Allergies*] Allergy (Verified 11/14/23 11:33) Medication List - Last Reconciled 11/14/23 by Millie Castro MD albuterol sulfate 90 mcg/actuation 2 puffs inhalation Q4-6H PRN 30 days [APAP 6-16 cm H20 humidified AIR As directed] aripiprazole 2 mg PO DAILY aspirin (Adult Aspirin Regimen) 81 mg PO DAILY bisacodyl 10 mg MD DAILY PRN clopidogrel (Plavix) 75 mg PO DAILY gabapentin 300 mg PO BEDTIME lactulose 10 grams (15 mL) PO TID metoprolol succinate ER 50 mg PO DAILY pantoprazole 20 mg PO BID 90 days paroxetine HCl 10 mg PO DAILY prednisolone acetate 1% drps ophthalmic (eye) rosuvastatin (Crestor) 40 mg PO DAILY trazodone 50 mg PO BEDTIME PRN Do you need a note to return to daycare/school/sports/work: No HPI HPI COPD: Details: 68 years old gentleman with previous stroke,, smoker, diagnosis of above if sleep apnea, Has been started on CPAP therapy with auto PAP mode and fullface mask . He is here for follow-up. According to his he does use the CPAP every night. Lately the inner lining of the mask was worn out and they are waiting for new mask and supplies. He uses the CPAP at least for 4 hours. He does have frequent bouts of cough, .mostly related to smoking He does not like to use the rescue inhaler. [facility] Medical History Nicotine dependence, cigarettes, uncomplicated Restrictive lung disease Smoker Aspiration pneumonia Metabolic encephalopathy PFO (patent foramen ovale) CVA (cerebral vascular accident) Hypercholesterolemia Peripheral arterial disease Tobacco abuse COPD (chronic obstructive pulmonary disease) CAD (coronary artery disease) GERD (gastroesophageal reflux disease) Chronic low back pain Surgical History S/P cardiac catheterization History of coronary artery stent placement History of aorto-femoral bypass Family History Father Hypertension Mother Hypertension Brother In good health Brother In good health Sister In good health Sister In good health Son In good health Son In good health Son In good health Son In good health Social History Housing: House Alcohol intake: former Patient Tobacco Use Status: Current someday Tobacco user Tobacco use type: Cigarette Cigarettes Per Day: 20 Years Smoked: 55 +/- n (07/2023) e-Cigarette/Vaping Use: Never Used Second Hand Smoke Exposure: Yes service: No Current occupational status: employed Cognitive needs: Yes Hearing needs: No Vision needs: No Review of Systems Const All systems reviewed & are unremarkable except as noted in HPI and below Eyes Reports no additional complaints ENT Reports no additional complaints and Denies dysphagia Card Denies chest pain, Denies irregular heart rhythm (Has the monitor on), Denies le g edema and Reports dyspnea on exertion (Mild) Resp Reports cough (Minimal and infrequent) and Reports dyspnea on exertion (Mild) GI Denies dysphagia, Denies dyspepsia and Reports heartburn (Being treated with Protonix for prevention of GERD) Musc Reports abnormal gait (Uses walker) and Reports muscle weakness Skin/Breast Reports system reviewed and no additional complaints, except as documented Neuro Reports abnormal gait (Uses walker) Psych Reports depression (Treated with med) Endo Reports no additional complaints Sergei/Lymph Reports no additional complaints Physical Exam Vital Signs: Last Vital Signs Pulse 67 11/14/23 11:11 BP 122/64 11/14/23 11:11 Pulse Ox 97 11/14/23 11:11 Oxygen Delivery Method Room Air 11/14/23 11:11 BMI result Body Mass Index 29.9 Const General: comfortable, no acute distress, alert and awake Orientation/consciousness: patient oriented x3 HEENT Head: Yes normal to inspection General nose exam: No nasal polyps present and No nasal discharge present Face and sinus: Yes sinuses nontender Mouth: oropharynx normal Throat: Yes posterior oropharynx normal Eyes General: appearance normal, both eyes and all related structures Neck Neck: Yes normal visual inspection, Yes no lymphadenopathy, Yes trachea midline and Yes no JVD Thyroid: Thyroid normal Chest Chest palpation & inspection: normal inspection of the chest, normal palpation of entire chest wall and no tenderness Resp Other: Percussion note is resonant, has be equal breath sounds on both sides, the breath sounds are distant with prolonged expiratory phase. A few wheezes were heard over the left upper chest which cleared after cough. Cardio Palpation: normal PMI Rate: regular rate Rhythm: regular rhythm Heart sounds: no gallops and no murmurs GI Other: Abdomen soft, benign. G-tube uneventfully removed. Dressing applied. Palpation (GI): Soft to palpation, nontender, No hepatosplenomegaly present and no masses Auscultation: normal bowel sounds Back/Spine/Pelvis Thoracic/Lumbar Spine: thoracic and lumbar spine normal to inspection and Thoracic/lumbar scoliosis (Mild to moderate) Skin General skin exam: no rashes or lesions noted Neuro General: patient oriented x3, No gait normal (The gait is somewhat unstable, due to poor balance, needs walker) and no focal motor deficits Cranial nerves: Yes CN's II-XII intact bilaterally Extrem General: Yes normal to inspection, Yes no clubbing, cyanosis or edema and Yes no calf tenderness Psych Appearance: grossly normal and well kempt Speech and movement: Normal speech and movement present Results Reviewed Results Reviewed: Compliance report is reviewed he has used 24/30 nights, 80%. Average use per night 4 hours 20 minutes. Pressure used mostly 12-14 cm. There is moderate amount of air leak. Residual AHI 4.7 Assessment & Plan Assessment & Plan (1) Smoker: Comment: LIFELONG SMOKER, STILL SMOKING CLOSE TO 1 PACK OF CIGARETTES A DAY. ACCORDING TO HIS , HE JUST WOULD NOT QUIT SMOKING. Would like to try nicotine gums, or patches. Code(s): F17.200 - Nicotine dependence, unspecified, uncomplicated Category: Social Hx Plan: Talked to him in detail and stress that he should at least cut down the amount of smoking. Try to cut down to half pack. Of cigarettes a day Nicotine gums or prescribed . (2) Restrictive lung disease: Comment: PER PULMONARY FUNCTION TEST, HE HAS MODERATE DEGREE OF RESTRICTIVE LUNG DISEASE. THIS MAY BE PARTLY DUE TO HIS POOR EFFORTS. Code(s): J98.4 - Other disorders of lung Category: Medical Plan: Advised to try taking deep breaths frequently, and do breathing exercises as much as he can. (3) Obstructive sleep apnea: Comment: Sleep study done 08/24/2023 mild to moderate AHI 15 . Because of multiple comorbidities he was started on CPAP therapy. He has been relatively compliant, missed using 4-5 nights in the last month because the inner lining was worn out. Waiting to have a new mask and supplies. Code(s): G47.33 - Obstructive sleep apnea (adult) (pediatric) Category: Medical Plan: Encouraged to use CPAP every night and use for minimum of 5 hours if possible. Keep the straps somewhat tighter to avoid air leak. Medications: New nicotine (polacrilex) 4 mg buccal Q2H 30 days 100 ea 3RF Nicotine Dependance Coding Level of Care Code Est Pt Level 3 (02480) Diagnoses Smoker F17.200 Restrictive lung disease J98.4 Obstructive sleep apnea G47.33
== END 2023-11-14 11:34 | disposition home or self-care (01) ==
PROVIDERS: PCP Internal Medicine; Visit Provider Internal Medicine
DX: F17.200 Nicotine dependence, unspecified, uncomplicated (principal); J98.4 Other disorders of lung; G47.33 Obstructive sleep apnea (adult) (pediatric)
CPT/HCPCS: 99213

== ENCOUNTER → 2023-11-14 10:49 | Outpatient (BNVA) | payer MEDICARE, MEDICAID, SELFPAY | PROVIDERS: PCP Internal Medicine; Visit Provider Internal Medicine | DX: G47.33 Obstructive sleep apnea (adult) (pediatric) (principal); J98.4 Other disorders of lung; F17.210 Nicotine dependence, cigarettes, uncomplicated | CPT/HCPCS: 99212 ==

== ENCOUNTER 2023-11-21 14:45 | Outpatient (AMB) | payer MEDICARE, MEDICAID, SELFPAY ==
[2023-11-21 14:49] VITALS: BP 126/64; PULSE 83; BMI 29.8
--- NOTE | 2023-11-21 14:49 | MHC.OFFVIS ---
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 Miner Required: Yes Continuous Mining Machine Lode Miner Services: Continuous Mining Machine Lode Miner Present Continuous Mining Machine Lode Miner Name: Gricelda/spouse Accompanied by: Spouse Allergies No Known Allergies [No Known Allergies*] Allergy (Verified 11/14/23 11:33) Medication List - Last Reconciled 11/21/23 by Albert Pierce MD albuterol sulfate 90 mcg/actuation 2 puffs inhalation Q4-6H PRN 30 days [APAP 6-16 cm H20 humidified AIR As directed] aripiprazole 2 mg PO DAILY aspirin (Adult Aspirin Regimen) 81 mg PO DAILY bisacodyl 10 mg CO DAILY PRN clopidogrel (Plavix) 75 mg PO DAILY gabapentin 300 mg PO BEDTIME lactulose 10 grams (15 mL) PO TID metoprolol succinate ER 50 mg PO DAILY pantoprazole 20 mg PO BID 90 days paroxetine HCl 10 mg PO DAILY rosuvastatin (Crestor) 40 mg PO DAILY trazodone 50 mg PO BEDTIME PRN HPI Comments Details: Background: 67-year-old gentleman here for follow-up. He has background history of tobacco abuse and previous right coronary artery PCI in 2014 when presenting inferior wall OR. Subsequent to that he had cardiac catheterization in 2017 when he developed chest discomfort showing 2 areas of stenosis in the mid and distal right coronary artery which were treated with drug-eluting stents. He continued to smoke 3 packs per day which he has cut down to 1 pack per day at this stage. In July 2021 he was in of [facility] in [place] very developed chest discomfort and was taken to hospital where was found to have inferior wall OR. He had a thrombotic occlusion of the distal right coronary artery which was treated with drug-eluting stent. He has been on aspirin and Brilinta since then. He also has peripheral vascular disease and follows up with Dr. Martinez closely. Unfortunately continues to smoke. I have discussed smoking cessation with him multiple times but it appears he is not mentally ready to quit. He was referred to pulmonology on last visit [place] go for the appointment. He is back for follow-up. He is smoking 1 pack per day. He is denying chest discomfort shortness of breath. 01/12/23: He returns for follow-up. Unfortunately was admitted to [facility] with acute CVA. He has left-sided hemiparesis with leg involvement more than the arm. He has been experiencing balance issues and has been walking with walker. Unfortunately continues to smoke. He also has colonoscopy scheduled because his Cologuard test was abnormal. 08/24/23: He returns for follow-up. He continues to smoke 1 pack per day. He is walking with a walker and is able to walk between rooms with walker. With difficulty can go up stairs. Denying chest pain or shortness of breath. 11/21/23: Here for f/u. No new symptoms. Continues to smoke. [facility] Medical History Nicotine dependence, cigarettes, uncomplicated Restrictive lung disease Smoker Aspiration pneumonia Metabolic encephalopathy PFO (patent foramen ovale) CVA (cerebral vascular accident) Hypercholesterolemia Peripheral arterial disease Tobacco abuse COPD (chronic obstructive pulmonary disease) CAD (coronary artery disease) GERD (gastroesophageal reflux disease) Chronic low back pain Surgical History S/P cardiac catheterization History of coronary artery stent placement History of aorto-femoral bypass Family History Father Hypertension Mother Hypertension Brother In good health Brother In good health Sister In good health Sister In good health Son In good health Son In good health Son In good health Son In good health Social History Housing: House Alcohol intake: former Patient Tobacco Use Status: Current someday Tobacco user Tobacco use type: Cigarette Cigarettes Per Day: 20 Years Smoked: 55 +/- n (07/2023) e-Cigarette/Vaping Use: Never Used Second Hand Smoke Exposure: Yes service: No Current occupational status: employed Cognitive needs: Yes Hearing needs: No Vision needs: No Review of Systems Const Denies chills, Denies fatigue, Denies fever(s), Denies frequent falls, Denies weakness, Denies weight gain and Denies weight loss ENT Denies dizziness Card Denies chest pain, Denies leg edema, Denies lightheadedness, Denies palpitations, Denies dyspnea and Denies dyspnea on exertion Resp Denies cough, Denies dyspnea and Denies dyspnea on exertion GI Denies hematochezia Musc Denies abnormal gait, Denies muscle weakness, Denies numbness, Denies radiating pain into limb and Denies tingling Neuro Denies abnormal gait, Denies dizziness, Denies frequent falls, Denies numbness, Denies tingling and Denies weakness Endo Denies fatigue and Denies palpitations Physical Exam Vital Signs: Last Vital Signs Pulse 83 11/21/23 14:49 BP 126/64 11/21/23 14:49 BMI result Body Mass Index 29.8 GENERAL APPEARANCE: in no acute distress, pleasant. NECK: no carotid bruit, no jugular venous distention. SKIN: no suspicious lesions, warm and dry. HEART: no murmurs, regular rate and rhythm. LUNGS: clear to auscultation bilaterally. ABDOMEN: soft, nontender. EXTREMITIES: no edema. PERIPHERAL PULSES: equal. NEUROLOGIC: Left hand power 3/5, left leg 3/5. Normal right side. Assessment & Plan Assessment & Plan (1) CAD (coronary artery disease): Comment: MABEL Lopez 2014 Dr. Reid angioplasty GERA mid RCA March 2018 STEMI 06/2021, mid RCA thrombus, GERA placed ECHO EF 63% Code(s): I25.10 - Atherosclerotic heart disease of [place] coronary artery without angina pectoris Category: Medical Qualifiers: Coronary Disease-Associated Artery/Lesion type: [place] artery [place] vs. transplanted heart: [place] heart Associated angina: without angina Qualified Code(s): I25.10 - Atherosclerotic heart disease of [place] coronary artery without angina pectoris (2) Tobacco abuse: Code(s): Z72.0 - Tobacco use Category: Medical (3) CVA (cerebral vascular accident): Comment: August 2022 basilar thrombus Code(s): I63.9 - Cerebral infarction, unspecified Category: Medical (4) Preop cardiovascular exam: Code(s): Z01.810 - Encounter for preprocedural cardiovascular examination Category: Medical Plan 68-year-old gentleman who is here for follow-up. He is known to us for coronary artery disease and underwent RCA PCI in the past for acute coronary syndrome. Unfortunately he had CVA and is walking with a walker.. Unfortunately continues to smoke. Once again I had a detailed discussion with him and his that he must stop smoking. The is saying that if he does not get cigarettes he gets very aggressive and they eventually have to give cigarettes back to him. I think this is his main issue at this point. He is on good medications otherwise. Blood pressure control is good. He is unable to ambulate on his own and I discussed with the that who provides him the cigarettes. It appears she is a smoker herself and he uses her cigarettes. I have advised her that she should stop smoking and in particular stop smoking inside the house because the smell will cause more cravings for Emrush. I have explained to the patient his that he had 3 MIs and a stroke already and it is paramount that he stops smoking. Follow-up in few months. Thank you for allowing me to participate in the care of your patient. Please feel free to contact me if you have any questions. Coding Level of Care Code Est Pt Level 4 (25297) Diagnoses Coronary artery disease involving [place] coronary artery of [place] heart without angina pectoris I25.10 Coronary Disease-Associated Artery/Lesion type: [place] artery [place] vs. transplanted heart: [place] heart Associated angina: without angina Tobacco abuse Z72.0 CVA (cerebral vascular accident) I63.9 Preop cardiovascular exam Z01.810
== END 2023-11-21 15:30 | disposition home or self-care (01) ==
PROVIDERS: PCP Internal Medicine; Visit Provider Internal Medicine Cardiovascular Disease
DX: I25.10 Atherosclerotic heart disease of native coronary artery without angina pectoris (principal); Z72.0 Tobacco use; I63.9 Cerebral infarction, unspecified; Z01.810 Encounter for preprocedural cardiovascular examination
CPT/HCPCS: 99214

== ENCOUNTER → 2023-11-21 14:45 | Outpatient (BNVA) | payer MEDICARE, MEDICAID, SELFPAY | PROVIDERS: PCP Internal Medicine; Visit Provider Internal Medicine Cardiovascular Disease | DX: Z01.810 Encounter for preprocedural cardiovascular examination (principal); I25.2 Old myocardial infarction; F17.210 Nicotine dependence, cigarettes, uncomplicated; Z71.6 Tobacco abuse counseling | CPT/HCPCS: 99212 ==

== ENCOUNTER 2023-12-30 15:41 | Outpatient (AMB) | payer MEDICARE, MEDICAID, SELFPAY ==
--- NOTE | 2023-12-30 15:47 | MHC.OFFVIS ---
Vital Signs 12/30/23 15:51 Height 5 ft 5 in Weight 175 lb BMI 29.1 BP 109/58 L Blood Pressure Location Lt brachial Position Sitting Pulse 56 Intake Visit Reasons: 9 mos FUV. R/S from 12/07 (PROV EMERG) Intake Note: Emrush returns to in 9 months follow up to discuss repeat colonoscopy. CC: Patient's interpreting for patient, denies having any GI symptoms or concerns. Radiological Metallurgist Required: Yes Radiological Metallurgist Language: Karolyn Radiological Metallurgist Name: Accompanied by: Allergies No Known Allergies [No Known Allergies*] Allergy (Verified 01/19/24 13:01) HPI HPI 9 mos FUV. R/S from 12/07 (PROV EMERG): Details: Patient has returned because he had a large TA that necessitated a 1 year colonoscopy follow-up. PMX LUKE Restrictive lung disease History of CVA PFO Seizure disorder Positive Cologuard test Tubular adenoma History of SD high cholesterol Smoker COPD Coronary artery disease Chronic low back pain GERD LABS: No labs since 07/19/2022 will ask the patient to go for labs. He is here today with his family who says he really does not like to drink liquids. They want to know if this any other way to prep him. We had already planned on doing a 2 day prep and I suggest that we put him on a low-fiber/low residual diet for 2 weeks prior. Also he drinks a lot of coffee so I suggest that they switch him to decaff. To also try to encourage him to drink more water over that 2 week period of time so that he will have better hydration. He denies any bowel problems or upper GI problems. There are no prior problems with anesthesia or sedation. Sees a attendant self service store for COPD but feels that this condition is well controlled and the same is true about his cardiology conditions. Both providers are located [facility]. There are no known infectious disease problems. There is no known FHX of crc or polyps. [facility] Medical History (Updated 01/25/24 @ 11:01 by VALENTINE Robles) Claudication Scrotal sac enlargement Hypersomnia Preop cardiovascular exam Vision changes Tobacco abuse Incisional pain Metabolic encephalopathy Aspiration pneumonia CVA (cerebral vascular accident) Vision changes Scrotal sac enlargement Otitis media STEMI (ST elevation myocardial infarction) Hospital discharge follow-up Shoulder pain, left Annual physical exam Colon cancer screening Colonoscopy refused Nicotine dependence, cigarettes, uncomplicated Restrictive lung disease Smoker PFO (patent foramen ovale) Hypercholesterolemia Peripheral arterial disease COPD (chronic obstructive pulmonary disease) CAD (coronary artery disease) GERD (gastroesophageal reflux disease) Chronic low back pain Surgical History (Updated 01/25/24 @ 11:01 by VALENTINE Robles) S/P cardiac catheterization History of coronary artery stent placement History of aorto-femoral bypass Family History Father Hypertension Mother Hypertension Brother In good health Brother In good health Sister In good health Sister In good health Son In good health Son In good health Son In good health Son In good health Social History Housing: House Alcohol intake: former Patient Tobacco Use Status: Current someday Tobacco user Tobacco use type: Cigarette Cigarettes Per Day: 20 Years Smoked: 55 +/- n (07/2023) e-Cigarette/Vaping Use: Never Used Second Hand Smoke Exposure: Yes service: No Current occupational status: employed Cognitive needs: Yes Hearing needs: No Vision needs: No Review of Systems Const Denies fatigue, Denies fever(s), Denies night sweats, Denies poor appetite and Denies weight loss ENT Denies Normal hearing present, Denies dysphagia, Reports hearing loss, Denies odynophagia, Denies throat swelling and Denies tongue swelling Card Reports no additional complaints Resp Reports no additional complaints GI Details: Denies abdominal pain, Denies melena, Denies bloating, Denies hematochezia, Denies constipation, Denies GI cramping, Denies dysphagia, Denies excessive flatus, Denies early satiety, Denies heartburn, Denies diarrhea, Denies nausea, Denies odynophagia, Denies vomiting and Denies hematemesis Reports urinary incontinence Musc Reports back pain and Reports arthralgias Skin/Breast Denies pruritus, Denies lesions, Denies rash and Denies jaundice Neuro Denies Normal hearing present, Reports memory loss and Reports paresthesias Psych Reports memory loss Endo Denies fatigue Aller/Immun Denies throat swelling and Denies tongue swelling Physical Exam Vital Signs: Last Vital Signs Pulse 56 12/30/23 15:51 BP 109/58 L 12/30/23 15:51 BMI result Body Mass Index 29.1 Const General: cooperative, no acute distress, well developed and well groomed Nutritional Appearance: well nourished and obese Orientation/consciousness: oriented to person, oriented to place and oriented to time Limitations: altered mental status, language barrier and ambulation with walker HEENT Head: Yes normocephalic and Yes atraumatic Eyes General: appearance normal, both eyes and all related structures Pupils: Equal, round and reactive pupils present Neck Neck: Yes normal visual inspection and Yes no lymphadenopathy Thyroid: Thyroid normal Resp Effort & Inspection: normal respiratory effort and able to speak in complete sentences Auscultation: clear to auscultation bilaterally Cardio Rate: regular rate Rhythm: regular rhythm Heart sounds: Normal, physiologic split S2 sound present Peripheral pulses: radial pulses present and posterior tibial pulses present GI Inspection: No distended, Yes Abdominal panniculus present and Yes obesity Palpation (GI): Soft to palpation, nontender, no guarding, not rigid and No hepatosplenomegaly present Percussion: Yes normal to percussion Auscultation: normal bowel sounds Rectal Exam - Male: Yes deferred Skin General skin exam: no rashes or lesions noted, turgor normal, skin not dry, no jaundice, No spider nevi and no striae Rashes: no rashes Nails: normal Neuro General: oriented to person, oriented to place and oriented to time Cranial nerves: Yes Equal, round and reactive pupils present and No Normal hearing present Extrem General: Yes normal to inspection, No clubbing, No cyanosis and No edema Psych Appearance: grossly normal and well kempt Mental Status: mental status grossly normal Speech and movement: Normal speech and movement present Affect: normal affect Attitude: cooperative Thought process: Normal thought process present and not confabulating Thought content: Normal thought content present Insight: Limited insight present (Psych) Judgement: Limited judgement present (Psych) Assessment & Plan Assessment & Plan (1) Tubular adenoma of colon: Comment: december 2022 Code(s): D12.6 - Benign neoplasm of colon, unspecified Category: Medical (2) Pre-op examination: Code(s): Z01.818 - Encounter for other preprocedural examination Category: Medical (3) Obstructive sleep apnea: Comment: Sleep study done 08/24/2023 mild to moderate AHI 15 . Because of multiple comorbidities he was started on CPAP therapy. He has been relatively compliant, missed using 4-5 nights in the last month because the inner lining was worn out. Waiting to have a new mask and supplies. Code(s): G47.33 - Obstructive sleep apnea (adult) (pediatric) Category: Medical (4) Restrictive lung disease: Comment: PER PULMONARY FUNCTION TEST, HE HAS MODERATE DEGREE OF RESTRICTIVE LUNG DISEASE. THIS MAY BE PARTLY DUE TO HIS POOR EFFORTS. Code(s): J98.4 - Other disorders of lung Category: Medical (5) Hearing deficit: Code(s): H91.90 - Unspecified hearing loss, unspecified ear Category: Medical (6) Positive colorectal cancer screening using Cologuard test: Code(s): R19.5 - Other fecal abnormalities Category: Medical Plan He is here today with his family who says he really does not like to drink liquids. They want to know if this any other way to prep him. We had already planned on doing a 2 day prep and I suggest that we put him on a low-fiber/low residual diet for 2 weeks prior. Also he drinks a lot of coffee so I suggest that they switch him to decaff. To also try to encourage him to drink more water over that 2 week period of time so that he will have better hydration. He denies any bowel problems or upper GI problems. There are no prior problems with anesthesia or sedation. Sees a attendant self service store for COPD but feels that this condition is well controlled and the same is true about his cardiology conditions. Both providers are located [facility]. There are no known infectious disease problems. There is no known FHX of crc or polyps. Orders: Orders Comprehensive Met. Panel 12/30/23 Z01.818 - Encounter for other preprocedural examination Colonoscopy - GI Use Only 12/30/23 D12.6 - Benign neoplasm of colon, unspecified Medications: New bisacodyl (Dulcolax (bisacodyl)) 10 mg (2 x 5 mg) PO BEDTIME 4 tabs 0RF 2 days peg 3350-electrolytes [id number] -5.86 gram (Golytely) until fecal effluent is clear; do not exceed a total volume of 2,000 mL 240 mL PO Q10M 4,000 mL 0RF 1 day Z12.11 - Encounter for screening for malignant neoplasm of colon magnesium citrate 150 mL PO DAILY 300 mL 0RF Coding Level of Care Code New Pt Level 3 (09229) Diagnoses Tubular adenoma of colon D12.6 Pre-op examination Z01.818 Obstructive sleep apnea G47.33 Restrictive lung disease J98.4 Hearing deficit H91.90 Positive colorectal cancer screening using Cologuard test R19.5
[2023-12-30 15:51] VITALS: BP 109/58; PULSE 56; BMI 29.1
== END 2023-12-30 16:08 | disposition home or self-care (01) ==
PROVIDERS: PCP Internal Medicine; Visit Provider Nurse Practitioner
DX: Z01.818 Encounter for other preprocedural examination (principal); Z12.11 Encounter for screening for malignant neoplasm of colon; Z86.010 Personal history of colon polyps; R19.5 Other fecal abnormalities; G47.33 Obstructive sleep apnea (adult) (pediatric); J98.4 Other disorders of lung; H91.90 Unspecified hearing loss, unspecified ear
CPT/HCPCS: 99024

== ENCOUNTER → 2023-12-30 15:41 | Outpatient (BNVA) | payer MEDICARE, MEDICAID, SELFPAY | PROVIDERS: PCP Internal Medicine; Visit Provider Nurse Practitioner | DX: Z01.818 Encounter for other preprocedural examination (principal); D12.6 Benign neoplasm of colon, unspecified; G47.33 Obstructive sleep apnea (adult) (pediatric); R19.5 Other fecal abnormalities; Z99.89 Dependence on other enabling machines and devices | CPT/HCPCS: 99212 ==

== ENCOUNTER 2024-01-19 12:56 | Outpatient (AMB) | payer MEDICARE, MEDICAID, SELFPAY ==
[2024-01-19 13:00] VITALS: BP 138/90; PULSE 88; O2SAT 96; BMI 29.8
--- NOTE | 2024-01-19 13:00 | MHC.PC.OV ---
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 Required: No Accompanied by: Self / Same As Patient Allergies No Known Allergies [No Known Allergies*] Allergy (Verified 01/19/24 13:01) Tobacco use date assessed: 01/19/24 Fall risk assessment: No Falls in past year Last assessed Fall Risk: 01/19/24 Dental Screening Dental Screen Date: 01/19/24 Did you have a dental visit in the last 12 months?: No Did you have a dental problem in the last 6 months where you did not have access to dental care?: No Was dental information given to patient?: No HPI Cerebrovascular accident HPI Details 68-year-old overweight male smoker with multiple medical problems coronary artery disease with COPD, GERD peripheral arterial disease hypercholesterolemia generalized anxiety disorder history of CVA BPH coming in for follow-up. Last seen in July 2023. Patient has seen gastroenterology for repeat colonoscopy, patient also follows up with Cardiology seen in 11/19/2023 patient has been strongly advised to stop smoking. Patient also follows up with Pulmonary with moderate degree of restrictive lung disease obstructive sleep apnea on CPAP. CT of the chest done for lung cancer screening July 27 2023 stable benign micro nodules mild emphysema and bronchial wall thickening. family is asking for wheelchair for him as he is very unstable. discussed that cannot do cane and walker as very unstable. advised to find out from the medical supply store to know what type. as for the smoking - patient is stubbornly declining to stop smoking. noted also 1 month of R scrotal swelling deny fall or trauma. [facility] Medical History Nicotine dependence, cigarettes, uncomplicated Restrictive lung disease Smoker Aspiration pneumonia Metabolic encephalopathy PFO (patent foramen ovale) CVA (cerebral vascular accident) Hypercholesterolemia Peripheral arterial disease Tobacco abuse COPD (chronic obstructive pulmonary disease) CAD (coronary artery disease) GERD (gastroesophageal reflux disease) Chronic low back pain Surgical History S/P cardiac catheterization History of coronary artery stent placement History of aorto-femoral bypass Family History Father Hypertension Mother Hypertension Brother In good health Brother In good health Sister In good health Sister In good health Son In good health Son In good health Son In good health Son In good health Social History Housing: House Alcohol intake: former Patient Tobacco Use Status: Current someday Tobacco user Tobacco use type: Cigarette Cigarettes Per Day: 20 Years Smoked: 55 +/- n (07/2023) e-Cigarette/Vaping Use: Never Used Second Hand Smoke Exposure: Yes service: No Current occupational status: employed Cognitive needs: Yes Hearing needs: No Vision needs: No Questionnaire PHQ-9 Over the last 2 weeks, how often have you been bothered by any of the following problems? 1. Little interest or pleasure in doing things: not at all 2. Feeling down, depressed, or hopeless: not at all 3. Trouble falling or staying asleep, or sleeping too much: not at all 4. Feeling tired or having little energy: not at all 5. Poor appetite or overeating: not at all 6. Feeling bad about yourself - or that you are a failure or have let yourself or your family down: not at all 7. Trouble concentrating on things, such as reading the newspaper or watching television: not at all 8. Moving or speaking so slowly that other people could have noticed. Or the opposite - being so fidgety or restless that you have been moving around a lot more than usual: not at all 9. Thoughts that you would be better off or of hurting yourself in some way: not at all Total score: 0 Depression Screening Interpretation: Negative Depression Screening Done: Yes Source: Developed by Drs. Meet Flores, Nidia Gordon, Eddy Arriaga and colleagues, with an educational nicole from [employer]. Thrive Questionnaire Date Thrive assessed: 01/19/24 I am a: Patient What is your living situation today?: I have a steady place to live Within the past 12 months, did the food you bought not last and you didn't have the money to get more?: Never true Within the past 12 months, did you worry whether your food would run out before you got money to buy more?: Never true Do you have trouble paying for medicines?: No Do you have trouble getting transportation to medical appointments?: No Do you have trouble paying your heating and electricity bill?: No Do you have trouble taking care of your child, family member or friend?: No Do you have trouble with day-to-day activities such as bathing, preparing meals, shopping, managing finances, etc.?: No Are you currently unemployed and looking for a job?: No Are you interested in more education?: No Please select the resources that you would like help with: None Currently or been in a relationship where the following occur: No concerns reported THRIVE Score: 0 AUDIT C Alcohol Use Questionnaire (AUDIT-C) 1. How often do you have a drink containing alcohol?: Never 3. How often do you have six or more drinks on one occasion?: Never Total Score: 0 JACQUES-7 AMB Questionnaire JACQUES-7 Date JACQUES - 7 assessed: 01/19/24 Feeling nervous, anxious, or on edge: 0 = Not at all Not being able to stop or control worryin = Not at all Worrying too much about different things: 0 = Not at all Trouble relaxin = Not at all Being so restless that it is hard to sit still: 0 = Not at all Becoming easily annoyed or irritable: 0 = Not at all Feeling afraid as if something awful might happen: 0 = Not at all Total JACQUES-7 score (0-4 normal; 5-9 mild; 10-14 moderate; 15-21 severe): 0 Source: Developed by Drs. Meet Flores, Nidia Gordon, Eddy Arriaga and colleagues, with an educational nicole from [employer]. Physical exam (Primary Care) Vital Signs: Last Vital Signs Pulse 88 01/19/24 13:00 BP 138/90 H 01/19/24 13:00 Pulse Ox 96 01/19/24 13:00 Oxygen Delivery Method Room Air 01/19/24 13:00 BMI result Body Mass Index 29.8 Tobacco/Smoking Status: Tobacco use Status Tobacco use date assessed 01/19/24 01/19/24 13:08 Patient Tobacco Use Status Current someday Tobacco 01/19/24 13:08 Tobacco use type Cigarette 01/19/24 13:08 e-Cigarette/Vaping Use Never Used 01/19/24 13:08 PHQ-9: PHQ-9 Score PHQ-9: Total score 0 01/19/24 13:20 Depression Screening Interpretation: Negative Thrive Assessment: Date of Thrive Assessment Date Thrive assessed 01/19/24 01/19/24 13:08 Currently or been in a relationship where the following occur: No concerns reported Const General: alert; No acute distress Eyes Conjunctivae: conjunctivae normal Resp Auscultation: rhonchi and diminished lung sounds Cardio Rate: regular rate Rhythm: regular rhythm GI Inspection: Yes normal to inspection Other: scrotal enlargement bilateral R > L deny tenderness Extrem General: Yes normal to inspection and No edema Assessment and Plan Assessment & Plan (1) Obstructive sleep apnea: Comment: Sleep study done 08/24/2023 mild to moderate AHI 15 . Because of multiple comorbidities he was started on CPAP therapy. He has been relatively compliant, missed using 4-5 nights in the last month because the inner lining was worn out. Waiting to have a new mask and supplies. Code(s): G47.33 - Obstructive sleep apnea (adult) (pediatric) Plan: Continue to use the CPAP more than 4 hours a night and benefits from this. (2) Tubular adenoma of colon: Comment: december 2022 Code(s): D12.6 - Benign neoplasm of colon, unspecified Plan: Patient has seen gastroenterology in repeat colonoscopy advised (3) CVA (cerebral vascular accident): Comment: August 2022 basilar thrombus Code(s): I63.9 - Cerebral infarction, unspecified Plan: Control the cholesterol, weight, blood pressure, d patient is strongly advised to stop smoking (4) CAD (coronary artery disease): Comment: MABEL Lopez 2014 Dr. Reid angioplasty GERA mid RCA March 2018 STEMI 06/2021, mid RCA thrombus, GERA placed ECHO EF 63% Code(s): I25.10 - Atherosclerotic heart disease of [place] coronary artery without angina pectoris Qualifiers: Associated angina: without angina Coronary Disease-Associated Artery/Lesion type: [place] artery [place] vs. transplanted heart: [place] heart Qualified Code(s): I25.10 - Atherosclerotic heart disease of [place] coronary artery without angina pectoris Plan: Control the cholesterol, weight, blood pressure, continue with aspirin 81 mg once a day (5) GERD (gastroesophageal reflux disease): Code(s): K21.9 - Gastro-esophageal reflux disease without esophagitis Qualifiers: Esophagitis presence: without esophagitis Qualified Code(s): K21.9 - Gastro-esophageal reflux disease without esophagitis Plan: Avoid the foods that causes that usually spicy foods, tomato products, juices, coffee, soda and foods that your sensitive to. After eating do not lie down, allow 3-4 hours before in lie down. And keep the head of bed above 30 degrees to avoid the acid from going up. (6) COPD (chronic obstructive pulmonary disease): Comment: HE IS KNOWN TO HAVE MILD TO MODERATE DEGREE OF OBSTRUCTIVE AIRWAY DISORDER, IT HAS REMAINED VERY STABLE. HE IS RELATIVELY ASYMPTOMATIC AT THIS TIME. Code(s): J44.9 - Chronic obstructive pulmonary disease, unspecified Qualifiers: COPD type: emphysema Emphysema type: unspecified Qualified Code(s): J43.9 - Emphysema, unspecified Plan: Patient is being followed up by Pulmonary on albuterol inhaler patient has not requested for the inhaler and has not been using it. Even though rhonchi on examination. (7) Tobacco abuse: Code(s): Z72.0 - Tobacco use Plan: Patient is strongly advised to stop smoking! Pulmonary and cardiology has ask of him to stop.! Discussed about non nicotine vape (8) Peripheral arterial disease: Comment: 04/10/2019 - open aortobifemoral bypass Code(s): I73.9 - Peripheral vascular disease, unspecified Plan: On aspirin presently as well as clopidogrel 75 mg once a day (9) Hypercholesterolemia: Code(s): E78.00 - Pure hypercholesterolemia, unspecified Plan: Avoid fried foods, chicken skin, eggs, butter margarine, pastries and meat. Be it pork or beef they have a lot of cholesterol on rosuvastatin 40 mg once a day will need blood work. (10) Scrotal sac enlargement: Comment: R > L Code(s): N50.89 - Other specified disorders of the male genital organs (11) Scrotal sac enlargement: Code(s): N50.89 - Other specified disorders of the male genital organs Orders: Orders US scrotum Today N50.89 - Other specified disorders of the male genital organs Referrals Urology Referral N50.89 - Other specified disorders of the male genital organs Coding Level of Care Code Est Pt Level 4 (55601) Diagnoses Obstructive sleep apnea G47.33 Tubular adenoma of colon D12.6 CVA (cerebral vascular accident) I63.9 Coronary artery disease involving [place] coronary artery of [place] heart without angina pectoris I25.10 Associated angina: without angina Coronary Disease-Associated Artery/Lesion type: [place] artery [place] vs. transplanted heart: [place] heart Gastroesophageal reflux disease without esophagitis K21.9 Esophagitis presence: without esophagitis Pulmonary emphysema, unspecified emphysema type J43.9 COPD type: emphysema Emphysema type: unspecified Tobacco abuse Z72.0 Peripheral arterial disease I73.9 Hypercholesterolemia E78.00 Scrotal sac enlargement N50.89
== END 2024-01-19 13:46 | disposition home or self-care (01) ==
PROVIDERS: PCP Internal Medicine; Visit Provider Internal Medicine
DX: I63.9 Cerebral infarction, unspecified (principal); J43.9 Emphysema, unspecified; I73.9 Peripheral vascular disease, unspecified; G47.33 Obstructive sleep apnea (adult) (pediatric); D12.6 Benign neoplasm of colon, unspecified; I25.10 Atherosclerotic heart disease of native coronary artery without angina pectoris; K21.9 Gastro-esophageal reflux disease without esophagitis; Z72.0 Tobacco use; E78.00 Pure hypercholesterolemia, unspecified; N50.89 Other specified disorders of the male genital organs

== ENCOUNTER → 2024-01-19 12:56 | Outpatient (BNVA) | payer MEDICARE, MEDICAID, SELFPAY | PROVIDERS: PCP Internal Medicine; Visit Provider Internal Medicine | DX: K21.9 Gastro-esophageal reflux disease without esophagitis (principal); J43.9 Emphysema, unspecified; E78.00 Pure hypercholesterolemia, unspecified; I73.9 Peripheral vascular disease, unspecified; N50.89 Other specified disorders of the male genital organs; Z72.0 Tobacco use | CPT/HCPCS: 99212 ==

== ENCOUNTER 2024-01-20 08:25 | Outpatient (REF) | payer MEDICARE, MEDICAID, SELFPAY ==
[2024-01-20 08:50] LABS: Basophils Absolute Auto 0.1 X10*3/uL (0.0-0.2); Eosinophils Absolute Auto 0.1 X10*3/uL (0.0-0.4); Eosinophils Percent Auto 1.5 % (0-4); Hematocrit 47.9 % (42.0-52.0); Hemoglobin 15.7 g/dl (14.0-18.0); Imm Gran Abs Auto 0.03 X10*3/uL (0.00-0.03); Imm Gran Pct Auto 0.4 % (0.0-0.4); Lymphocytes Absolute Auto 2.3 X10*3/uL (1.2-4.9); Lymphocytes Percent Auto 28.5 % (20-40); MANUAL DIFF FLAG SCAN; Mean Corpuscular HGB Conc 32.8 g/dl (31.0-36.0); Mean Corpuscular Hemoglobin 30.7 pg (27.0-33.0); Mean Corpuscular Volume 93.6 fL (80.0-98.0); Monocytes Absolute Auto 0.5 X10*3/uL (0.1-1.2); Monocytes Percent Auto 5.9 % (2-11); Neutrophils Absolute Auto 5.1 x10*3/uL (2.0-8.3); Neutrophils Percent Auto 62.7 % (45-73); PLT CLUMP 1; Red Blood Count 5.12 X10*6/uL (4.60-5.80); Red Cell Distribution Width 12.8 % (11.0-16.0); SCAN SMEAR FLAG 1
[2024-01-20 09:11] LABS: Mean Platelet Volume 11.6 fL (9.4-12.4); Platelet Count 184 X10*3/uL (160-400); SLIDE REVIEW VERIFIED; White Blood Count 8.2 X10*3/uL (4.8-10.8)
[2024-01-20 09:35] LABS: Alanine Aminotransferase 35 U/L (0-40); Albumin Level 4.4 g/dL (3.5-5.0); Alkaline Phosphatase 107 U/L (39-117); Anion Gap 9 (12-20); Aspartate Amino Transferase 28 U/L (5-37); Bilirubin Total 0.4 mg/dL (0.0-1.0); Blood Urea Nitrogen 15 mg/dL (9-16); Calcium 9.6 mg/dL (8.4-10.2); Carbon Dioxide 31 mmol/L (22-29); Chloride 108 mmol/L (96-108); Cholesterol 137 mg/dL (<200); Estimated Glomerular Filt Rate > 60; Glucose Random 101 mg/dL (60-115); HDL Cholesterol 20 mg/dL (>40); LDL Cholesterol Calculated 53 mg/dL (<100); Potassium 4.2 mmol/L (3.3-5.1); Sodium 144 mmol/L (135-145); Total Protein 7.2 g/dL (6.5-8.0); Triglycerides 322 mg/dL (<150)
[2024-01-20 09:56] LABS: Free T4 (Free Thyroxine) 0.97 ng/dL (0.71-1.85)
[2024-01-20 10:02] LABS: Vitamin B12 331 pg/mL (200-900)
== END 2024-01-20 08:26 | disposition home or self-care (01) ==
LOC: HO.LAB 08:25
PROVIDERS: PCP Internal Medicine; Visit Provider Internal Medicine
DX: I63.9 Cerebral infarction, unspecified (principal); E78.00 Pure hypercholesterolemia, unspecified; Z12.5 Encounter for screening for malignant neoplasm of prostate
CPT/HCPCS: 36415; 80053; 80061; 82607; 82746; 84153; 84439; 84443; 85025

== ENCOUNTER 2024-01-31 13:12 | Outpatient (REF) | payer MEDICARE, MEDICAID, SELFPAY ==
--- NOTE | ~2024-01-31 | US_ITS ---
EXAMINATION: US SCROTUM CLINICAL INFORMATION: Other specified disorders of the male genital organs. COMPARISON: Ultrasound scrotum 05/24/2022. TECHNIQUE: A sonogram of the scrotum was performed assessing comer-scale appearance and color Doppler flow. Spectral Doppler analysis of the arterial and venous flow were performed in the testes bilaterally. FINDINGS: RIGHT: Right testicle measures 4.8 x 2.7 x 3.3 cm, volume 22 mL. No focal testicular parenchymal lesions are visualized. Spectral Doppler analysis of the arterial and venous flow is normal in the right testis. Right epididymal head is normal in size and contains a 5 mm cyst. A very large right hydrocele is present. No right varicocele is seen. Right epididymal Doppler flow is normal. LEFT: Left testicle measures 4.4 x 2.6 x 2.8 cm, volume 16.3 mL. A small appendix testis is present. No focal testicular parenchymal lesions are visualized. Spectral Doppler analysis of the arterial and venous flow is normal in the left testis. Left epididymal head is normal in size and contains a 5 mm cyst. A moderate-sized left-sided hydrocele is present. No left varicocele is seen. Left epididymal Doppler flow is normal. US/US scrotum IMPRESSION: 1. Bilateral hydroceles, right greater than left. 2. Bilateral epididymal cysts. 3. No evidence of testicular torsion or mass. Electronically signed by: Bj Meyers MD 03/15/2024 11:51 AM EST
== END 2024-01-31 13:13 | disposition home or self-care (01) ==
LOC: HO.US 13:12
PROVIDERS: PCP Internal Medicine; Visit Provider Internal Medicine
DX: N50.89 Other specified disorders of the male genital organs (principal)
CPT/HCPCS: 76870

== ENCOUNTER 2024-03-14 12:28 | Outpatient (AMB) | payer MEDICARE, MEDICAID, SELFPAY ==
--- NOTE | 2024-03-14 13:18 | MHC.OFFVIS ---
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: Yes Accompanied by: Unknown Allergies No Known Allergies [No Known Allergies*] Allergy (Verified 03/14/24 13:51) Medication List - Last Reconciled 03/14/24 by BECKY Butt- albuterol sulfate 90 mcg/actuation 2 puffs inhalation Q4-6H PRN 30 days [APAP 6-16 cm H20 humidified AIR As directed] aripiprazole 2 mg PO DAILY aspirin (Adult Aspirin Regimen) 81 mg PO DAILY bisacodyl 10 mg [place] DAILY PRN bisacodyl (Dulcolax (bisacodyl)) 10 mg (2 x 5 mg) PO BEDTIME 2 days clopidogrel (Plavix) 75 mg PO DAILY gabapentin 300 mg PO BEDTIME lactulose 10 grams (15 mL) PO TID magnesium citrate 150 mL PO DAILY memantine 5 mg PO BID metoprolol succinate ER 50 mg PO DAILY pantoprazole 20 mg PO BID 90 days paroxetine HCl 20 mg PO DAILY peg 3350-electrolytes 236-22.74-6.74 -5.86 gram (Golytely) 240 mL PO Q10M 1 day rosuvastatin (Crestor) 40 mg PO DAILY trazodone 100 mg PO BEDTIME HPI Comments Details: Catie is a pleasant 68-year-old male patient of Dr. Martin who was accompanied by his at today's office visit. He has a past medical history of nicotine dependence, metabolic encephalopathy, aspiration pneumonia, CVA, STEMI, restrictive lung disease, peripheral arterial disease, COPD, CAD, GERD, and chronic low-back pain. He presents to the office today as a new patient for a right-sided hydrocele. In assessment of the patient today moderate to large right hydrocele noted. Patient with recent scrotal imaging however this remains pending. He otherwise denies any bothersome urinary issues. He reports hydrocele presented a proximally 3 months ago and feels it continues to increase in size. He denies urinary urgency, urinary frequency, incontinence, nocturia, hematuria, dysuria, foul smelling urine, changes to urinary stream, flank pain, fever, and or chills. We discussed further treatment options to include surveillance monitoring verses surgical intervention verses in office drainage. Risks and benefits of these interventions were discussed. All questions were answered. He otherwise offers no other issues or concerns at this time. [facility] Medical History (Reviewed 03/14/24 @ 13:54 by MARINO [facility]tW[facility]) Claudication Scrotal sac enlargement Hypersomnia Preop cardiovascular exam Vision changes Tobacco abuse Incisional pain Metabolic encephalopathy Aspiration pneumonia CVA (cerebral vascular accident) Vision changes Scrotal sac enlargement Otitis media STEMI (ST elevation myocardial infarction) Hospital discharge follow-up Shoulder pain, left Annual physical exam Colon cancer screening Colonoscopy refused Nicotine dependence, cigarettes, uncomplicated Restrictive lung disease Smoker PFO (patent foramen ovale) Hypercholesterolemia Peripheral arterial disease COPD (chronic obstructive pulmonary disease) CAD (coronary artery disease) GERD (gastroesophageal reflux disease) Chronic low back pain Surgical History S/P cardiac catheterization History of coronary artery stent placement History of aorto-femoral bypass Family History Father Hypertension Mother Hypertension Brother In good health Brother In good health Sister In good health Sister In good health Son In good health Son In good health Son In good health Son In good health Social History Housing: House Alcohol intake: former Patient Tobacco Use Status: Current someday Tobacco user Tobacco use type: Cigarette Cigarettes Per Day: 20 Years Smoked: 57 +/- n (07/2023) e-Cigarette/Vaping Use: Never Used Second Hand Smoke Exposure: Yes service: No Current occupational status: employed Cognitive needs: Yes Hearing needs: No Vision needs: No Review of Systems Eyes Reports no additional complaints ENT Reports no additional complaints Card Reports as per HPI Resp Reports as per HPI GI Reports as per HPI Reports as per HPI Musc Reports as per HPI Neuro Reports as per HPI Psych Reports no additional complaints Endo Reports no additional complaints Sergei/Lymph Reports no additional complaints Aller/Immun Reports no additional complaints Physical Exam Const General: cooperative, healthy appearing, comfortable, no acute distress, well developed, alert and awake Nutritional Appearance: overweight Orientation/consciousness: patient oriented x3 Limitations: no limitations HEENT Head: Yes normal to inspection, Yes normocephalic and Yes atraumatic Ears: hearing grossly normal bilaterally Eyes General: appearance normal, both eyes and all related structures Neck Neck: Yes normal visual inspection and Yes trachea midline Chest Chest palpation & inspection: normal inspection of the chest Resp Effort & Inspection: normal respiratory effort and able to speak in complete sentences Cardio Rate: regular rate GI Inspection: Yes normal to inspection General: Yes no CVA tenderness Penis: normal penis Meatus: meatus normal Scrotum: Hydrocele present (Moderate to large) on the right Back/Spine/Pelvis Back: no CVA tenderness Skin General skin exam: no rashes or lesions noted Neuro General: patient oriented x3 Extrem General: Yes normal to inspection Psych Appearance: grossly normal and well kempt Mental Status: mental status grossly normal Speech and movement: Normal speech and movement present and Clear speech present Affect: normal affect Attitude: cooperative Thought process: Normal thought process present Thought content: Normal thought content present Insight: Fair insight present (Psych) Judgement: Fair judgement present (Psych) Results AMB Urinalysis, Automated UA Leukoctes 0 Petar/uL Last Edit by [employer]light on 03/14/24 13:40 UA Nitrite Last Edit by CARGOBR on 03/14/24 13:40 UA Urobilinogen 0.2 mg/dL Last Edit by [employer] on 03/14/24 13:40 UA Protein 15 mg/dL Last Edit by [employer] on 03/14/24 13:40 UA pH 6.5 Last Edit by CARGOBR on 03/14/24 13:40 UA Blood 0 Patrick/uL Last Edit by [employer] on 03/14/24 13:40 UA Specific [place] 1.015 Last Edit by [employer] on 03/14/24 13:40 UA Ketone Negative Last Edit by [employer] on 03/14/24 13:40 UA Bilirubin 0 mg/dL Last Edit by [employer] on 03/14/24 13:40 UA Glucose 100 mg/dL Last Edit by [employer] on 03/14/24 13:40 Results Reviewed Results Reviewed: Laboratory Last Values Urine pH (Auto) 6.5 03/14/24 13:34 Specific [place] (Auto) 1.015 03/14/24 13:34 Urine Protein (Auto) 15 mg/dL 03/14/24 13:34 Glucose (UA)(Auto) 100 mg/dL 03/14/24 13:34 Urine Ketones (Auto) Negative 03/14/24 13:34 Urine Blood (Auto) 0 Patrick/uL 03/14/24 13:34 Urine Bilirubin (Auto) 0 mg/dL 03/14/24 13:34 Urine Urobilinogen (Auto) 0.2 mg/dL 03/14/24 13:34 Leukocyte Esterase (Auto) 0 Petar/uL 03/14/24 13:34 Assessment & Plan Assessment & Plan (1) Hydrocele: Comment: May 2022 Code(s): N43.3 - Hydrocele, unspecified Category: Medical Plan: Risks, benefits and alternatives to therapy were discussed. These include but are not limited to infection, bleeding, damage to local organs and tissues, need for further interventions. ? Anesthetic risks regarding cardiac arrhythmia, blood clots, and potential mortality were discussed. The patient understands the typical recovery time and the outpatient nature of the procedure. After consideration of these risks the patient gives full informed consent and they wish to move ahead with the procedure. Plan We discussed further treatment options of hydrocele and risks and benefits of these interventions. All questions were answered. Patient otherwise denies any bothersome urinary issues. He reports be happy with current voiding parameters. Will schedule for right-sided hydrocelectomy as discussed. Follow-up per doctor's orders; or sooner with any issues, concerns, and or questions. Orders: Orders AMB Urinalysis Automated Today Z13.9 - Encounter for screening, unspecified Patient Instructions: The patient had an opportunity to ask questions regarding the treatment plan. All questions were answered. Physical exam, labs, and imaging were discussed and reviewed in detail. As well as risks, benefits, and discussion of treatment choices. No major barriers to understanding were identified. The patient expressed understanding and agreement with the above treatment plan. The patient was made aware they should contact our office by phone for worsening of their current condition, the appearance of new symptoms, or with any questions or concerns. Compliance is encouraged with any medications and follow up testing that is ordered. It is a privilege to be allowed the opportunity to participate in? your urological care.? Again, if you have any questions or concerns If you have any questions or concerns please do not hesitate to contact me. The office is [phone]. This note is constructed using voice recognition software. While every effort has been made to ensure accuracy v belt skiver errors may have been included. Yours sincerely, Rosa Dempsey, [facility] Coding Level of Care Code New Pt Level 4 (59539) Diagnoses Hydrocele N43.3
== END 2024-03-14 13:55 | disposition home or self-care (01) ==
PROVIDERS: PCP Internal Medicine; Visit Provider Nurse Practitioner Family
DX: N43.3 Hydrocele, unspecified (principal)
CPT/HCPCS: 99204

== ENCOUNTER → 2024-03-14 12:28 | Outpatient (BNVA) | payer MEDICARE, MEDICAID, SELFPAY | PROVIDERS: PCP Internal Medicine; Visit Provider Nurse Practitioner Family | DX: N43.3 Hydrocele, unspecified (principal) | CPT/HCPCS: 81003; 99202 ==

== ENCOUNTER 2024-03-19 13:17 | Outpatient (AMB) | payer MEDICARE, MEDICAID, SELFPAY ==
[2024-03-19 13:23] VITALS: BP 140/78; PULSE 84; O2SAT 97; BMI 31.0
--- NOTE | 2024-03-19 13:23 | A.OFFVIS_ITS ---
Vital Signs 03/19/24 13:23 Height 5 ft 5 in Weight 186 lb 4.65 oz BMI 31.0 BP 140/78 H Blood Pressure Location Lt brachial Position Sitting Pulse 84 Pulse Source Pulse Oximeter Pulse Oximetry (%) 97 Oxygen Delivery Method Room Air Intake Visit Reasons: COPD Intake Note: pt is here for follow up and cough and short of breath at times, still trying to use, having problems with the mask. Kitchen Aide Required: No Allergies No Known Allergies [No Known Allergies*] Allergy (Verified 03/19/24 13:34) Medication List - Last Reconciled 03/19/24 by Millie Castro MD albuterol sulfate 90 mcg/actuation 2 puffs inhalation Q4-6H PRN 30 days [APAP 6-16 cm H20 humidified AIR As directed] aripiprazole 2 mg PO DAILY aspirin (Adult Aspirin Regimen) 81 mg PO DAILY bisacodyl 10 mg [place] DAILY PRN bisacodyl (Dulcolax (bisacodyl)) 10 mg (2 x 5 mg) PO BEDTIME 2 days clopidogrel (Plavix) 75 mg PO DAILY gabapentin 300 mg PO BEDTIME lactulose 10 grams (15 mL) PO TID magnesium citrate 150 mL PO DAILY memantine 5 mg PO BID metoprolol succinate ER 50 mg PO DAILY pantoprazole 20 mg PO BID 90 days paroxetine HCl 20 mg PO DAILY peg 3350-electrolytes 236-22.74-6.74 -5.86 gram (Golytely) 240 mL PO Q10M 1 day rosuvastatin (Crestor) 40 mg PO DAILY trazodone 100 mg PO BEDTIME Do you need a note to return to daycare/school/sports/work: No HPI HPI COPD: Details: THIS 68 YEARS OLD GENTLEMAN, WHO SPEAKS BOSNIAN LANGUAGE, AND SOME MARSHALLESE. COMES WITH HIS WHO IS HELPING IN CONVERSATION. HE HAS NOT BEEN USING THE CPAP LATELY BECAUSE OF HAVING SOME PROBLEM WITH THE MASK. DOES NOT LIKE THE FACE MASK WHICH KEEPS ON SLIPPING AND ALSO CAUSING LOT OF AIR LEAK. HIS SLEEP REMAINS DISTURBED. DURING THE DAYTIME HE IS MOSTLY IN THE WHEELCHAIR OR USES WALKER AND STAYS IN THE HOUSE. HE DOES FEELS SOME WHAT SLEEPY AND TIRED DURING THE DAYTIME. STILL SMOKING 1 PACK OF CIGARETTES A DAY, HAS MILD INTERMITTENT COUGH BUT NOT MUCH WHEEZING. HE USES ALBUTEROL HFA BUT ONLY ONCE IN A WHILE. COUNT INCLUDES THE [facility] Medical History Claudication Scrotal sac enlargement Hypersomnia Preop cardiovascular exam Vision changes Tobacco abuse Incisional pain Metabolic encephalopathy Aspiration pneumonia CVA (cerebral vascular accident) Vision changes Scrotal sac enlargement Otitis media STEMI (ST elevation myocardial infarction) Hospital discharge follow-up Shoulder pain, left Annual physical exam Colon cancer screening Colonoscopy refused Nicotine dependence, cigarettes, uncomplicated Restrictive lung disease Smoker PFO (patent foramen ovale) Hypercholesterolemia Peripheral arterial disease COPD (chronic obstructive pulmonary disease) CAD (coronary artery disease) GERD (gastroesophageal reflux disease) Chronic low back pain Surgical History S/P cardiac catheterization History of coronary artery stent placement History of aorto-femoral bypass Family History Father Hypertension Mother Hypertension Brother In good health Brother In good health Sister In good health Sister In good health Son In good health Son In good health Son In good health Son In good health Social History Housing: House Alcohol intake: former Patient Tobacco Use Status: Current someday Tobacco user Tobacco use type: Cigarette Cigarettes Per Day: 20 Years Smoked: 55 +/- n (07/2023) e-Cigarette/Vaping Use: Never Used Second Hand Smoke Exposure: Yes service: No Current occupational status: employed Cognitive needs: Yes Hearing needs: No Vision needs: No Review of Systems Const All systems reviewed & are unremarkable except as noted in HPI and below Eyes Reports no additional complaints ENT Reports no additional complaints and Denies dysphagia Card Denies chest pain, Denies irregular heart rhythm (Has the monitor on), Denies leg edema and Reports dyspnea on exertion (Mild) Resp Reports cough (Minimal and infrequent) and Reports dyspnea on exertion (Mild) GI Denies dysphagia, Denies dyspepsia and Reports heartburn (Being treated with Protonix for prevention of GERD) Musc Reports abnormal gait (Uses walker) and Reports muscle weakness Skin/Breast Reports system reviewed and no additional complaints, except as documented Neuro Reports abnormal gait (Uses walker) Psych Reports depression (Treated with med) Endo Reports no additional complaints Sergei/Lymph Reports no additional complaints Physical Exam Vital Signs: Last Vital Signs Pulse 84 03/19/24 13:23 BP 140/78 H 03/19/24 13:23 Pulse Ox 97 03/19/24 13:23 Oxygen Delivery Method Room Air 03/19/24 13:23 BMI result Body Mass Index 31.0 Const General: comfortable, no acute distress, alert and awake Orientation/consciousness: patient oriented x3 HEENT Head: Yes normal to inspection General nose exam: No nasal polyps present and No nasal discharge present Face and sinus: Yes sinuses nontender Mouth: oropharynx normal Throat: Yes posterior oropharynx normal Eyes General: appearance normal, both eyes and all related structures Neck Neck: Yes normal visual inspection, Yes no lymphadenopathy, Yes trachea midline and Yes no JVD Thyroid: Thyroid normal Chest Chest palpation & inspection: normal inspection of the chest, normal palpation of entire chest wall and no tenderness Resp Other: Percussion note is resonant, has be equal breath sounds on both sides, the breath sounds are distant with prolonged expiratory phase. No wheezes or Crepitations are heard . Cardio Palpation: normal PMI Rate: regular rate Rhythm: regular rhythm Heart sounds: no gallops and no murmurs GI Other: Abdomen soft, benign. G-tube uneventfully removed. Dressing applied. Palpation (GI): Soft to palpation, nontender, No hepatosplenomegaly present and no masses Auscultation: normal bowel sounds Back/Spine/Pelvis Thoracic/Lumbar Spine: thoracic and lumbar spine normal to inspection and Thoracic/lumbar scoliosis (Mild to moderate) Skin General skin exam: no rashes or lesions noted Neuro General: patient oriented x3, No gait normal (The gait is somewhat unstable, due to poor balance, needs walker) and no focal motor deficits Cranial nerves: Yes CN's II-XII intact bilaterally Extrem General: Yes normal to inspection, Yes no clubbing, cyanosis or edema and Yes no calf tenderness Psych Appearance: grossly normal and well kempt Speech and movement: Normal speech and movement present Results Reviewed Results Reviewed: Compliance report for the last 30 nights is reviewed. He has used only 38/90 nights, 42%. When he does use E uses for an average of 4 hours per night. Assessment & Plan Assessment & Plan (1) COPD (chronic obstructive pulmonary disease): Comment: HE IS KNOWN TO HAVE MILD TO MODERATE DEGREE OF OBSTRUCTIVE AIRWAY DISORDER, IT HAS REMAINED VERY STABLE. HE IS RELATIVELY ASYMPTOMATIC AT THIS TIME., EXCEPT FOR MILD INTERMITTENT COUGH DUE TO SMOKING . Code(s): J44.9 - Chronic obstructive pulmonary disease, unspecified Category: Medical Qualifiers: COPD type: emphysema Emphysema type: unspecified Qualified Code(s): J43.9 - Emphysema, unspecified Plan: DISCUSSED ABOUT SMOKING AND IS RELATIONSHIP TO COPD. HE MUST TRY TO CUT DOWN STOP SMOKING CONTINUE TO USE ALBUTEROL HFA 2 PUFFS Q 4-6 HOURS P.R.N. (2) Restrictive lung disease: Comment: PER PULMONARY FUNCTION TEST, HE HAS MODERATE DEGREE OF RESTRICTIVE LUNG DISEASE. THIS MAY BE PARTLY DUE TO HIS POOR EFFORTS, AND GENERAL WEAKNESS. Code(s): J98.4 - Other disorders of lung Category: Medical Plan: ADVISED TO DO DEEP BREATHING EXERCISES A FEW TIMES A DAY IF HE CAN. (3) Smoker: Comment: [employer]IFELONG SMOKER, STILL SMOKING CLOSE TO 1 PACK OF CIGARETTES A DAY. ACCORDING TO HIS , HE JUST WOULD NOT QUIT SMOKING. TRIED NICOTINE GUM WITHOUT MUCH HELP. Code(s): F17.200 - Nicotine dependence, unspecified, uncomplicated Category: Social Hx Plan: ONCE AGAIN TALKED TO HIM ABOUT QUITTING ON AT LEAST CUTTING DOWN ON SMOKING. EXPLAINED THE HAZARD. TO HIS HEALTH BY CONTINUED SMOKING (4) Obstructive sleep apnea: Comment: Sleep study done 08/24/2023 mild to moderate AHI 15 . Because of multiple comorbidities he was started on CPAP therapy. He had been compliant before but in the past 3 months he has not used it much. Complains of having problems with the full face mask. Say is there is lot of air leak. Code(s): G47.33 - Obstructive sleep apnea (adult) (pediatric) Category: Medical Plan: Plan is to order he nasal mask, possibly with chinstrap. Talked to him that it is important for him to use the CPAP at night, because of his multiple comorbidities. Coding Level of Care Code Est Pt Level 3 (45543) Diagnoses Pulmonary emphysema, unspecified emphysema type J43.9 COPD type: emphysema Emphysema type: unspecified Restrictive lung disease J98.4 Smoker F17.200 Obstructive sleep apnea G47.33
== END 2024-03-19 13:41 | disposition home or self-care (01) ==
PROVIDERS: PCP Internal Medicine; Visit Provider Internal Medicine
DX: J43.9 Emphysema, unspecified (principal); J98.4 Other disorders of lung; F17.200 Nicotine dependence, unspecified, uncomplicated; G47.33 Obstructive sleep apnea (adult) (pediatric)
CPT/HCPCS: 99213

== ENCOUNTER → 2024-03-19 13:17 | Outpatient (BNVA) | payer MEDICARE, MEDICAID, SELFPAY | PROVIDERS: PCP Internal Medicine; Visit Provider Internal Medicine | DX: J43.9 Emphysema, unspecified (principal); J98.4 Other disorders of lung; G47.33 Obstructive sleep apnea (adult) (pediatric); F17.210 Nicotine dependence, cigarettes, uncomplicated; Z99.89 Dependence on other enabling machines and devices | CPT/HCPCS: 99212 ==

== ENCOUNTER 2024-03-26 12:29 | Outpatient (AMB) | payer MEDICARE, MEDICAID, SELFPAY ==
--- NOTE | 2024-03-26 12:30 | A.OFFVIS_ITS ---
Vital Signs 03/26/24 12:31 Height 5 ft 5 in Weight 187 lb 6.287 oz BMI 31.2 BP 132/80 Blood Pressure Location Rt brachial Position Sitting Pulse 58 Pulse Source Pulse Oximeter Intake Visit Reasons: 4 mth fu Intake Note: 4 mth f/up Golf Ball Cover Treater Required: No Golf Ball Cover Treater Services: Golf Ball Cover Treater Offered & Declined Golf Ball Cover Treater Name: Amilia/ Accompanied by: Spouse Allergies No Known Allergies [No Known Allergies*] Allergy (Verified 03/19/24 13:34) Medication List - Last Reconciled 03/26/24 by Albert Pierce MD albuterol sulfate 90 mcg/actuation 2 puffs inhalation Q4-6H PRN 30 days [APAP 6-16 cm H20 humidified AIR As directed] aripiprazole 2 mg PO DAILY aspirin (Adult Aspirin Regimen) 81 mg PO DAILY bisacodyl 10 mg [place] DAILY PRN bisacodyl (Dulcolax (bisacodyl)) 10 mg (2 x 5 mg) PO BEDTIME 2 days clopidogrel (Plavix) 75 mg PO DAILY gabapentin 300 mg PO BEDTIME lactulose 10 grams (15 mL) PO TID magnesium citrate 150 mL PO DAILY memantine 5 mg PO BID metoprolol succinate ER 50 mg PO DAILY pantoprazole 20 mg PO BID 90 days paroxetine HCl 20 mg PO DAILY peg 3350-electrolytes 236-22.74-6.74 -5.86 gram (Golytely) 240 mL PO Q10M 1 day rosuvastatin (Crestor) 40 mg PO DAILY trazodone 100 mg PO BEDTIME HPI Comments Details: 68-year-old gentleman here for follow-up. He has background history of tobacco abuse and previous right coronary artery PCI in 2014 when presenting inferior wall GA. Subsequent to that he had cardiac catheterization in 2018 when he developed chest discomfort showing 2 areas of stenosis in the mid and distal right coronary artery which were treated with drug-eluting stents. He continued to smoke 3 packs per day which he has cut down to 1 pack per day at this stage. In July 2021 he was in of [facility] in [place] very developed chest discomfort and was taken to hospital where was found to have inferior wall GA. He had a thrombotic occlusion of the distal right coronary artery which was treated with drug-eluting stent. He has been on aspirin and Brilinta since then. He also has peripheral vascular disease and follows up with Dr. Martinez closely. Unfortunately continues to smoke. I have discussed smoking cessation with him multiple times but it appears he is not mentally ready to quit. He was referred to pulmonology on last visit but [place] go for the appointment. He is back for follow-up. He is smoking 1 pack per day. He is denying chest discomfort shortness of breath. 01/12/23: He returns for follow-up. Unfortunately was admitted to [facility] with acute CVA. He has left-sided hemiparesis with leg involvement more than the arm. He has been experiencing balance issues and has been walking with walker. Unfortunately continues to smoke. He also has colonoscopy scheduled because his Cologuard test was abnormal. 08/24/23: He returns for follow-up. He continues to smoke 1 pack per day. He is walking with a walker and is able to walk between rooms with walker. With difficulty can go up stairs. Denying chest pain or shortness of breath. 11/21/23: Here for f/u. No new symptoms. Continues to smoke. 03/26/2024 he is here for follow-up. The is concerned that he is getting weaker and will require a wheelchair for office visits. He continues to smoke unfortunately. Denying any active symptoms currently. Blood pressure is well controlled. He has hydrocele and will need surgery. [facility]LY [facility], [facility] Medical History Claudication Scrotal sac enlargement Hypersomnia Preop cardiovascular exam Vision changes Tobacco abuse Incisional pain Metabolic encephalopathy Aspiration pneumonia CVA (cerebral vascular accident) Vision changes Scrotal sac enlargement Otitis media STEMI (ST elevation myocardial infarction) Hospital discharge follow-up Shoulder pain, left Annual physical exam Colon cancer screening Colonoscopy refused Nicotine dependence, cigarettes, uncomplicated Restrictive lung disease Smoker PFO (patent foramen ovale) Hypercholesterolemia Peripheral arterial disease COPD (chronic obstructive pulmonary disease) CAD (coronary artery disease) GERD (gastroesophageal reflux disease) Chronic low back pain Surgical History S/P cardiac catheterization History of coronary artery stent placement History of aorto-femoral bypass Family History Father Hypertension Mother Hypertension Brother In good health Brother In good health Sister In good health Sister In good health Son In good health Son In good health Son In good health Son In good health Social History Housing: House Alcohol intake: former Patient Tobacco Use Status: Current someday Tobacco user Tobacco use type: Cigarette Cigarettes Per Day: 20 Years Smoked: 55 +/- n (07/2023) e-Cigarette/Vaping Use: Never Used Second Hand Smoke Exposure: Yes service: No Current occupational status: employed Cognitive needs: Yes Hearing needs: No Vision needs: No Review of Systems Const Denies chills, Denies fatigue, Denies fever(s), Denies frequent falls, Denies weakness, Denies weight gain and Denies weight loss ENT Denies dizziness Card Denies chest pain, Denies leg edema, Denies lightheadedness, Denies palpitations, Denies dyspnea and Denies dyspnea on exertion Resp Denies cough, Denies dyspnea and Denies dyspnea on exertion GI Denies hematochezia Musc Denies abnormal gait, Denies muscle weakness, Denies numbness, Denies radiating pain into limb and Denies tingling Neuro Denies abnormal gait, Denies dizziness, Denies frequent falls, Denies numbness, Denies tingling and Denies weakness Endo Denies fatigue and Denies palpitations Physical Exam Vital Signs: Last Vital Signs Pulse 58 03/26/24 12:31 BP 132/80 03/26/24 12:31 BMI result Body Mass Index 31.2 GENERAL APPEARANCE: in no acute distress, pleasant. NECK: no carotid bruit, no jugular venous distention. SKIN: no suspicious lesions, warm and dry. HEART: no murmurs, regular rate and rhythm. LUNGS: clear to auscultation bilaterally. ABDOMEN: soft, nontender. EXTREMITIES: no edema. PERIPHERAL PULSES: equal. NEUROLOGIC: Left hand power 3/5, left leg 3/5. Normal right side. Assessment & Plan Assessment & Plan (1) Peripheral arterial disease: Comment: 04/10/2019 - open aortobifemoral bypass Code(s): I73.9 - Peripheral vascular disease, unspecified Category: Medical (2) CAD (coronary artery disease): Comment: MABEL Lopez [address] Dr. Kashef angioplasty GERA mid RCA March 2018 STEMI 06/2021, mid RCA thrombus, GERA placed ECHO EF 63% Code(s): I25.10 - Atherosclerotic heart disease of [place] coronary artery without angina pectoris Category: Medical Qualifiers: Coronary Disease-Associated Artery/Lesion type: [place] artery [place] vs. transplanted heart: [place] heart Associated angina: without angina Qualified Code(s): I25.10 - Atherosclerotic heart disease of [place] coronary artery without angina pectoris (3) Pre-op examination: Code(s): Z01.818 - Encounter for other preprocedural examination Category: Medical Plan [age] year gentleman who is here for follow-up. He unfortunately had CVA in the past as well as acute coronary syndrome involving right coronary artery. He is active smoker. The is very concerned that he is getting weaker and is unable to walk even with the walker. I have given her option to do cardiac rehabilitation for stable angina but she thinks that he has not improved with physiotherapy and rehab previously. She will talk to primary care physician about wheelchair. He continues to smoke and I think he will not quit smoking. Blood pressure is well controlled. He needs surgery for hydrocele and can proceed with intermediate risk for perioperative complications. Plavix can be held but aspirin should not be discontinued. His beta-ben also should not be held preop. Thank you for allowing me to participate in the care of your patient. Please feel free to contact me if you have any questions. Coding Level of Care Code Est Pt Level 4 (06380) Diagnoses Peripheral arterial disease I73.9 Coronary artery disease involving [place] coronary artery of [place] heart without angina pectoris I25.10 Coronary Disease-Associated Artery/Lesion type: [place] artery [place] vs. transplanted heart: [place] heart Associated angina: without angina Pre-op examination Z01.818
[2024-03-26 12:31] VITALS: BP 132/80; PULSE 58; BMI 31.2
== END 2024-03-26 12:50 | disposition home or self-care (01) ==
PROVIDERS: PCP Internal Medicine; Visit Provider Internal Medicine Cardiovascular Disease
DX: I73.9 Peripheral vascular disease, unspecified (principal); I25.10 Atherosclerotic heart disease of native coronary artery without angina pectoris; Z01.818 Encounter for other preprocedural examination
CPT/HCPCS: 99214

== ENCOUNTER → 2024-03-26 12:29 | Outpatient (BNVA) | payer MEDICARE, MEDICAID, SELFPAY | PROVIDERS: PCP Internal Medicine; Visit Provider Internal Medicine Cardiovascular Disease | DX: Z01.818 Encounter for other preprocedural examination (principal); I73.9 Peripheral vascular disease, unspecified; I25.10 Atherosclerotic heart disease of native coronary artery without angina pectoris | CPT/HCPCS: 99212 ==

== ENCOUNTER 2024-05-01 10:12 | Day surgery (SDC) | payer MEDICARE, MEDICAID, SELFPAY ==
[2024-04-20 07:55] VITALS: BMI 31.1
[2024-05-01] VITALS (7 sets, daily range): BP systolic 102–134; BP diastolic 48–81; PULSE 54–63; RESP 16–18; TEMP 36.1–36.4; O2SAT 94–100; BMI 34.7
[2024-05-01] MEDS: Lactated Ringers 1,000 ML 50 ML IVCONT (11:08)
[2024-05-01] MEDS: Albuterol Sulfate (0.083%) 2.5 MG/3 ML VIAL.NEB INHALE (11:17)
--- NOTE | 2024-05-01 11:51 | MHC.SHP ---
Pre-Procedural Eval Section A - 24 Hr Update-Section A only Date of Service: 05/01/24 The patient is an INPATIENT: No The patient has been examined within 24 hours of the surgical procedure. The History & Physical has been completed within 30 days and I have reviewed it.: Yes Section B - Complete if H&P > 30 days Chief Complaint: Hydrocele, unspecified Allergies: Allergies Allergy/AdvReac Type Severity Reaction Status Date / Time No Known Allergies Allergy Verified 05/01/24 11:08 [No Known Allergies*] Plan Diagnosis/Plan: Unchanged I have reviewed the history and physical and performed a pertinent physical examination on my patient. No changes have occurred unless specified. Excision right hydrocele, right hydrocelectomy. Time Spent With Patient Time: Total time managing care of this patient today ____ minutes.
--- NOTE | 2024-05-01 12:46 | HO.ANESPROP2 ---
[facility] Active Problems Active Problems: All Active Problems Pre-op examination (Acute) Gait instability (Acute) Obstructive sleep apnea (Acute) Peripheral neuropathic pain (Acute) Urinary incontinence (Acute) BPH (benign prostatic hyperplasia) (Acute) Tubular adenoma of colon (Acute) G tube feedings (Acute) Recurrent epistaxis (Acute) Seizure disorder (Acute) Vision blurring (Acute) Generalized anxiety disorder (Acute) Hydrocele (Acute) Positive colorectal cancer screening using Cologuard test (Acute) Erectile dysfunction (Acute) Hearing deficit (Acute) Cervical radiculopathy (Acute) Painful arc syndrome of left shoulder (Acute) Restrictive lung disease (Acute) Smoker (Acute) PFO (patent foramen ovale) (Acute) Hypercholesterolemia (Acute) Peripheral arterial disease (Acute) COPD (chronic obstructive pulmonary disease) (Acute) CAD (coronary artery disease) (Acute) GERD (gastroesophageal reflux disease) (Acute) Chronic low back pain (Acute) Past Medical History Medical History (Updated 05/01/24 @ 11:15 by Deirdre Armenta RN) Sleep apnea Scrotal sac enlargement Hypersomnia Nicotine dependence, cigarettes, uncomplicated Restrictive lung disease Claudication Preop cardiovascular exam Smoker Incisional pain Aspiration pneumonia Metabolic encephalopathy PFO (patent foramen ovale) CVA (cerebral vascular accident) Scrotal sac enlargement Vision changes Colonoscopy refused Colon cancer screening Annual physical exam Shoulder pain, left Hospital discharge follow-up STEMI (ST elevation myocardial infarction) Vision changes Otitis media Hypercholesterolemia Peripheral arterial disease Tobacco abuse COPD (chronic obstructive pulmonary disease) CAD (coronary artery disease) GERD (gastroesophageal reflux disease) Chronic low back pain Family History Family History Father Hypertension Mother Hypertension Brother In good health Brother In good health Sister In good health Sister In good health Son In good health Son In good health Son In good health Son In good health Family history of problems with anesthesia: No Surgical History Surgical History S/P cardiac catheterization History of coronary artery stent placement History of aorto-femoral bypass History of Problems with Anesthesia: No Social History Social History Housing: House Alcohol intake: former Patient Tobacco Use Status: Current everyday Tobacco user Tobacco use type: Cigarette Cigarettes Per Day: 10 Years Smoked: 57 +/- n (07/2023) e-Cigarette/Vaping Use: Never Used Second Hand Smoke Exposure: Yes Use of substances other than those prescribed or required for medical reasons: No Are you DNR?: No Advance Directives: No Advance Directives Information Provided: Yes service: No Current occupational status: employed Cognitive needs: Yes Hearing needs: No Vision needs: No Meds Allergies Allergy/AdvReac Type Severity Reaction Status Date / Time No Known Allergies Allergy Verified 05/01/24 11:08 [No Known Allergies*] Active Medications: Current Medications Lactated Ringer's (Lr) 1,000 mls @ 50 mls/hr IVCONT .Q20H DESEAN Last Admin: 05/01/24 11:08 Dose: 50 mls/hr Home Medications ?Medication ?Instructions ?Recorded ?Confirmed ?Last Taken ?Type aripiprazole 2 mg tablet 2 mg PO DAILY 07/15/23 05/01/24 Unknown History memantine 5 mg tablet 5 mg PO BID 12/30/23 05/01/24 Unknown History paroxetine HCl 20 mg tablet 20 mg PO DAILY 12/30/23 05/01/24 Unknown History trazodone 100 mg tablet 100 mg PO BEDTIME 12/30/23 05/01/24 Unknown History Exam Height,Weight and Vital Signs: Height 5 ft 5 in Weight 94.7 kg Last Vital Signs Temp 97.6 F 05/01/24 10:51 Pulse 57 05/01/24 11:18 Resp 18 05/01/24 11:18 BP 134/48 L 05/01/24 10:51 Pulse Ox 94 05/01/24 10:51 O2 Del Method Room Air 05/01/24 10:51 Airway Mallampati Class: III TM Dist: >3cm Neck ROM: Full Loose/Missing/Broken Teeth: Yes, Upper and Lower Assessment and Plan Assessment Anesthesia Assessment: Anesthesia Plan Discussed and Chart Reviewed Final Anesthetic Review Family History of Problems with Anesthesia: No History of Problems with Anesthesia: No NPO: Yes ASA Class: III Final Preanesthetic Review: No Changes in Pt Med Stat, Meds/Allgs Chart Reviewed, Consent Obtained/Reviewed and Anes Risks/Benef Reviewed Patient Risk: Intermediate Procedure Risk: Low Anesthetic Plan Anesthetic Plan: GA Disposition: Standard PACU
--- NOTE | 2024-05-01 13:21 | P.OP_ITS ---
Operative Note Operative Note Date of Service: 05/01/24 Narrative: PreOperative Diagnosis:? ? Right hydrocele Post Operative Diagnosis: Right hydrocele Procedure: Right hydrocelectomy, excision of hydrocele sac Surgeon:?Dr Aaron Young Anesthesia:? General Procedure: After informed consent was verified the patient was brought to the operating room and placed in a supine position.? Anesthesia was performed per protocol. The patient was prepped and draped in the usual sterile fashion. Safety pause time-out was performed. Antibiotics confirmed. A marker was used to annette the median raphe. Attention was taken to the right hemiscrotum A horizontal incision was made through the skin with a 15 blade knife, cautery was used to incise the dartos fascia, the plane between the dartos fascia and the tunical vaginalis was developed with blunt dissection. the testicle is delivered into the operative field. The gubernaclar attachments are taken down with electrocautery. The tunica vaginalis is opened with sharp dissection vertically in the midline, the hydrocele fluid was drained and suctioned, the hydrocele fluid was clear yellow. Hydrocele fluid was sent for cytology. The hydrocele sac was opened in the midline a portion of the sac was sent to pathology, wound was irrigated, the tunica vaginalis was wrapped posteriorly an d the edges were oversewn with 3-0 chromic. Cautery was used for hemostasis. The dartos fascia was closed with running locking 3-0 chromic and the skin was closed with interrupted 3-0 chromic there was good hemostasis noted. The patient tolerated the procedure well and was transferred to the recovery area upon completion. Complications: None Drains: None
== END 2024-05-01 14:14 | disposition home or self-care (01) ==
PROVIDERS: PCP Internal Medicine; Visit Provider Urology
PROC: (CPT 55060; principal; 2024-05-01 12:40)
DX: N43.3 Hydrocele, unspecified (principal); N49.2 Inflammatory disorders of scrotum; J44.9 Chronic obstructive pulmonary disease, unspecified; G93.41 Metabolic encephalopathy; I25.10 Atherosclerotic heart disease of native coronary artery without angina pectoris; Z95.5 Presence of coronary angioplasty implant and graft; I25.2 Old myocardial infarction; I73.9 Peripheral vascular disease, unspecified; Z87.898 Personal history of other specified conditions; E78.00 Pure hypercholesterolemia, unspecified; Q21.12 Patent foramen ovale; Z86.73 Personal history of transient ischemic attack (TIA), and cerebral infarction without residual deficits; Z79.82 Long term (current) use of aspirin; Z79.899 Other long term (current) drug therapy; F17.210 Nicotine dependence, cigarettes, uncomplicated; Z98.890 Other specified postprocedural states
CPT/HCPCS: 55040; 88112; 88302; 88305; 94640; J0131; J0690; J1100; J2003; J2250; J2405; J2704; J2795; J3010

== ENCOUNTER → 2024-05-01 10:12 | Outpatient (BNV) | payer MEDICARE, MEDICAID, SELFPAY | PROVIDERS: PCP Internal Medicine; Visit Provider Urology | DX: N43.3 Hydrocele, unspecified (principal) | CPT/HCPCS: 55040 ==

== ENCOUNTER 2024-05-09 13:19 | Outpatient (AMB) | payer MEDICARE, MEDICAID, SELFPAY ==
--- NOTE | 2024-05-09 13:20 | A.OFFPC_ITS ---
Vital Signs 05/09/24 13:26 Height 5 ft 5 in Weight 180 lb 4 oz BMI 30.0 BP 110/60 Blood Pressure Location Lt brachial Position Sitting Pulse 71 Pulse Source Pulse Oximeter Pulse Oximetry (%) 92 Oxygen Delivery Method Room Air Intake Visit Reasons: [facility] 05/02/24 Intake Note: Patient is here to follow-up after a visit the emergency department at [facility] on 05/02/24 [place] Crew Required: No Duty Engineer: Present Accompanied by: Spouse Allergies No Known Allergies [No Known Allergies*] Allergy (Verified 05/09/24 13:37) Medication List - Last Reconciled 05/09/24 by Sonia Cross PA-C acetaminophen (Acetaminophen Extra Strength) 1,000 mg (2 x 500 mg) PO Q8H PRN albuterol sulfate 90 mcg/actuation 2 puffs inhalation Q4-6H PRN [APAP 6-16 cm H20 humidified AIR As directed] aripiprazole 2 mg PO DAILY aspirin (Adult Aspirin Regimen) 81 mg PO DAILY clopidogrel (Plavix) 75 mg PO DAILY gabapentin 300 mg PO BEDTIME memantine 5 mg PO BID metoprolol succinate ER 50 mg PO DAILY pantoprazole 20 mg PO BID 90 days paroxetine HCl 20 mg PO DAILY rosuvastatin (Crestor) 40 mg PO DAILY trazodone 100 mg PO BEDTIME Tobacco use date assessed: 05/09/24 Fall risk assessment: No Falls in past year Last assessed Fall Risk: 05/09/24 Dental Screening Dental Screen Date: 05/09/24 Did you have a dental visit in the last 12 months?: No Did you have a dental problem in the last 6 months where you did not have access to dental care?: No Was dental information given to patient?: No HPI HPI Comments History of Present Illness Details Patient presents to the office for a TCM visit. Date of admission: Date of discharge: [facility] Medical History (Updated 05/09/24 @ 14:06 by Sonia Cross PA-C) Sleep apnea Scrotal sac enlargement Hypersomnia Nicotine dependence, cigarettes, uncomplicated Restrictive lung disease Claudication Preop cardiovascular exam Smoker Incisional pain Aspiration pneumonia Metabolic encephalopathy PFO (patent foramen ovale) CVA (cerebral vascular accident) Scrotal sac enlargement Vision changes Colonoscopy refused Colon cancer screening Annual physical exam Shoulder pain, left Hospital discharge follow-up STEMI (ST elevation myocardial infarction) Vision changes Otitis media Hypercholesterolemia Peripheral arterial disease Tobacco abuse COPD (chronic obstructive pulmonary disease) CAD (coronary artery disease) GERD (gastroesophageal reflux disease) Chronic low back pain Surgical History (Updated 05/09/24 @ 13:31 by JIN Dumont) History of prostate surgery S/P cardiac catheterization History of coronary artery stent placement History of aorto-femoral bypass Family History Father Hypertension Mother Hypertension Brother In good health Brother In good health Sister In good health Sister In good health Son In good health Son In good health Son In good health Son In good health Social History (Updated 05/09/24 @ 13:31 by JIN Dumont) Housing: House Alcohol intake: former Patient Tobacco Use Status: Former Tobacco user Tobacco use type: Cigarette Cigarettes Per Day: 10 Years Smoked: 55 +/- n (07/2023) e-Cigarette/Vaping Use: Never Used Second Hand Smoke Exposure: Yes service: No Current occupational status: employed Cognitive needs: Yes ([place]) Hearing needs: No Vision needs: No Questionnaire PHQ-9 Over the last 2 weeks, how often have you been bothered by any of the following problems? 1. Little interest or pleasure in doing things: nearly every day 2. Feeling down, depressed, or hopeless: more than half the days 3. Trouble falling or staying asleep, or sleeping too much: more than half the days 4. Feeling tired or having little energy: several days 5. Poor appetite or overeating: not at all 6. Feeling bad about yourself - or that you are a failure or have let yourself or your family down: more than half the days 7. Trouble concentrating on things, such as reading the newspaper or watching television: more than half the days 8. Moving or speaking so slowly that other people could have noticed. Or the opposite - being so fidgety or restless that you have been moving around a lot more than usual: not at all 9. Thoughts that you would be better off or of hurting yourself in some way: not at all Total score: 12 Depression Screening Interpretation: Positive Depression Screening Follow-up: Existing condition and In treatment Depression Screening Done: Yes Source: Developed by Drs. Meet Flores, NidiaEddy Teixeira and colleagues, with an educational nicole from [employer]. Thrive Questionnaire Date Thrive assessed: 05/09/24 I am a: Patient What is your living situation today?: I have a steady place to live Within the past 12 months, did the food you bought not last and you didn't have the money to get more?: Never true Within the past 12 months, did you worry whether your food would run out before you got money to buy more?: Never true Do you have trouble paying for medicines?: No Do you have trouble getting transportation to medical appointments?: No Do you have trouble paying your heating and electricity bill?: No Do you have trouble taking care of your child, family member or friend?: No Do you have trouble with day-to-day activities such as bathing, preparing meals, shopping, managing finances, etc.?: No Are you currently unemployed and looking for a job?: No Are you interested in more education?: No Currently or been in a relationship where the following occur: No concerns reported THRIVE Score: 0 AUDIT C Alcohol Use Questionnaire (AUDIT-C) 1. How often do you have a drink containing alcohol?: Never Total Score: 0 JACQUES-7 AMB Questionnaire JACQUES-7 Date JACQUES - 7 assessed: 05/09/24 Feeling nervous, anxious, or on edge: 0 = Not at all Not being able to stop or control worryin = Not at all Worrying too much about different things: 0 = Not at all Trouble relaxin = Not at all Being so restless that it is hard to sit still: 0 = Not at all Becoming easily annoyed or irritable: 0 = Not at all Feeling afraid as if something awful might happen: 0 = Not at all Total JACQUES-7 score (0-4 normal; 5-9 mild; 10-14 moderate; 15-21 severe): 0 Source: Developed by Drs. Meet Flores, Eddy Guevara and colleagues, with an educational nicole from [employer]. Physical exam (Primary Care) Vital Signs: Last Vital Signs Pulse 71 05/09/24 13:26 BP 110/60 05/09/24 13:26 Pulse Ox 92 05/09/24 13:26 Oxygen Delivery Method Room Air 05/09/24 13:26 Vitals signs have been reviewed. Care Plan Goal for BP management: BP 110/60 at goal BMI result Body Mass Index 30.0 BMI Assessment/Plan discussion: High BMI High, discussed plan: lifestyle, weight reduction, dietary and physical activity Tobacco/Smoking Status: Tobacco use Status Tobacco use date assessed 05/09/24 05/09/24 13:33 Patient Tobacco Use Status Former Tobacco user 05/09/24 13:33 Tobacco use type Cigarette 05/09/24 13:31 e-Cigarette/Vaping Use Never Used 05/09/24 13:31 PHQ-9: PHQ-9 Score PHQ-9: Total score 12 05/09/24 13:33 Depression Screening Interpretation: Positive Depression Screening Follow-up: Existing condition and In treatment Thrive Assessment: Date of Thrive Assessment Date Thrive assessed 05/09/24 05/09/24 13:21 Currently or been in a relationship where the following occur: No concerns reported Coding Level of Care Code Est Pt Level 4 (38755) Complex EM visit Add On G2211 Diagnoses History of hydrocelectomy Z98.890 Hydrocele N43.3 Obstructive sleep apnea G47.33 Pulmonary emphysema, unspecified emphysema type J43.9 COPD type: emphysema Emphysema type: unspecified Peripheral arterial disease I73.9 Coronary artery disease involving [place] coronary artery of [place] heart without angina pectoris I25.10 Coronary Disease-Associated Artery/Lesion type: [place] artery [place] vs. 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 Patient denies any complaints testicular or penile pain at this time. Will continue to monitor. (2) Hydrocele: Comment: May 2022, hydrocelectomy April 2024 Code(s): N43.3 - Hydrocele, unspecified Category: Medical Plan: Patient is status post hydroceleclectomy. Condition is stable. Will continue to monitor. (3) Obstructive sleep apnea: Comment: Sleep study done 08/24/2023 mild to moderate AHI 15 . Because of multiple comorbidities he was started on CPAP therapy. He had been compliant before but in the past 3 months he has not used it much. Complains of having problems with the full face mask. Say is there is lot of air leak. Code(s): G47.33 - Obstructive sleep apnea (adult) (pediatric) Category: Medical Plan: Patient is currently on CPAP therapy. Condition is stable. Will continue to monitor. (4) COPD (chronic obstructive pulmonary disease): Comment: HE IS KNOWN TO HAVE MILD TO MODERATE DEGREE OF OBSTRUCTIVE AIRWAY DISORDER, IT HAS REMAINED VERY STABLE. HE IS RELATIVELY ASYMPTOMATIC AT THIS TIME., EXCEPT FOR MILD INTERMITTENT COUGH DUE TO SMOKING . Code(s): J44.9 - Chronic obstructive pulmonary disease, unspecified Category: Medical Qualifiers: COPD type: emphysema Emphysema type: unspecified Qualified Code(s): J43.9 - Emphysema, unspecified Plan: Patient recently had a CTA on 05/02/2024 at [facility] which was negative for PE revealed inflammation or infectious process. Will treat for bronchitis at this time with Augmentin, prednisone, Symbicort, albuterol. Condition is stable. Will continue to monitor (5) Peripheral arterial disease: Comment: 04/10/2019 - open aortobifemoral bypass Code(s): I73.9 - Peripheral vascular disease, unspecified Category: Medical Plan: Condition is stable. Will continue to monitor. (6) CAD (coronary artery disease): Comment: MABEL Uatsdin 2014 Dr. Reid angioplasty GERA mid RCA March 2018 STEMI 06/2021, mid RCA thrombus, GERA placed ECHO EF 63% Code(s): I25.10 - Atherosclerotic heart disease of [place] coronary artery without angina pectoris Category: Medical Qualifiers: Coronary Disease-Associated Artery/Lesion type: [place] artery [place] vs. transplanted heart: [place] heart Associated angina: without angina Qualified Code(s): I25.10 - Atherosclerotic heart disease of [place] coronary artery without angina pectoris Plan: Condition is stable. Will continue to monitor. (7) GERD (gastroesophageal reflux disease): Code(s): K21.9 - Gastro-esophageal reflux disease without esophagitis Category: Medical Qualifiers: Esophagitis presence: without esophagitis Qualified Code(s): K21.9 - Gastro-esophageal reflux disease without esophagitis Plan: Condition is stable. Will continue to monitor. (8) Chronic low back pain: Comment: herniated disc L5-S1 status post diskectomy Code(s): M54.5 - Low back pain; G89.29 - Other chronic pain Category: Medical Qualifiers: Back pain laterality: midline Sciatica presence: without sciatica Qualified Code(s): M54.5 - Low back pain; G89.29 - Other chronic pain Plan: Patient taking Tylenol .Condition is stable. Will continue to monitor. (9) Hypercholesterolemia: Code(s): E78.00 - Pure hypercholesterolemia, unspecified Category: Medical Plan: Patient currently on Crestor 40 mg taking as prescribed. Condition is stable. Will continue to monitor. (10) PFO (patent foramen ovale): Code(s): Q21.12 - Patent foramen ovale Category: Medical Plan: Chronic. Condition is stable. Will continue to monitor. (11) Smoker: Comment: [employer]MO[employer], STILL SMOKING CLOSE TO 1 PACK OF CIGARETTES A DAY. ACCORDING TO HIS , HE JUST WOULD NOT QUIT SMOKING. TRIED NICOTINE GUM WITHOUT MUCH HELP. Code(s): F17.200 - Nicotine dependence, unspecified, uncomplicated Category: Medical Plan: Discussed smoking cessation with patient. Condition is stable. Will continue to monitor. (12) Restrictive lung disease: Comment: PER PULMONARY FUNCTION TEST, HE HAS MODERATE DEGREE OF RESTRICTIVE LUNG DISEASE. THIS MAY BE PARTLY DUE TO HIS POOR EFFORTS, AND GENERAL WEAKNESS. Code(s): J98.4 - Other disorders of lung Category: Medical Plan: Recent CTA of chest within normal limits. Condition is stable. Will continue to monitor. (13) Painful arc syndrome of left shoulder: Code(s): M75.102 - Unspecified rotator cuff tear or rupture of left shoulder, not specified as traumatic Category: Medical Plan: Patient taking Tylenol and [id number] medication for pains. Conditions are stable. Will continue to monitor. (14) Hearing deficit: Code(s): H91.90 - Unspecified hearing loss, unspecified ear Category: Medical Plan: Chronic. Condition is stable. Will continue to monitor. (15) Cervical radiculopathy: Code(s): M54.12 - Radiculopathy, cervical region Category: Medical Plan: Chronic. Condition is stable. Will continue to monitor. (16) Erectile dysfunction: Code(s): N52.9 - Male erectile dysfunction, unspecified Category: Medical Plan: Chronic. Condition is stable. Will continue to monitor. (17) Generalized anxiety disorder: Code(s): F41.1 - Generalized anxiety disorder Category: Medical Plan: Chronic. Condition is stable. Will continue to monitor. (18) Seizure disorder: Code(s): G40.909 - Epilepsy, unspecified, not intractable, without status epilepticus Category: Medical Plan: Chronic. Condition is stable. Will continue to monitor. (19) BPH (benign prostatic hyperplasia): Code(s): N40.0 - Benign prostatic hyperplasia without lower urinary tract symptoms Category: Medical (20) Peripheral neuropathic pain: Code(s): M79.2 - Neuralgia and neuritis, unspecified Category: Medical (21) Urinary incontinence: Code(s): R32 - Unspecified urinary incontinence Category: Medical Plan: Chronic. Condition is stable. Will continue to monitor. (22) Gait instability: Code(s): R26.81 - Unsteadiness on feet Category: Medical Plan: Chronic. Condition is stable. Will continue to monitor. (23) Tubular adenoma of colon: Comment: december 2022 Code(s): D12.6 - Benign neoplasm of colon, unspecified Category: Medical Plan: Chronic. Condition is stable. Will continue to monitor. (24) Depression: Code(s): F32.A - Depression, unspecified Category: Medical Plan: Patient currently on paroxetine 20 mg daily. Taking as prescribed. Condition is stable. Will continue to monitor. (25) Obesity (BMI 30.0-34.9): Code(s): E66.811 - Obesity, class 1 Category: Medical Plan: Discussed diet and exercise. Condition is stable. Will continue to monitor. Plan Plan - Continue current medications for COPD, initiate Symbicort inhaler twice daily to manage wheezing and respiratory symptoms. - Prescribe Augmentin for a possible bronchial infection, 875 mg twice daily for 10 days. - Short course of prednisone 40 mg daily for 5 days to reduce any bronchial inflammation. - Initiate treatment with Gas-X to relieve abdominal distension due to gas. - Instruct the patient to follow up in 2 weeks for reevaluation and to determine further management. Medications: New budesonide-formoterol 160-4.5 mcg/actuation (Symbicort) 1 inh inhalation BID 10.2 grams 1RF COPD prednisone 40 mg (2 x 20 mg) PO DAILY 5 days 10 tabs 0RF simethicone (Gas-X Extra Strength) 125 mg PO TID-QID PRN 30 caps 1RF abdominal distention/pain/gas amoxicillin-pot clavulanate 875-125 mg 1 tab PO BID 10 days 20 tabs 0RF BRONCHITIS Scribe Plan - Not visible on output: History of Present Illness The patient is a 68-year-old male presenting with postoperative abdominal pain, shortness of breath, and cough. The patient underwent a right hydrocelectomy on May 01, 2024 at [facility]. Following the surgery, the patient began experiencing left-sided abdominal pain, which has persisted. On May 02, the patient visited [facility] due to worsening abdominal pain. Imaging studies did CTA of chest and CT scan of abdomen pelvis with IV contrast from that visit indicated no significant abnormalities. The abdominal pain is described as localized left-sided discomfort with feelings of fullness but is alleviated when the patient passes gas. There are no signs of nausea, vomiting, or gastrointestinal disturbances. He reports he is moving his bowels normally. He denies constipation or diarrhea. Despite being given Tylenol for pain management, pain persists though it is less severe than initially post- operation. For the shortness of breath, the patient has been experiencing increased dyspnea, particularly noticeable upon exertion. This symptom along with his chronic coughing, has worsened since undergoing surgical intervention. Historical treatment for COPD with albuterol inhaler reported. Post-discharge, a course of symptoms indicating potential airway irritation or infection due to intubation or surgical procedure was noted. Diagnostic imaging revealed chest inflammation, attributed possibly to bronchitis or other respiratory pathology. Social History - Smokes cigarettes; confirmed as a smoker. 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 - Denies alcohol consumption. Review of Systems - Respiratory: Reports shortness of breath and cough. - Gastrointestinal: Reports feeling of fullness in the stomach. - General: Denies leg swelling. Physical Exam Appearance: Alert. Oriented X3. No acute distress. Head: Normal external exam. Normocephalic. Atraumatic. Eyes: Pupils are equal, round, and reactive to light. Extraocular movements intact. Conjunctiva and sclera normal. Eyelids normal. Ears: External auditory canal normal. Tympanic membranes normal. Throat: Pharynx normal. Uvula midline. Moist mucous membranes. Neck: Normal inspection. Neck supple. Full range of motion. No adenopathy. Thyroid Normal. No meningeal signs. No neck mass noted. Cardiovascular: Normal heart rate and rhythm. Heart sound normal. No murmurs noted. Pulses normal throughout. Respiratory: Mild wheezing noted. No respiratory distress. Painless inspiration. Breath sounds normal. No rales/rhonchi noted. Chest nontender. No accessory muscle usage noted or decreased air movement noted. Abdomen: Soft and nontender. Bowel sounds normal in all 4 quadrants. + abd distention noted. No organomegaly noted. No visible injury noted. Reports feeling of fullness. Back: No costovertebral angle tenderness. Full range of motion noted. Skin: Skin warm and dry. Normal skin color. Normal skin turgor. No rashes/lesions/lacerations noted. Extremities: No Lower extremity edema noted. Extremities exhibit normal range of motion. Extremities nontender. Neuro: Oriented X 3. No motor deficit. No sensory deficit. Reflexes normal. Results - Radiographic Imaging: Recent abdominal and chest CT scans show no signs of abnormalities; noted right hydrocele and no pulmonary embolism. - CTA and CT abd/pelvis have confirmed normal appearances. Plan - Continue current medications for COPD, initiate Symbicort inhaler twice daily to manage wheezing and respiratory symptoms. - Prescribe Augmentin for a possible bronchial infection, 875 mg twice daily for 10 days. - Short course of prednisone 40 mg daily for 5 days to reduce any bronchial inflammation. - Initiate treatment with Gas-X to relieve abdominal distension due to gas. - Instruct the patient to follow up in 2 weeks for reevaluation and to determine further management. Patient was informed and verbally consented to the use of an ambient scribe for clinic note documentation during this visit. Discussion Notes I discussed with the patient the management of postoperative abdominal pain which appears related to gas distension post-surgery. Benefits of Gas-X in relieving symptoms were explained. I recommended continuing albuterol use for acute relief while starting Symbicort as a long-term measure to improve respiratory symptoms effectively. I proposed antibiotic therapy with Augmentin to address suspected bronchitis, and a short course of prednisone was outlined to suppress possible inflammation in the respiratory tract. Monitoring any exacerbation of COPD symptoms is advised. Return precautions and potential side effects of medications were duly communicated. A follow-up visit was advised to ensure symptom resolution and reevaluate treatment results. Patient Instructions - Initiate use of Symbicort inhaler twice daily alongside current albuterol usage. - Complete the full course of Augmentin as prescribed. - Take prednisone daily for 5 days. - Use Gas-X up to 4 times daily as required for relief from gas. - Observe for any worsening of respiratory symptoms or abdominal pain. - Follow up with your primary care physician or come back sooner if symptoms persist or worsen. - Avoid smoking to help with respiratory recovery.
--- OUTSIDE RECORDS SUMMARY | 2024-05-09 13:21 | XMS_ITS | Continuity of Care Document ---
Author Organization [facility] ter Address [address] [place] [address]- Care Team Providers Care Site Director Name Role Phone Po Jami FREDERICK Primary Care Physician [phone] Encounter [facility] ACCT R [id number] Date(s): 05/02/24 - 05/03/[address] [address]- Encounter Diagnosis Left upper quadrant abdominal pain(Final) - 05/03/24 Dyspnea(Final) - 05/03/24 Discharge Disposition: A-D/C Home Attending Physician: Dana Dougherty MD Admitting Physician: Dana Dougherty MD Referring Physician: Not on Staff, Referring MD Encounter Type: Disch ES Allergies, Adverse Reactions, Alerts No Known Allergies Immunizations Given and Recorded Vaccine Date Status Refusal Reason SARS-CoV-2 (COVID-19) mRNA BNT-162b2 vac 09/23/20 Recorded SARS-CoV-2 (COVID-19) mRNA BNT-162b2 vac 09/02/20 Recorded Medications acetaminophen 325 mg oral tablet 650 mg, 2, tablet, Nasogastric Tube, Every 6 hours, PRN, Refills 0, Maintenance, Pain , Mild, 09/17/22 2:14:00 PM EDT, Partial fill upon patient request if the prescription is for a schedule II opioiddrug. Start Date: 09/17/22 Status: Ordered Repeat number: 1 acetaminophen 650 mg oral tablet, extended release 1 tablet = 650 mg, By Mouth, Every 8 hours, PRN Pain , Mild, # 30 tablet, 0 Refills, Acute 06/04/24 12:59:00 PM EST, 05/03/24 12:57:00 PM EST, ER Tablet, [id number], Partial fill upon patient request if the prescription is for a schedule II opioid drug., 158, cm, 05/03/23 5:25:00 EST, Height, 69, kg, 05/03/23 5:25:00 EST, Dry Weight Start Date: 05/03/24 Stop Date: 06/04/24 Status: Ordered Quantity: 30.0 Unit: tablet Repeat number: 1 Aspirin Low Dose 81 mg oral delayed release tablet 1 tablet = 81 mg, By Mouth, Daily, Maintenance, 08/26/22 12:04:00 PM EDT, EC Tablet, Partial fill upon patient request if the prescription is for a schedule II opioid drug. Start Date: 08/26/22 Status: Ordered Repeat number: 1 bisacodyl 10 mg rectal suppository 1 supp = 10 mg, Rectally, Daily, PRN Constipation, 0 Refills, Maintenance, 09/17/22 2:13:00 PM EDT, Suppository, Partial fill upon patient request if the prescription is for a schedule II opioid drug. Start Date: 09/17/22 Status: Ordered Repeat number: 1 Enoxaparin 0.4 mL = 40 mg, Subcutaneous Injection, Daily, 0 Refills, Maintenance, 09/17/22 2:13:00 PM EDT, Injection, Partial fill upon patient request if the prescription is for a schedule II opioid drug. Start Date: 09/17/22 Status: Ordered Repeat number: 1 ibuprofen 400 mg oral tablet 400 mg, 1, tablet, By Mouth, Every 8 hours, PRN, # 30 tablet, Refills 0, Tot. Refills 0, Acute 06/04/24 12:59:00 PM EST, Pain , Mild, 05/03/24 12:57:00 PM EST, Route to Pharmacy Electronically, [id number], Partial fill upon patient request if the prescription is for a schedule II opioid drug., 158, cm, 05/03/23 5:25:00 EST, Height, 69, kg, 05/03/23 5:25:00 EST, Dry Weight Start Date: 05/03/24 Stop Date: 06/04/24 Status: Ordered Quantity: 30.0 Unit: tablet Repeat number: 1 lactulose 10 gm/15 ml oral syrup 30 mL = 20 Gm, Nasogastric Tube, 4 times a day, PRN Constipation, 0 Refills, Maintenance, 09/17/22 2:14:00 PM EDT, Syrup, Partial fill upon patient request if the prescription is for a schedule II opioid drug. Start Date: 09/17/22 Status: Ordered Repeat number: 1 metoprolol 25 mg oral tablet 12.5 mg, 0.5, tablet, By Mouth, 2 times a day, Refills 0, Maintenance, 09/17/22 4:11:00 PM EDT, Partial fill upon patient request if the prescription is for a schedule II opioid drug. Start Date: 09/17/22 Status: Ordered Repeat number: 1 modafinil 100 mg oral tablet 2 tablet = 200 mg, By Mouth, Daily, 0 Refills, Maintenance, 09/17/22 2:14:00 PM EDT, Tablet, Partialfill upon patient request if the prescription is for a schedule II opioid drug. Start Date: 09/17/22 Status: Ordered Repeat number: 1 MorPHINE Inj 4 mg, Injection, IV Push Slowly, Every 5 minutes for 3 doses/times, PRN for Pain , Moderate, and SBP greater than 100, Routine, 05/03/24 12:01:00 AM EST Start Date: 05/03/24 Stop Date: 05/03/24 Status: Discontinued Repeat number: 1 Nicotine = 21 mg, Topically, Daily, 0 Refills, Maintenance, 09/17/22 2:14:00 PM EDT, Patch, Partial fill uponpatient request if the prescription is for a schedule II opioid drug. Start Date: 09/17/22 Status: Ordered Repeat number: 1 Plavix 75 mg oral tablet 75 mg, 1, tablet, Nasogastric Tube, Daily, Refills 0, Maintenance, 09/17/22 2:13:00 PM EDT, Partial fill upon patient request if the prescription is for a schedule II opioid drug. Start Date: 09/17/22 Status: Ordered Repeat number: 1 Remove Patch 1 each, Topically, Daily, 0 Refills, Maintenance, Patch Start Date: 09/17/22 Status: Ordered Repeat number: 1 rosuvastatin 40 mg oral tablet 1 tablet = 40 mg, By Mouth, Daily, Maintenance, 08/26/22 12:05:00 PM EDT, Tablet, Partial fill upon patient request if the prescription is for a schedule II opioid drug. Start Date: 08/26/22 Status: Ordered Repeat number: 1 Salinex [place] 1 sprays, Nares, Both, 4 times a day, PRN Other, dryness, 0 Refills, Maintenance, 09/17/22 2:14:00 PM EDT, Nasal [place], Partial fill upon patient request if the prescription is for a schedule II opioid drug. Start Date: 09/17/22 Status: Ordered Repeat number: 1 Salinex [place] 1 sprays, Nares, Both, 2 times a day, dryness, 0 Refills, Maintenance, 09/17/22 2:14:00 PM EDT, Nasal [place], Partial fill upon patient request if the prescription is for a schedule II opioid drug. Start Date: 09/17/22 Status: Ordered Repeat number: 1 sildenafil 100 mg oral tablet 1 tablet = 100 mg, By Mouth, Daily, 1 hour before sexual activity, Maintenance, 08/26/22 12:04:00 PMEDT, Tablet, Partial fill upon patient request if the prescription is for a schedule II opioid drug. Start Date: 08/26/22 Status: Ordered Repeat number: 1 thiamine 100 mg oral tablet 100 mg, 1, tablet, By Mouth, Daily, Refills 0, Maintenance, 09/17/22 2:14:00 PM EDT, Partial fill upon patient request if the prescription is for a schedule II opioid drug. Start Date: 09/17/22 Status: Ordered Repeat number: 1 traZODone 50 mg oral tablet 25 mg, 0.5, tablet, By Mouth, Daily at bedtime, Refills 0, Maintenance, 09/17/22 2:14:00 PM EDT, Partial fill upon patient request if the prescription is for a schedule II opioid drug. Start Date: 09/17/22 Status: Ordered Repeat number: 1 Problem List Condition Confirmation Course Effective Dates Status H ealth Status Informant CAD (coronary artery disease) Confirmed Active Dyslipidemia Confirmed Active Hyperlipidemia Confirmed Active Hypertension Confirmed Active Current smoker Confirmed Active Results Radiology Reports * Exam Date Time Procedure Performing Provider Status 05/03/24 7:[address] Angio Chest Kathya Winkler; Auth (V erified) Notes: (CT Angio Chest) Reason For Exam: PE suspected, Intermediate prob, positive D-dimer,;Other: RESULT: CT Angio Chest CT Angio Chest INDICATION: Chronic nonproductive cough and shortness of breath. Elevated d- dimer. Concern for PE. TECHNIQUE: Spiral CTA of the chest was performed after rapid IV contrast administration without cardiac gating, triggered by an GUZMAN on the main pulmonary artery. Images are formatted in multiple planes using 2-D multiplanar and 3-D maximum intensity projection. 100 cc of Isovue 300 was administered intravenously. This study was performed without oral contrast. Weight-based protocol using automatic tube modulation was used to optimize exposure parameters. CTDIvol Body: 6.70 mGy, DLP Body: 451 mGy*cm. COMPARISONS: None. FINDINGS: Quality Assurance Supervisor View Findings, Lines and Tubes: None. Pulmonary arteries: Normal. No pulmonary embolism. Aorta: Atherosclerotic plaque but no aneurysm or dissection on this study without cardiac gating. Heart: Heart is normal in size. No pericardial effusion. Heavy coronary calcification. No septal deviation or IVC reflux. Trachea and Airways: Patent without evidence of tracheal or endobronchial lesion. Mild bilateral lower lobe bronchiectasis/wall thickening and mucoid impaction. Lungs and Pleura: Mild bibasilar atelectasis and possible scarring. Small amount of right lower lobe paraseptal emphysema. No effusion or pneumothorax. Mediastinum and cassandra: * No mass or hematoma. * Mild mediastinal and bilateral hilar lymphadenopathy measuring up to 1.2 cm short axis in the left hilum (image 47 series 601). * Normal esophagus. * 1.6 cm right thyroid lobe nodule (image 8 series 601). Chest Wall Soft Tissues: Normal. Diaphragm and upper abdomen: No significant abnormality. Hepatic steatosis, better seen on same-daydedicated CT abdomen/pelvis. Small calcified granuloma in the hepatic dome. Bones: Normal. IMPRESSION: 1. No pulmonary embolism or other acute cardial pulmonary process. 2. Mild and bilateral hilar lymphadenopathy. Findings may represent infectious/inflammatory process; however, malignancy cannot be excluded. 3. Right thyroid lobe 1.6 cm nodule. Dedicated ultrasound is recommended for further evaluation. I have personally reviewed the images and I agree with this report. WSN: [id number] Ordering Physician: Laurence Worrell Dictated By: Geoff Alcantar MD Dictated Date/Time: 05/03/24 8:42 am Reviewed By: Ata Beverly MD Signed By: Ata Beverly MD Signed Date/Time: 05/03/24 8:47 am Transcribed By: ISACC Transcribed Date/Time: 05/03/24 8:36 am * Exam Date Time Procedure Performing Provider Status 05/03/24 5:09 AM Chest 2 Views Frontal and Lat René Navarro; Auth (Verified) Notes: (Chest 2 Views Frontal and Lat) Reason For Exam: Shortness of Breath, Fever;Other: RESULT: Chest 2 Views Frontal and Lat Chest 2 Views Frontal and Lat Hx of Present Illness: patient comes from home. recent testical surgery to R testicle yesterday. [id number] of abdominal pain; Reason: Other:; Shortness of Breath, Fever; Clinical Question(s): Pneumonia COMPARISON: 09/15/2022 FINDINGS: LINES AND TUBES: None. LUNGS AND PLEURA: There is apical lordotic positioning. Allowing for this the lungs are symmetrically aerated and clear. Pulmonary vascularity is normal. No pleural effusion. No pneumothorax. HEART, MEDIASTINUM AND CASSANDRA: Heart is normal in size. Normal mediastinal and hilar contour. BONES AND SOFT TISSUES: No acute abnormality. IMPRESSION: No acute abnormality. WSN: [id number] Ordering Physician: Laurence Wrorell Dictated By: Pretty Coronado MD Dictated Date/Time: 05/03/24 7:27 am Reviewed By: Pretty Coronado MD Signed By: Pretty Coronado MD Signed Date/Time: 05/03/24 7:27 am Transcribed By: ISACC Transcribed Date/Time: 05/03/24 7:25 am * Exam Date Time Procedure Performing Provider Status 05/03/24 1:[address] Abd/Pelvis W/ IV Contrast Only Judith Vee; Auth (Verified) Notes: (CT Abd/Pelvis W/ IV Contrast Only) Reason For Exam: LUQ abdominal pain, s/p right hyrdocele procedure yesterday;Other: RESULT: CT Abd/Pelvis W/ IV Contrast Only CT Abd/Pelvis W/ IV Contrast Only HX OF PRESENT ILLNESS: recent surgery to R testicle yesterday. x3 hours of abdominal pain; Reason: LUQ abdominal pain, s p right hyrdocele procedure yesterday TECHNIQUE: Spiral CT through the abdomen and pelvis with IV contrast formatted in 3 planes. 100 cc of Isovue 300 was administered intravenously. This study was performed without oral contrast. Weight-based protocol using automatic tube modulation was used to optimize exposure parameters. CTDIvol Body: 20.30 mGy, DLP Body: 1106 mGy*cm. COMPARISON: Multiple priors, most recent CT abdomen pelvis 11/04/2022 FINDINGS: Quality Assurance Supervisor View Findings, Lines and Tubes: None. Visualized Chest: Mild bibasilar atelectasis. No consolidation. No pleural effusion. The heart is normal in size. No pericardial effusion. Diaphragm: Normal. Liver: Hepatic steatosis. No suspicious lesion. Calcified granuloma at the dome of the liver. Gallbladder: No CT evidence of gallbladder pathology. Bile ducts: No biliary ductal dilation. Spleen: Normal. Pancreas: Normal. Adrenal glands: Normal. Kidneys and ureters: No hydronephrosis, stones, or suspicious masses. Simple appearing renal cysts and hypodensities that are too small to characterize are noted, requiring no dedicated follow up. Bladder: Normal. Reproductive organs: Partially imaged right hydrocele with small locule of air and overlying subcutaneous edema. Stomach, small bowel, and large bowel: Unremarkable stomach. Fecalization of small bowel contents, which may represent slow flow, ileocecal valve dysfunction, or small intestinal bacterial overgrowth. Mild stool retention throughout the colon. No evidence of bowel obstruction or acute inflammation. Appendix: Normal. Peritoneum and retroperitoneum: No ascites or pneumoperitoneum. No omental or mesenteric lesions. Lymph nodes: No enlarged lymph nodes. Blood vessels: Mild vascular calcifications. Unchanged appearance of aortoiliac bypass. No evidenceof venous thrombosis. Abdominal and pelvic wall: Unremarkable. Bones: No acute abnormality. Status post L5-S1 posterior fusion. Mild degenerative changes throughout the spine. IMPRESSION: No acute abnormality of the abdomen or pelvis to explain left upper quadrant pain. Partially imaged right hydrocele with small locule of air and overlying subcutaneous edema. Findings may be postoperative. Hepatic steatosis. I have personally reviewed the images and I agree with this report. WSN: [id number] Ordering Physician: Laurence Worrell Dictated By: Joanne Escobar MD Dictated Date/Time: 05/03/24 7:08 am Reviewed By: Hong Briceno MD Signed By: Hong Briceno MD Signed Date/Time: 05/03/24 7:13 am Transcribed By: ISACC Transcribed Date/Time: 05/03/24 3:44 am Vital Signs Most recent to oldest [Reference Range]: 1 2 3 Oxygen Saturation [94-100 %] 95 % (05/03/24 1:37 PM) 94 % (05/03/24 11:44 AM) 95 % (05/03/24 6:55 AM) Pulse Rate [55-90 bpm] 66 bpm (05/03/24 1:37 PM) 67 bpm (05/03/24 11:44 AM) 65 bpm (05/03/24 6:55 AM) Blood Pressure [90-138/55-84 mm Hg] 110/73mm Hg (05/03/24 1:37 PM) 116/69mm Hg (05/03/24 11:44 AM) 118/75mm Hg (05/03/24 6:55 AM) Respiratory Rate [16-30 br/min] 18 br/min (05/03/24 1:37 PM) 16 br/min (05/03/24 11:45 AM) 16 br/min (05/03/24 11:44 AM) Temperature [96.8-100.4 DegF] 98.9 DegF (05/03/24 6:55 AM) 98.1 DegF (05/03/24 4:48 AM) 98.1 DegF (05/03/24 3:02 AM) Mode of Delivery (Oxygen) r (05/03/24 1:37 PM) Room air (05/03/24 6:55 AM) Room air (05/03/24 4:48 AM) Blood pressure sites Arm, right (05/03/24 1:37 PM) Arm, right (05/03/24 6:55 AM) Arm, right (05/03/24 4:48 AM) Temperature Route Oral (05/03/24 6:55 AM) Oral (05/03/24 4:48 AM) Oral (05/03/24 3:02 AM) Social History Social History Type Response Smoking Status Former smoker; Type: Cigarettes; Other: Quit in July 02 after surgery; entered on: 08/01/14 Sex Male Sex Representation Male (finding) EKG study * Event Display: EKG Authored Date: * Event Display: ECG 12-Lead Authored Date: Please click on pdf link to open report * Event Display: ECG 12-Lead Authored Date: Ventricular Rate: 62 BPM Atrial Rate: 62 BPM P-R Interval: 164 ms QRS Duration: 80 ms Q-T Interval: 402 ms QTC Calculation(Bazett): 408 ms P Oelrichs: 50 degrees R Oelrichs: 20 degrees T Oelrichs: 57 degrees Normal sinus rhythm Low voltage QRS Inferior infarct (cited on or before 26-Aug-2022) Cannot rule out Anterior infarct (cited on or before 31-Aug-2022) Abnormal ECG When compared with ECG of 31-Aug-2022 23:03, No significant change was found Confirmed by JOHN HURD MD ([id number]) on 05/03/2024 9:39:07 AM Munday: JOHN HURD MD Note * Enma Brothers DO: PERFORM Event Display: Patient Education Leaflets Authored Date: [id number] Chronic Cough with??Uncertain Cause (Adult) ?? [id number] Chronic Cough with??Uncertain Cause (Adult) Everyone has had a cough as part of the common cold, flu, or bronchitis. This kind of cough occurs along with an achy feeling, low-grade fever, nasal and sinus congestion, and a scratchy or sore throat. This usually gets better in 2 to 3 weeks. A cough that lasts longer than 3 weeks may be due to other causes. Your healthcare provider may refer to this as a chronic cough. If your cough does not improve over the next 2 weeks, further testing may be needed. Follow up withyour healthcare provider as advised. Cough suppressants may be recommended. Based on your exam today, the exact cause of your cough is not certain. Below are some common causes for persistent cough. Smoker's cough Smoker???s cough doesn???t go away. If you continue to smoke, it only gets worse. The cough is fromirritation in the air passages. Talk to your healthcare provider about quitting. Medicines or nicotine-replacement products, like gum or the patch, may make quitting easier. ?? Postnasal drip A cough that is worse at night may be due to postnasal drip. Excess mucus in the nose drains from the back of your nose to your throat. This triggers the cough reflex. Postnasal drip may be due to a sinus infection or allergy. Common allergens include dust, tobacco smoke (both inhaled and secondhand smoke), environmental pollutants, pollen, mold, pets, cleaning agents, room deodorizers, and chemical fumes. Gggy-zvr-pjtmmkq antihistamines or decongestants may be helpful for allergies. A sinus infection may require antibiotic treatment. See your healthcare provider if symptoms continue. ?? Medicines Certain prescribed medicines can cause a chronic cough in some people: ??? NICOLE inhibitors for high blood pressure. These include enalapril, lisinopril, and others. ??? Beta-blockers for high blood pressure and other conditions. These include propranolol, metoprolol, andothers. Let your healthcare provider know if you are taking any of these. The chronic cough may mean your medicine needs to be changed. ?? Asthma Cough may be the only sign of mild asthma. You may have tests to find out if asthma is causing yourcough. You may also take asthma medicine on a trial basis. ?? Acid reflux (heartburn, GERD) The esophagus is the tube that carries food from the mouth to the stomach. A valve at its lower endprevents stomach acids from flowing upward. If this valve does not work properly, acid from the stomach enters the esophagus. This may cause a burning pain in the upper abdomen or lower chest, belching, or cough. Symptoms are often worse when lying flat. Avoid eating or drinking before bedtime. Tryusing extra pillows to raise your upper body, or place 4-inch blocks under the head of your bed. You may try an rxsp-ygi-zplmgjm (OTC) antacid or an acid-blocking medicine such as cimetidine, or omeprazole. Stronger medicines for this condition can be prescribed by your healthcare provider. Ask your healthcare provider which OTC medicine to use. Depending on your current medicines, some OTC medicines may cause drug interactions and should be avoided. ?? Follow-up care Follow up with your healthcare provider, or as advised, if your cough doesn't improve. Further testing may be needed. Note: If an X-ray was taken, you'll be told of any new findings that may affect your care. ?? When to get medical advice Call your healthcare provider right away if any of these occur: ??? Mild wheezing or trouble breathing ??? Fever of 100.4??F (38??C) or higher, or as advised by your provider ??? Unexpected weight loss ??? Coughing up large amounts of colored sputum or blood-tinged sputum ??? Night sweats (sheets and pajamas get soaking wet) ?? Call 911 Call 911 if any of these occur: ??? Coughing up blood ??? Moderate to severe trouble breathing or wheezing ?? Last Reviewed Date: 2021 ?? [id number] [employer]. All rights reserved. This information is not intended as a substitute for professional medical care. Always follow your healthcare professional's instructions. ?? * Enma Brothers DO: PERFORM Event Display: Patient Education Leaflets Authored Date: [id number] Unknown Causes of Abdominal Pain (Adult) ?? [id number] Unknown Causes of Abdominal Pain (Adult) The exact cause of your belly (abdominal) pain is not clear. Your exam and tests don't suggest a dangerous cause at this time. This does not mean that this is something to worry about. Everyone likesto know the exact cause of the problem. But sometimes with belly pain, there is no clear-cut cause,and this could be a good thing. Your symptoms can be treated, and you should feel better.?? Your condition does not seem serious now. But sometimes the signs of a serious problem may take more time to appear. For this reason,??it's important for you to watch for any new symptoms, problems,??or if your condition gets worse. Over the next few days, the abdominal pain may come and go. Or it may be constant. Other common symptoms can include nausea and vomiting. Sometimes it can be difficult to tell if you feel nauseous. You may just feel bad and not connect that feeling to nausea. Constipation, diarrhea, and a fever maygo along with the pain. The pain may continue even if treated correctly over the following days. Depending on how things go, sometimes the cause can become clear and you may need more??or different treatment. You may also need other evaluations, medicines, or tests. Home care Your healthcare provider may prescribe medicine for pain, symptoms, or an infection. ??Follow the healthcare provider's instructions for taking these medicines. General care ??? Rest as much as you can until your next exam. No strenuous activities. ??? Try to not do anything that may have caused your symptoms. This might be not taking any medicines unless otherwise directed by your healthcare provider. It might be not eating certain foods or doing certain activities. ??? Find positions that ease discomfort. A small pillow placed on your belly may help relieve pain. ??? Something warm on your belly, such as a heating pad, may help, but be careful not to burn yourself. Diet ??? Don???t??force yourself to eat, especially if having cramps, vomiting, or diarrhea. ??? Water is important so you don't get dehydrated. Soup may also be good. Sports drinks may also help, especially if they are not too acidic. Don't drink sugary drinks as this can make things worse. Take liquids in small amounts. Don???t??guzzle them. ??? Caffeine sometimes makes the pain and cramping worse. ??? Don???t take??dairy products if you have vomiting or diarrhea. ??? Don't eat large amounts at a time. Eat several small meals during the day instead of 2 or 3 larger meals. Wait a few minutesbetween bites. ??? Eat a diet low in fiber (called a low-residue diet). Foods allowed include refined breads, white rice, fruit and vegetable juices without pulp, tender meats. These foods will pass more easily through the intestine. ??? Don???t have??whole-grain foods, whole fruits and vegetables,meats, seeds, and nuts, fried or fatty foods, dairy, alcohol and spicy foods until your symptoms goaway. ?? Follow-up care Follow up with your healthcare provider, or as advised, if your pain does not begin to improve in the next 24 hours. ?? Call 911 Call?? 911 if any of these occur: ??? Trouble breathing ??? Confusion ??? Fainting or loss of consciousness ??? Rapid heart rate ??? Seizure ?? When to get medical advice Call your healthcare provider right away if any of these occur: ??? Pain gets worse or moves to theright lower abdomen ??? Vomiting or diarrhea that is new or gets worse ??? Swelling of the abdomen ??? Unable to pass stool for more than??3 days ??? Fever of 100.4??F (38??C) or higher, or as directed by your healthcare provider ??? Blood in vomit or bowel movements (dark red or black color) ??? Ye llow color of eyes and skin (jaundice) ??? Weakness, dizziness ??? Chest, arm, back, neck, or jaw pain ??? Can't keep down medicines, liquids, or water because of too much vomiting ??? If you have a vagina: unexpected vaginal bleeding or missed period ?? Last Reviewed Date: 2024 ?? [employer]. All rights reserved. This information is not intended as a substitute for professional medical care. Always follow your healthcare professional's instructions. ?? Patient Care team information Care Team Personnel Name: Jeromy Nova RN Position: S RN [...] Care Nurse Name: Albert Pierce MD Position: [facility] Cardiology MD Member Role: Lifetime Consulting Physician Address: [address] [place] [address] [facility] [place], [place] [address] Telecom: Name: Mirela Andrade Position: S RN Member Role: Primary Care Nurse Name: Jami Martin MD Position: Reference Physician Member Role: PCP Address: [address] [place] [id number] Telecom: Name: Karoline Reid RN Position: [facility] RN Member Role: Primary Care Nurse Care Team Related Persons Name: JANNETSISSY Insurance Providers Guarantor name: ANNE POWER Health Plan Information #: 1 Payer: [facility] Member Number: [id number] Policy Number: NA Group Number: NA Health Plan Information #: 2 Payer: MEDICARE PART B OUTPT Member Number: [id number] Policy Number: NA Group Number: NA
[2024-05-09 13:26] VITALS: BP 110/60; PULSE 71; O2SAT 92
== END 2024-05-09 13:54 | disposition home or self-care (01) ==
PROVIDERS: PCP Internal Medicine; Visit Provider Internal Medicine
DX: J43.9 Emphysema, unspecified (principal); I73.9 Peripheral vascular disease, unspecified; G40.909 Epilepsy, unspecified, not intractable, without status epilepticus; Z98.890 Other specified postprocedural states; N43.3 Hydrocele, unspecified; G47.33 Obstructive sleep apnea (adult) (pediatric); I25.10 Atherosclerotic heart disease of native coronary artery without angina pectoris; K21.9 Gastro-esophageal reflux disease without esophagitis; M54.50 Low back pain, unspecified; G89.29 Other chronic pain; E78.00 Pure hypercholesterolemia, unspecified; Q21.12 Patent foramen ovale

== ENCOUNTER → 2024-05-09 13:19 | Outpatient (BNVA) | payer MEDICARE, MEDICAID, SELFPAY | PROVIDERS: PCP Internal Medicine; Visit Provider Internal Medicine | DX: N43.3 Hydrocele, unspecified (principal); G47.33 Obstructive sleep apnea (adult) (pediatric); J43.9 Emphysema, unspecified; I73.9 Peripheral vascular disease, unspecified; I25.10 Atherosclerotic heart disease of native coronary artery without angina pectoris; K21.9 Gastro-esophageal reflux disease without esophagitis; M54.50 Low back pain, unspecified; E78.00 Pure hypercholesterolemia, unspecified; Q21.12 Patent foramen ovale; J98.4 Other disorders of lung; Q84.0 Congenital alopecia; F41.1 Generalized anxiety disorder; N40.0 Benign prostatic hyperplasia without lower urinary tract symptoms; R26.81 Unsteadiness on feet; D12.6 Benign neoplasm of colon, unspecified; F32.A Depression, unspecified; Z98.890 Other specified postprocedural states | CPT/HCPCS: 96127; 99212 ==

== ENCOUNTER 2024-05-21 13:46 | Outpatient (AMB) | payer MEDICARE, MEDICAID, SELFPAY ==
--- NOTE | 2024-05-21 13:50 | MHC.OFFVIS ---
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 Required: No Allergies No Known Allergies [No Known Allergies*] Allergy (Verified 05/21/24 14:07) Medication List - Last Reconciled 05/21/24 by Millie Castro MD acetaminophen (Acetaminophen Extra Strength) 1,000 mg (2 x 500 mg) PO Q8H PRN albuterol sulfate 90 mcg/actuation 2 puffs inhalation Q4-6H PRN [APAP 6-16 cm H20 humidified AIR As directed] aripiprazole 2 mg PO DAILY aspirin (Adult Aspirin Regimen) 81 mg PO DAILY budesonide-formoterol 160-4.5 mcg/actuation (Symbicort) 1 inh inhalation BID clopidogrel (Plavix) 75 mg PO DAILY gabapentin 300 mg PO BEDTIME memantine 5 mg PO BID metoprolol succinate ER 50 mg PO DAILY pantoprazole 20 mg PO BID 90 days paroxetine HCl 20 mg PO DAILY rosuvastatin (Crestor) 40 mg PO DAILY simethicone (Gas-X Extra Strength) 125 mg PO TID-QID PRN trazodone 100 mg PO BEDTIME Do you need a note to return to daycare/school/sports/work: No HPI HPI COPD: Details: This 68 years old gentleman originally from [facility] , speaks some Vietnamese and his is the 1 who provides most of the information. He is here after 3 months for follow-up. He has not been able to use the CPAP regularly , as according to the the mask that was sent to him was a fullface mask which he does not like. The DME supplier did not send him the nasal mask. He does sleep 5-6 hours every night. But according to the when he uses CPAP his sleep is better. As far as smoking is concerned he has cut down to 5 cigarettes a day. his keeping a control on the number of cigarettes. Cough is much less and breathing has been stable. He did have symptoms of respiratory infection and was seen at [facility] on 05/03, The chest x-ray as well as CTA of the chest did not show any acute pneumonia, there was some mediastinal lymphadenopathy which was noted but no mask. Primary care physician did treat him with a short course of prednisone and antibiotic. At present he has no active symptoms of respiratory infection. [facility] Medical History Sleep apnea Scrotal sac enlargement Hypersomnia Nicotine dependence, cigarettes, uncomplicated Restrictive lung disease Claudication Preop cardiovascular exam Smoker Incisional pain Aspiration pneumonia Metabolic encephalopathy PFO (patent foramen ovale) CVA (cerebral vascular accident) Scrotal sac enlargement Vision changes Colonoscopy refused Colon cancer screening Annual physical exam Shoulder pain, left Hospital discharge follow-up STEMI (ST elevation myocardial infarction) Vision changes Otitis media Hypercholesterolemia Peripheral arterial disease Tobacco abuse COPD (chronic obstructive pulmonary disease) CAD (coronary artery disease) GERD (gastroesophageal reflux disease) Chronic low back pain Surgical History History of prostate surgery S/P cardiac catheterization History of coronary artery stent placement History of aorto-femoral bypass Family History Father Hypertension Mother Hypertension Brother In good health Brother In good health Sister In good health Sister In good health Son In good health Son In good health Son In good health Son In good health Social History Housing: House Alcohol intake: former Patient Tobacco Use Status: Former Tobacco user Tobacco use type: Cigarette Cigarettes Per Day: 10 Years Smoked: 55 +/- n (07/2023) e-Cigarette/Vaping Use: Never Used Second Hand Smoke Exposure: Yes service: No Current occupational status: employed Cognitive needs: Yes (walker) Hearing needs: No Vision needs: No Review of Systems Const All systems reviewed & are unremarkable except as noted in HPI and below Eyes Reports no additional complaints ENT Reports no additional complaints and Denies dysphagia Card Denies chest pain, Denies irregular heart rhythm (Has the monitor on), Denies leg edema and Reports dyspnea on exertion (Mild) Resp Reports cough (Minimal and infrequent) and Reports dyspnea on exertion (Mild) GI Denies dysphagia, Denies dyspepsia and Reports heartburn (Being treated with Protonix for prevention of GERD) Musc Reports abnormal gait (Uses walker) and Reports muscle weakness Skin/Breast Reports system reviewed and no additional complaints, except as documented Neuro Reports abnormal gait (Uses walker) Psych Reports depression (Treated with med) Endo Reports no additional complaints Sergei/Lymph Reports no additional complaints Physical Exam Vital Signs: Last Vital Signs Pulse 62 05/21/24 13:51 BP 102/68 05/21/24 13:51 Pulse Ox 98 05/21/24 13:51 Oxygen Delivery Method Room Air 05/21/24 13:51 BMI result Body Mass Index 30.8 Const General: comfortable, no acute distress, alert and awake Orientation/consciousness: patient oriented x3 HEENT Head: Yes normal to inspection General nose exam: No nasal polyps present and No nasal discharge present Face and sinus: Yes sinuses nontender Mouth: oropharynx normal Throat: Yes posterior oropharynx normal Eyes General: appearance normal, both eyes and all related structures Neck Neck: Yes normal visual inspection, Yes no lymphadenopathy, Yes trachea midline and Yes no JVD Thyroid: Thyroid normal Chest Chest palpation & inspection: normal inspection of the chest, normal palpation of entire chest wall and no tenderness Resp Other: Percussion note is resonant, has be equal breath sounds on both sides, the breath sounds are distant with prolonged expiratory phase. No wheezes or Crepitations are heard . Cardio Palpation: normal PMI Rate: regular rate Rhythm: regular rhythm Heart sounds: no gallops and no murmurs GI Other: Abdomen soft, benign. G-tube uneventfully removed. Dressing applied. Palpation (GI): Soft to palpation, nontender, No hepatosplenomegaly present and no masses Auscultation: normal bowel sounds Back/Spine/Pelvis Thoracic/Lumbar Spine: thoracic and lumbar spine normal to inspection and Thoracic/lumbar scoliosis (Mild to moderate) Skin General skin exam: no rashes or lesions noted Neuro General: patient oriented x3, No gait normal (The gait is somewhat unstable, due to poor balance, needs walker) and no focal motor deficits Cranial nerves: Yes CN's II-XII intact bilaterally Extrem General: Yes normal to inspection, Yes no clubbing, cyanosis or edema and Yes no calf tenderness Psych Appearance: grossly normal and well kempt Speech and movement: Normal speech and movement present Results Reviewed Results Reviewed: Compliance report for the last 30 nights is reviewed and it is very evident that he try to use it only for about 4 or 5 nights for a few hours at a time. Overall he has remained noncompliant. He has heights the reason as being fullface mask which he can not tolerate. He likes to try nasal mask Assessment & Plan Assessment & Plan (1) COPD (chronic obstructive pulmonary disease): Comment: HE IS KNOWN TO HAVE MILD TO MODERATE DEGREE OF OBSTRUCTIVE AIRWAY DISORDER, IT HAS REMAINED VERY STABLE. HE IS RELATIVELY ASYMPTOMATIC AT THIS TIME., EXCEPT FOR MILD INTERMITTENT COUGH DUE TO SMOKING . NO WHEEZING. Code(s): J44.9 - Chronic obstructive pulmonary disease, unspecified Category: Medical Qualifiers: COPD type: emphysema Emphysema type: unspecified Qualified Code(s): J43.9 - Emphysema, unspecified Plan: ALBUTEROL HFA 2 PUFFS Q 4-6 HOURS P.R.N. SYMBICORT 160-4.52 PUFFS B.I.D. (2) Smoker: Comment: LIFELONG SMOKER, STILL SMOKING BUT HAS CUT DOWN TO 5 CIGARETTES A DAY. HIS IS KEEPING CONTROL ON THE NUMBER OF CIGARETTES. Code(s): F17.200 - Nicotine dependence, unspecified, uncomplicated Category: Social Hx Plan: COMMENDED FOR CUTTING DOWN ON SMOKING AND ADVISED TO CUT DOWN TO 2 CIGARETTES A DAY (3) Restrictive lung disease: Comment: PER PULMONARY FUNCTION TEST, HE HAS MODERATE DEGREE OF RESTRICTIVE LUNG DISEASE. THIS MAY BE PARTLY DUE TO HIS POOR EFFORTS, AND GENERAL WEAKNESS. Code(s): J98.4 - Other disorders of lung Category: Medical Plan: ADVISED TO DO DEEP BREATHING EXERCISES BUT THIS MAY NOT BE PRACTICAL FOR HIM (4) Obstructive sleep apnea: Comment: Sleep study done 08/24/2023 mild to moderate AHI 15 . Because of multiple comorbidities he was started on CPAP therapy. He had been compliant before but in the past 6 months he has not used it much. Complains of having problems with the full face mask. Says there is lot of air leak. Which wakes him up. Code(s): G47.33 - Obstructive sleep apnea (adult) (pediatric) Category: Medical Plan: Once again will order a nasal interface, nasal pillows or the nasal mask, and he is encouraged to start using the CPAP more regularly. Coding Level of Care Code Est Pt Level 3 (95313) Diagnoses Pulmonary emphysema, unspecified emphysema type J43.9 COPD type: emphysema Emphysema type: unspecified Smoker F17.200 Restrictive lung disease J98.4 Obstructive sleep apnea G47.33
[2024-05-21 13:51] VITALS: BP 102/68; PULSE 62; O2SAT 98; BMI 30.8
== END 2024-05-21 14:08 | disposition home or self-care (01) ==
PROVIDERS: PCP Internal Medicine; Visit Provider Internal Medicine
DX: J43.9 Emphysema, unspecified (principal); F17.200 Nicotine dependence, unspecified, uncomplicated; J98.4 Other disorders of lung; G47.33 Obstructive sleep apnea (adult) (pediatric)
CPT/HCPCS: 99213

== ENCOUNTER → 2024-05-21 13:46 | Outpatient (BNVA) | payer MEDICARE, MEDICAID, SELFPAY | PROVIDERS: PCP Internal Medicine; Visit Provider Internal Medicine | DX: J43.9 Emphysema, unspecified (principal); J98.4 Other disorders of lung; G47.33 Obstructive sleep apnea (adult) (pediatric); F17.210 Nicotine dependence, cigarettes, uncomplicated | CPT/HCPCS: 99212 ==

== ENCOUNTER 2024-05-24 13:43 | Outpatient (AMB) | payer MEDICARE, MEDICAID, SELFPAY ==
--- NOTE | 2024-05-24 14:13 | A.OFFVIS_ITS ---
Intake Visit Reasons: Hydrocelectomy- follow up Allergies No Known Allergies [No Known Allergies*] Allergy (Verified 05/21/24 14:07) Medication List - Last Reconciled 05/24/24 by Aaron Young MD acetaminophen (Acetaminophen Extra Strength) 1,000 mg (2 x 500 mg) PO Q8H PRN albuterol sulfate 90 mcg/actuation 2 puffs inhalation Q4-6H PRN [APAP 6-16 cm H20 humidified AIR As directed] aripiprazole 2 mg PO DAILY aspirin (Adult Aspirin Regimen) 81 mg PO DAILY budesonide-formoterol 160-4.5 mcg/actuation (Symbicort) 1 inh inhalation BID clopidogrel (Plavix) 75 mg PO DAILY gabapentin 300 mg PO BEDTIME memantine 5 mg PO BID metoprolol succinate ER 50 mg PO DAILY pantoprazole 20 mg PO BID 90 days paroxetine HCl 20 mg PO DAILY rosuvastatin (Crestor) 40 mg PO DAILY simethicone (Gas-X Extra Strength) 125 mg PO TID-QID PRN trazodone 100 mg PO BEDTIME HPI Comments Details: 05/24/24--Catie who was initially evaluated 03/14/2024 due to scrotal swelling. Scrotal ultrasound bilateral hydrocele right greater than left. s/p right hydrocelectomy 05/01/24--He states he doing well. Exam-- scrotum, incision healing well. Review of chart PSA'a normal. Reviewed previous PSAs 02/04/2023--0.74 ng/mL; 01/20/2024--0.7 Follow-up with urology p.r.n.. PCP to continue PSA screening. 03/14/24--Catie is a pleasant 68-year-old male patient of Dr. Martin who was accompanied by his at today's office visit. He has a past medical history of nicotine dependence, metabolic encephalopathy, aspiration pneumonia, CVA, STEMI, restrictive lung disease, peripheral arterial disease, COPD, CAD, GERD, and chronic low-back pain. He presents to the office today as a new patient for a right-sided hydrocele. In assessment of the patient today moderate to large right hydrocele noted. Patient with recent scrotal imaging however this remains pending. He otherwise denies any bothersome urinary issues. He reports hydrocele presented a proximally 3 months ago and feels it continues to increase in size. He denies urinary urgency, urinary frequency, incontinence, nocturia, hematuria, dysuria, foul smelling urine, changes to urinary stream, flank pain, fever, and or chills. We discussed further treatment options to include surveillance monitoring verses surgical intervention verses in office drainage. Risks and benefits of these interventions were discussed. All questions were answered. He otherwise offers no other issues or concerns at this time. [facility] Medical History Seizure disorder History of CVA (cerebrovascular accident) CAD (coronary artery disease) History of ST elevation myocardial infarction (STEMI) PFO (patent foramen ovale) Peripheral arterial disease Hypercholesterolemia Restrictive lung disease COPD (chronic obstructive pulmonary disease) Obstructive sleep apnea Nicotine dependence, cigarettes, uncomplicated GERD (gastroesophageal reflux disease) Chronic low back pain Tubular adenoma of colon Scrotal sac enlargement Hypersomnia Claudication Incisional pain Metabolic encephalopathy Scrotal sac enlargement Vision changes Shoulder pain, left Surgical History History of hydrocelectomy History of colonoscopy S/P cardiac catheterization History of coronary artery stent placement History of aorto-femoral bypass Family History Father Hypertension Mother Hypertension Brother In good health Brother In good health Sister In good health Sister In good health Son In good health Son In good health Son In good health Son In good health Social History Housing: House Alcohol intake: former Patient Tobacco Use Status: Former Tobacco user Tobacco use type: Cigarette Cigarettes Per Day: 10 Years Smoked: 57 +/- n (07/2023) e-Cigarette/Vaping Use: Never Used Second Hand Smoke Exposure: Yes service: No Current occupational status: employed Cognitive needs: Yes (walker) Hearing needs: No Vision needs: No Review of Systems Const All systems reviewed & are unremarkable except as noted in HPI and below Reports no additional complaints Eyes Reports no additional complaints ENT Reports no additional complaints Card Reports no additional complaints Resp Reports no additional complaints GI Reports no additional complaints Reports as per HPI Musc Reports no additional complaints Skin/Breast Reports system reviewed and no additional complaints, except as documented Neuro Reports no additional complaints Psych Reports no additional complaints Endo Reports no additional complaints Sergei/Lymph Reports no additional complaints Aller/Immun Reports no additional complaints Results AMB Urinalysis, Automated UA Leukoctes 0 Petar/uL Last Edit by Pretty Amaro, [facility] on 05/24/24 14:17 UA Nitrite Negative Last Edit by Pretty Amaro, [facility] on 05/24/24 14:17 UA Urobilinogen 0.2 mg/dL Last Edit by Pretty Amaro [facility] on 05/24/24 14:1 7 UA Protein 0 mg/dL Last Edit by Pretty Amaro, [facility] on 05/24/24 14:17 UA pH 6.0 Last Edit by Pretty Amaro [facility] on 05/24/24 14:17 UA Blood 10 Patrick/uL Last Edit by Pretty Amaro, [facility] on 05/24/24 14:17 UA Specific Cunningham 1.010 Last Edit by Pretty Amaro [facility] on 05/24/24 14: 17 UA Ketone Negative Last Edit by Pretty Amaro, [facility] on 05/24/24 14:17 UA Bilirubin 0 mg/dL Last Edit by Pretty Amaro [facility] on 05/24/24 14:17 UA Glucose 100 mg/dL Last Edit by Pretty Amaro, [facility] on 05/24/24 14:17 Assessment & Plan Assessment & Plan (1) Hydrocele: Comment: right hydrocelectomy May 01, 2024 Code(s): N43.3 - Hydrocele, unspecified Category: Medical Plan Follow-up p.r.n. Reviewed previous PSAs 02/04/2023--0.74 ng/mL; 01/20/2024--0.7 PCP to continue PSA screening. Orders: Orders AMB Urinalysis Automated Today Z13.9 - Encounter for screening, unspecified Patient Instructions: The patient had an opportunity to ask questions regarding treatment plan. The patient expressed understanding and agreement with the above treatment plan. The patient is aware they should contact our office by phone for worsening of their current condition or the appearance of new symptoms. Compliance is encouraged with any medications and followup testing that is ordered. It is a privilege to be allowed the opportunity to participate in the urologic care of your patient. If you have any questions or concerns regarding treatment for the above conditions please do not hesitate to contact me. The office telephone contact is [phone]. This note is constructed in part using voice recognition software. While every effort has been made to ensure accuracy aircraft lay out worker errors may have been included. Yours sincerely, Aaron Young MD Coding Level of Care Code Est Pt Level 3 (28968) Diagnoses Hydrocele N43.3
--- OUTSIDE RECORDS SUMMARY | 2024-05-24 16:11 | XMS_ITS | Clinical Summary ---
Author Organization Formerly [facility] Address [address] [place] [address] Care Team Providers Care Water Resource Engineer Name Role Phone Unavailable Primary Care Provider Unavailabl e Allergies No known active allergies Medications Medication Sig Dispensed Refills Start Date End Date Status ASPIRIN ENTERIC COATED 81 MG EC tablet Take 81 mg by mouth daily. Active PROAIR HFA 108 (90 Base) MCG/ACT inhaler Inhale 1 puff 4 times daily (every 6 hours) as needed for shortness of breath. Active dicyclomine (BENTYL) 20 MG tablet Take 20 mg by mouth 4 (four) times a day as needed for cramping. Active ondansetron (ZOFRAN-ODT) 4 MG disintegrating tablet Take 4 mg by mouth 2 times daily (every 12 hours) as needed for nausea. Active oxyCODONE-acetaminophe n (PERCOCET) 5-325 mg per tablet Take 1 tablet by mouth 2 (two) times a day as needed for pain. Active isosorbide mononitrate (IMDUR) 30 MG 24 hr tabletIndications:Ches t pain Take 1 tablet (30 mg total) by mouth daily. 30 tablet 02/28/2018 Active nitroglycerin (NITROSTAT) 0.4 MG SL tabletIndications:Ches t pain Place 1 tablet (0.4 mg total) under the tongue every 5 (five) minutes as needed for chest pain. 30 tablet 02/28/2018 Active atorvastatin (LIPITOR) 40 MG tabletIndications:Ches t pain Take 1 tablet (40 mg total) by mouth daily. 30 tablet 03/01/2018 Active clopidogrel (PLAVIX) 75 MG tabletIndications:Ches t pain Take 1 tablet (75 mg total) by mouth daily. Take WITH or after food only, never on an empty stomach 30 tablet 02/28/2018 Active Active Problems Problem Noted Date Diagnosed Date Other chest pain 02/27/2018 Essential hypertension 02/27/2018 Hypercholesteremia 02/27/2018 Coronary artery disease invo lving [place] coronary artery of [place] heart 02/27/2018 Myocardial infarction Social History Tobacco Use Types Packs/Day Years Used Date Smoking Tobacco: Every Day Cigarettes Smokeless Tobacco: Never Alcohol Use Standard Drinks/Week Comments No 0 (1 standard drink = 0.6 oz pur e alcohol) AUDIT-C Answer Date Recorded Frequency of Alcohol Consumption Never 02/26/2018 Average Number of Drinks Not on file 018 Frequency of Binge Drinking Not on file 01/31 Sex and Gender Information Value Date Recorded Sex Assigned at Not on file Gender Identity Not on file Sexual Orientation Not on file Last Filed Vital Signs Vital Sign Reading Time Taken Comments Blood Pressure 122/66 02/28/2018 2:31 PM EDT Pulse 75 02/28/2018 2:31 PM EDT Temperature 36.7 ??C (98 ??F) 02/28/2018 7:42 AM EDT Respiratory Rate 17 02/28/2018 7:42 AM EDT Oxygen Saturation 99% 02/28/2018 7:42 AM EDT Inhaled Oxygen Concentration - - Weight 70.5 kg (155 lb 6.8 oz) 02/27/2018 8:00 P M EDT Height 175.3 cm (5' 9 ) 02/27/2018 8:00 PM EDT Body Mass Index 22.95 02/27/2018 8:00 PM EDT Plan of Treatment Health Maintenance Due Date Last Done Comments Hepatitis C Virus Screening 1955 DTaP/Tdap/Td Vaccines (1 - Tdap) 1976 Pneumococcal Vaccines 50+ (1 of 2 - PCV) 1976 Colonoscopy 2002 Zoster (Shingles) Vaccine (1 of 2) 07/01/2007 RSV Vaccine 60 years and old er and Patients (1 - Risk 60-74 years 1-dose series) 2017 Influenza Vaccine 12/01/2023 COVID-19 Vaccine ( - 2023-2 5 season) 2024 Hepatitis B Vaccines Aged Out No long er eligible based on patient's age to complete this topic Medical Devices Implanted Type Area Drywaller Device Identifier Shelf Expiration Date Model / Serial / Lot Stent Stent Heart Advance Directives * Full Code (Latest Code Status on File) Date Activated Date Inactivated Comments 02/27/2018 12:14 AM
--- OUTSIDE RECORDS SUMMARY | 2024-05-24 16:11 | XMS_ITS | Clinical Summary ---
Author Organization [facility] Address [address] [place] [id number] Care Team Providers Care Sales Office Administrator Name Role Phone Jami Martin MD Primary Care Provider [phone] Social History Tobacco Use Types Packs/Day Years Used Date Smoking Tobacco: Never Assessed Sex and Gender Information Value Date Recorded Sex Assigned at Not on file Gender Identity Not on file Sexual Orientation Not on file Plan of Treatment Health Maintenance Due Date Last Done Comments DTaP,Tdap,and Td Vaccines (1 - Tdap) 1976 Zoster Vaccines (1 of 2) 07/01/2007 Pneumococcal Vaccine: 65+ Ye ars (1 of 1 - PCV) 2022 COVID-19 Vaccine ( - 2023-2 5 season) 2024 Influenza Vaccine (#1) 2024 RSV Immunization Patients 60 + Years Old (1 - 1-dose 75+ series) 2032 HIB Vaccines Aged Out No longer eligi ble based on patient's age to complete this topic HPV Vaccines Aged Out No longer eligi ble based on patient's age to complete this topic Hepatitis A Vaccines Aged Out No long er eligible based on patient's age to complete this topic Hepatitis B Vaccines Aged Out No long er eligible based on patient's age to complete this topic IPV Vaccines Aged Out No longer eligi ble based on patient's age to complete this topic MMR Vaccines Aged Out No longer eligi ble based on patient's age to complete this topic Meningococcal ACWY Vaccine Aged Out N o longer eligible based on patient's age to complete this topic RSV Immunization Patients Un gerardo 20 months Aged Out No longer eligible b ased on patient's age to complete this topic Varicella Vaccines Aged Out No longer eligible based on patient's age to complete this topic Care Teams Sales Office Administrator Relationship Specialty Start Date End Date Jami Martin MD [address] [place] [address] [address] [facility] [place] [address] PCP - General Internal Medicine 02/23/18
== END 2024-05-24 14:23 | disposition home or self-care (01) ==
PROVIDERS: PCP Internal Medicine; Visit Provider Urology
DX: N43.3 Hydrocele, unspecified (principal); Z13.9 Encounter for screening, unspecified
CPT/HCPCS: 99024

== ENCOUNTER → 2024-05-24 13:43 | Outpatient (BNVA) | payer MEDICARE, MEDICAID, SELFPAY | PROVIDERS: PCP Internal Medicine; Visit Provider Urology | DX: N43.3 Hydrocele, unspecified (principal) | CPT/HCPCS: 81003; 99212 ==

== ENCOUNTER 2024-06-11 15:29 | Outpatient (AMB) | payer MEDICARE, MEDICAID, SELFPAY ==
--- NOTE | 2024-06-11 15:47 | A.OFFPC_ITS ---
Vital Signs 06/11/24 15:57 Height 5 ft 5 in Weight 184 lb 8.43 oz BMI 30.7 BP 126/80 Blood Pressure Location Lt brachial Position Sitting Pulse 82 Pulse Source Pulse Oximeter Pulse Oximetry (%) 97 Oxygen Delivery Method Room Air Intake Visit Reasons: CAD, CVA hx, COPD Bedspread Cutter Required: No Accompanied by: Spouse Allergies No Known Allergies [No Known Allergies*] Allergy (Verified 06/11/24 15:58) Tobacco use date assessed: 05/09/24 Fall risk assessment: No Falls in past year Last assessed Fall Risk: 06/11/24 Dental Screening Dental Screen Date: 05/09/24 HPI CAD, CVA hx, COPD HPI Details 68-year-old obese male noted 5 lb weight gain with a history of coronary artery disease COPD GERD peripheral arterial disease hypercholesterolemia generalized anxiety disorder seizure disorder obstructive sleep apnea CVA and is a smoker last seen in 01/20/2024. Patient's last colon oscopy was done in 01/19/2023. Patient was advised to get a repeat in 1 year. Review of the notes so Urology in May 2024. With the scrotal swelling in 03/21/2024 showing hydrocele had hydrocelectomy right in 04/20/2024. Patient also follows up with Pulmonary 05/21/2024 for the COPD on albuterol and Symbicort smoking still a problem and for the sleep apnea has moderate AHI of 15 stated has been compliant pulmonary has ordered a nasal interface. [facility] Medical History Seizure disorder History of CVA (cerebrovascular accident) CAD (coronary artery disease) History of ST elevation myocardial infarction (STEMI) PFO (patent foramen ovale) Peripheral arterial disease Hypercholesterolemia Restrictive lung disease COPD (chronic obstructive pulmonary disease) Obstructive sleep apnea Nicotine dependence, cigarettes, uncomplicated GERD (gastroesophageal reflux disease) Chronic low back pain Tubular adenoma of colon Scrotal sac enlargement Hypersomnia Claudication Incisional pain Metabolic encephalopathy Scrotal sac enlargement Vision changes Shoulder pain, left Surgical History History of hydrocelectomy History of colonoscopy S/P cardiac catheterization History of coronary artery stent placement History of aorto-femoral bypass Family History Father Hypertension Mother Hypertension Brother In good health Brother In good health Sister In good health Sister In good health Son In good health Son In good health Son In good health Son In good health Social History Housing: House Alcohol intake: former Patient Tobacco Use Status: Former Tobacco user Tobacco use type: Cigarette Cigarettes Per Day: 10 Years Smoked: 55 +/- n (07/2023) e-Cigarette/Vaping Use: Never Used Second Hand Smoke Exposure: Yes service: No Current occupational status: employed 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 1. Little interest or pleasure in doing things: nearly every day 2. Feeling down, depressed, or hopeless: more than half the days 3. Trouble falling or staying asleep, or sleeping too much: more than half the days 4. Feeling tired or having little energy: several days 5. Poor appetite or overeating: not at all 6. Feeling bad about yourself - or that you are a failure or have let yourself or your family down: more than half the days 7. Trouble concentrating on things, such as reading the newspaper or watching television: more than half the days 8. Moving or speaking so slowly that other people could have noticed. Or the opposite - being so fidgety or restless that you have been moving around a lot more than usual: not at all 9. Thoughts that you would be better off or of hurting yourself in some way: not at all Total score: 12 Depression Screening Interpretation: Positive Depression Screening Follow-up: Existing condition and In treatment Depression Screening Done: Yes Source: Developed by Drs. Meet Flores, Nidia Gordon, Eddy Arriaga and colleagues, with an educational nicole from [employer]. Thrive Questionnaire Date Thrive assessed: 05/09/24 I am a: Patient What is your living situation today?: I have a steady place to live Within the past 12 months, did the food you bought not last and you didn't have the money to get more?: Never true Within the past 12 months, did you worry whether your food would run out before you got money to buy more?: Never true Do you have trouble paying for medicines?: No Do you have trouble getting transportation to medical appointments?: No Do you have trouble paying your heating and electricity bill?: No Do you have trouble taking care of your child, family member or friend?: No Do you have trouble with day-to-day activities such as bathing, preparing meals, shopping, managing finances, etc.?: No Are you currently unemployed and looking for a job?: No Are you interested in more education?: No Please select the resources that you would like help with: None Currently or been in a relationship where the following occur: No concerns reported THRIVE Score: 0 AUDIT C Alcohol Use Questionnaire (AUDIT-C) 1. How often do you have a drink containing alcohol?: Never Total Score: 0 JACQUES-7 AMB Questionnaire JACQUES-7 Date JACQUES - 7 assessed: 06/11/24 Feeling nervous, anxious, or on edge: 0 = Not at all Not being able to stop or control worryin = Not at all Worrying too much about different things: 0 = Not at all Trouble relaxin = Not at all Being so restless that it is hard to sit still: 0 = Not at all Becoming easily annoyed or irritable: 0 = Not at all Feeling afraid as if something awful might happen: 0 = Not at all Total JACQUES-7 score (0-4 normal; 5-9 mild; 10-14 moderate; 15-21 severe): 0 Source: Developed by Drs. Meet Flores, Nidia Gordon, Eddy Arriaga and colleagues, with an educational nicole from [employer]. Physical exam (Primary Care) Vital Signs: Last Vital Signs Pulse 82 06/11/24 15:57 BP 126/80 06/11/24 15:57 Pulse Ox 97 06/11/24 15:57 Oxygen Delivery Method Room Air 06/11/24 15:57 BMI result Body Mass Index 30.7 Tobacco/Smoking Status: Tobacco use Status Tobacco use date assessed 05/09/24 06/11/24 15:48 Patient Tobacco Use Status Former Tobacco user 06/11/24 15:48 Tobacco use type Cigarette 06/11/24 15:48 e-Cigarette/Vaping Use Never Used 06/11/24 15:48 PHQ-9: PHQ-9 Score PHQ-9: Total score 12 06/11/24 15:48 Depression Screening Interpretation: Positive Depression Screening Follow-up: Existing condition and In treatment Thrive Assessment: Date of Thrive Assessment Date Thrive assessed 05/09/24 06/11/24 15:48 Currently or been in a relationship where the following occur: No concerns reported Const Other: Patient has ataxia on walking General: alert; No acute distress Eyes Conjunctivae: conjunctivae normal Resp Auscultation: clear to auscultation bilaterally Cardio Rate: regular rate Rhythm: regular rhythm GI Inspection: Yes normal to inspection Neuro Other: problem with alterating hand test Extrem General: Yes normal to inspection and No edema Coding Level of Care Code Est Pt Level 4 (50427) Complex EM visit Add On G2211 Diagnoses Nicotine dependence, cigarettes, uncomplicated F17.210 Pulmonary emphysema, unspecified emphysema type J43.9 COPD type: emphysema Emphysema type: unspecified Coronary artery disease involving [place] coronary artery of [place] heart without angina pectoris I25.10 Coronary Disease-Associated Artery/Lesion type: [place] artery [place] vs. transplanted heart: [place] heart Associated angina: without angina History of CVA (cerebrovascular accident) Z86.73 Obesity (BMI 30.0-34.9) E66.811 Obstructive sleep apnea G47.33 Tubular adenoma of colon D12.6 Assessment & Plan Assessment & Plan (1) Nicotine dependence, cigarettes, uncomplicated: Comment: (onset 17yo,1-2ppd x 51yrs, now 1ppd - 75pyh) Code(s): F17.210 - Nicotine dependence, cigarettes, uncomplicated Category: Medical Plan: smoking 10 cigarettes a day. Patient is strongly advised to stop smoking (2) COPD (chronic obstructive pulmonary disease): Comment: MILD TO MODERATE DEGREE OF OBSTRUCTIVE AIRWAY DISORDER, REMAINS STABLE. RELATIVELY ASYMPTOMATIC, EXCEPT FOR MILD INTERMITTENT COUGH DUE TO SMOKING . Code(s): J44.9 - Chronic obstructive pulmonary disease, unspecified Category: Medical Qualifiers: COPD type: emphysema Emphysema type: unspecified Qualified Code(s): J43.9 - Emphysema, unspecified Plan: Patient is strongly advised to stop smoking. Continue with Symbicort and albuterol patient follows up with Pulmonary (3) CAD (coronary artery disease): Comment: MABEL Lopez 2014 Dr. Reid angioplasty GERA mid RCA March 2018 STEMI 06/2021, mid RCA thrombus, GERA placed ECHO EF 63% Code(s): I25.10 - Atherosclerotic heart disease of [place] coronary artery without angina pectoris Category: Medical Qualifiers: Coronary Disease-Associated Artery/Lesion type: [place] artery [place] vs. transplanted heart: [place] heart Associated angina: without angina Qualified Code(s): I25.10 - Atherosclerotic heart disease of [place] coronary artery without angina pectoris Plan: Control the cholesterol, weight, blood pressure, diabetes continue with clopidogrel and aspirin (4) History of CVA (cerebrovascular accident): Comment: August 2022 basilar thrombus Code(s): Z86.73 - Personal history of transient ischemic attack (TIA), and cerebral infarction without residual deficits Category: Medical Plan: Continue with clopidogrel and aspirin, patient continues to have some ataxia on walking (5) Obesity (BMI 30.0-34.9): Code(s): E66.811 - Obesity, class 1 Category: Medical Plan: Diet and exercise (6) Obstructive sleep apnea: Comment: Sleep study done 08/24/2023 mild to moderate AHI 15 . Because of multiple comorbidities he was started on CPAP therapy. He had been compliant before but in the past 6 months he has not used it much. Complains of having problems with the full face mask. Says there is lot of air leak. Which wakes him up. Code(s): G47.33 - Obstructive sleep apnea (adult) (pediatric) Category: Medical Plan: Continue to use the CPAP more than 4 hours a night, usually but awaiting new mask and benefits from this. (7) Tubular adenoma of colon: Comment: (TA/SSP on 12/2022 scope) Code(s): D12.6 - Benign neoplasm of colon, unspecified Category: Medical Plan: Patient is reminded about repeat colonoscopy Orders: Orders Free T4 (Free Thyroxine) Today Z86.73 - Personal history of transient ischemic attack (TIA), and cerebral infarction without residual deficits Vitamin B12 and Folate Today Z86.73 - Personal history of transient ischemic attack (TIA), and cerebral infarction without residual deficits Hemoglobin A1c Today Z86.73 - Personal history of transient ischemic attack (TIA), and cerebral infarction without residual deficits PT Evaluation and Treatment Today R26.81 - Unsteadiness on feet, Z86.73 - Personal history of transient ischemic attack (TIA), and cerebral infarction without residual deficits Complete Blood Count Auto Diff Today Z86.73 - Personal history of transient ischemic attack (TIA), and cerebral infarction without residual deficits Comprehensive Met. Panel Today Z86.73 - Personal history of transient ischemic attack (TIA), and cerebral infarction without residual deficits Thyroid Stimulating Hormone Today Z86.73 - Personal history of transient ischemic attack (TIA), and cerebral infarction without residual deficits Lipid Panel Today E78.00 - Pure hypercholesterolemia, unspecified, Z86.73 - Personal history of transient ischemic attack (TIA), and cerebral infarction without residual deficits Prostate Specific Antigen Scr Today Z86.73 - Personal history of transient ischemic attack (TIA), and cerebral infarction without residual deficits
[2024-06-11 15:57] VITALS: BP 126/80; PULSE 82; O2SAT 97; BMI 30.7
--- OUTSIDE RECORDS SUMMARY | 2024-06-11 16:24 | XMS_ITS | Clinical Summary ---
Author Organization [facility] Address [address] [place] [address] Care Team Providers Care Electric Transfer Operator Name Role Phone Unavailable Primary Care Provider [...] Hypercholesteremia 02/27/2018 Coronary artery disease invo lving [place] coronary artery of [place] heart 02/27/2018 Myocardial infarction Social History Tobacco [...] this topic Medical Devices Implanted Type Area Nuclear Waste Process Operator Device Identifier Shelf Expiration Date Model / Serial / Lot Stent Stent Heart Advance Directives * Full Code (Latest Code Status on File) Date Activated Date Inactivated Comments 02/27/2018 12:14 AM
--- OUTSIDE RECORDS SUMMARY | 2024-06-11 16:24 | XMS_ITS | Clinical Summary ---
Author Organization [facility] Address [id number] [place] [id number] Care Team Providers Care Speech Language Therapist Name Role Phone Jami Martin MD Primary Care Provider [phone] Social History Tobacco Use Types Packs/Day Years Used Date Smoking Tobacco: Never Assessed Sex and Gender Information Value Date Recorded Sex Assigned at Not on file Legal Sex Male 11:15 PM EST Gender Identity Not on file Sexual Orientation Not on file Plan of Treatment Health Maintenance Due Date Last Done Comments DTaP,Tdap,and Td Vaccines (1 - Tdap) 1976 Zoster Vaccines (1 of 2) 07/01/2007 Pneumococcal Vaccine: 50+ Ye ars (1 of 1 - PCV) 2022 COVID-19 Vaccine (1 - 2023-2 5 season) 2024 Influenza Vaccine [...] age to complete this topic Care Teams Speech Language Therapist Relationship Specialty Start Date End Date Jami Martin MD [address] [place] [address] [address] [facility] [place] [address] PCP - General Internal Medicine 02/23/18
== END 2024-06-11 16:33 | disposition home or self-care (01) ==
PROVIDERS: PCP Internal Medicine; Visit Provider Internal Medicine
DX: I25.10 Atherosclerotic heart disease of native coronary artery without angina pectoris (principal); J43.9 Emphysema, unspecified; E66.811 Obesity, class 1; Z68.30 Body mass index [BMI] 30.0-30.9, adult; F17.210 Nicotine dependence, cigarettes, uncomplicated; Z86.73 Personal history of transient ischemic attack (TIA), and cerebral infarction without residual deficits; G47.33 Obstructive sleep apnea (adult) (pediatric); D12.6 Benign neoplasm of colon, unspecified

== ENCOUNTER → 2024-06-11 15:29 | Outpatient (BNVA) | payer MEDICARE, MEDICAID, SELFPAY | PROVIDERS: PCP Internal Medicine; Visit Provider Internal Medicine | DX: J43.9 Emphysema, unspecified (principal); I25.10 Atherosclerotic heart disease of native coronary artery without angina pectoris; E66.811 Obesity, class 1; D12.9 Benign neoplasm of anus and anal canal; G47.33 Obstructive sleep apnea (adult) (pediatric); Z86.73 Personal history of transient ischemic attack (TIA), and cerebral infarction without residual deficits; F17.210 Nicotine dependence, cigarettes, uncomplicated; Z71.6 Tobacco abuse counseling | CPT/HCPCS: 99212 ==

== ENCOUNTER 2024-07-19 12:26 | Outpatient (AMB) | payer MEDICARE, MEDICAID, SELFPAY ==
--- NOTE | 2024-07-19 12:37 | A.OFFPC_ITS ---
Vital Signs 07/19/24 12:38 Height 5 ft 5 in Weight 191 lb 4 oz BMI 31.8 BP 110/76 Blood Pressure Location Lt brachial Position Sitting Pulse 77 Pulse Source Pulse Oximeter Temp 97.3 F Temp Source Temporal Artery Scan Pulse Oximetry (%) 96 Oxygen Delivery Method Room Air Intake Visit Reasons: annual exam Intake Note: Patient is here today for a physical. 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 Accompanied by: Spouse Allergies No Known Allergies [No Known Allergies*] Allergy (Verified 07/19/24 12:38) Medication List - Last Reconciled 07/19/24 by Jami Martin MD acetaminophen (Acetaminophen Extra Strength) 1,000 mg (2 x 500 mg) PO Q8H PRN albuterol sulfate 90 mcg/actuation 2 puffs inhalation Q4-6H PRN [APAP 6-16 cm H20 humidified AIR As directed] aripiprazole 2 mg PO DAILY aspirin (Adult Aspirin Regimen) 81 mg PO DAILY budesonide-formoterol 160-4.5 mcg/actuation (Symbicort) 1 inh inhalation BID clopidogrel (Plavix) 75 mg PO DAILY gabapentin 300 mg PO BEDTIME memantine 5 mg PO BID metoprolol succinate ER 50 mg PO DAILY pantoprazole 20 mg PO BID 90 days paroxetine HCl 20 mg PO DAILY rosuvastatin (Crestor) 40 mg PO DAILY simethicone (Gas-X Extra Strength) 125 mg PO TID-QID PRN trazodone 100 mg PO BEDTIME Tobacco use date assessed: 07/19/24 Fall risk assessment: No Falls in past year Last assessed Fall Risk: 07/19/24 Dental Screening Dental Screen Date: 05/09/24 [facility] Medical History Seizure disorder History of CVA (cerebrovascular accident) CAD (coronary artery disease) History of ST elevation myocardial infarction (STEMI) PFO (patent foramen ovale) Peripheral arterial disease Hypercholesterolemia Restrictive lung disease COPD (chronic obstructive pulmonary disease) Obstructive sleep apnea Nicotine dependence, cigarettes, uncomplicated GERD (gastroesophageal reflux disease) Chronic low back pain Tubular adenoma of colon Scrotal sac enlargement Hypersomnia Claudication Incisional pain Metabolic encephalopathy Scrotal sac enlargement Vision changes Shoulder pain, left Surgical History History of hydrocelectomy History of colonoscopy S/P cardiac catheterization History of coronary artery stent placement History of aorto-femoral bypass Family History Father Hypertension Mother Hypertension Brother In good health Brother In good health Sister In good health Sister In good health Son In good health Son In good health Son In good health Son In good health Social History (Updated 07/19/24 @ 13:06 by Jami Martin MD) Housing: House Alcohol intake: former Patient Tobacco Use Status: Former Tobacco user Tobacco use type: Cigarette Cigarettes Per Day: 10 Years Smoked: 57 +/- n (07/2023) STill moking (06/2024) e-Cigarette/Vaping Use: Never Used Second Hand Smoke Exposure: Yes service: No Current occupational status: employed 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 1. Little interest or pleasure in doing things: more than half the days 2. Feeling down, depressed, or hopeless: nearly every day 3. Trouble falling or staying asleep, or sleeping too much: nearly every day 4. Feeling tired or having little energy: nearly every day 5. Poor appetite or overeating: several days 6. Feeling bad about yourself - or that you are a failure or have let yourself or your family down: several days 7. Trouble concentrating on things, such as reading the newspaper or watching television: nearly every day 8. Moving or speaking so slowly that other people could have noticed. Or the opposite - being so fidgety or restless that you have been moving around a lot more than usual: more than half the days 9. Thoughts that you would be better off or of hurting yourself in some way: not at all Total score: 18 Depression Screening Interpretation: Positive Depression Screening Done: Yes Source: Developed by Drs. Meet Flores, Nidia Gordon, dEdy Arriaga and colleagues, with an educational nicole from [employer]. Thrive Questionnaire Date Thrive assessed: 07/19/24 I am a: Parent/Caregiver What is your living situation today?: I have a steady place to live Within the past 12 months, did the food you bought not last and you didn't have the money to get more?: I choose not to answer this question Within the past 12 months, did you worry whether your food would run out before you got money to buy more?: I choose not to answer this question Do you have trouble paying for medicines?: No Do you have trouble getting transportation to medical appointments?: No Do you have trouble paying your heating and electricity bill?: I choose not to answer this question Do you have trouble taking care of your child, family member or friend?: I choose not to answer this question Do you have trouble with day-to-day activities such as bathing, preparing meals, shopping, managing finances, etc.?: I choose not to answer this question Are you currently unemployed and looking for a job?: I choose not to answer this question Are you interested in more education?: I choose not to answer this question Please select the resources that you would like help with: None Currently or been in a relationship where the following occur: No concerns reported THRIVE Score: 0 AUDIT C Alcohol Use Questionnaire (AUDIT-C) 1. How often do you have a drink containing alcohol?: Never Total Score: 0 JACQUES-7 AMB Questionnaire JACQUES-7 Date JACQUES - 7 assessed: 07/19/24 Feeling nervous, anxious, or on edge: 1 = Several days Not being able to stop or control worryin = Several days Worrying too much about different things: 1 = Several days Trouble relaxin = Several days Being so restless that it is hard to sit still: 1 = Several days Becoming easily annoyed or irritable: 1 = Several days Feeling afraid as if something awful might happen: 0 = Not at all Total JACQUES-7 score (0-4 normal; 5-9 mild; 10-14 moderate; 15-21 severe): 6 Source: Developed by Drs. Meet Flores, Nidia Gordon, Eddy Arriaga and colleagues, with an educational nicole from [employer]. Review of Systems Const Denies poor appetite and Denies weakness Eyes Denies no additional complaints ENT Reports Normal hearing present, Denies dizziness, Denies nasal congestion, Denies tinnitus and Denies sore throat Card Denies chest pain, Denies syncope, Denies rapid heart rate and Denies dyspnea Resp Denies cough and Denies dyspnea GI Denies change in stool character, Reports constipation, Denies diarrhea, Denies nausea and Denies vomiting Denies dysuria and Denies urinary frequency Neuro Reports Normal hearing present, Denies confusion, Denies dizziness, Denies syncope and Denies weakness Psych Denies confusion Physical exam (Primary Care) Vital Signs: Last Vital Signs Temp 97.3 F 07/19/24 12:38 Pulse 77 07/19/24 12:38 BP 110/76 07/19/24 12:38 Pulse Ox 96 07/19/24 12:38 Oxygen Delivery Method Room Air 07/19/24 12:38 BMI result Body Mass Index 31.8 Tobacco/Smoking Status: Tobacco use Status Tobacco use date assessed 07/19/24 07/19/24 12:44 Patient Tobacco Use Status Former Tobacco user 07/19/24 12:44 Tobacco use type Cigarette 07/19/24 12:44 e-Cigarette/Vaping Use Never Used 07/19/24 12:44 PHQ-9: PHQ-9 Score PHQ-9: Total score 18 07/19/24 12:44 Depression Screening Interpretation: Positive Thrive Assessment: Date of Thrive Assessment Date Thrive assessed 07/19/24 07/19/24 12:44 Currently or been in a relationship where the following occur: No concerns reported Const General: No confusion Orientation/consciousness: No confusion HENMT Head: Yes normocephalic Ears: external ears normal and TM's normal bilaterally Face and sinus: Yes normal facial exam Mouth: moist mucous membranes Throat: Yes tonsils normal Eyes Conjunctivae: conjunctivae normal Pupils: Equal, round and reactive pupils present and Pupil accommodation reflex normal Direct Ophthalmoscopy: normal light reflex Neck Neck: No lymphadenopathy Thyroid: Thyroid normal Chest Chest palpation & inspection: normal inspection of the chest Resp Effort & Inspection: normal respiratory effort and no audible wheezes Auscultation: clear to auscultation bilaterally, no crackles, no wheezes and lung sounds not diminished Cardio Rate: regular rate Rhythm: regular rhythm Peripheral pulses: radial pulses present and dorsalis pedis present GI Other: Declined and has an upcoming colonoscopy Palpation (GI): no masses Auscultation: normal bowel sounds and normoactive bowel sounds Rectal Exam - Male: Yes deferred Other: Declined Skin General skin exam: no rashes or lesions noted Rashes: no rashes Neuro General: No confusion Cranial nerves: Yes Equal, round and reactive pupils present and Yes Normal hearing present Cognition (Neuro): normal cognition Gait exam (Neuro): Normal gait present Motor exam (neuro): 5/5 motor strength present throughout Deep tendon reflexes (DTR's): Right brachioradialis reflex intensity grade: 2+, Left brachioradialis reflex intensity grade: 2+, Right patellar reflex intensity grade: 2+ and Left patellar reflex intensity grade: 2+ Extrem Other: tender on the L shoulder and states numbness of hand and fingers, pulse normal bilateral General: No edema Coding Level of Care Code Est Pt Prev Care >65y(94747) Diagnoses Annual physical exam Z00.00 Coronary artery disease involving [place] coronary artery of [place] heart without angina pectoris I25.10 Coronary Disease-Associated Artery/Lesion type: [place] artery [place] vs. transplanted heart: [place] heart Associated angina: without angina Pulmonary emphysema, unspecified emphysema type J43.9 COPD type: emphysema Emphysema type: unspecified Nicotine dependence, cigarettes, uncomplicated F17.210 History of CVA (cerebrovascular accident) Z86.73 Obesity (BMI 30.0-34.9) E66.811 Obstructive sleep apnea G47.33 Tubular adenoma of colon D12.6 Seizure disorder G40.909 Generalized anxiety disorder F41.1 Hypercholesterolemia E78.00 Peripheral arterial disease I73.9 Gastroesophageal reflux disease without esophagitis K21.9 Esophagitis presence: without esophagitis Shoulder pain, left M25.512 Bilateral hand numbness R20.0 Assessment & Plan Assessment & Plan (1) Annual physical exam: Code(s): Z00.00 - Encounter for general adult medical examination without abnormal findings Category: Medical Plan: Patient is advised to eat healthy, keep well hydrated, keep active and have adequate sleep. (2) CAD (coronary artery disease): Comment: MABEL Lopez 2014 Dr. Reid angioplasty GERA mid RCA March 2018 STEMI 06/2021, mid RCA thrombus, GERA placed ECHO EF 63% Code(s): I25.10 - Atherosclerotic heart disease of [place] coronary artery without angina pectoris Category: Medical Qualifiers: Coronary Disease-Associated Artery/Lesion type: [place] artery [place] vs. transplanted heart: [place] heart Associated angina: without angina Qualified Code(s): I25.10 - Atherosclerotic heart disease of [place] coronary artery without angina pectoris Plan: Control the cholesterol, weight, blood pressure, on aspirin 81 mg once a day (3) COPD (chronic obstructive pulmonary disease): Comment: MILD TO MODERATE DEGREE OF OBSTRUCTIVE AIRWAY DISORDER, REMAINS STABLE. RELATIVELY ASYMPTOMATIC, EXCEPT FOR MILD INTERMITTENT COUGH DUE TO SMOKING . Code(s): J44.9 - Chronic obstructive pulmonary disease, unspecified Category: Medical Qualifiers: COPD type: emphysema Emphysema type: unspecified Qualified Code(s): J43.9 - Emphysema, unspecified Plan: Patient is strongly advised to stop smoking on Symbicort albuterol (4) Nicotine dependence, cigarettes, uncomplicated: Comment: (onset 17yo,1-2ppd x 51yrs, now 1ppd - 75pyh) Code(s): F17.210 - Nicotine dependence, cigarettes, uncomplicated Category: Medical Plan: Patient is strongly advised to stop smoking 07/19/[address] scan (5) History of CVA (cerebrovascular accident): Comment: 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 Because of multiple comorbidities he was started on CPAP therapy. He had been compliant before but in the past 6 months he has not used it much. Complains of having problems with the full face mask. Says there is lot of air leak. Which wakes him up. Code(s): G47.33 - Obstructive sleep apnea (adult) (pediatric) Category: Medical Plan: Discussed importance of using the CPAP (8) Tubular adenoma of colon: Comment: (TA/SSP on 12/2022 scope) Code(s): D12.6 - Benign neoplasm of colon, unspecified Category: Medical Plan: Patient is reminded to see gastroenterology for colonoscopy (9) Seizure disorder: Code(s): G40.909 - Epilepsy, unspecified, not intractable, without status epilepticus Category: Medical Plan: Continue with present medication (10) Generalized anxiety disorder: Code(s): F41.1 - Generalized anxiety disorder Category: Medical Plan: Continue with present medication (11) Hypercholesterolemia: Code(s): E78.00 - Pure hypercholesterolemia, unspecified Category: Medical Plan: Avoid fried foods, chicken skin, eggs, butter margarine, pastries and meat. Be it pork or beef they have a lot of cholesterol LDL goal of less than 70 and triglyceride of less than 150 on rosuvastatin (12) Peripheral arterial disease: Comment: 04/10/2019 - open aortobifemoral bypass Code(s): I73.9 - Peripheral vascular disease, unspecified Category: Medical Plan: Control the cholesterol, weight, blood pressure on aspirin and Plavix (13) GERD (gastroesophageal reflux disease): Code(s): K21.9 - Gastro-esophageal reflux disease without esophagitis Category: Medical Qualifiers: Esophagitis presence: without esophagitis Qualified Code(s): K21.9 - Gastro-esophageal reflux disease without esophagitis Plan: Avoid the foods that causes that usually spicy foods, tomato products, juices, coffee, soda and foods that your sensitive to. After eating do not lie down, allow 3-4 hours before in lie down. And keep the head of bed above 30 degrees to avoid the acid from going up. (14) Shoulder pain, left: Code(s): M25.512 - Pain in left shoulder Category: Medical (15) Bilateral hand numbness: Code(s): R20.0 - Anesthesia of skin Category: Medical Plan History of Present Illness The patient is a 69-year-old male presenting for an annual physical and follow- up of existing chronic conditions. He has coronary artery disease, for which he takes aspirin and Plavix. Despite recommendations, he remains a smoker, consuming 10 cigarettes a day. His COPD is managed with inhalers, and he has been advised to stop smoking to reduce health risks. Hypercholesterolemia with high triglycerides is monitored, with targets set for LDL and triglyceride levels. He is on rosuvastatin therapy. Benign prostatic hyperplasia leads to nocturia. Generalized anxiety disorder and seizure disorder treatments may cause side effects such as dry mouth. There is occasional hand pain and numbness possibly due to arthritis. Obstructive sleep apnea is managed with CPAP, and the patient has a history of cerebrovascular accident with basilar thrombus. He experiences hot flashes which will be evaluated for hormone imbalance. Health Maintenance - Patient advised on smoking cessation due to its cardiovascular and lung health impact. - Colonoscopy recommended; last done in December 2022. - CAT scan scheduled for June 2024. - Blood work from December 2022 showed high cholesterol; LDL and triglyceride goals discussed. - Diet and exercise emphasized to manage cholesterol and overall health. - CPAP usage stressed for sleep apnea management. - Consideration for testosterone and hormone levels due to reports of hot flashes. Social History - Current smoker, consuming 10 cigarettes a day. - Engages in physical therapy; generally stays at home to avoid illness. - No alcohol consumption reported. Review of Systems - Neurological: Reports occasional numbness in both hands. - Genitourinary: Reports nocturia 2-3 times per night. - General: Reports hot flashes. Results - Labs: Elevation of triglycerides at 322 mg/dL, LDL at 53 mg/dL (December 2022). - Imaging: Scheduled CAT scan in June 2024. Plan I will continue aspirin and Plavix therapy for the patient's coronary artery disease and stroke prevention, and stressed the importance of smoking cessation. The patient will maintain his inhaler regimen for COPD. Rosuvastatin therapy will continue to manage hypercholesterolemia with additional dietary and exercise recommendations. Blood cholesterol levels will be reassessed periodically. The patient is scheduled for a CAT scan and will undergo colonoscopy per routine screening. Hormone evaluation is considered due to reported hot flashes, and referral to orthopedics for possible neuropathy and pain management is suggested. He will continue CPAP usage and monitor symptoms of benign prostatic hyperplasia. Patient was informed and verbally consented to the use of an ambient scribe for clinic note documentation during this visit. Discussion Notes I discussed with the patient the ongoing management of his coronary artery disease, emphasizing the need to maintain current therapies of aspirin and Plavix while continuing aggressive lifestyle modification attempts, particularly smoking cessation. We reviewed his COPD management plan, including adherence to prescribed inhalers and the impact of smoking on respiratory health. The risks of persistent dyslipidemia were emphasized, and the need for dietary and physical activity interventions were communicated. Recommendations for routine colonoscopy and upcoming CAT scan were reviewed. The patient was advised on using CPAP devices for sleep apnea, and I highlighted the importance of these interventions in reducing cardiovascular risks. Additionally, we considered hormonal assessment due to the hot flashes, with plans for blood testing in subsequent visits. Patient Instructions - Continue taking all prescribed medications, including aspirin, Plavix, Symbicort, and rosuvastatin. - Schedule and complete the recommended colonoscopy. - Attend the scheduled CAT scan in June 2024. - Adhere to a healthy diet and regular exercise routine to manage cholesterol. - Use CPAP machine regularly for obstructive sleep apnea. - Work towards quitting smoking; aim to reduce cigarette intake further. - Follow-up for blood work in three months. - Seek orthopedic consultation for l shoulder pain pain if symptoms persist. - Monitor and report any new or worsening symptoms promptly. - Avoid inserting objects in the ear to prevent earwax blockage. - Maintain routine appointments and health check-ups. Orders: Orders Complete Blood Count Auto Diff 3 Months Z86.73 - Personal history of transient ischemic attack (TIA), and cerebral infarction without residual deficits Testosterone, Total Today M25.512 - Pain in left shoulder NE electromyogram (EMG) Today R20.0 - Anesthesia of skin NE nerve conduction velocity Today R20.0 - Anesthesia of skin Comprehensive Met. Panel 3 Months Z86.73 - Personal history of transient ischemic attack (TIA), and cerebral infarction without residual deficits Referrals Orthopedics Referral M25.512 - Pain in left shoulder Medications: New cyclobenzaprine 10 mg PO TID PRN 60 tabs 0RF muscle spasm M25.512 - Pain in left shoulder
[2024-07-19 12:38] VITALS: BP 110/76; PULSE 77; TEMP 36.3; O2SAT 96; BMI 31.8
== END 2024-07-19 13:25 | disposition home or self-care (01) ==
LOC: HO.HMCH 12:27
PROVIDERS: PCP Internal Medicine; Visit Provider Internal Medicine
DX: Z00.00 Encounter for general adult medical examination without abnormal findings (principal); J43.9 Emphysema, unspecified; G40.909 Epilepsy, unspecified, not intractable, without status epilepticus; I73.9 Peripheral vascular disease, unspecified; E66.811 Obesity, class 1; F17.210 Nicotine dependence, cigarettes, uncomplicated; I25.10 Atherosclerotic heart disease of native coronary artery without angina pectoris; Z86.73 Personal history of transient ischemic attack (TIA), and cerebral infarction without residual deficits; G47.33 Obstructive sleep apnea (adult) (pediatric); D12.6 Benign neoplasm of colon, unspecified; F41.1 Generalized anxiety disorder; E78.00 Pure hypercholesterolemia, unspecified

== ENCOUNTER → 2024-07-19 12:26 | Outpatient (BNVA) | payer MEDICARE, MEDICAID, SELFPAY | PROVIDERS: PCP Internal Medicine; Visit Provider Internal Medicine | DX: Z00.00 Encounter for general adult medical examination without abnormal findings (principal); I25.10 Atherosclerotic heart disease of native coronary artery without angina pectoris; J43.9 Emphysema, unspecified; E66.811 Obesity, class 1; G47.33 Obstructive sleep apnea (adult) (pediatric); D12.6 Benign neoplasm of colon, unspecified; G40.909 Epilepsy, unspecified, not intractable, without status epilepticus; F41.1 Generalized anxiety disorder; E78.00 Pure hypercholesterolemia, unspecified; I73.9 Peripheral vascular disease, unspecified; K21.9 Gastro-esophageal reflux disease without esophagitis; M25.512 Pain in left shoulder; R20.0 Anesthesia of skin; Z86.73 Personal history of transient ischemic attack (TIA), and cerebral infarction without residual deficits; F17.210 Nicotine dependence, cigarettes, uncomplicated; Z71.6 Tobacco abuse counseling | CPT/HCPCS: 99397 ==

== ENCOUNTER 2024-07-31 09:28 | Outpatient (REF) | payer MEDICARE, MEDICAID, SELFPAY ==
--- NOTE | 2024-07-31 09:32 | EMG_ITS ---
Bilateral median and ulnar motor and sensory studies were performed. Bilateral radial sensory study was performed and paraspinal muscles were tested with a needle. IMPRESSION: 1. Mild bilateral median neuropathy across carpal tunnel. 2. Mild bilateral ulnar neuropathy across cubital tunnel. MD YI Connor/RACHAEL / [id number]
--- OUTSIDE RECORDS SUMMARY | 2024-07-31 10:42 | XMS_ITS | Clinical Summary ---
Author Organization [facility] Address [id number] [place] [id number] Care Team Providers Care Counselor/Art Therapist Name Role Phone Jami Martin MD Primary Care Provider [phone] Social History Tobacco Use Types Packs/Day Years Used Date Smoking Tobacco: Never Assessed Sex and Gender Information Value Date Recorded Sex Assigned at Not on file Legal Sex Male 11:15 PM EST Gender Identity Not on file Sexual Orientation Not on file Plan of Treatment Health Maintenance Due Date Last Done Comments DTaP,Tdap,and Td Vaccines (1 - Tdap) 1974 Pneumococcal Vaccine: 50+ Ye ars (1 of 1 - PCV) 07/01/2007 Zoster Vaccines (1 of 2) 07/01/2007 COVID-19 Vaccine ( - 2023-2 5 season) 2024 Influenza Vaccine (Season Ended) 2024 RSV Immunization Patients 60 + Years [...] patient's age to complete this topic Meningococcal B Vacine Aged Out No lo nger eligible based on patient's age to complete this topic RSV Immunization Patients Un gerardo 20 months Aged Out No longer eligible b ased on patient's age to complete this topic Varicella Vaccines Aged Out No longer eligible based on patient's age to complete this topic Care Teams Counselor/Art Therapist Relationship Specialty Start Date End Date Jami Martin MD [address] [place] [address] [address] [facility] [place] [address] PCP - General Internal Medicine 02/23/18
--- OUTSIDE RECORDS SUMMARY | 2024-07-31 10:42 | XMS_ITS | Clinical Summary ---
Author Organization [facility] Address [address] [place] [address] Care Team Providers Care Grain Elevator Man Name Role Phone Unavailable Primary Care Provider [...] Hypercholesteremia 02/27/2018 Coronary artery disease invo lving [place] coronary artery of [place] heart 02/27/2018 Myocardial infarction Social History Tobacco [...] this topic Medical Devices Implanted Type Area Remote Encoding Center Manager Device Identifier Shelf Expiration Date Model / Serial / Lot Stent Stent Heart Advance Directives * Full Code (Latest Code Status on File) Date Activated Date Inactivated Comments 02/27/2018 12:14 AM
== END 2024-07-31 09:29 | disposition home or self-care (01) ==
LOC: HO.NEURO 09:28
PROVIDERS: PCP Internal Medicine; Visit Provider Internal Medicine
DX: G56.13 Other lesions of median nerve, bilateral upper limbs (principal); G56.23 Lesion of ulnar nerve, bilateral upper limbs
CPT/HCPCS: 95860; 95886; 95911

== ENCOUNTER 2024-08-21 13:38 | Outpatient (AMB) | payer MEDICARE, MEDICAID, SELFPAY ==
[2024-08-21 13:55] VITALS: BP 132/72; PULSE 78; O2SAT 97; BMI 31.5
--- NOTE | 2024-08-21 13:55 | MHC.OFFVIS ---
Vital Signs 08/21/24 13:55 Height 5 ft 5 in Weight 189 lb 9.561 oz BMI 31.5 BP 132/72 Blood Pressure Location Lt brachial Position Sitting Pulse 78 Pulse Source Pulse Oximeter Pulse Oximetry (%) 97 Oxygen Delivery Method Room Air Intake Visit Reasons: COPD Intake Note: pt is here for follow up and has a cough, and is not using the cpap too much, he is using it on his bad days. Plant Maintenance Technician Required: No Allergies No Known Allergies [No Known Allergies*] Allergy (Verified 08/21/24 14:09) Medication List - Last Reconciled 08/21/24 by Millie Castro MD acetaminophen (Acetaminophen Extra Strength) 1,000 mg (2 x 500 mg) PO Q8H PRN albuterol sulfate 90 mcg/actuation 2 puffs inhalation Q4-6H PRN [APAP 6-16 cm H20 humidified AIR As directed] aripiprazole 2 mg PO DAILY aspirin (Adult Aspirin Regimen) 81 mg PO DAILY budesonide-formoterol 160-4.5 mcg/actuation (Symbicort) 1 inh inhalation BID clopidogrel (Plavix) 75 mg PO DAILY cyclobenzaprine 10 mg PO TID PRN gabapentin 300 mg PO BEDTIME memantine 5 mg PO BID metoprolol succinate ER 50 mg PO DAILY pantoprazole 20 mg PO BID 90 days paroxetine HCl 20 mg PO DAILY rosuvastatin (Crestor) 40 mg PO DAILY simethicone (Gas-X Extra Strength) 125 mg PO TID-QID PRN trazodone 100 mg PO BEDTIME Do you need a note to return to daycare/school/sports/work: No HPI HPI COPD: Details: This 69 years old gentleman, who has had a previous stroke , ( August 2022 Basilar Thrombus ) . Is moderately obese , has obstructive sleep apnea, and chronic obstructive pulmonary disease. Continues to smoke half to 1 pack of cigarettes a day. Has not been able to use the CPAP except for 1 or 2 nights in the whole month. He has developed some degree of dementia and relatively poor understanding. He claims that he sleeps okay without using the CPAP. He does not listen to family members, and and remains relatively noncompliant. [facility] Medical History Bilateral hand numbness Numbness of left hand Shoulder pain, left Seizure disorder History of CVA (cerebrovascular accident) CAD (coronary artery disease) History of ST elevation myocardial infarction (STEMI) PFO (patent foramen ovale) Peripheral arterial disease Hypercholesterolemia Restrictive lung disease COPD (chronic obstructive pulmonary disease) Obstructive sleep apnea Nicotine dependence, cigarettes, uncomplicated GERD (gastroesophageal reflux disease) Chronic low back pain Tubular adenoma of colon Scrotal sac enlargement Hypersomnia Claudication Incisional pain Metabolic encephalopathy Scrotal sac enlargement Vision changes Surgical History History of hydrocelectomy History of colonoscopy S/P cardiac catheterization History of coronary artery stent placement History of aorto-femoral bypass Family History Father Hypertension Mother Hypertension Brother In good health Brother In good health Sister In good health Sister In good health Son In good health Son In good health Son In good health Son In good health Social History Housing: House Alcohol intake: former Patient Tobacco Use Status: Current everyday Tobacco user Tobacco use type: Cigarette Cigarettes Per Day: 10 Years Smoked: 55 +/- n (07/2023) STill moking (06/2024) e-Cigarette/Vaping Use: Never Used Second Hand Smoke Exposure: Yes service: No Current occupational status: employed Cognitive needs: Yes (walker) Hearing needs: No Vision needs: No Review of Systems Const All systems reviewed & are unremarkable except as noted in HPI and below Eyes Reports no additional complaints ENT Reports no additional complaints and Denies dysphagia Card Denies chest pain, Denies irregular heart rhythm (Has the monitor on), Denies leg edema and Reports dyspnea on exertion (Mild) Resp Reports cough (Minimal and infrequent) and Reports dyspnea on exertion (Mild) GI Denies dysphagia, Denies dyspepsia and Reports heartburn (Being treated with Protonix for prevention of GERD) Musc Reports abnormal gait (Uses walker) and Reports muscle weakness Skin/Breast Reports system reviewed and no additional complaints, except as documented Neuro Reports abnormal gait (Uses walker) Psych Reports depression (Treated with med) Endo Reports no additional complaints Sergei/Lymph Reports no additional complaints Physical Exam Vital Signs: Last Vital Signs Pulse 78 08/21/24 13:55 BP 132/72 08/21/24 13:55 Pulse Ox 97 08/21/24 13:55 Oxygen Delivery Method Room Air 08/21/24 13:55 BMI result Body Mass Index 31.5 Const General: comfortable, no acute distress, alert and awake Orientation/consciousness: patient oriented x3 HEENT Head: Yes normal to inspection General nose exam: No nasal polyps present and No nasal discharge present Face and sinus: Yes sinuses nontender Mouth: oropharynx normal Throat: Yes posterior oropharynx normal Eyes General: appearance normal, both eyes and all related structures Neck Neck: Yes normal visual inspection, Yes no lymphadenopathy, Yes trachea midline and Yes no JVD Thyroid: Thyroid normal Chest Chest palpation & inspection: normal inspection of the chest, normal palpation of entire chest wall and no tenderness Resp Other: Percussion note is resonant, has be equal breath sounds on both sides, the breath sounds are distant with prolonged expiratory phase. No wheezes or Crepitations are heard . Cardio Palpation: normal PMI Rate: regular rate Rhythm: regular rhythm Heart sounds: no gallops and no murmurs GI Other: Abdomen soft, benign. G-tube uneventfully removed. Dressing applied. Palpation (GI): Soft to palpation, nontender, No hepatosplenomegaly present and no masses Auscultation: normal bowel sounds Back/Spine/Pelvis Thoracic/Lumbar Spine: thoracic and lumbar spine normal to inspection and Thoracic/lumbar scoliosis (Mild to moderate) Skin General skin exam: no rashes or lesions noted Neuro General: patient oriented x3, No gait normal (The gait is somewhat unstable, due to poor balance, needs walker) and no focal motor deficits Cranial nerves: Yes CN's II-XII intact bilaterally Extrem General: Yes normal to inspection, Yes no clubbing, cyanosis or edema and Yes no calf tenderness Psych Appearance: grossly normal and well kempt Speech and movement: Normal speech and movement present Results Reviewed Results Reviewed: Compliance report for the last 30 nights is printed and reviewed and shows that he only tried to use for 2 nights in the whole month and that also was only for 1 or 2 hours. So he is basically noncompliant. Assessment & Plan Assessment & Plan (1) COPD (chronic obstructive pulmonary disease): Comment: MILD TO MODERATE DEGREE OF OBSTRUCTIVE AIRWAY DISORDER, REMAINS STABLE. RELATIVELY ASYMPTOMATIC, EXCEPT FOR MILD INTERMITTENT COUGH DUE TO SMOKING . Code(s): J44.9 - Chronic obstructive pulmonary disease, unspecified Category: Medical Qualifiers: COPD type: emphysema Emphysema type: unspecified Qualified Code(s): J43.9 - Emphysema, unspecified Plan: Continue to use budesonide-formoterol 160-4.5 2 puffs b.i.d.. Albuterol HFA 2 puffs Q 6 hours p.r.n. (2) Restrictive lung disease: Comment: PER PFT, MODERATE RESTRICTIVE LUNG DISEASE. THIS MAY BE PARTLY DUE TO HIS POOR EFFORTS, AND GENERAL WEAKNESS. Code(s): J98.4 - Other disorders of lung Category: Medical Plan: Encouraged to do deep breathing exercises but to I do not think he is going to do that. (3) Nicotine dependence, cigarettes, uncomplicated: Comment: (onset 17yo,1-2ppd x 51yrs, now 1/2 to 1ppd - 75pyh), had low-dose CT scan of the chest last year Code(s): F17.210 - Nicotine dependence, cigarettes, uncomplicated Category: Medical Plan: Counseled to quit smoking but he would not comply with that, would try to work with him and see if he can at least cut down the number of cigarettes. (4) Obstructive sleep apnea: Comment: Sleep study done 08/24/2023 mild to moderate AHI 15 . Because of multiple comorbidities he was started on CPAP therapy. He is basically remaining noncompliant . He has poor understanding due to mild dementia accounts for that. Code(s): G47.33 - Obstructive sleep apnea (adult) (pediatric) Category: Medical Plan: I did stress that he should use for 3-4 hours every night and his is going to work with him. If he does not remain compliant then he may lose his CPAP device. Coding Level of Care Code Est Pt Level 3 (09010) Diagnoses Pulmonary emphysema, unspecified emphysema type J43.9 COPD type: emphysema Emphysema type: unspecified Restrictive lung disease J98.4 Nicotine dependence, cigarettes, uncomplicated F17.210 Obstructive sleep apnea G47.33
--- OUTSIDE RECORDS SUMMARY | 2024-08-21 16:11 | XMS_ITS | Clinical Summary ---
Author Organization [facility] Address [address] [place] [id number] Care Team Providers Care Resident Director Name Role Phone Jami Martin MD Primary Care Provider [phone] Social History Tobacco Use Types Packs/Day Years [...] Influenza Vaccine (Season Ended) 2024 RSV Immunization Adult Patie nts (1 - 1-dose 75+ series) 2032 HIB [...] age to complete this topic Meningococcal B Vaccine Aged Out No l onger eligible based on patient's age to complete this topic RSV Immunization Patients Un gerardo 20 months Aged Out No longer eligible b ased on patient's age to complete this topic Varicella Vaccines Aged Out No longer eligible based on patient's age to complete this topic Care Teams Resident Director Relationship Specialty Start Date End Date Jami Martin MD [address] [place] [address] [address] [facility] [place] [address] PCP - General Internal Medicine 02/23/18
--- OUTSIDE RECORDS SUMMARY | 2024-08-21 16:11 | XMS_ITS | Clinical Summary ---
Author Organization [facility] Address [address] [place] [address] Care Team Providers Care Archaeology Professor Name Role Phone Unavailable Primary Care Provider Unavailabl e Allergies No known active allergies Medications ASPIRIN ENTERIC COATED 81 MG EC tablet [...] 12 hours) as needed for nausea. Active oxyCODONE-acetamin ophen (PERCOCET) 5-325 mg per tablet Take 1 tablet by mouth 2 (two) times a day as needed for pain. Active isosorbide mononitrate (IMDUR) 30 MG 24 hr tabletIndications: Chest pain Take 1 tablet (30 mg total) by mouth daily. 30 tablet 8 Active nitroglycerin (NITROSTAT) 0.4 MG SL tabletIndications: Chest pain Place 1 tablet (0.4 mg total) under the tongue every 5 (five) minutes as needed for chest pain. 30 tablet 8 Active atorvastatin (LIPITOR) 40 MG tabletIndications: Chest pain Take 1 tablet (40 mg total) by mouth daily. 30 tablet 8 Active clopidogrel (PLAVIX) 75 MG tabletIndications: Chest pain Take 1 tablet (75 mg total) by mouth daily. Take WITH or after food only, never on an empty stomach 30 tablet 8 Active Active Problems Problem Noted Date Diagnosed Date Other chest pain 02/27/2018 Essential hypertension 02/27/2018 Hypercholesteremia 02/27/2018 Coronary artery disease invo lving [place] coronary artery of [place] heart 02/27/2018 Myocardial infarction Social History Tobacco [...] at Not on file Legal Sex Male 8:21 PM EDT Gender Identity Not on file Sexual Orientation [...] this topic Medical Devices Implanted Type Area Risk Management Specialist Device Identifier Shelf Expiration Date Model / Serial / Lot Stent Stent Heart Insurance MEDICAID OUT OF STATE [facility] [place] Advance Directives * Full Code (Latest Code Status on File) Date Activated Date Inactivated Comments 02/27/2018 12:14 AM
== END 2024-08-21 14:10 | disposition home or self-care (01) ==
LOC: HO.HPS 13:39
PROVIDERS: PCP Internal Medicine; Visit Provider Internal Medicine
DX: J43.9 Emphysema, unspecified (principal); J98.4 Other disorders of lung; F17.210 Nicotine dependence, cigarettes, uncomplicated; G47.33 Obstructive sleep apnea (adult) (pediatric)
CPT/HCPCS: 99213

== ENCOUNTER → 2024-08-21 13:38 | Outpatient (BNVA) | payer MEDICARE, MEDICAID, SELFPAY | PROVIDERS: PCP Internal Medicine; Visit Provider Internal Medicine | DX: J43.9 Emphysema, unspecified (principal); J98.4 Other disorders of lung; G47.33 Obstructive sleep apnea (adult) (pediatric); F17.210 Nicotine dependence, cigarettes, uncomplicated; Z99.89 Dependence on other enabling machines and devices | CPT/HCPCS: 99212 ==

== ENCOUNTER 2024-09-07 12:38 | Outpatient (REF) | payer MEDICARE, MEDICAID, SELFPAY ==
--- NOTE | ~2024-09-07 | CT_ITS ---
CLINICAL HISTORY: F17.210 - Nicotine dependence, cigarettes, uncomplicated CT lung cancer screening (LDCT) Comparison: CT/WA/SR - CT LUNG SCREENING - 07/25/23 10:04 EDT Technique: Axial CT images of the chest using low-dose technique. Referring provider counseled the patient on shared decision-making for LDCT screening. Additional counseling was provided on smoking cessation. Effective radiation dose total: DLP 50.9 mGycm, CTDIvol 1.6 mGy. Findings: Lung: Mild emphysema. Calcified granuloma and small pulmonary nodules, i.e., 2 mm in the right upper lobe image 38. Coronary artery calcifications: Moderate Limited upper abdomen: Left renal cyst. Other: None Impression: LungRADS 2 - Benign Appearance: Continue annual screening with low dose Chest CT in 12 months. ##L2# Category 1: Normal; continue annual screening Category 2: Benign appearance or behavior, continue annual screening Category 3: Probably benign, [address] recommended Category 4A: Suspicious, [address] recommended; may consider PET/CT Category 4B: Suspicious, Additional diagnostics and/or tissue sampling recommended Category 4X: Suspicious, Additional diagnostics and/or tissue sampling recommended Category 0: Recalls (incomplete screen due to Incomplete coverage, Noise, Respiratory motion, Expiration, Obscured by acute abnormality) This document has been electronically signed by: Bony Fuentes MD on 09/07/2024 15:53:41
--- OUTSIDE RECORDS SUMMARY | 2024-09-07 12:40 | XMS_ITS | Clinical Summary ---
Author Organization [facility] Address [address] [place] [address] Care Team Providers Care Lei Maker Name Role Phone Unavailable Primary Care Provider [...] Hypercholesteremia 02/27/2018 Coronary artery disease invo lving [place] coronary artery of [place] heart 02/27/2018 Myocardial infarction Social History Tobacco [...] - Risk 60-74 years 1-dose series) 2017 COVID-19 Vaccine (1 - 2023-2 5 season) 2024 Influenza Vaccine 11/30/2024 Hepatitis B Vaccines Aged Out No long er eligible based on patient's age to complete this topic Medical Devices Implanted Type Area Hadoop Engineer Device Identifier Shelf Expiration Date Model / Serial / Lot Stent Stent Heart Insurance MEDICAID OUT OF STATE [facility] [place] Advance Directives * Full Code (Latest Code Status on File) Date Activated Date Inactivated Comments 02/27/2018 12:14 AM
--- OUTSIDE RECORDS SUMMARY | 2024-09-07 12:40 | XMS_ITS | Clinical Summary ---
Author Organization [facility] Address [id number] [place] [id number] Care Team Providers Care Helper Shear Operator Name Role Phone Jami Martin MD Primary Care Provider [phone] Social History Tobacco Use Types Packs/Day Years [...] age to complete this topic Care Teams Helper Shear Operator Relationship Specialty Start Date End Date Jami Martin MD [address] [place] [address] [address] [facility] [place] [address] PCP - General Internal Medicine 02/23/18
== END 2024-09-07 12:39 | disposition home or self-care (01) ==
LOC: HO.CT 12:38
PROVIDERS: PCP Internal Medicine; Visit Provider Physician Assistant Medical
DX: Z12.2 Encounter for screening for malignant neoplasm of respiratory organs (principal); F17.210 Nicotine dependence, cigarettes, uncomplicated
CPT/HCPCS: 71271

== ENCOUNTER → 2024-09-07 12:40 | Outpatient (BNV) | payer MEDICARE, MEDICAID, SELFPAY | PROVIDERS: PCP Internal Medicine; Visit Provider Nuclear Medicine | DX: F17.210 Nicotine dependence, cigarettes, uncomplicated (principal) | CPT/HCPCS: 71271 ==

== ENCOUNTER 2024-09-10 14:22 | Outpatient (AMB) | payer MEDICARE, MEDICAID, SELFPAY ==
--- OUTSIDE RECORDS SUMMARY | 2024-09-10 14:34 | XMS_ITS | Clinical Summary ---
Author Organization [facility] Address [id number] [place] [id number] Care Team Providers Care Produce Buyer Name Role Phone Jami Martin MD Primary Care Provider [phone] Social History Tobacco Use Types Packs/Day Years [...] age to complete this topic Care Teams Produce Buyer Relationship Specialty Start Date End Date Jami Martin MD [address] [place] [address] [address] [facility] [place] [address] PCP - General Internal Medicine 02/23/18
--- OUTSIDE RECORDS SUMMARY | 2024-09-10 14:34 | XMS_ITS | Clinical Summary ---
Author Organization [facility] Address [address] [place] [address] Care Team Providers Care Collection Analyst Name Role Phone Unavailable Primary Care Provider [...] Hypercholesteremia 02/27/2018 Coronary artery disease invo lving [place] coronary artery of [place] heart 02/27/2018 Myocardial infarction Social History Tobacco [...] this topic Medical Devices Implanted Type Area Mud Car Worker Device Identifier Shelf Expiration Date Model / Serial / Lot Stent Stent Heart Insurance MEDICAID OUT OF STATE [facility] [id number] Advance Directives * Full Code (Latest Code Status on File) Date Activated Date Inactivated Comments 02/27/2018 12:14 AM
--- NOTE | 2024-09-10 14:42 | A.OFFPC_ITS ---
Vital Signs 09/10/24 14:43 Height 5 ft 5 in Weight 189 lb 4 oz BMI 31.5 BP 120/74 Blood Pressure Location Lt brachial Position Sitting Pulse 74 Pulse Source Pulse Oximeter Temp 97.3 F Temp Source Temporal Artery Scan Pulse Oximetry (%) 98 Oxygen Delivery Method Room Air Intake Visit Reasons: 3 month f/u Head Of Marketing Analytics Required: No Accompanied by: Spouse Allergies No Known Allergies [No Known Allergies*] Allergy (Verified 09/10/24 14:44) Medication List - Last Reconciled 09/10/24 by Jami Martin MD acetaminophen (Acetaminophen Extra Strength) 1,000 mg (2 x 500 mg) PO Q8H PRN albuterol sulfate 90 mcg/actuation 2 puffs inhalation Q4-6H PRN [APAP 6-16 cm H20 humidified AIR As directed] aripiprazole 2 mg PO DAILY aspirin (Adult Aspirin Regimen) 81 mg PO DAILY budesonide-formoterol 160-4.5 mcg/actuation (Symbicort) 1 inh inhalation BID clopidogrel (Plavix) 75 mg PO DAILY cyclobenzaprine 10 mg PO TID PRN gabapentin 300 mg PO BEDTIME memantine 5 mg PO BID metoprolol succinate ER 50 mg PO DAILY pantoprazole 20 mg PO BID 90 days paroxetine HCl 20 mg PO DAILY rosuvastatin (Crestor) 40 mg PO DAILY simethicone (Gas-X Extra Strength) 125 mg PO TID-QID PRN trazodone 100 mg PO BEDTIME Tobacco use date assessed: 07/19/24 Fall risk assessment: No Falls in past year Last assessed Fall Risk: 09/10/24 Dental Screening Dental Screen Date: 05/09/24 [facility] Medical History Bilateral hand numbness Numbness of left hand Shoulder pain, left Seizure disorder History of CVA (cerebrovascular accident) CAD (coronary artery disease) History of ST elevation myocardial infarction (STEMI) PFO (patent foramen ovale) Peripheral arterial disease Hypercholesterolemia Restrictive lung disease COPD (chronic obstructive pulmonary disease) Obstructive sleep apnea Nicotine dependence, cigarettes, uncomplicated GERD (gastroesophageal reflux disease) Chronic low back pain Tubular adenoma of colon Scrotal sac enlargement Hypersomnia Claudication Incisional pain Metabolic encephalopathy Scrotal sac enlargement Vision changes Surgical History History of hydrocelectomy History of colonoscopy S/P cardiac catheterization History of coronary artery stent placement History of aorto-femoral bypass Family History Father Hypertension Mother Hypertension Brother In good health Brother In good health Sister In good health Sister In good health Son In good health Son In good health Son In good health Son In good health Social History Housing: House Alcohol intake: former Patient Tobacco Use Status: Current everyday Tobacco user Tobacco use type: Cigarette Cigarettes Per Day: 10 Years Smoked: 57 +/- n (07/2023) STill moking (06/2024) e-Cigarette/Vaping Use: Never Used Second Hand Smoke Exposure: Yes service: No Current occupational status: employed Cognitive needs: Yes (walker) Hearing needs: No Vision needs: No Questionnaire Thrive Questionnaire Date Thrive assessed: 07/19/24 I am a: Parent/Caregiver What is your living situation today?: I have a steady place to live Within the past 12 months, did the food you bought not last and you didn't have the money to get more?: I choose not to answer this question Within the past 12 months, did you worry whether your food would run out before you got money to buy more?: I choose not to answer this question Do you have trouble paying for medicines?: No Do you have trouble getting transportation to medical appointments?: No Do you have trouble paying your heating and electricity bill?: I choose not to answer this question Do you have trouble taking care of your child, family member or friend?: I choose not to answer this question Do you have trouble with day-to-day activities such as bathing, preparing meals, shopping, managing finances, etc.?: I choose not to answer this question Are you currently unemployed and looking for a job?: I choose not to answer this question Are you interested in more education?: I choose not to answer this question Please select the resources that you would like help with: None Currently or been in a relationship where the following occur: No concerns reported THRIVE Score: 0 JACQUES-7 AMB Questionnaire JACQUES-7 Date JACQUES - 7 assessed: 07/19/24 Source: Developed by Nidia Ying B.W. Evan, Eddy Arriaga and colleagues, with an educational nicole from [employer]. Physical exam (Primary Care) Vital Signs: Last Vital Signs Temp 97.3 F 09/10/24 14:43 Pulse 74 09/10/24 14:43 BP 120/74 09/10/24 14:43 Pulse Ox 98 09/10/24 14:43 Oxygen Delivery Method Room Air 09/10/24 14:43 BMI result Body Mass Index 31.5 Tobacco/Smoking Status: Tobacco use Status Tobacco use date assessed 07/19/24 09/10/24 14:47 Patient Tobacco Use Status Current everyday Tobacco 09/10/24 14:47 Tobacco use type Cigarette 09/10/24 14:47 e-Cigarette/Vaping Use Never Used 09/10/24 14:47 Thrive Assessment: Date of Thrive Assessment Date Thrive assessed 07/19/24 09/10/24 14:47 Currently or been in a relationship where the following occur: No concerns reported Const General: alert; No acute distress Eyes Conjunctivae: conjunctivae normal Resp Auscultation: clear to auscultation bilaterally Cardio Rate: regular rate Rhythm: regular rhythm GI Inspection: Yes normal to inspection Extrem General: Yes normal to inspection and No edema Coding Level of Care Code Est Pt Level 4 (11608) Complex EM visit Add On G2211 Diagnoses Gastroesophageal reflux disease without esophagitis K21.9 Esophagitis presence: without esophagitis Coronary artery disease involving [place] coronary artery of [place] heart without angina pectoris I25.10 Associated angina: without angina Coronary Disease-Associated Artery/Lesion type: [place] artery [place] vs. transplanted heart: [place] heart Pulmonary emphysema, unspecified emphysema type J43.9 COPD type: emphysema Emphysema type: unspecified Peripheral arterial disease I73.9 Generalized anxiety disorder F41.1 Tubular adenoma of colon D12.6 BPH (benign prostatic hyperplasia) N40.0 Obstructive sleep apnea G47.33 Obesity (BMI 30.0-34.9) E66.811 Nicotine dependence, cigarettes, uncomplicated F17.210 Carpal tunnel syndrome on both sides G56.03 Assessment & Plan Assessment & Plan (1) GERD (gastroesophageal reflux disease): Code(s): K21.9 - Gastro-esophageal reflux disease without esophagitis Category: Medical Qualifiers: Esophagitis presence: without esophagitis Qualified Code(s): K21.9 - Gastro-esophageal reflux disease without esophagitis Plan: Avoid the foods that causes that usually spicy foods, tomato products, juices, coffee, soda and foods that your sensitive to. After eating do not lie down, allow 3-4 hours before in lie down. And keep the head of bed above 30 degrees to avoid the acid from going up. (2) CAD (coronary artery disease): Comment: MABEL Lopez 2014 Dr. Reid angioplasty GERA mid RCA March 2018 STEMI 06/2021, mid RCA thrombus, GERA placed ECHO EF 63% Code(s): I25.10 - Atherosclerotic heart disease of [place] coronary artery without angina pectoris Category: Medical Qualifiers: Associated angina: without angina Coronary Disease-Associated Artery/Lesion type: [place] artery [place] vs. transplanted heart: [place] heart Qualified Code(s): I25.10 - Atherosclerotic heart disease of [place] coronary artery without angina pectoris Plan: Control the cholesterol, weight, blood pressure, diabetes on aspirin 81 mg once a day (3) COPD (chronic obstructive pulmonary disease): Comment: MILD TO MODERATE DEGREE OF OBSTRUCTIVE AIRWAY DISORDER, REMAINS STABLE. RELATIVELY ASYMPTOMATIC, EXCEPT FOR MILD INTERMITTENT COUGH DUE TO SMOKING . Code(s): J44.9 - Chronic obstructive pulmonary disease, unspecified Category: Medical Qualifiers: COPD type: emphysema Emphysema type: unspecified Qualified Code(s): J43.9 - Emphysema, unspecified Plan: Patient follows up with Pulmonary on Symbicort and albuterol. Patient continues to smoke. (4) Peripheral arterial disease: Comment: 04/10/2019 - open aortobifemoral bypass Code(s): I73.9 - Peripheral vascular disease, unspecified Category: Medical Plan: Patient is advised strongly to stop smoking on clopidogrel (5) Generalized anxiety disorder: Code(s): F41.1 - Generalized anxiety disorder Category: Medical Plan: Continue with Abilify paroxetine (6) Tubular adenoma of colon: Comment: (TA/SSP on 12/2022 scope) Code(s): D12.6 - Benign neoplasm of colon, unspecified Category: Medical Plan: Patient is reminded about colonoscopy (7) BPH (benign prostatic hyperplasia): Code(s): N40.0 - Benign prostatic hyperplasia without lower urinary tract symptoms Category: Medical Plan: Stable (8) Obstructive sleep apnea: Comment: Sleep study done 08/24/2023 mild to moderate AHI 15 . Because of multiple comorbidities he was started on CPAP therapy. He is basically remaining noncompliant . He has poor understanding due to mild dementia accounts for that. Code(s): G47.33 - Obstructive sleep apnea (adult) (pediatric) Category: Medical Plan: Reminded patient about the need to do CPAP for prevention of heart problem. (9) Obesity (BMI 30.0-34.9): Code(s): E66.811 - Obesity, class 1 Category: Medical Plan: Diet and exercise (10) Nicotine dependence, cigarettes, uncomplicated: Comment: (onset 17yo,1-2ppd x 51yrs, now 1/2 to 1ppd - 75pyh), had low-dose CT scan of the chest last year Code(s): F17.210 - Nicotine dependence, cigarettes, uncomplicated Category: Medical Plan: Patient is strongly advised to stop smoking! (11) Carpal tunnel syndrome on both sides: Comment: Mild bilateral carpal tunnel syndrome July 2024 Mild bilateral median neuropathy across carpal tunnel. 2. Mild bilateral ulnar neuropathy across cubital tunnel. Code(s): G56.03 - Carpal tunnel syndrome, bilateral upper limbs Category: Medical Plan: Discussed about bilateral mild carpal tunnel syndrome Plan History of Present Illness The patient is a 69-year-old male presenting for follow-up regarding several chronic medical conditions and health maintenance. His health is impacted by multiple comorbidities including coronary artery disease, gastroesophageal reflux disease, chronic obstructive pulmonary disease, and peripheral arterial disease. His anxiety disorder and smoking habit complicate the management of his conditions. Recent testing indicates elevated triglycerides and borderline hyperglycemia. Following a recent chest CAT scan and past colonoscopy, ongoing monitoring is planned. Despite recommendations for consistent CPAP usage, he exhibits noncompliance, which may exacerbate his heart conditions. The presence of bilateral neuropathies was confirmed by nerve conduction studies after the patient complained of numbness in the hands. Weight gain and non-adherence to dietary advice remain obstacles in managing his conditions. Health Maintenance - Encouraged smoking cessation to reduce cardiovascular and pulmonary disease risk. - Recommended follow-up colonoscopy due to previous findings of polyps. - Advised strict adherence to CPAP therapy to prevent heart complications. - Discussed need for lifestyle changes, including weight loss and exercise. - Plan for reassessment of blood glucose and lipid profile in three months. Social History - Current smoker, despite advice to cease. - Reports weight gain; BMI currently at 31 indicating obesity. - Exhibits sedentary lifestyle that may contribute to weight and health issues. Review of Systems - Constitutional: Reports weight gain. - Respiratory: Reports smoking habit; denies need for current inhaler use. - Cardiovascular: Denies new cardiac symptoms. - Neurological: Reports hand numbness; diagnosed bilateral carpal tunnel syndrome. - Metabolic: Reports previous elevated triglycerides and borderline elevated glucose levels. - Sleep: Reports noncompliance with CPAP usage. Physical Exam - Constitutional- Obese male patient. - Weight gain observed with a BMI of 31. Results - Labs: Elevated triglycerides at 322 mg/dL, fasting blood glucose at 101 mg/dL. - Tests: Past colonoscopy in 2022 with findings of three polyps. - Diagnostics: Recent chest CAT scan stable for patient's smoking history. Plan Managing the chronic conditions and ensuring routine follow-ups are essential. Continued use of clopidogrel for coronary artery disease, behavioral modification for GERD, and COPD along with pulmonary follow-ups on Symbicort and albuterol will proceed. Importance is placed on smoking cessation to improve pulmonary and cardiac health. Optimization of hypercholesterolemia care, weight management, and lifestyle modifications are critical. Emphasis on compliance with CPAP is reiterated to prevent potential cardiac issues from sleep apnea. Anticipatory discussions are planned regarding upcoming blood work to evaluate current glycemic and lipid statuses. Follow-up colonoscopy is advised due to previous polyp findings. Patient was informed and verbally consented to the use of an ambient scribe for clinic note documentation during this visit. Discussion Notes I discussed the management plan for his multiple chronic conditions, emphasizing the importance of adherence to current medications and lifestyle modifications. I highlighted the risks of continuing smoking and noncompliance with CPAP, explaining the potential cardiovascular complications. We reviewed the implications of elevated triglycerides and fasting glucose levels, with a follow-up for re-evaluation in three months. The patient was informed about the necessity of repeated colonoscopy due to past polyp findings and received guidance on smoking cessation, diet, weight management, and COPD care. I provided anticipatory guidance regarding the importance of seeking immediate care for concerning symptoms, particularly relating to cardiac and respiratory health. Patient Instructions - Continue taking clopidogrel, Abilify, and paroxetine as prescribed. - Use Symbicort and albuterol as directed. - Try to stop smoking. It's important for your lung and heart health. - Follow a healthy diet and try to exercise regularly to manage weight and cholesterol. - Use your CPAP machine every night as told by your doctor. - Schedule your blood work in the next couple of weeks. - Follow up on colonoscopy appointment instructions. - Contact a healthcare provider if you experience any new or worsening symptoms.
[2024-09-10 14:43] VITALS: BP 120/74; PULSE 74; TEMP 36.3; O2SAT 98; BMI 31.5
== END 2024-09-10 15:19 | disposition home or self-care (01) ==
LOC: HO.HMCH 14:23
PROVIDERS: PCP Internal Medicine; Visit Provider Internal Medicine
DX: K21.9 Gastro-esophageal reflux disease without esophagitis (principal); J43.9 Emphysema, unspecified; E66.811 Obesity, class 1; Z68.31 Body mass index [BMI] 31.0-31.9, adult; I73.9 Peripheral vascular disease, unspecified; I25.10 Atherosclerotic heart disease of native coronary artery without angina pectoris; F41.1 Generalized anxiety disorder; D12.6 Benign neoplasm of colon, unspecified; N40.0 Benign prostatic hyperplasia without lower urinary tract symptoms; G47.33 Obstructive sleep apnea (adult) (pediatric); F17.210 Nicotine dependence, cigarettes, uncomplicated; G56.03 Carpal tunnel syndrome, bilateral upper limbs

== ENCOUNTER → 2024-09-10 14:22 | Outpatient (BNVA) | payer MEDICARE, MEDICAID, SELFPAY | PROVIDERS: PCP Internal Medicine; Visit Provider Internal Medicine | DX: K21.9 Gastro-esophageal reflux disease without esophagitis (principal); I25.10 Atherosclerotic heart disease of native coronary artery without angina pectoris; J43.9 Emphysema, unspecified; I73.9 Peripheral vascular disease, unspecified; F41.1 Generalized anxiety disorder; D12.6 Benign neoplasm of colon, unspecified; N40.0 Benign prostatic hyperplasia without lower urinary tract symptoms; G47.33 Obstructive sleep apnea (adult) (pediatric); E66.811 Obesity, class 1; G56.03 Carpal tunnel syndrome, bilateral upper limbs; F17.210 Nicotine dependence, cigarettes, uncomplicated; Z71.6 Tobacco abuse counseling | CPT/HCPCS: 99212 ==

== ENCOUNTER 2024-09-18 11:04 | Outpatient (REF) | payer MEDICARE, MEDICAID, SELFPAY ==
--- NOTE | ~2024-09-18 | XR_ITS ---
EXAMINATION: XR SHOULDER, LEFT CLINICAL INFORMATION: M25.519 - Pain in unspecified shoulder COMPARISON: January 06, 2022. TECHNIQUE: AP external rotation, Grashey, scapular Y, and axillary views of the left shoulder. FINDINGS: No acute cortical disruption or malalignment. No lytic or blastic lesions. XR/XR shoulder LT min 2V IMPRESSION: No acute fracture or dislocation. Stable x-ray. Electronically signed by: Jens Gonzalez MD 09/18/2024 12:49 PM EDT
--- OUTSIDE RECORDS SUMMARY | 2024-09-19 12:26 | XMS_ITS | Clinical Summary ---
Author Organization [facility] Address [address] [place] [address] Care Team Providers Care Contour Path Tape Mill Operator Name Role Phone Unavailable Primary Care [...] Hypercholesteremia 02/27/2018 Coronary artery disease invo lving [place] coronary artery of [place] heart 02/27/2018 Myocardial infarction Social History Tobacco [...] this topic Medical Devices Implanted Type Area Nurse Anesthetist Device Identifier Shelf Expiration Date Model / Serial / Lot Stent Stent Heart Insurance MEDICAID OUT OF STATE [facility] Advance Directives * Full Code (Latest Code Status on File) Date Activated Date Inactivated Comments 02/27/2018 12:14 AM
--- OUTSIDE RECORDS SUMMARY | 2024-09-19 12:26 | XMS_ITS | Clinical Summary ---
Author Organization [facility] Address [id number] [place] [id number] Care Team Providers Care Water Operator Name Role Phone Jami Martin MD Primary Care Provider [phone] Social History Tobacco Use Types Packs/Day Years [...] age to complete this topic Care Teams Water Operator Relationship Specialty Start Date End Date Jami Martin MD [address] [place] [address] [address] [facility] [place] [address] PCP - General Internal Medicine 02/23/18
== END 2024-09-18 11:05 | disposition home or self-care (01) ==
LOC: HO.HOSX 11:04
PROVIDERS: Visit Provider Physician Assistant
DX: M25.512 Pain in left shoulder (principal); M75.102 Unspecified rotator cuff tear or rupture of left shoulder, not specified as traumatic
CPT/HCPCS: 20610; 73030; 99212; J1010; J2003

== ENCOUNTER 2024-09-18 12:36 | Outpatient (AMB) | payer MEDICARE, MEDICAID, SELFPAY ==
--- NOTE | 2024-09-18 12:50 | MHC.OFFVIS ---
Intake Visit Reasons: OV- Left shoulder pain, last inj 03/16/22 Intake Note: Catie is a 69 year old right hand dominant male who presents today with his for a follow up of his left shoulder pain, last injection 03/16/22 (80). Patient reports his shoulder is causing him pain. He states that his injection gave him about 3 months of relief. Disease Case Manager Rn Services: Disease Case Manager Rn Present () Accompanied by: Spouse Allergies No Known Allergies [No Known Allergies*] Allergy (Verified 09/18/24 12:59) HPI HPI OV- Left shoulder pain, last inj 03/16/22: Details: Mr. Martinez is a 69 year old right hand dominant male who presents today with his for a follow up of his left shoulder pain, last injection 03/16/22. Patient reports his shoulder is causing him pain. He states that his injection gave him about 3 months of relief. He has a recent history of a stroke and has residual weakness in bilateral upper extremities. He has been working with physical therapy after the stroke and his reports that he has not been making much progress. [facility] Medical History Bilateral hand numbness Numbness of left hand Shoulder pain, left Seizure disorder History of CVA (cerebrovascular accident) CAD (coronary artery disease) History of ST elevation myocardial infarction (STEMI) PFO (patent foramen ovale) Peripheral arterial disease Hypercholesterolemia Restrictive lung disease COPD (chronic obstructive pulmonary disease) Obstructive sleep apnea Nicotine dependence, cigarettes, uncomplicated GERD (gastroesophageal reflux disease) Chronic low back pain Tubular adenoma of colon Scrotal sac enlargement Hypersomnia Claudication Incisional pain Metabolic encephalopathy Scrotal sac enlargement Vision changes Surgical History History of hydrocelectomy History of colonoscopy S/P cardiac catheterization History of coronary artery stent placement History of aorto-femoral bypass Family History Father Hypertension Mother Hypertension Brother In good health Brother In good health Sister In good health Sister In good health Son In good health Son In good health Son In good health Son In good health Social History Housing: House Alcohol intake: former Patient Tobacco Use Status: Current everyday Tobacco user Tobacco use type: Cigarette Cigarettes Per Day: 10 Years Smoked: 55 +/- n (07/2023) STill moking (06/2024) e-Cigarette/Vaping Use: Never Used Second Hand Smoke Exposure: Yes service: No Current occupational status: employed Cognitive needs: Yes (walker) Hearing needs: No Vision needs: No Review of Systems Const All systems reviewed & are unremarkable except as noted in HPI and below Physical Exam Const General: cooperative, healthy appearing and no acute distress Resp Effort & Inspection: normal respiratory effort and able to speak in complete sentences Extrem Other: Left shoulder: Normal to inspection. No ecchymosis, erythema, or edema. Full shoulder ROM in all planes. Negative cross-body reach. Negative empty can. Negative drop arm. NVI. Office Procedures AMB Joint Injection/Aspiration Joint Injection/Aspiration Primary Site: left shoulder Prep: site was prepped using aseptic technique, ethochloride spray was applied and injection warnings given Injected: 80 mg of, DepoMedrol, with 8 mL of (2% plain lido ) and in the subcromial space Approach Used: posterolateral Procedure: The patient tolerated the procedure well, but had some pain with the injection and there was some relief with the local anesthesia Coding 87787 - Large joint Procedure code (CPT) selection complete Assessment & Plan Assessment & Plan (1) Painful arc syndrome of left shoulder: Code(s): M75.102 - Unspecified rotator cuff tear or rupture of left shoulder, not specified as traumatic Category: Medical Plan Mr. Martinez is a 69 year old right hand dominant male who presents today with his for a follow up of his left shoulder pain, last injection 03/16/22. Patient reports his shoulder is causing him pain. He states that his injection gave him about 3 months of relief. He has a recent history of a stroke and has residual weakness in bilateral upper extremities. He has been working with physical therapy after the stroke and his reports that he has not been making much progress. While in the office today, we discussed the role of physical therapy, cortisone injection and MRI imaging. At this time due to patient recent history of stroke and residual weakness on the left upper extremity she would not be a good surgical candidate. Patient would like to defer physical therapy at this time as he has been working with them after the stroke and he has had difficulty making progress. The patient was offered a cortisone injection in the left shoulder with 80 mg of DepoMedrol. The patient was explained the risks, benefits, and alternatives to receiving this injection. After receiving consent for the injection, the patient had the procedure done while in the office today. The patient tolerated the procedure well with no complications. Follow-up will be p.r.n., or sooner if needed X-rays of the left shoulder which were obtained while in the office today and were reviewed by me, Yvette Akhtar PA-C, revealed no acute abnormalities. Orders: Orders XR shoulder LT min 2V Today M25.519 - Pain in unspecified shoulder Coding Level of Care Code Est Pt Level 3 (36004) Diagnoses Painful arc syndrome of left shoulder M75.102 CPT Codes Coding - 89609 Large joint: 96206 - Large joint ([id number])
--- OUTSIDE RECORDS SUMMARY | 2024-09-18 13:41 | XMS_ITS | Clinical Summary ---
Author Organization [facility] Address [address] [place] [address] Care Team Providers Care Guide Visitor Name Role Phone Unavailable Primary Care Provider [...] Hypercholesteremia 02/27/2018 Coronary artery disease invo lving [place] coronary artery of [place] heart 02/27/2018 Myocardial infarction Social History Tobacco [...] this topic Medical Devices Implanted Type Area Sales Clerk Device Identifier Shelf Expiration Date Model / Serial / Lot Stent Stent Heart Insurance MEDICAID OUT OF STATE [facility] Advance Directives * Full Code (Latest Code Status on File) Date Activated Date Inactivated Comments 02/27/2018 12:14 AM
--- OUTSIDE RECORDS SUMMARY | 2024-09-18 13:41 | XMS_ITS | Clinical Summary ---
Author Organization [facility] Address [address] [place] [id number] Care Team Providers Care Front Desk Specialist Name Role Phone Jami Martin MD Primary Care Provider [phone] Social History Tobacco Use Types Packs/Day Years [...] age to complete this topic Care Teams Front Desk Specialist Relationship Specialty Start Date End Date Jami Martin MD [address] [place] [address] [address] [facility] [place] [address] PCP - General Internal Medicine 02/23/18
== END 2024-09-18 13:18 | disposition home or self-care (01) ==
LOC: HO.HOS 12:37
PROVIDERS: PCP Internal Medicine; Visit Provider Physician Assistant
DX: M75.102 Unspecified rotator cuff tear or rupture of left shoulder, not specified as traumatic (principal)
CPT/HCPCS: 20610; 99213

== ENCOUNTER → 2024-09-18 12:38 | Outpatient (BNV) | payer MEDICARE, MEDICAID, SELFPAY | PROVIDERS: Visit Provider Radiology Diagnostic Radiology | DX: M25.511 Pain in right shoulder (principal) | CPT/HCPCS: 73030 ==

== ENCOUNTER 2024-09-19 08:25 | Outpatient (REF) | payer MEDICARE, MEDICAID, SELFPAY ==
[2024-09-19 09:05] LABS: MANUAL DIFF FLAG NO
--- OUTSIDE RECORDS SUMMARY | 2024-09-19 09:48 | XMS_ITS | Clinical Summary ---
Author Organization [facility] Address [address] [place] [address] Care Team Providers Care Chief Operator Reformer Name Role Phone Unavailable Primary Care Provider [...] Hypercholesteremia 02/27/2018 Coronary artery disease invo lving [place] coronary artery of [place] heart 02/27/2018 Myocardial infarction Social History Tobacco [...] this topic Medical Devices Implanted Type Area Replenishment Specialist Device Identifier Shelf Expiration Date Model / Serial / Lot Stent Stent Heart Insurance MEDICAID OUT OF STATE [facility] [place] [facility] Advance Directives * Full Code (Latest Code Status on File) Date Activated Date Inactivated Comments 02/27/2018 12:14 AM
--- OUTSIDE RECORDS SUMMARY | 2024-09-19 09:48 | XMS_ITS | Clinical Summary ---
Author Organization [facility] Address [id number] [place] [id number] Care Team Providers Care Wheat Grower Name Role Phone Jami Martin MD Primary Care Provider [phone] Social History Tobacco Use Types Packs/Day Years [...] age to complete this topic Care Teams Wheat Grower Relationship Specialty Start Date End Date Jami Martin MD [address] [place] [address] [address] [facility] [place] [address] PCP - General Internal Medicine 02/23/18
[2024-09-19 09:50] LABS: Basophils Percent Auto 0.3 % (0-2); Hematocrit 44.4 % (42.0-52.0); Hemoglobin 14.8 g/dl (14.0-18.0); Imm Gran Abs Auto 0.07 X10*3/uL (0.00-0.03); Imm Gran Pct Auto 0.5 % (0.0-0.4); Lymphocytes Absolute Auto 1.4 X10*3/uL (1.2-4.9); Lymphocytes Percent Auto 10.5 % (20-40); Mean Corpuscular HGB Conc 33.3 g/dl (31.0-36.0); Mean Corpuscular Hemoglobin 29.9 pg (27.0-33.0); Mean Corpuscular Volume 89.7 fL (80.0-98.0); Mean Platelet Volume 11.4 fL (9.4-12.4); Monocytes Absolute Auto 0.4 X10*3/uL (0.1-1.2); Monocytes Percent Auto 2.9 % (2-11); Neutrophils Absolute Auto 11.2 x10*3/uL (2.0-8.3); Neutrophils Percent Auto 85.8 % (45-73); Platelet Count 190 X10*3/uL (160-400); Red Blood Count 4.95 X10*6/uL (4.60-5.80); Red Cell Distribution Width 12.3 % (11.0-16.0); White Blood Count 13.1 X10*3/uL (4.8-10.8)
[2024-09-19 09:58] LABS: Estimated Average Glucose 143 mg/dL; Hemoglobin A1C 189.3536 umol/L; Hemoglobin A1c % 6.6 % (<6.0); Total Hemoglobin (HGBA1C) 3903.0277 umol/L
[2024-09-19 11:51] LABS: Free T4 (Free Thyroxine) 0.92 ng/dL (0.71-1.85)
[2024-09-19 12:00] LABS: Alanine Aminotransferase 49 U/L (0-40); Albumin Level 4.2 g/dL (3.5-5.0); Alkaline Phosphatase 104 U/L (39-117); Anion Gap 12 (12-20); Aspartate Amino Transferase 31 U/L (5-37); Bilirubin Total 0.3 mg/dL (0.0-1.0); Blood Urea Nitrogen 14 mg/dL (9-16); Calcium 9.2 mg/dL (8.4-10.2); Carbon Dioxide 23 mmol/L (22-29); Chloride 109 mmol/L (96-108); Cholesterol 140 mg/dL (<200); Estimated Glomerular Filt Rate > 60; Glucose Random 179 mg/dL (60-115); HDL Cholesterol 24 mg/dL (>40); LDL Cholesterol Calculated 54 mg/dL (<100); Sodium 140 mmol/L (135-145); Total Protein 6.6 g/dL (6.5-8.0); Triglycerides 313 mg/dL (<150)
[2024-09-19 12:21] LABS: Folate 11.8 ng/mL (> or = 4.0); Prostate Specific Antigen Scr 0.52 ng/mL (<0.05-4.0); Vitamin B12 388 pg/mL (200-900)
[2024-09-19 12:28] LABS: Thyroid Stimulating Hormone 0.59 uIU/mL (0.32-4.0)
[2024-09-23 13:48] LABS: Testosterone, Total 249 ng/dL (250-1100)
== END 2024-09-19 08:26 | disposition home or self-care (01) ==
LOC: HO.LAB 08:25
PROVIDERS: Nurse Practitioner; PCP Internal Medicine; Visit Provider Internal Medicine
DX: Z01.818 Encounter for other preprocedural examination (principal); M25.512 Pain in left shoulder; E78.00 Pure hypercholesterolemia, unspecified; Z86.73 Personal history of transient ischemic attack (TIA), and cerebral infarction without residual deficits; Z12.5 Encounter for screening for malignant neoplasm of prostate
CPT/HCPCS: 36415; 80053; 80061; 82607; 82746; 83036; 84153; 84403; 84439; 84443; 85025

== ENCOUNTER 2024-09-26 13:39 | Outpatient (AMB) | payer MEDICARE, MEDICAID, SELFPAY ==
--- NOTE | 2024-09-26 13:57 | A.OFFVIS_ITS ---
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 Accompanied by: Spouse Allergies No Known Allergies [No Known Allergies*] Allergy (Verified 09/18/24 12:59) Medication List - Last Reconciled 09/26/24 by Albert Pierce MD acetaminophen (Acetaminophen Extra Strength) 1,000 mg (2 x 500 mg) PO Q8H PRN albuterol sulfate 90 mcg/actuation 2 puffs inhalation Q4-6H PRN [APAP 6-16 cm H20 humidified AIR As directed] aripiprazole 2 mg PO DAILY aspirin (Adult Aspirin Regimen) 81 mg PO DAILY budesonide-formoterol 160-4.5 mcg/actuation (Symbicort) 1 inh inhalation BID clopidogrel (Plavix) 75 mg PO DAILY cyclobenzaprine 10 mg PO TID PRN gabapentin 300 mg PO BEDTIME memantine 5 mg PO BID metoprolol succinate ER 50 mg PO DAILY pantoprazole 20 mg PO BID 90 days paroxetine HCl 20 mg PO DAILY rosuvastatin (Crestor) 40 mg PO DAILY simethicone (Gas-X Extra Strength) 125 mg PO TID-QID PRN trazodone 100 mg PO BEDTIME HPI Comments Details: 69-year-old gentleman here for follow-up. He has background history of tobacco abuse and previous right coronary artery PCI in 2014 when presenting inferior wall [place]. Subsequent to that he had cardiac catheterization in 2017 when he developed chest discomfort showing 2 areas of stenosis in the mid and distal right coronary artery which were treated with drug-eluting stents. He continued to smoke 3 packs per day which he has cut down to 1 pack per day at this stage. In July 2021 he was in of [facility] in [place] very developed chest discomfort and was taken to hospital where was found to have inferior wall MN. He had a thrombotic occlusion of the distal right coronary artery which was treated with drug-eluting stent. He has been on aspirin and Brilinta since then. He also has peripheral vascular disease and follows up with Dr. Martinez closely. Unfortunately continues to smoke. I have discussed smoking cessation with him multiple times but it appears he is not mentally ready to quit. He was referred to pulmonology on last visit but it [place] and [place] not go for the appointment. He is back for follow-up. He is smoking 1 pack per day. He is denying chest discomfort shortness of breath. 01/12/23: He returns for follow-up. Unfortunately was admitted to [facility] with acute CVA. He has left-sided hemiparesis with leg involvement more than the arm. He has been experiencing balance issues and has been walking with walker. Unfortunately continues to smoke. He also has colonoscopy scheduled because his Cologuard test was abnormal. 08/24/23: He returns for follow-up. He continues to smoke 1 pack per day. He is walking with a walker and is able to walk between rooms with walker. With difficulty can go up stairs. Denying chest pain or shortness of breath. 11/21/23: Here for f/u. No new symptoms. Continues to smoke. 03/26/2024 he is here for follow-up. The is concerned that he is getting weaker and will require a wheelchair for office visits. He continues to smoke unfortunately. Denying any active symptoms currently. Blood pressure is well controlled. He has hydrocele and will need surgery. 09/26/2024: He is here for follow-up. He is planning to travel to [facility]. Continues to smoke. Denying any chest pain or shortness of breath. He has recovered from stroke and is walking with a walker at this stage. [facility] Medical History Bilateral hand numbness Numbness of left hand Shoulder pain, left Seizure disorder History of CVA (cerebrovascular accident) CAD (coronary artery disease) History of ST elevation myocardial infarction (STEMI) PFO (patent foramen ovale) Peripheral arterial disease Hypercholesterolemia Restrictive lung disease COPD (chronic obstructive pulmonary disease) Obstructive sleep apnea Nicotine dependence, cigarettes, uncomplicated GERD (gastroesophageal reflux disease) Chronic low back pain Tubular adenoma of colon Scrotal sac enlargement Hypersomnia Claudication Incisional pain Metabolic encephalopathy Scrotal sac enlargement Vision changes Surgical History History of hydrocelectomy History of colonoscopy S/P cardiac catheterization History of coronary artery stent placement History of aorto-femoral bypass Family History Father Hypertension Mother Hypertension Brother In good health Brother In good health Sister In good health Sister In good health Son In good health Son In good health Son In good health Son In good health Social History Housing: House Alcohol intake: former Patient Tobacco Use Status: Current everyday Tobacco user Tobacco use type: Cigarette Cigarettes Per Day: 10 Years Smoked: 55 +/- n (07/2023) STill moking (06/2024) e-Cigarette/Vaping Use: Never Used Second Hand Smoke Exposure: Yes service: No Current occupational status: employed Cognitive needs: Yes (walker) Hearing needs: No Vision needs: No Review of Systems Const Denies chills, Denies fatigue, Denies fever(s), Denies frequent falls, Denies weakness, Denies weight gain and Denies weight loss ENT Denies dizziness Card Denies chest pain, Denies leg edema, Denies lightheadedness, Denies palpitations, Denies dyspnea and Denies dyspnea on exertion Resp Denies cough, Denies dyspnea and Denies dyspnea on exertion GI Denies hematochezia Musc Denies abnormal gait, Denies muscle weakness, Denies numbness, Denies radiating pain into limb and Denies tingling Neuro Denies abnormal gait, Denies dizziness, Denies frequent falls, Denies numbness, Denies tingling and Denies weakness Endo Denies fatigue and Denies palpitations Physical Exam Vital Signs: Last Vital Signs Pulse 65 09/26/24 14:00 BP 120/64 09/26/24 14:00 BMI result Body Mass Index 30.3 GENERAL APPEARANCE: in no acute distress, pleasant. NECK: no carotid bruit, no jugular venous distention. SKIN: no suspicious lesions, warm and dry. HEART: no murmurs, regular rate and rhythm. LUNGS: clear to auscultation bilaterally. ABDOMEN: soft, nontender. EXTREMITIES: no edema. PERIPHERAL PULSES: equal. NEUROLOGIC: Left hand power 3/5, left leg 3/5. Normal right side. Office Procedures EKG Details: Sinus rhythm 65 beats per minute, can not rule out inferior infarct, poor R-wave progression, QTC 428 milliseconds. [id number], Complete Assessment & Plan Assessment & Plan (1) CAD (coronary artery disease): Comment: [place] [employer] 2014 Dr. Reid angioplasty GERA mid RCA March 2018 STEMI 06/2021, mid RCA thrombus, GERA placed ECHO EF 63% Code(s): I25.10 - Atherosclerotic heart disease of [place] coronary artery without angina pectoris Category: Medical Qualifiers: Associated angina: without angina Coronary Disease-Associated Artery/Lesion type: [place] artery [place] vs. transplanted heart: [place] heart Qualified Code(s): I25.10 - Atherosclerotic heart disease of [place] coronary artery without angina pectoris (2) Peripheral arterial disease: Comment: 04/10/2019 - open aortobifemoral bypass Code(s): I73.9 - Peripheral vascular disease, unspecified Category: Medical (3) Hypercholesterolemia: Code(s): E78.00 - Pure hypercholesterolemia, unspecified Category: Medical (4) Nicotine dependence, cigarettes, uncomplicated: Comment: (onset 17yo,1-2ppd x 51yrs, now 1/2 to 1ppd - 75pyh), had low-dose CT scan of the chest last year Code(s): F17.210 - Nicotine dependence, cigarettes, uncomplicated Category: Medical (5) Pre-op examination: Code(s): Z01.818 - Encounter for other preprocedural examination Category: Medical Plan 69-year-old gentleman who is here for follow-up. He unfortunately had CVA in the past as well as acute coronary syndrome involving right coronary artery. He is active smoker. He has recovered from stroke reasonably in his walking with a walker at this stage. He continues to smoke close to a pack per day. I have discussed with him once again that he needs to quit smoking and I am worried that he will not quit smoking. He will see us back in 6 months. Thank you for allowing me to participate in the care of your patient. Please feel free to contact me if you have any questions. Coding Level of Care Code Est Pt Level 4 (76042) Diagnoses Coronary artery disease involving [place] coronary artery of [place] heart without angina pectoris I25.10 Associated angina: without angina Coronary Disease-Associated Artery/Lesion type: [place] artery [place] vs. transplanted heart: [place] heart Peripheral arterial disease I73.9 Hypercholesterolemia E78.00 Nicotine dependence, cigarettes, uncomplicated F17.210 Pre-op examination Z01.818 CPT Codes EKG - CPT: [id number], Complete ([id number])
[2024-09-26 14:00] VITALS: BP 120/64; PULSE 65; BMI 30.3
--- OUTSIDE RECORDS SUMMARY | 2024-09-26 14:35 | XMS_ITS | Clinical Summary ---
Author Organization [facility] Address [address] [place] [address] Care Team Providers Care Compliance Attorney Name Role Phone Unavailable Primary Care Provider [...] Hypercholesteremia 02/27/2018 Coronary artery disease invo lving [place] coronary artery of [place] heart 02/27/2018 Myocardial infarction Social History Tobacco [...] this topic Medical Devices Implanted Type Area Craft Coordinator Device Identifier Shelf Expiration Date Model / Serial / Lot Stent Stent Heart Insurance MEDICAID OUT OF STATE [facility] Advance Directives * Full Code (Latest Code Status on File) Date Activated Date Inactivated Comments 02/27/2018 12:14 AM
== END 2024-09-26 14:22 | disposition home or self-care (01) ==
LOC: HO.HCS 13:40
PROVIDERS: PCP Internal Medicine; Visit Provider Internal Medicine Cardiovascular Disease
DX: I25.10 Atherosclerotic heart disease of native coronary artery without angina pectoris (principal); I73.9 Peripheral vascular disease, unspecified; E78.00 Pure hypercholesterolemia, unspecified; F17.210 Nicotine dependence, cigarettes, uncomplicated; Z01.818 Encounter for other preprocedural examination
CPT/HCPCS: 93010; 99214

== ENCOUNTER → 2024-09-26 13:39 | Outpatient (BNVA) | payer MEDICARE, MEDICAID, SELFPAY | PROVIDERS: PCP Internal Medicine; Visit Provider Internal Medicine Cardiovascular Disease | DX: Z01.818 Encounter for other preprocedural examination (principal); I25.10 Atherosclerotic heart disease of native coronary artery without angina pectoris; I73.9 Peripheral vascular disease, unspecified; E78.00 Pure hypercholesterolemia, unspecified; F17.210 Nicotine dependence, cigarettes, uncomplicated | CPT/HCPCS: 93005; 99212 ==

== ENCOUNTER 2024-10-24 12:18 | Outpatient (AMB) | payer MEDICARE, MEDICAID, SELFPAY ==
[2024-10-24 12:31] VITALS: BP 124/78; PULSE 60; O2SAT 97; BMI 30.3
--- NOTE | 2024-10-24 12:31 | MHC.PC.OV ---
Vital Signs 10/24/24 12:31 Height 5 ft 5 in Weight 182 lb BMI 30.3 BP 124/78 Blood Pressure Location Rt brachial Position Sitting Pulse 60 Pulse Source Pulse Oximeter Pulse Oximetry (%) 97 Oxygen Delivery Method Room Air Intake Visit Reasons: CVA, CAD Benzene Still Utility Operator Required: No Accompanied by: Self / Same As Patient Allergies No Known Allergies (No Known Allergies*) Allergy (Verified 10/24/24 12:32) Medication List - Last Reconciled 10/24/24 by Jami Martin MD acetaminophen (Acetaminophen Extra Strength) 1,000 mg (2 x 500 mg) PO Q8H PRN albuterol sulfate 90 mcg/actuation 2 puffs inhalation Q4-6H PRN [APAP 6-16 cm H20 humidified AIR As directed] aripiprazole 2 mg PO DAILY aspirin (Adult Aspirin Regimen) 81 mg PO DAILY budesonide-formoterol 160-4.5 mcg/actuation (Symbicort) 1 inh inhalation BID clopidogrel (Plavix) 75 mg PO DAILY cyclobenzaprine 10 mg PO TID PRN gabapentin 300 mg PO BEDTIME memantine 5 mg PO BID metoprolol succinate ER 50 mg PO DAILY pantoprazole 20 mg PO BID 90 days paroxetine HCl 20 mg PO DAILY rosuvastatin (Crestor) 40 mg PO DAILY simethicone (Gas-X Extra Strength) 125 mg PO TID-QID PRN trazodone 100 mg PO BEDTIME Tobacco use date assessed: 10/24/24 Fall risk assessment: No Falls in past year Last assessed Fall Risk: 10/24/24 Dental Screening Dental Screen Date: 10/24/24 Did you have a dental visit in the last 12 months?: No Did you have a dental problem in the last 6 months where you did not have access to dental care?: No Was dental information given to patient?: No COUNTS INCLUDE 234 BEDS AT THE [facility] Medical History Bilateral hand numbness Numbness of left hand Shoulder pain, left Seizure disorder History of CVA (cerebrovascular accident) CAD (coronary artery disease) History of ST elevation myocardial infarction (STEMI) PFO (patent foramen ovale) Peripheral arterial disease Hypercholesterolemia Restrictive lung disease COPD (chronic obstructive pulmonary disease) Obstructive sleep apnea Nicotine dependence, cigarettes, uncomplicated GERD (gastroesophageal reflux disease) Chronic low back pain Tubular adenoma of colon Scrotal sac enlargement Hypersomnia Claudication Incisional pain Metabolic encephalopathy Scrotal sac enlargement Vision changes Surgical History History of hydrocelectomy History of colonoscopy S/P cardiac catheterization History of coronary artery stent placement History of aorto-femoral bypass Family History Father Hypertension Mother Hypertension Brother In good health Brother In good health Sister In good health Sister In good health Son In good health Son In good health Son In good health Son In good health Social History Housing: House Alcohol intake: former Patient Tobacco Use Status: Current everyday Tobacco user Tobacco use type: Cigarette Cigarettes Per Day: 10 Years Smoked: 57 +/- n (07/2023) STill moking (06/2024) e-Cigarette/Vaping Use: Never Used Second Hand Smoke Exposure: Yes service: No Current occupational status: employed 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 1. Little interest or pleasure in doing things: more than half the days 2. Feeling down, depressed, or hopeless: nearly every day 3. Trouble falling or staying asleep, or sleeping too much: nearly every day 4. Feeling tired or having little energy: nearly every day 5. Poor appetite or overeating: several days 6. Feeling bad about yourself - or that you are a failure or have let yourself or your family down: several days 7. Trouble concentrating on things, such as reading the newspaper or watching television: nearly every day 8. Moving or speaking so slowly that other people could have noticed. Or the opposite - being so fidgety or restless that you have been moving around a lot more than usual: more than half the days 9. Thoughts that you would be better off or of hurting yourself in some way: not at all Total score: 18 Depression Screening Interpretation: Positive Depression Screening Done: Yes Source: Developed by Drs. Meet Flores, Nidia Gordon, Eddy Arriaga and colleagues, with an educational nicole from [employer]. Thrive Questionnaire Date Thrive assessed: 10/24/24 I am a: Parent/Caregiver What is your living situation today?: I have a steady place to live Within the past 12 months, did the food you bought not last and you didn't have the money to get more?: I choose not to answer this question Within the past 12 months, did you worry whether your food would run out before you got money to buy more?: I choose not to answer this question Do you have trouble paying for medicines?: No Do you have trouble getting transportation to medical appointments?: No Do you have trouble paying your heating and electricity bill?: I choose not to answer this question Do you have trouble taking care of your child, family member or friend?: I choose not to answer this question Do you have trouble with day-to-day activities such as bathing, preparing meals, shopping, managing finances, etc.?: I choose not to answer this question Are you currently unemployed and looking for a job?: I choose not to answer this question Are you interested in more education?: I choose not to answer this question Please select the resources that you would like help with: None Currently or been in a relationship where the following occur: No concerns reported THRIVE Score: 0 AUDIT C Alcohol Use Questionnaire (AUDIT-C) 1. How often do you have a drink containing alcohol?: Never 3. How often do you have six or more drinks on one occasion?: Never Total Score: 0 JACQUES-7 AMB Questionnaire JACQUES-7 Date JACQUES - 7 assessed: 10/24/24 Feeling nervous, anxious, or on edge: 0 = Not at all Not being able to stop or control worryin = Not at all Worrying too much about different things: 0 = Not at all Trouble relaxin = Not at all Being so restless that it is hard to sit still: 0 = Not at all Becoming easily annoyed or irritable: 0 = Not at all Feeling afraid as if something awful might happen: 0 = Not at all Total JACQUES-7 score (0-4 normal; 5-9 mild; 10-14 moderate; 15-21 severe): 0 Source: Developed by Drs. Meet Flores, Eddy Guevara and colleagues, with an educational nicole from [employer]. Physical exam (Primary Care) Vital Signs: Last Vital Signs Pulse 60 10/24/24 12:31 BP 124/78 10/24/24 12:31 Pulse Ox 97 10/24/24 12:31 Oxygen Delivery Method Room Air 10/24/24 12:31 BMI result Body Mass Index 30.3 Tobacco/Smoking Status: Tobacco use Status Tobacco use date assessed 10/24/24 10/24/24 12:38 Patient Tobacco Use Status Current everyday Tobacco 10/24/24 12:38 Tobacco use type Cigarette 10/24/24 12:38 e-Cigarette/Vaping Use Never Used 10/24/24 12:38 PHQ-9: PHQ-9 Score PHQ-9: Total score 18 10/24/24 12:44 Depression Screening Interpretation: Positive Thrive Assessment: Date of Thrive Assessment Date Thrive assessed 10/24/24 10/24/24 12:38 Currently or been in a relationship where the following occur: No concerns reported Const General: alert; No acute distress Eyes Conjunctivae: conjunctivae normal Resp Auscultation: clear to auscultation bilaterally Cardio Rate: regular rate Rhythm: regular rhythm GI Inspection: Yes normal to inspection Extrem General: Yes normal to inspection and No edema Coding Level of Care Code Est Pt Level 4 (71717) Complex EM visit Add On G2211 Diagnoses Type 2 diabetes mellitus with hyperglycemia E11.65 Hypercholesterolemia E78.00 Coronary artery disease involving [place] coronary artery of [place] heart without angina pectoris I25.10 Associated angina: without angina Coronary Disease-Associated Artery/Lesion type: [place] artery [place] vs. transplanted heart: [place] heart Obesity (BMI 30.0-34.9) E66.811 Gastroesophageal reflux disease without esophagitis K21.9 Esophagitis presence: without esophagitis History of CVA (cerebrovascular accident) Z86.73 Pulmonary emphysema, unspecified emphysema type J43.9 COPD type: emphysema Emphysema type: unspecified Obstructive sleep apnea G47.33 Nicotine dependence, cigarettes, uncomplicated F17.210 LFT elevation R79.89 Hypogonadism in male E29.1 Bilateral leg pain M79.604; M79.605 Assessment & Plan Assessment & Plan (1) Type 2 diabetes mellitus with hyperglycemia: Code(s): E11.65 - Type 2 diabetes mellitus with hyperglycemia Category: Medical Plan: Decrease the amount of carbohydrate intake, pasta, bread, rice and potatoes are all sugar and that is aside from all the sweet stuff, remember that fruits are good but they are Sweet also. Hemoglobin A1c goal of less than 6.5. Patient is advised to see Ophthalmology once a year, patient is advised to see Podiatry of year, will do urine testing for diabetes (2) Hypercholesterolemia: Code(s): E78.00 - Pure hypercholesterolemia, unspecified Category: Medical Plan: Avoid fried foods, chicken skin, eggs, butter margarine, pastries and meat. Be it pork or beef they have a lot of cholesterol LDL goal of below 70 and triglyceride of less than 150 (3) CAD (coronary artery disease): Comment: MABEL Lopez 2014 Dr. Reid angioplasty GERA mid RCA March 2018 STEMI 06/2021, mid RCA thrombus, GERA placed ECHO EF 63% Code(s): I25.10 - Atherosclerotic heart disease of [place] coronary artery without angina pectoris Category: Medical Qualifiers: Associated angina: without angina Coronary Disease-Associated Artery/Lesion type: [place] artery [place] vs. transplanted heart: [place] heart Qualified Code(s): I25.10 - Atherosclerotic heart disease of [place] coronary artery without angina pectoris Plan: Control the cholesterol, weight, blood pressure, diabetes (4) Obesity (BMI 30.0-34.9): Code(s): E66.811 - Obesity, class 1 Category: Medical Plan: Diet and exercise (5) GERD (gastroesophageal reflux disease): Code(s): K21.9 - Gastro-esophageal reflux disease without esophagitis Category: Medical Qualifiers: Esophagitis presence: without esophagitis Qualified Code(s): K21.9 - Gastro-esophageal reflux disease without esophagitis Plan: Avoid the foods that causes that usually spicy foods, tomato products, juices, coffee, soda and foods that your sensitive to. After eating do not lie down, allow 3-4 hours before in lie down. And keep the head of bed above 30 degrees to avoid the acid from going up. (6) History of CVA (cerebrovascular accident): Comment: August 2022 basilar thrombus Code(s): Z86.73 - Personal history of transient ischemic attack (TIA), and cerebral infarction without residual deficits Category: Medical Plan: Patient is advised strongly to stop smoking eat healthy get diabetes under control (7) COPD (chronic obstructive pulmonary disease): Comment: MILD TO MODERATE DEGREE OF OBSTRUCTIVE AIRWAY DISORDER, REMAINS STABLE. RELATIVELY ASYMPTOMATIC, EXCEPT FOR MILD INTERMITTENT COUGH DUE TO SMOKING . Code(s): J44.9 - Chronic obstructive pulmonary disease, unspecified Category: Medical Qualifiers: COPD type: emphysema Emphysema type: unspecified Qualified Code(s): J43.9 - Emphysema, unspecified Plan: Stop smoking! On Symbicort and albuterol (8) Obstructive sleep apnea: Comment: Sleep study done 08/24/2023 mild to moderate AHI 15 . Because of multiple comorbidities he was started on CPAP therapy. He is basically remaining noncompliant . He has poor understanding due to mild dementia accounts for that. Code(s): G47.33 - Obstructive sleep apnea (adult) (pediatric) Category: Medical Plan: Discussed importance of using CPAP for sleep apnea (9) Nicotine dependence, cigarettes, uncomplicated: Comment: (onset 17yo,1-2ppd x 51yrs, now 1/2 to 1ppd - 75pyh), had low-dose CT scan of the chest last year Code(s): F17.210 - Nicotine dependence, cigarettes, uncomplicated Category: Medical Plan: Patient is strongly advised to stop smoking!!! (10) LFT elevation: Code(s): R79.89 - Other specified abnormal findings of blood chemistry Category: Medical (11) Hypogonadism in male: Code(s): E29.1 - Testicular hypofunction Category: Medical (12) Bilateral leg pain: Code(s): M79.604 - Pain in right leg; M79.605 - Pain in left leg Category: Medical Plan History of Present Illness The patient is a 69-year-old male presenting for a follow-up visit. He has a history of obesity and has recently lost 7 pounds. The patient reports chronic low back pain, which has been persistent over time. The patient has a history of gastroesophageal reflux disease (GERD), coronary artery disease, chronic obstructive pulmonary disease (COPD), peripheral arterial disease, and hypercholesterolemia. He also has generalized anxiety disorder and a seizure disorder. The patient has benign prostatic hyperplasia (BPH) and obstructive sleep apnea, for which CPAP use was discussed. The patient continues to smoke despite a history of cerebrovascular accident (CVA). He was last seen by cardiology on September 26 and follows up regularly. A chest angiogram in May 2024 showed no pulmonary embolism but revealed hilar adenopathy and a right thyroid nodule measuring 1.6 cm. The patient has been diagnosed with diabetes mellitus, with a hemoglobin A1c of 6.6%. His last blood work showed elevated liver enzymes and hypertriglyceridemia, with triglycerides at 313 mg/dL. The patient also has low testosterone levels. Preventative care measures include a colonoscopy advised for repeat testing, and the patient is advised to see ophthalmology and podiatry annually due to diabetes. Health Maintenance - Colonoscopy advised for repeat testing - Annual ophthalmology visit recommended due to diabetes - Annual podiatry visit recommended due to diabetes - Smoking cessation strongly advised - Dietary modifications to manage diabetes and hypercholesterolemia Social History - Smoker with a history of cerebrovascular accident (CVA) - Limited physical activity due to pain and mobility issues - Dietary intake includes chicken breast, potatoes, rice, and green leafy vegetables Review of Systems - Musculoskeletal: Reports chronic low back pain - Respiratory: Reports smoking, denies dyspnea - Endocrine: Reports diabetes mellitus - Gastrointestinal: Reports gastroesophageal reflux disease (GERD) - Neurological: Reports history of cerebrovascular accident (CVA) Physical Exam Results - Labs: Elevated liver enzymes, hypertriglyceridemia with triglycerides at 313 mg/dL, low testosterone - Imaging: Chest angiogram showed no pulmonary embolism, hilar adenopathy, and right thyroid nodule at 1.6 cm Plan The patient is advised to manage diabetes mellitus with a goal of hemoglobin A1c less than 6.5%. Annual ophthalmology and podiatry visits are recommended due to diabetes, and urine testing for diabetes management will be conducted. For hypercholesterolemia, the LDL goal is below 70 mg/dL, and triglycerides should be less than 150 mg/dL. The patient is strongly advised to stop smoking and to adhere to dietary modifications, including reducing sugar intake and increasing green leafy vegetables. The use of CPAP for obstructive sleep apnea is emphasized, and the patient is advised to continue using Symbicort and albuterol for COPD management. X-rays of the legs are requested to assess pain, and an ultrasound is recommended to monitor liver enzyme levels. Patient was informed and verbally consented to the use of an ambient scribe for clinic note documentation during this visit. Discussion Notes I discussed with the patient the importance of managing diabetes with a target hemoglobin A1c of less than 6.5% and the need for regular ophthalmology and podiatry visits due to diabetes. We reviewed the goals for cholesterol management, emphasizing the importance of maintaining LDL below 70 mg/dL and triglycerides under 150 mg/dL. I strongly advised smoking cessation and dietary changes to improve overall health, including increasing green leafy vegetables and reducing sugar intake. The use of CPAP for obstructive sleep apnea was emphasized, and the patient was advised to continue using Symbicort and albuterol for COPD management. I recommended x-rays for leg pain assessment and an ultrasound to monitor liver enzyme levels. Patient Instructions - Aim for a hemoglobin A1c of less than 6.5% to manage diabetes. - Schedule annual visits with ophthalmology and podiatry due to diabetes. - Maintain LDL cholesterol below 70 mg/dL and triglycerides under 150 mg/dL. - Stop smoking and follow dietary changes, including more green leafy vegetables and less sugar. - Use CPAP for sleep apnea and continue Symbicort and albuterol for COPD. - Get x-rays for leg pain and an ultrasound for liver enzyme monitoring. Orders: Orders Creatinine Urine 3 Months .65 - Type 2 diabetes mellitus with hyperglycemia Hemoglobin A1c 3 Months R79.89 - Other specified abnormal findings of blood chemistry Microalbumin, Random (w Creat) 3 Months . - Type 2 diabetes mellitus with hyperglycemia Hepatitis B,C Profile 3 Months R79.89 - Other specified abnormal findings of blood chemistry Liver Panel 3 Months R79.89 - Other specified abnormal findings of blood chemistry Lipid Panel 3 Months E78.00 - Pure hypercholesterolemia, unspecified, R79.89 - Other specified abnormal findings of blood chemistry US abdomen complete Today R79.89 - Other specified abnormal findings of blood chemistry XR Tibia Fibula Ruiz 2V Today M79.604 - Pain in right leg, M79.605 - Pain in left leg Referrals Podiatry Referral .65 - Type 2 diabetes mellitus with hyperglycemia Medications: New lancets (FreeStyle Lancets) As directed check BS QD 100 ea 3RF .65 - Type 2 diabetes mellitus with hyperglycemia blood-glucose meter (FreeStyle Lite Meter kit) As directed 1 ea 0RF .65 - Type 2 diabetes mellitus with hyperglycemia blood sugar diagnostic (FreeStyle Lite Strips) As directed check the BS QD 100 ea 3RF E11.65 - Type 2 diabetes mellitus with hyperglycemia
--- OUTSIDE RECORDS SUMMARY | 2024-10-24 14:22 | XMS_ITS | Clinical Summary ---
Author Organization [facility] Address [address] [place] [address] Care Team Providers Care Hog Pusher Name Role Phone Unavailable Primary Care Provider [...] Hypercholesteremia 02/27/2018 Coronary artery disease invo lving [place] coronary artery of [place] heart 02/27/2018 Myocardial infarction Social History Tobacco [...] 77 02/28/2018 2:31 PM EDT Temperature 36.7 C (98 F) 02/28/2018 7:42 AM EDT Respiratory Rate 17 [...] Zoster (Shingles) Vaccine (1 of 2) 07/01/2007 COVID-19 Vaccine ( - 2023-2 5 season) 2024 Influenza Vaccine 11/30/2024 RSV Vaccine 60 years and old er and Patients (1 - 1-dose 75+ series) 2032 Hepatitis B Vaccines Aged Out No long er eligible based on patient's age to complete this topic Medical Devices Implanted Type Area Registered Client Associate Device Identifier Shelf Expiration Date Model / Serial / Lot Stent Stent Heart Insurance MEDICAID OUT OF STATE [facility] [place] Advance Directives * Full Code (Latest Code Status on File) Date Activated Date Inactivated Comments 02/27/2018 12:14 AM
== END 2024-10-24 13:04 | disposition home or self-care (01) ==
LOC: HO.HMCH 12:19
PROVIDERS: PCP Internal Medicine; Visit Provider Internal Medicine
DX: E11.65 Type 2 diabetes mellitus with hyperglycemia (principal); J43.9 Emphysema, unspecified; E66.811 Obesity, class 1; Z68.30 Body mass index [BMI] 30.0-30.9, adult; I25.10 Atherosclerotic heart disease of native coronary artery without angina pectoris; K21.9 Gastro-esophageal reflux disease without esophagitis; Z86.73 Personal history of transient ischemic attack (TIA), and cerebral infarction without residual deficits; G47.33 Obstructive sleep apnea (adult) (pediatric); F17.210 Nicotine dependence, cigarettes, uncomplicated; E29.1 Testicular hypofunction; M79.604 Pain in right leg; M79.605 Pain in left leg

== ENCOUNTER → 2024-10-24 12:18 | Outpatient (BNVA) | payer MEDICARE, MEDICAID, SELFPAY | PROVIDERS: PCP Internal Medicine; Visit Provider Internal Medicine | DX: E11.65 Type 2 diabetes mellitus with hyperglycemia (principal); E78.00 Pure hypercholesterolemia, unspecified; I25.10 Atherosclerotic heart disease of native coronary artery without angina pectoris; K21.9 Gastro-esophageal reflux disease without esophagitis; J43.9 Emphysema, unspecified; G47.33 Obstructive sleep apnea (adult) (pediatric); R79.89 Other specified abnormal findings of blood chemistry; E66.811 Obesity, class 1; Z68.30 Body mass index [BMI] 30.0-30.9, adult; M79.605 Pain in left leg; M79.604 Pain in right leg; F17.210 Nicotine dependence, cigarettes, uncomplicated; Z86.73 Personal history of transient ischemic attack (TIA), and cerebral infarction without residual deficits; Z71.6 Tobacco abuse counseling; Z71.3 Dietary counseling and surveillance | CPT/HCPCS: 99212 ==

== ENCOUNTER 2025-01-07 13:00 | Outpatient (AMB) | payer MEDICARE, MEDICAID, SELFPAY ==
[2025-01-07 13:03] VITALS: BP 140/78; PULSE 60; O2SAT 97; BMI 27.3
--- NOTE | 2025-01-07 13:03 | MHC.PC.OV ---
Vital Signs 01/07/25 13:03 01/07/25 13:32 Height 5 ft 5 in Weight 164 lb BMI 27.3 BP 140/78 H 120/70 Blood Pressure Location Lt brachial Lt brachial Position Sitting Sitting Pulse 60 Pulse Source Pulse Oximeter Pulse Oximetry (%) 97 Oxygen Delivery Method Room Air Intake Visit Reasons: cad, copd, Allergies No Known Allergies (No Known Allergies*) Allergy (Verified 01/07/25 13:03) Tobacco use date assessed: 10/24/24 Fall risk assessment: No Falls in past year Last assessed Fall Risk: 01/07/25 Dental Screening Dental Screen Date: 10/24/24 [facility] Medical History Bilateral hand numbness Numbness of left hand Shoulder pain, left Seizure disorder History of CVA (cerebrovascular accident) CAD (coronary artery disease) History of ST elevation myocardial infarction (STEMI) PFO (patent foramen ovale) Peripheral arterial disease Hypercholesterolemia Restrictive lung disease COPD (chronic obstructive pulmonary disease) Obstructive sleep apnea Nicotine dependence, cigarettes, uncomplicated GERD (gastroesophageal reflux disease) Chronic low back pain Tubular adenoma of colon Scrotal sac enlargement Hypersomnia Claudication Incisional pain Metabolic encephalopathy Scrotal sac enlargement Vision changes Surgical History History of hydrocelectomy History of colonoscopy S/P cardiac catheterization History of coronary artery stent placement History of aorto-femoral bypass Family History Father Hypertension Mother Hypertension Brother In good health Brother In good health Sister In good health Sister In good health Son In good health Son In good health Son In good health Son In good health Social History Housing: House Alcohol intake: former Patient Tobacco Use Status: Current everyday Tobacco user Tobacco use type: Cigarette Cigarettes Per Day: 10 Years Smoked: 57 +/- n (07/2023) STill moking (06/2024) e-Cigarette/Vaping Use: Never Used Second Hand Smoke Exposure: Yes service: No Current occupational status: employed 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 1. Little interest or pleasure in doing things: more than half the days 2. Feeling down, depressed, or hopeless: nearly every day 3. Trouble falling or staying asleep, or sleeping too much: nearly every day 4. Feeling tired or having little energy: nearly every day 5. Poor appetite or overeating: several days 6. Feeling bad about yourself - or that you are a failure or have let yourself or your family down: several days 7. Trouble concentrating on things, such as reading the newspaper or watching television: nearly every day 8. Moving or speaking so slowly that other people could have noticed. Or the opposite - being so fidgety or restless that you have been moving around a lot more than usual: more than half the days 9. Thoughts that you would be better off or of hurting yourself in some way: not at all Total score: 18 Depression Screening Interpretation: Positive Depression Screening Done: Yes Source: Developed by Drs. Meet Flores, Nidia Gordon, Eddy Arriaga and colleagues, with an educational nicole from [employer]. Thrive Questionnaire Date Thrive assessed: 10/24/24 I am a: Parent/Caregiver What is your living situation today?: I have a steady place to live Within the past 12 months, did the food you bought not last and you didn't have the money to get more?: I choose not to answer this question Within the past 12 months, did you worry whether your food would run out before you got money to buy more?: I choose not to answer this question Do you have trouble paying for medicines?: No Do you have trouble getting transportation to medical appointments?: No Do you have trouble paying your heating and electricity bill?: I choose not to answer this question Do you have trouble taking care of your child, family member or friend?: I choose not to answer this question Do you have trouble with day-to-day activities such as bathing, preparing meals, shopping, managing finances, etc.?: I choose not to answer this question Are you currently unemployed and looking for a job?: I choose not to answer this question Are you interested in more education?: I choose not to answer this question Please select the resources that you would like help with: None Currently or been in a relationship where the following occur: No concerns reported THRIVE Score: 0 AUDIT C Alcohol Use Questionnaire (AUDIT-C) 1. How often do you have a drink containing alcohol?: Never 3. How often do you have six or more drinks on one occasion?: Never Total Score: 0 JACQUES-7 AMB Questionnaire JACQUES-7 Date JACQUES - 7 assessed: 10/24/24 Source: Developed by Drs. Meet Flores, Nidia Gordon, Eddy Arriaga and colleagues, with an educational nicole from [employer]. Physical exam (Primary Care) Vital Signs: Last Vital Signs Pulse 60 01/07/25 13:03 BP 120/70 01/07/25 13:32 Pulse Ox 97 01/07/25 13:03 Oxygen Delivery Method Room Air 01/07/25 13:03 BMI result Body Mass Index 27.3 Tobacco/Smoking Status: Tobacco use Status Tobacco use date assessed 10/24/24 01/07/25 13:04 Patient Tobacco Use Status Current everyday Tobacco 01/07/25 13:04 Tobacco use type Cigarette 01/07/25 13:04 e-Cigarette/Vaping Use Never Used 01/07/25 13:04 PHQ-9: PHQ-9 Score PHQ-9: Total score 18 01/07/25 13:23 Depression Screening Interpretation: Positive Thrive Assessment: Date of Thrive Assessment Date Thrive assessed 10/24/24 01/07/25 13:04 Currently or been in a relationship where the following occur: No concerns reported Const General: alert; No acute distress Eyes Conjunctivae: conjunctivae normal Resp Auscultation: clear to auscultation bilaterally Cardio Rate: regular rate Rhythm: regular rhythm GI Inspection: Yes normal to inspection Extrem General: Yes normal to inspection and No edema Results AMB Hemoglobin A1c AMB Hemoglobin A1c 5.8 % Last Edit by Yasmine Okeefe CMA on 01/07/25 13:20 Results Reviewed Results Reviewed: Laboratory Last Values Hgb A1c (Clinic) 5.8 % (4.0-6.0) 01/07/25 13:05 Coding Level of Care Code Est Pt Level 4 (20213) Complex EM visit Add On G2211 Diagnoses Type 2 diabetes mellitus with hyperglycemia E11.65 Coronary artery disease involving [place] coronary artery of [place] heart without angina pectoris I25.10 Associated angina: without angina Coronary Disease-Associated Artery/Lesion type: [place] artery [place] vs. transplanted heart: [place] heart Hypercholesterolemia E78.00 Gastroesophageal reflux disease without esophagitis K21.9 Esophagitis presence: without esophagitis History of CVA (cerebrovascular accident) Z86.73 Pulmonary emphysema, unspecified emphysema type J43.9 COPD type: emphysema Emphysema type: unspecified Obstructive sleep apnea G47.33 Nicotine dependence, cigarettes, uncomplicated F17.210 Assessment & Plan Assessment & Plan (1) Type 2 diabetes mellitus with hyperglycemia: Code(s): E11.65 - Type 2 diabetes mellitus with hyperglycemia Category: Medical Plan: Decrease the amount of carbohydrate intake, pasta, bread, rice and potatoes are all sugar and that is aside from all the sweet stuff, remember that fruits are good but they are Sweet also. Hemoglobin A1c goal of less than 7.0 (2) CAD (coronary artery disease): Comment: MABEL Lopez 2014 Dr. Reid angioplasty GERA mid RCA March 2018 STEMI 06/2021, mid RCA thrombus, GERA placed ECHO EF 63% Code(s): I25.10 - Atherosclerotic heart disease of [place] coronary artery without angina pectoris Category: Medical Qualifiers: Associated angina: without angina Coronary Disease-Associated Artery/Lesion type: [place] artery [place] vs. transplanted heart: [place] heart Qualified Code(s): I25.10 - Atherosclerotic heart disease of [place] coronary artery without angina pectoris Plan: Control the cholesterol, weight, blood pressure, diabetes continue with aspirin 81 mg once a day (3) Hypercholesterolemia: Code(s): E78.00 - Pure hypercholesterolemia, unspecified Category: Medical Plan: Avoid fried foods, chicken skin, eggs, butter margarine, pastries and meat. Be it pork or beef they have a lot of cholesterol LDL goal of less than 70 and triglyceride of less than 150 on rosuvastatin 40 mg once a day (4) GERD (gastroesophageal reflux disease): Code(s): K21.9 - Gastro-esophageal reflux disease without esophagitis Category: Medical Qualifiers: Esophagitis presence: without esophagitis Qualified Code(s): K21.9 - Gastro-esophageal reflux disease without esophagitis Plan: Avoid the foods that causes that usually spicy foods, tomato products, juices, coffee, soda and foods that your sensitive to. After eating do not lie down, allow 3-4 hours before in lie down. And keep the head of bed above 30 degrees to avoid the acid from going up. 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 RELATIVELY ASYMPTOMATIC, EXCEPT FOR MILD INTERMITTENT COUGH DUE TO SMOKING . Code(s): J44.9 - Chronic obstructive pulmonary disease, unspecified Category: Medical Qualifiers: COPD type: emphysema Emphysema type: unspecified Qualified Code(s): J43.9 - Emphysema, unspecified Plan: Continue to use the albuterol inhaler and Symbicort (7) Obstructive sleep apnea: Comment: Sleep study done 08/24/2023 mild to moderate AHI 15 . Because of multiple comorbidities he was started on CPAP therapy. He is basically remaining noncompliant . He has poor understanding due to mild dementia accounts for that. Code(s): G47.33 - Obstructive sleep apnea (adult) (pediatric) Category: Medical Plan: Concern about patient's noncompliance (8) Nicotine dependence, cigarettes, uncomplicated: Comment: (onset 17yo,1-2ppd x 51yrs, now 1/2 to 1ppd - 75pyh), had low-dose CT scan of the chest last year Code(s): F17.210 - Nicotine dependence, cigarettes, uncomplicated Category: Medical Plan: Patient is strongly advised to stop Plan History of Present Illness The patient is a 69-year-old male presenting for a follow-up visit. He has a history of coronary artery disease, gastroesophageal reflux disease, chronic obstructive pulmonary disease, hypercholesterolemia, peripheral arterial disease, seizure disorder, obstructive sleep apnea, cerebrovascular accident, vascular thrombus, and diabetes mellitus. The patient reports an 18-pound weight loss and has been managing his diabetes with a hemoglobin A1c of 6.6. His blood sugar was noted to be 179, and liver enzymes were elevated, prompting an ultrasound recommendation. The patient has a history of smoking and continues to smoke, which complicates his obstructive sleep apnea management. He uses a CPAP machine inconsistently and has been advised to use it more regularly. The patient experiences weakness and leg pain, for which an ultrasound is scheduled. He received a cortisone injection for his leg pain, which provided some relief. Health Maintenance - Colonoscopy is due - Advised to stop smoking - Recommended to use CPAP machine more consistently Social History - Smoking: Patient continues to smoke despite advice to quit. Review of Systems - General: Reports weakness, weight loss of 18 pounds. - Cardiovascular: Denies chest pain. - Respiratory: Denies dyspnea. - Musculoskeletal: Reports leg pain. Physical Exam Results - Labs: Blood sugar 179, hemoglobin A1c 6.6, elevated liver enzymes, triglycerides high, PSA normal, B12 normal, folic acid normal. Plan Patient was informed and verbally consented to the use of an ambient scribe for clinic note documentation during this visit. 1. Diabetes Mellitus The patient's diabetes mellitus is being managed with a goal to maintain hemoglobin A1c below 7.0. Current A1c is 6.6, and blood sugar is 179. The patient is advised to monitor blood glucose levels and adjust lifestyle accordingly, with follow-up testing planned in three months. 2. Hypercholesterolemia The patient is on rosuvastatin 40 mg daily to manage hypercholesterolemia, with a target LDL cholesterol of less than 70 mg/dL and triglycerides less than 150 mg/dL. Dietary modifications include increased intake of vegetables and fish, with reduced meat consumption. 3. Obstructive Sleep Apnea The patient is advised to use the CPAP machine for more than 4 hours per night to manage obstructive sleep apnea. Noncompliance with CPAP use is a concern, and the patient is encouraged to adhere to the treatment plan. 4. Elevated Liver Enzymes Elevated liver enzymes were noted, and an ultrasound of the liver is recommended to investigate further. 5. Leg Pain The patient reports leg pain, and an ultrasound is scheduled to assess the condition. A cortisone injection was administered, providing some relief. Discussion Notes During the visit, we discussed the management of diabetes mellitus, emphasizing the importance of maintaining hemoglobin A1c below 7.0 and monitoring blood glucose levels regularly. We also reviewed the patient's hypercholesterolemia management plan, which includes rosuvastatin and dietary changes. The patient was advised to use the CPAP machine consistently to manage obstructive sleep apnea and to undergo an ultrasound for elevated liver enzymes. Patient Instructions - Monitor blood glucose levels regularly and aim to keep hemoglobin A1c below 7.0. - Take rosuvastatin 40 mg daily and follow dietary recommendations to manage cholesterol. - Use the CPAP machine for more than 4 hours each night. - Schedule and complete the liver ultrasound as advised. - Follow up in three months for reassessment. Orders: Orders AMB Hemoglobin A1c Today Z13.9 - Encounter for screening, unspecified
[2025-01-07 13:32] VITALS: BP 120/70
--- OUTSIDE RECORDS SUMMARY | 2025-01-07 15:09 | XMS_ITS | Clinical Summary ---
Author Organization 175 [facility] Address [address] [place] [address] Phone Care Team Providers Care Industrial Cook Name Role Phone Jami Martin MD Primary Care Provider [phone] Social History Tobacco Use Types Packs/Day Years Used Date Smoking Tobacco: Never Assessed Sex and Gender Information Value Date Recorded Sex Assigned at Not on file Legal Sex Male 11:15 PM EST Gender Identity Not on file Sexual Orientation Not on file Plan of Treatment Upcoming Encounters Date Type Department Care Team (Late st Contact Info) Description 01/09/2025 1:30 PM EDT Consult Orthopedic Surgery [place] [id number] [phone] Camden Salamanca DPM [address] [address] Health Maintenance Due Date Last Done Comments Diabetes: Annual GFR (Glomer ular Filtration Rate) 1957 Diabetes: Annual Foot Exam 07/01/1967 Diabetes: Annual Retina Eye Exam 07/01/1967 DTaP,Tdap,and Td Vaccines (1 - Tdap) 1976 Pneumococcal Vaccine: 50+ Ye ars (1 of 2 - PCV) 1976 Zoster Vaccines (1 of 2) 07/01/2007 Depression Screening 05/02/2024 Abdominal Aortic Aneurysm (A AA) Screen 10/26/2024 Cholesterol Screening (Lipid Panel) 10/26/2024 Colorectal Cancer Screening: Colonoscopy 10/26/2024 Diabetes: Annual Urine Albumin-Creatinine Ratio (uACR) 10/26/2024 Diabetes: Blood Sugar Contro l Test (HGBA1C) 10/26/2024 Falls Risk Assessment 10/26/2024 Hepatitis C Screening 10/26/2024 Medicare Annual Wellness Visit 10/26/2024 Social Influencers of Health Screening 10/26/2024 COVID-19 Vaccine (2023-2 5 season) 2024 Influenza Vaccine (#1) 2024 RSV Immunization Adult Patie nts (1 [...] on patient's age to complete this topic Insurance MEDICARE MEDICAID - [place] Care Teams Industrial Cook Relationship Specialty Start Date End Date Jami Martin MD [address] [place] [address] [address] [facility] [place] [address] PCP - General Internal Medicine 02/23/18
--- OUTSIDE RECORDS SUMMARY | 2025-01-07 15:09 | XMS_ITS | Clinical Summary ---
Author Organization [facility] Address [address] [place] [address] Care Team Providers Care First Officer And Flight Instructor Name Role Phone Unavailable Primary Care Provider [...] Hypercholesteremia 02/27/2018 Coronary artery disease invo lving [place] coronary artery of [place] heart 02/27/2018 Myocardial infarction Social History Tobacco [...] Health Maintenance Due Date Last Done Comments Advance Care Planning 1955 Hepatitis C Virus Screening 1955 DTaP/Tdap/Td Vaccines (1 - Tdap) 1976 Pneumococcal Vaccines 50+ (1 of 2 - PCV) 1976 Colonoscopy 2002 Zoster (Shingles) Vaccine (1 of 2) 07/01/2007 RSV Vaccine 60 years and old er and Patients (1 - Risk 60-74 years 1-dose series) 2017 Influenza Vaccine 11/30/2024 COVID-19 Vaccine ( - 2023-2 5 season) 2024 Hepatitis B Vaccines Aged Out No long er eligible based on patient's age to complete this topic Medical Devices Implanted Type Area Batch Still Operator Device Identifier Shelf Expiration Date Model / Serial / Lot Stent Stent Heart Insurance MEDICA[place] OUT OF [place] [facility] [place]ives * Full Code (Latest Code Status on File) Date Activated Date Inactivated Comments 02/27/2018 12:14 AM
== END 2025-01-07 13:37 | disposition home or self-care (01) ==
LOC: HO.HMCH 13:00
PROVIDERS: PCP Internal Medicine; Visit Provider Internal Medicine
DX: E11.65 Type 2 diabetes mellitus with hyperglycemia (principal); J43.9 Emphysema, unspecified; I25.10 Atherosclerotic heart disease of native coronary artery without angina pectoris; E78.00 Pure hypercholesterolemia, unspecified; K21.9 Gastro-esophageal reflux disease without esophagitis; Z86.73 Personal history of transient ischemic attack (TIA), and cerebral infarction without residual deficits; G47.33 Obstructive sleep apnea (adult) (pediatric); F17.210 Nicotine dependence, cigarettes, uncomplicated

== ENCOUNTER → 2025-01-07 13:00 | Outpatient (BNVA) | payer MEDICARE, MEDICAID, SELFPAY | PROVIDERS: PCP Internal Medicine; Visit Provider Internal Medicine | DX: E11.65 Type 2 diabetes mellitus with hyperglycemia (principal); I25.10 Atherosclerotic heart disease of native coronary artery without angina pectoris; E78.00 Pure hypercholesterolemia, unspecified; K21.9 Gastro-esophageal reflux disease without esophagitis; J43.9 Emphysema, unspecified; G47.33 Obstructive sleep apnea (adult) (pediatric); F17.210 Nicotine dependence, cigarettes, uncomplicated; Z86.73 Personal history of transient ischemic attack (TIA), and cerebral infarction without residual deficits | CPT/HCPCS: 83036; 96127; 99212 ==

== ENCOUNTER 2025-01-08 08:42 | Outpatient (REF) | payer MEDICARE, MEDICAID, SELFPAY ==
--- OUTSIDE RECORDS SUMMARY | 2025-01-09 10:09 | XMS_ITS | Clinical Summary ---
Author Organization 175 [facility] Address [address] [place] [address] Phone Care Team Providers Care Melt Down Furnace Operator Name Role Phone Jami Martin MD Primary Care Provider [phone] Social History Tobacco Use Types Packs/Day Years Used Date Smoking Tobacco: Never Assessed Sex and Gender Information Value Date Recorded Sex Assigned at Not on file Legal Sex Male 11:15 PM EST Gender Identity Not on file Sexual Orientation Not on file Plan of Treatment Upcoming Encounters Date Type Department Care Team ([facility] st Contact Info) Description 01/09/2025 1:30 PM EDT Consult Orthopedic Surgery [place] [id number] [phone] Camden Salamanca DPM [address] [address] Health Maintenance Due Date Last Done Comments [...] Insurance MEDICARE MEDICAID - [place] Care Teams Melt Down Furnace Operator Relationship Specialty Start Date End Date Jami Martin MD [address] [place] [address] Dr [address] [facility] [place] [address] PCP - General Internal Medicine 02/23/18
--- OUTSIDE RECORDS SUMMARY | 2025-01-09 10:09 | XMS_ITS | Clinical Summary ---
Author Organization [facility] Address [address] [place] [address] Care Team Providers Care Precision Farming Specialist Name Role Phone Unavailable Primary Care Provider [...] Hypercholesteremia 02/27/2018 Coronary artery disease invo lving [place] coronary artery of [place] heart 02/27/2018 Myocardial infarction Social History Tobacco [...] this topic Medical Devices Implanted Type Area Out Of Town Collection Clerk Device Identifier Shelf Expiration Date Model / Serial / Lot Stent Stent Heart Insurance MEDICAID OUT OF STATE [facility] [place] Advance Directives * Full Code (Latest Code Status on File) Date Activated Date Inactivated Comments 02/27/2018 12:14 AM
== END 2025-01-08 08:43 | disposition home or self-care (01) ==
LOC: HO.HOSX 08:42
PROVIDERS: Visit Provider Physician Assistant
DX: Z13.89 Encounter for screening for other disorder (principal)

== ENCOUNTER 2025-01-09 09:27 | Outpatient (REF) | payer MEDICARE, MEDICAID, SELFPAY ==
--- NOTE | ~2025-01-09 | US_ITS ---
EXAMINATION: US ABDOMEN COMPLETE CLINICAL INFORMATION: Elevated liver function test.. COMPARISON: March 16, 2005 report, images are not available on PACS. Correlated to CT abdomen and pelvis dated April 12, 2019. TECHNIQUE: Real-time ultrasound of the abdomen using grayscale and color Doppler technique. FINDINGS: PANCREAS: No peripancreatic fluid collections. ABDOMINAL AORTA: The proximal, mid, and distal segments are normal in caliber. INFERIOR VENA CAVA: Visualized portions are normal. LIVER: Liver measures 14 cm. Nodular surface. Coarse echotexture. No gross solid or cystic lesion. No intrahepatic biliary ductal dilatation. GALLBLADDER: Fluid-filled, nondistended. No pericholecystic fluid collection or gallbladder wall thickening. COMMON BILE DUCT: 4 mm. RIGHT KIDNEY: 11 cm. Normal echotexture. Normal renal cortical thickness. No hydronephrosis. There is a 1.7 cm anechoic lesion without septations or flow on color Doppler interrogation centered in the midportion.. LEFT KIDNEY: 10 cm. Normal echotexture. Normal renal cortical thickness. No hydronephrosis. There is a large, 8.3 cm exophytic anechoic lesion without septations or nodular components or flow on color Doppler interrogation centered in the upper pole. There is a 1.0 cm anechoic lesion in the lower pole.. SPLEEN: 9 cm. No focal lesion. FREE FLUID: None. US/US abdomen complete IMPRESSION: Concerning hepatocellular disease versus cirrhosis. No cholelithiasis or gross choledocholithiasis. Bilateral renal cysts. No hydronephrosis. No ascites.. Electronically signed by: Jens Gonzalez MD 01/09/2025 10:29 AM EDT
== END 2025-01-09 09:28 | disposition home or self-care (01) ==
LOC: HO.US 09:27
PROVIDERS: PCP Internal Medicine; Visit Provider Internal Medicine
DX: R79.89 Other specified abnormal findings of blood chemistry (principal)
CPT/HCPCS: 76700

== ENCOUNTER → 2025-01-09 09:34 | Outpatient (BNV) | payer MEDICARE, MEDICAID, SELFPAY | PROVIDERS: PCP Internal Medicine; Visit Provider Radiology Diagnostic Radiology | DX: K76.89 Other specified diseases of liver (principal) | CPT/HCPCS: 76700 ==

== ENCOUNTER 2025-01-29 13:34 | Outpatient (AMB) | payer MEDICARE, MEDICAID, SELFPAY ==
[2025-01-29 13:44] VITALS: BP 130/78; PULSE 58; O2SAT 97; BMI 27.9
--- NOTE | 2025-01-29 13:44 | A.OFFVIS_ITS ---
Vital Signs 01/29/25 13:44 Height 5 ft 5 in Weight 167 lb 8.821 oz BMI 27.9 BP 130/78 Blood Pressure Location Lt brachial Position Sitting Pulse 58 Pulse Source Pulse Oximeter Pulse Oximetry (%) 97 Oxygen Delivery Method Room Air Intake Visit Reasons: copd Intake Note: pt is here for follow up and states no change in his breathing and spouse tries to get him to use cpap nightly, with no much luck. Third Mate Required: No Outsole Paraffiner: Outsole Paraffiner offered & declined Allergies No Known Allergies (No Known Allergies*) Allergy (Verified 01/29/25 14:16) Medication List - Last Reconciled 01/29/25 by Millie Castro MD acetaminophen (Acetaminophen Extra Strength) 1,000 mg (2 x 500 mg) PO Q8H PRN albuterol sulfate 90 mcg/actuation 2 puffs inhalation Q4-6H PRN [APAP 6-16 cm H20 humidified AIR As directed] aripiprazole 2 mg PO DAILY aspirin (Adult Aspirin Regimen) 81 mg PO DAILY blood sugar diagnostic (FreeStyle Lite Strips) As directed check the BS QD blood-glucose meter (FreeStyle Lite Meter kit) As directed budesonide-formoterol 160-4.5 mcg/actuation (Symbicort) 1 inh inhalation BID PRN clopidogrel (Plavix) 75 mg PO DAILY cyclobenzaprine 10 mg PO TID PRN gabapentin 300 mg PO BEDTIME lancets (FreeStyle Lancets) As directed check BS QD memantine 5 mg PO BID metoprolol succinate ER 50 mg PO DAILY pantoprazole 20 mg PO BID 90 days paroxetine HCl 20 mg PO DAILY rosuvastatin (Crestor) 40 mg PO DAILY simethicone (Gas-X Extra Strength) 125 mg PO TID-QID PRN trazodone 100 mg PO BEDTIME Do you need a note to return to daycare/school/sports/work: No HPI HPI copd: Details: THIS 69 YEARS OLD GENTLEMAN IS HERE FOR FOLLOW-UP AFTER 6 MONTHS. HE STILL SMOKING ALMOST 1 PACK OF CIGARETTES A DAY. EVEN THOUGH HE SAY IS THAT HE DOES NOT SMOKE THE WHOLE CIGARETTE. HE DOES GO EVERY YEAR FOR CT SCAN OF THE CHEST. HE DOES HAVE MILD INTERMITTENT COUGH, BUT NO WHEEZING ATTACKS, AND HE DOES NOT WALK FAST HE DOES NOT HAVE ANY DYSPNEA ON EXERTION. FAR SLEEP APNEA IS CONCERNED HE JUST NOT ABLE TO USE THE CPAP. HE SAY IS HE SLEEPS BETTER WITHOUT. THE CPAP THIS TIME HE IS COMPLAINING THAT THE AIR IS TOO HOT. THE FACT IS THAT HE IS JUST NOT SERIOUSLY COMMITTED TO USING THE CPAP. HE HAS IMPAIRED LOCOMOTION AND WALKS AROUND WITH MINIMAL HAVE. [facility] Medical History Bilateral hand numbness Numbness of left hand Shoulder pain, left Seizure disorder History of CVA (cerebrovascular accident) CAD (coronary artery disease) History of ST elevation myocardial infarction (STEMI) PFO (patent foramen ovale) Peripheral arterial disease Hypercholesterolemia Restrictive lung disease COPD (chronic obstructive pulmonary disease) Obstructive sleep apnea Nicotine dependence, cigarettes, uncomplicated GERD (gastroesophageal reflux disease) Chronic low back pain Tubular adenoma of colon Scrotal sac enlargement Hypersomnia Claudication Incisional pain Metabolic encephalopathy Scrotal sac enlargement Vision changes Surgical History History of hydrocelectomy History of colonoscopy S/P cardiac catheterization History of coronary artery stent placement History of aorto-femoral bypass Family History Father Hypertension Mother Hypertension Brother In good health Brother In good health Sister In good health Sister In good health Son In good health Son In good health Son In good health Son In good health Social History Housing: House Alcohol intake: former Patient Tobacco Use Status: Current everyday Tobacco user Tobacco use type: Cigarette Cigarette Packs Per Day: 1 Cigarettes Per Day: 20 Years Smoked: 55 +/- n (07/2023) STill moking (06/2024) e-Cigarette/Vaping Use: Never Used Second Hand Smoke Exposure: Yes service: No Current occupational status: employed Cognitive needs: Yes (walker) Hearing needs: No Vision needs: No Review of Systems Const All systems reviewed & are unremarkable except as noted in HPI and below Eyes Reports no additional complaints ENT Reports no additional complaints and Denies dysphagia Card Denies chest pain, Denies irregular heart rhythm (Has the monitor on), Denies leg edema and Reports dyspnea on exertion (Mild) Resp Reports cough (Minimal and infrequent) and Reports dyspnea on exertion (Mild) GI Denies dysphagia, Denies dyspepsia and Reports heartburn (Being treated with Protonix for prevention of GERD) Musc Reports abnormal gait (Uses walker) and Reports muscle weakness Skin/Breast Reports system reviewed and no additional complaints, except as documented Neuro Reports abnormal gait (Uses walker) Psych Reports depression (Treated with med) Endo Reports no additional complaints Sergei/Lymph Reports no additional complaints Physical Exam Vital Signs: Last Vital Signs Pulse 58 01/29/25 13:44 BP 130/78 01/29/25 13:44 Pulse Ox 97 01/29/25 13:44 Oxygen Delivery Method Room Air 01/29/25 13:44 BMI result Body Mass Index 27.9 Const General: comfortable, no acute distress, alert and awake Orientation/consciousness: patient oriented x3 HEENT Head: Yes normal to inspection General nose exam: No nasal polyps present and No nasal discharge present Face and sinus: Yes sinuses nontender Mouth: oropharynx normal Throat: Yes posterior oropharynx normal Eyes General: appearance normal, both eyes and all related structures Neck Neck: Yes normal visual inspection, Yes no lymphadenopathy, Yes trachea midline and Yes no JVD Thyroid: Thyroid normal Chest Chest palpation & inspection: normal inspection of the chest, normal palpation of entire chest wall and no tenderness Resp Other: Percussion note is resonant, has be equal breath sounds on both sides, the breath sounds are distant with prolonged expiratory phase. No wheezes or Crepitations are heard . Cardio Palpation: normal PMI Rate: regular rate Rhythm: regular rhythm Heart sounds: no gallops and no murmurs GI Other: Abdomen soft, benign. G-tube uneventfully removed. Dressing applied. Palpation (GI): Soft to palpation, nontender, No hepatosplenomegaly present and no masses Auscultation: normal bowel sounds Back/Spine/Pelvis Thoracic/Lumbar Spine: thoracic and lumbar spine normal to inspection and Thoracic/lumbar scoliosis (Mild to moderate) Skin General skin exam: no rashes or lesions noted Neuro General: patient oriented x3, No gait normal (The gait is somewhat unstable, due to poor balance, needs walker) and no focal motor deficits Cranial nerves: Yes CN's II-XII intact bilaterally Extrem General: Yes normal to inspection, Yes no clubbing, cyanosis or edema and Yes no calf tenderness Psych Appearance: grossly normal and well kempt Speech and movement: Normal speech and movement present Results Reviewed Results Reviewed: COMPLIANCE REPORT FOR THE LAST MONTH IS REVIEWED AND HE USED ONLY FOR 9 NIGHTS AND THAT ALSO USED ONLY FOR A FEW HOURS SO BASICALLY HE IS JUST NOT COMPLIANCE Assessment & Plan Assessment & Plan (1) COPD (chronic obstructive pulmonary disease): Comment: MILD TO MODERATE DEGREE OF OBSTRUCTIVE AIRWAY DISORDER, REMAINS STABLE. RELATIVELY ASYMPTOMATIC, EXCEPT FOR MILD INTERMITTENT COUGH DUE TO SMOKING . HE IS NOT USING SYMBICORT. ONLY USES ALBUTEROL 1 OR 2 PUFFS P.R.N. Code(s): J44.9 - Chronic obstructive pulmonary disease, unspecified Category: Medical Qualifiers: COPD type: emphysema Emphysema type: unspecified Qualified Code(s): J43.9 - Emphysema, unspecified Plan: CONTINUE TO USE ALBUTEROL P.R.N. (2) Restrictive lung disease: Comment: PER PFT, MODERATE RESTRICTIVE LUNG DISEASE. THIS MAY BE PARTLY DUE TO HIS POOR EFFORTS, AND GENERAL WEAKNESS. Code(s): J98.4 - Other disorders of lung Category: Medical Plan: TRY TO DO DEEP BREATHING 2 OR 3 TIMES EVERY DAY (3) Nicotine dependence, cigarettes, uncomplicated: Comment: (onset 17yo,1-2ppd x 51yrs, now 1/2 to 1ppd - 75pyh), had low-dose CT scan of the chest last year Code(s): F17.210 - Nicotine dependence, cigarettes, uncomplicated Category: Medical Plan: ADVISED THAT HE SHOULD CONTINUE TO HAVE LOW-DOSE CT SCAN EVERY YEAR (4) Obstructive sleep apnea: Comment: Sleep study done 08/24/2023 mild to moderate AHI 15 . Because of multiple comorbidities he was started on CPAP therapy. He is basically remaining noncompliant . He has poor understanding due to mild dementia accounts for that. THIS GENTLEMAN IS JUST NOT ABLE TO USE THE CPAP. Complained of too much hot air coming through the mask. Code(s): G47.33 - Obstructive sleep apnea (adult) (pediatric) Category: Medical Plan: We have down adjusted the level of humidification 2 2. Advised to try to use it for asthma many nights as possible. It will be better than nothing. Medications: Changed From budesonide-formoterol 160-4.5 mcg/actuation (Symbicort) 1 inh inhalation BID 10.2 grams 1RF COPD To budesonide-formoterol 160-4.5 mcg/actuation (Symbicort) 1 inh inhalation BID PRN Coding Level of Care Code Est Pt Level 3 (14235) Diagnoses Pulmonary emphysema, unspecified emphysema type J43.9 COPD type: emphysema Emphysema type: unspecified Restrictive lung disease J98.4 Nicotine dependence, cigarettes, uncomplicated F17.210 Obstructive sleep apnea G47.33
--- OUTSIDE RECORDS SUMMARY | 2025-01-29 14:52 | XMS_ITS | Clinical Summary ---
Author Organization [facility] Address [address] [place] [address] Care Team Providers Care Fish Straightener Name Role Phone Unavailable Primary Care Provider [...] Hypercholesteremia 02/27/2018 Coronary artery disease invo lving [place] coronary artery of [place] heart 02/27/2018 Myocardial infarction Social History [...] this topic Medical Devices Implanted Type Area Call Or Contact Centre Team Leader Device Identifier Shelf Expiration Date Model / Serial / Lot Stent Stent Heart Insurance MEDICAID OUT OF STATE [facility] Advance Directives * Full Code (Latest Code Status on File) Date Activated Date Inactivated Comments 02/27/2018 12:14 AM
--- OUTSIDE RECORDS SUMMARY | 2025-01-29 14:52 | XMS_ITS | Clinical Summary ---
Author Organization [facility] Address [address] [place] [address] Phone Care Team Providers Care Senior Telecommunications Engineer Name Role Phone Jami Martin MD Primary Care Provider [phone] Social History Tobacco Use Types Packs/Day Years [...] Influencers of Health Screening 10/26/2024 COVID-19 Vaccine ( - 2023-2 5 season) [...] Insurance MEDICARE MEDICAID - [place] Care Teams Senior Telecommunications Engineer Relationship Specialty Start Date End Date Jami Martin MD [address] [place] [address] [address] [facility] [place] [address] PCP - General Internal Medicine 02/23/18
== END 2025-01-29 14:15 | disposition home or self-care (01) ==
LOC: HO.HPS 13:35
PROVIDERS: PCP Internal Medicine; Visit Provider Internal Medicine
DX: J43.9 Emphysema, unspecified (principal); J98.4 Other disorders of lung; F17.210 Nicotine dependence, cigarettes, uncomplicated; G47.33 Obstructive sleep apnea (adult) (pediatric)
CPT/HCPCS: 99213

== ENCOUNTER → 2025-01-29 13:34 | Outpatient (BNVA) | payer MEDICARE, MEDICAID, SELFPAY | PROVIDERS: PCP Internal Medicine; Visit Provider Internal Medicine | DX: J43.9 Emphysema, unspecified (principal); J98.4 Other disorders of lung; F17.210 Nicotine dependence, cigarettes, uncomplicated; G47.33 Obstructive sleep apnea (adult) (pediatric) | CPT/HCPCS: 99212 ==

== ENCOUNTER 2025-02-28 12:20 | Outpatient (AMB) | payer MEDICARE, MEDICAID, SELFPAY ==
--- NOTE | 2025-02-28 12:52 | MHC.PC.OV ---
Vital Signs 02/28/25 12:53 Height 5 ft 5 in Weight 167 lb 2 oz BMI 27.8 BP 136/86 Blood Pressure Location Lt brachial Position Sitting Pulse 58 Pulse Source Pulse Oximeter Temp 97.3 F Temp Source Temporal Artery Scan Pulse Oximetry (%) 97 Oxygen Delivery Method Room Air Intake Visit Reasons: DM Accompanied by: Spouse Allergies No Known Allergies (No Known Allergies*) Allergy (Verified 02/28/25 12:56) Tobacco use date assessed: 02/28/25 Fall risk assessment: No Falls in past year Last assessed Fall Risk: 02/28/25 Dental Screening Dental Screen Date: 02/28/25 Did you have a dental visit in the last 12 months?: No Did you have a dental problem in the last 6 months where you did not have access to dental care?: No Was dental information given to patient?: No [facility] Medical History Bilateral hand numbness Numbness of left hand Shoulder pain, left Seizure disorder History of CVA (cerebrovascular accident) CAD (coronary artery disease) History of ST elevation myocardial infarction (STEMI) PFO (patent foramen ovale) Peripheral arterial disease Hypercholesterolemia Restrictive lung disease COPD (chronic obstructive pulmonary disease) Obstructive sleep apnea Nicotine dependence, cigarettes, uncomplicated GERD (gastroesophageal reflux disease) Chronic low back pain Tubular adenoma of colon Scrotal sac enlargement Hypersomnia Claudication Incisional pain Metabolic encephalopathy Scrotal sac enlargement Vision changes Surgical History History of hydrocelectomy History of colonoscopy S/P cardiac catheterization History of coronary artery stent placement History of aorto-femoral bypass Family History Father Hypertension Mother Hypertension Brother In good health Brother In good health Sister In good health Sister In good health Son In good health Son In good health Son In good health Son In good health Social History Housing: House Alcohol intake: former Patient Tobacco Use Status: Current everyday Tobacco user Tobacco use type: Cigarette Cigarette Packs Per Day: 1 Cigarettes Per Day: 20 Years Smoked: 57 +/- n (07/2023) STill moking (06/2024) e-Cigarette/Vaping Use: Never Used Second Hand Smoke Exposure: Yes service: No Current occupational status: employed 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 1. Little interest or pleasure in doing things: more than half the days 2. Feeling down, depressed, or hopeless: nearly every day 3. Trouble falling or staying asleep, or sleeping too much: nearly every day 4. Feeling tired or having little energy: nearly every day 5. Poor appetite or overeating: several days 6. Feeling bad about yourself - or that you are a failure or have let yourself or your family down: several days 7. Trouble concentrating on things, such as reading the newspaper or watching television: nearly every day 8. Moving or speaking so slowly that other people could have noticed. Or the opposite - being so fidgety or restless that you have been moving around a lot more than usual: more than half the days 9. Thoughts that you would be better off or of hurting yourself in some way: not at all Total score: 18 Depression Screening Interpretation: Positive Depression Screening Done: Yes Source: Developed by Drs. Meet Flores, Nidia Gordon, Eddy Arriaga and colleagues, with an educational nicole from [employer]. Thrive Questionnaire Date Thrive assessed: 07/19/24 I am a: Parent/Caregiver What is your living situation today?: I have a steady place to live Within the past 12 months, did the food you bought not last and you didn't have the money to get more?: I choose not to answer this question Within the past 12 months, did you worry whether your food would run out before you got money to buy more?: I choose not to answer this question Do you have trouble paying for medicines?: No Do you have trouble getting transportation to medical appointments?: No Do you have trouble paying your heating and electricity bill?: I choose not to answer this question Do you have trouble taking care of your child, family member or friend?: I choose not to answer this question Do you have trouble with day-to-day activities such as bathing, preparing meals, shopping, managing finances, etc.?: I choose not to answer this question Are you currently unemployed and looking for a job?: I choose not to answer this question Are you interested in more education?: I choose not to answer this question Please select the resources that you would like help with: None Currently or been in a relationship where the following occur: No concerns reported THRIVE Score: 0 AUDIT C Alcohol Use Questionnaire (AUDIT-C) 1. How often do you have a drink containing alcohol?: Never 3. How often do you have six or more drinks on one occasion?: Never Total Score: 0 JACQUES-7 AMB Questionnaire JACQUES-7 Date JACQUES - 7 assessed: 10/24/24 Feeling nervous, anxious, or on edge: 0 = Not at all Not being able to stop or control worryin = Not at all Worrying too much about different things: 0 = Not at all Trouble relaxin = Not at all Being so restless that it is hard to sit still: 0 = Not at all Becoming easily annoyed or irritable: 0 = Not at all Feeling afraid as if something awful might happen: 0 = Not at all Total JACQUES-7 score (0-4 normal; 5-9 mild; 10-14 moderate; 15-21 severe): 0 Source: Developed by Drs. Meet Flores, Nidia Gordon, Eddy Arriaga and colleagues, with an educational nicole from [employer]. Physical exam (Primary Care) Vital Signs: Last Vital Signs Temp 97.3 F 02/28/25 12:53 Pulse 58 02/28/25 12:53 BP 136/86 02/28/25 12:53 Pulse Ox 97 02/28/25 12:53 Oxygen Delivery Method Room Air 02/28/25 12:53 BMI result Body Mass Index 27.8 Tobacco/Smoking Status: Tobacco use Status Tobacco use date assessed 02/28/25 02/28/25 12:57 Patient Tobacco Use Status Current everyday Tobacco 02/28/25 12:57 Tobacco use type Cigarette 02/28/25 12:57 e-Cigarette/Vaping Use Never Used 02/28/25 12:57 PHQ-9: PHQ-9 Score PHQ-9: Total score 18 02/28/25 13:05 Depression Screening Interpretation: Positive Thrive Assessment: Date of Thrive Assessment Date Thrive assessed 07/19/24 02/28/25 12:57 Currently or been in a relationship where the following occur: No concerns reported Const General: alert; No acute distress Eyes Conjunctivae: conjunctivae normal Resp Auscultation: clear to auscultation bilaterally Cardio Rate: regular rate Rhythm: regular rhythm GI Inspection: Yes normal to inspection Extrem General: Yes normal to inspection and No edema Coding Level of Care Code Est Pt Level 4 (57363) Complex EM visit Add On G2211 Diagnoses Coronary artery disease involving [place] coronary artery of [place] heart without angina pectoris I25.10 Associated angina: without angina Coronary Disease-Associated Artery/Lesion type: [place] artery [place] vs. transplanted heart: [place] heart Peripheral arterial disease I73.9 Hypercholesterolemia E78.00 Type 2 diabetes mellitus with hyperglycemia E11.65 Gastroesophageal reflux disease without esophagitis K21.9 Esophagitis presence: without esophagitis Hepatic steatosis K76.0 Tubular adenoma of colon D12.6 BPH (benign prostatic hyperplasia) N40.0 History of CVA (cerebrovascular accident) Z86.73 Pulmonary emphysema, unspecified emphysema type J43.9 COPD type: emphysema Emphysema type: unspecified Obstructive sleep apnea G47.33 Nicotine dependence, cigarettes, uncomplicated F17.210 Cirrhosis K74.60 Carpal tunnel syndrome on both sides G56.03 Assessment & Plan Assessment & Plan (1) CAD (coronary artery disease): Comment: MABEL Lopez 2014 Dr. Reid angioplasty GERA mid RCA March 2018 STEMI 06/2021, mid RCA thrombus, GERA placed ECHO EF 63% Code(s): I25.10 - Atherosclerotic heart disease of [place] coronary artery without angina pectoris Category: Medical Qualifiers: Associated angina: without angina Coronary Disease-Associated Artery/Lesion type: [place] artery [place] vs. transplanted heart: [place] heart Qualified Code(s): I25.10 - Atherosclerotic heart disease of [place] coronary artery without angina pectoris Plan: Control the cholesterol, weight, blood pressure, diabetes patient is taking aspirin 81 mg once a day (2) Peripheral arterial disease: Comment: 04/10/2019 - open aortobifemoral bypass Code(s): I73.9 - Peripheral vascular disease, unspecified Category: Medical Plan: Continue with aspirin and clopidogrel (3) Hypercholesterolemia: Code(s): E78.00 - Pure hypercholesterolemia, unspecified Category: Medical Plan: Avoid fried foods, chicken skin, eggs, butter margarine, pastries and meat. Be it pork or beef they have a lot of cholesterol LDL goal of less than 130 and triglyceride of less than 150 patient on rosuvastatin 40 mg once a day (4) Type 2 diabetes mellitus with hyperglycemia: Code(s): E11.65 - Type 2 diabetes mellitus with hyperglycemia Category: Medical Plan: Decrease the amount of carbohydrate intake, pasta, bread, rice and potatoes are all sugar and that is aside from all the sweet stuff, remember that fruits are good but they are Sweet also. Hemoglobin A1c goal of less than 6.5. Patient blood sugars come down diet twice (5) GERD (gastroesophageal reflux disease): Code(s): K21.9 - Gastro-esophageal reflux disease without esophagitis Category: Medical Qualifiers: Esophagitis presence: without esophagitis Qualified Code(s): K21.9 - Gastro-esophageal reflux disease without esophagitis Plan: Avoid the foods that causes that usually spicy foods, tomato products, juices, coffee, soda and foods that your sensitive to. After eating do not lie down, allow 3-4 hours before in lie down. And keep the head of bed above 30 degrees to avoid the acid from going up. (6) Hepatic steatosis: Comment: December 2024 Code(s): K76.0 - Fatty (change of) liver, not elsewhere classified Category: Medical Plan: Low-fat diet and exercise, ultrasound concerns on cirrhosis (7) Tubular adenoma of colon: Comment: (TA/SSP on 12/2022 scope) Code(s): D12.6 - Benign neoplasm of colon, unspecified Category: Medical Plan: Patient was reminded about having colonoscopy repeated (8) BPH (benign prostatic hyperplasia): Code(s): N40.0 - Benign prostatic hyperplasia without lower urinary tract symptoms Category: Medical Plan: Stable (9) History of CVA (cerebrovascular accident): Comment: August 2022 basilar thrombus Code(s): Z86.73 - Personal history of transient ischemic attack (TIA), and cerebral infarction without residual deficits Category: Medical Plan: Control the cholesterol, weight, blood pressure, diabetes on dual antiplatelet aspirin and clopidogrel (10) COPD (chronic obstructive pulmonary disease): Comment: MILD TO MODERATE DEGREE OF OBSTRUCTIVE AIRWAY DISORDER, REMAINS STABLE. RELATIVELY ASYMPTOMATIC, EXCEPT FOR MILD INTERMITTENT COUGH DUE TO SMOKING . HE IS NOT USING SYMBICORT. ONLY USES ALBUTEROL 1 OR 2 PUFFS P.R.N. Code(s): J44.9 - Chronic obstructive pulmonary disease, unspecified Category: Medical Qualifiers: COPD type: emphysema Emphysema type: unspecified Qualified Code(s): J43.9 - Emphysema, unspecified Plan: Stop smoking! (11) Obstructive sleep apnea: Comment: Sleep study done 08/24/2023 mild to moderate AHI 15 . Because of multiple comorbidities he was started on CPAP therapy. He is basically remaining noncompliant . He has poor understanding due to mild dementia accounts for that. THIS GENTLEMAN IS JUST NOT ABLE TO USE THE CPAP. Complained of too much hot air coming through the mask. Code(s): G47.33 - Obstructive sleep apnea (adult) (pediatric) Category: Medical Plan: Discussed about the importance of using CPAP (12) Nicotine dependence, cigarettes, uncomplicated: Comment: (onset 17yo,1-2ppd x 51yrs, now 1/2 to 1ppd - 75pyh), had low-dose CT scan of the chest last year Code(s): F17.210 - Nicotine dependence, cigarettes, uncomplicated Category: Medical Plan: Stop smoking patient point reminded about lung cancer screening program (13) Cirrhosis: Code(s): K74.60 - Unspecified cirrhosis of liver Category: Medical (14) Carpal tunnel syndrome on both sides: Comment: Mild bilateral carpal tunnel syndrome July 2024 Mild bilateral median neuropathy across carpal tunnel. 2. Mild bilateral ulnar neuropathy across cubital tunnel. Code(s): G56.03 - Carpal tunnel syndrome, bilateral upper limbs Category: Medical Plan History of Present Illness The patient is a 69-year-old male presenting for a follow-up on multiple chronic conditions. His medical history includes GERD, coronary artery disease, COPD, peripheral arterial disease, hypercholesterolemia, and diabetes mellitus. For COPD management, the patient was seen by pulmonology in December and uses salbutamol as needed but is not on other regular inhalers. He has a history of smoking and has been advised to have a CT scan next year for lung cancer screening. The patient is prescribed CPAP for sleep apnea but is not fully compliant, using it every other night for approximately four hours. His last colonoscopy in December 2022 showed diverticula, and he is due for a follow-up procedure. An abdominal ultrasound in March, prompted by elevated liver function tests, revealed a serous cyst and bilateral renal cysts. Recent blood work from August showed an HbA1c of 6.6, up from 5.8, an elevated liver function test of 99, and triglycerides of 300. His CBC, electrolytes, and renal function were normal at that time. Health Maintenance The patient was advised to get a CT scan next year for lung cancer screening. A referral was provided for a follow-up colonoscopy due to findings on the previous one. Social History - Substance Use: Patient has a history of smoking. Review of Systems - Neurological: Reports numbness. Physical Exam Results - Labs (August): HbA1c was 6.6, up from 5.8. - Labs (August): Liver function tests were elevated to 99. - Labs (August): Triglycerides were 300. - Labs (August): CBC, electrolytes, and renal function were normal. - Abdomen Ultrasound (March 11): Showed a concentration of serous cyst and bilateral renal cysts. - Colonoscopy (December 2022): Revealed findings requiring follow-up. Plan Patient was informed and verbally consented to the use of an ambient scribe for clinic note documentation during this visit. 1. Coronary Artery Disease/Peripheral Arterial Disease The patient will continue dual antiplatelet therapy with aspirin and Plavix. 2. Hypercholesterolemia Continue rosuvastatin 40 mg once daily with a goal LDL of less than 130 mg/dL and triglycerides of less than 150 mg/dL. 3. Diabetes Mellitus Continue to focus on dietary modifications with a goal HbA1c of less than 6.5%. 4. Gastroesophageal Reflux Disease (Gerd) Continue current management for reflux. 5. Copd / Sleep Apnea Educated the patient on the importance of nightly CPAP use for at least 4 hours for cardiac health. The patient will continue using albuterol as needed. 6. Elevated Liver Enzymes And Cirrhosis The patient is being referred to gastroenterology for further evaluation and management of cirrhosis and abdominal ultrasound findings, including a serous cyst. Discussion Notes I discussed the importance of consistent CPAP use with the patient, emphasizing that using it for at least four hours every night is crucial for his heart health. I also stressed the necessity of a follow-up colonoscopy due to findings from his initial procedure and explained the risks of not monitoring the situation. A referral will be made to gastroenterology to manage his cirrhosis and the findings from his abdominal ultrasound. We confirmed the plan to continue his aspirin and Plavix. Patient Instructions - Continue taking your medications as prescribed, including aspirin, Plavix, and rosuvastatin. - It is very important for your heart that you use your CPAP machine every night for at least 4 hours. - Follow up to schedule your CT scan for lung cancer screening next year. - You need to schedule a follow-up colonoscopy; a referral number has been provided for you to call. - A referral has been made for you to see a embossing press operator (a doctor who specializes in the digestive system) for your liver. - Continue your current diet to help manage your diabetes. Orders: Referrals Gastroenterology Referral D12.6 - Benign neoplasm of colon, unspecified, K74.60 - Unspecified cirrhosis of liver Medications: Refilled blood sugar diagnostic (FreeStyle Lite Strips) As directed check the BS QD 100 ea 3RF E11.65 - Type 2 diabetes mellitus with hyperglycemia
[2025-02-28 12:53] VITALS: BP 136/86; PULSE 58; TEMP 36.3; O2SAT 97; BMI 27.8
--- OUTSIDE RECORDS SUMMARY | 2025-02-28 15:12 | XMS_ITS | Clinical Summary ---
Author Organization [facility] Address [address] [place] [address] Care Team Providers Care Assistant Branch Operations Manager Name Role Phone Unavailable Primary Care Provider [...] Hypercholesteremia 02/27/2018 Coronary artery disease invo lving lime coronary artery of lime heart 02/27/2018 Myocardial infarction Social History Tobacco [...] of 2 - PCV) 1976 Colonoscopy 2002 RSV Vaccine 50 years and old er and Patients (1 - Risk 50-74 years 1-dose series) 07/01/2007 Zoster (Shingles) Vaccine (1 of 2) 07/01/2007 Influenza Vaccine 11/30/2024 COVID-19 Vaccine ( - 2023-2 5 season) 2024 Hepatitis B Vaccines Aged Out No long er eligible based on patient's age to complete this topic Medical Devices Implanted Type Area Vending Machine Attendant Device Identifier Shelf Expiration Date Model / Serial / Lot Stent Stent Heart Insurance MEDICAID OUT OF [place] [facility] [place] Directives * Full Code (Latest Code Status on File) Date Activated Date Inactivated Comments 02/27/2018 12:14 AM
== END 2025-02-28 13:23 | disposition home or self-care (01) ==
LOC: HO.HMCH 12:21
PROVIDERS: PCP Internal Medicine; Visit Provider Internal Medicine
DX: I25.10 Atherosclerotic heart disease of native coronary artery without angina pectoris (principal); E11.65 Type 2 diabetes mellitus with hyperglycemia; K74.60 Unspecified cirrhosis of liver; J43.9 Emphysema, unspecified; I73.9 Peripheral vascular disease, unspecified; E78.00 Pure hypercholesterolemia, unspecified; K21.9 Gastro-esophageal reflux disease without esophagitis; K76.0 Fatty (change of) liver, not elsewhere classified; D12.6 Benign neoplasm of colon, unspecified; N40.0 Benign prostatic hyperplasia without lower urinary tract symptoms; Z86.73 Personal history of transient ischemic attack (TIA), and cerebral infarction without residual deficits; G47.33 Obstructive sleep apnea (adult) (pediatric)

== ENCOUNTER → 2025-02-28 12:20 | Outpatient (BNVA) | payer MEDICARE, MEDICAID, SELFPAY | PROVIDERS: PCP Internal Medicine; Visit Provider Internal Medicine | DX: I25.10 Atherosclerotic heart disease of native coronary artery without angina pectoris (principal); I73.9 Peripheral vascular disease, unspecified; E78.00 Pure hypercholesterolemia, unspecified; E11.65 Type 2 diabetes mellitus with hyperglycemia; K21.9 Gastro-esophageal reflux disease without esophagitis; K76.0 Fatty (change of) liver, not elsewhere classified; D12.6 Benign neoplasm of colon, unspecified; N40.0 Benign prostatic hyperplasia without lower urinary tract symptoms; Z86.73 Personal history of transient ischemic attack (TIA), and cerebral infarction without residual deficits; J43.9 Emphysema, unspecified; G47.33 Obstructive sleep apnea (adult) (pediatric); K74.60 Unspecified cirrhosis of liver; G56.03 Carpal tunnel syndrome, bilateral upper limbs; F17.210 Nicotine dependence, cigarettes, uncomplicated; Z71.6 Tobacco abuse counseling | CPT/HCPCS: 99212 ==

== ENCOUNTER 2025-03-01 13:23 | Outpatient (AMB) | payer MEDICARE, MEDICAID, SELFPAY ==
--- NOTE | 2025-03-01 13:33 | MHC.OFFVIS ---
Intake Visit Reasons: New prob- Right shoulder pain w/ xray Intake Note: Catie is a 69 year old right hand dominant male who presents today for a evaluation of his right shoulder pain. He has had an injection in his left shoulder on 09/18/24. Patient reports ongoing pain for about more than a year ago. He states that his last injection in his left shoulder did not give him relief. Patient notices that his left shoulder is worse than the right. He states that his pain starts from the elbow and radiates up to his shoulder. Patient has tried topical cream with mild relief. Allergies No Known Allergies (No Known Allergies*) Allergy (Verified 03/01/25 13:33) [facility]LY [facility], [facility] Medical History Bilateral hand numbness Numbness of left hand Shoulder pain, left Seizure disorder History of CVA (cerebrovascular accident) CAD (coronary artery disease) History of ST elevation myocardial infarction (STEMI) PFO (patent foramen ovale) Peripheral arterial disease Hypercholesterolemia Restrictive lung disease COPD (chronic obstructive pulmonary disease) Obstructive sleep apnea Nicotine dependence, cigarettes, uncomplicated GERD (gastroesophageal reflux disease) Chronic low back pain Tubular adenoma of colon Scrotal sac enlargement Hypersomnia Claudication Incisional pain Metabolic encephalopathy Scrotal sac enlargement Vision changes Surgical History History of hydrocelectomy History of colonoscopy S/P cardiac catheterization History of coronary artery stent placement History of aorto-femoral bypass Family History Father Hypertension Mother Hypertension Brother In good health Brother In good health Sister In good health Sister In good health Son In good health Son In good health Son In good health Son In good health Social History Housing: House Alcohol intake: former Patient Tobacco Use Status: Current everyday Tobacco user Tobacco use type: Cigarette Cigarette Packs Per Day: 1 Cigarettes Per Day: 20 Years Smoked: 55 +/- n (07/2023) STill moking (06/2024) e-Cigarette/Vaping Use: Never Used Second Hand Smoke Exposure: Yes service: No Current occupational status: employed Cognitive needs: Yes (walker) Hearing needs: No Vision needs: No Review of Systems Const All systems reviewed & are unremarkable except as noted in HPI and below Physical Exam Const General: cooperative, healthy appearing and no acute distress Resp Effort & Inspection: normal respiratory effort and able to speak in complete sentences Extrem Other: Right/ Left hand: Able to perform full finger flexion, extension, abduction, adduction, finger cross, okay sign, and thumbs up without deficit. Able to make a closed fist. 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 Reports numbness and tingling and weakness in both hands. Capillary refill is brisk. Radial pulse intact. Psych Appearance: grossly normal Mental Status: mental status grossly normal Attitude: cooperative Assessment & Plan Assessment & Plan (1) Cubital tunnel syndrome, bilateral: Code(s): G56.23 - Lesion of ulnar nerve, bilateral upper limbs Category: Medical Plan Catie is a 69 year old right hand dominant male who presents today for a evaluation of his right shoulder pain. He has had an injection in his left shoulder on 09/18/24. Patient reports ongoing pain for about more than a year ago. He states that his last injection in his left shoulder did not give him relief. Patient notices that his left shoulder is worse than the right. He states that his pain starts from the elbow and radiates up to his shoulder. Patient has tried topical cream with mild relief. While the office today, Grant Pace PA-C was available to see the patient in discuss surgical intervention in regards to carpal and cubital tunnel release. The patient will follow up with Dr. Young for a formal consultation as he does have a significant past medical history significant for CAD, COPD, CAD, hypercholesterolemia, PFO, restrictive lung disease, seizure disorder, peripheral neuropathic pain, CVA, DM2, hepatic steatosis and cirrhosis. Follow up will be with Dr. Young, sooner if needed. EMG obtained on 07/31/2024: IMPRESSION: 1. Mild bilateral median neuropathy across carpal tunnel. 2. Mild bilateral ulnar neuropathy across cubital tunnel. X-rays of the right shoulder which were obtained while in the office today and were reviewed by me, Yvette Akhtar PA-C, revealed likely chronic rotator cuff tear with associated degenerative changes. Orders: Orders XR shoulder RT min 2V Today M25.519 - Pain in unspecified shoulder Coding Level of Care Code New Pt Level 3 (49061) Diagnoses Cubital tunnel syndrome, bilateral G56.23
--- OUTSIDE RECORDS SUMMARY | 2025-03-01 14:27 | XMS_ITS | Clinical Summary ---
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
== END 2025-03-01 13:58 | disposition home or self-care (01) ==
LOC: HO.HOS 13:24
PROVIDERS: PCP Internal Medicine; Visit Provider Physician Assistant
DX: G56.23 Lesion of ulnar nerve, bilateral upper limbs (principal)
CPT/HCPCS: 99213

== ENCOUNTER → 2025-03-01 13:24 | Outpatient (BNV) | payer MEDICARE, MEDICAID, SELFPAY | PROVIDERS: Visit Provider Radiology Diagnostic Radiology | DX: M25.511 Pain in right shoulder (principal) | CPT/HCPCS: 73030 ==

== ENCOUNTER 2025-03-01 14:21 | Outpatient (REF) | payer MEDICARE, MEDICAID, SELFPAY ==
--- NOTE | ~2025-03-01 | XR_ITS ---
EXAMINATION: XR SHOULDER, RIGHT CLINICAL INFORMATION: M25.519 - Pain in unspecified shoulder COMPARISON: None available. TECHNIQUE: AP view of the right shoulder. FINDINGS: Inadequate examination demonstrated joint space narrowing involving the acromiohumeral. No acute cortical disruption. No gross Y-view projection. XR/XR shoulder RT min 2V IMPRESSION: Limited examination suggesting rotator cuff tendon tear. No acute fracture. Electronically signed by: Jens Gonzalez MD 03/01/2025 01:44 PM EDT
--- OUTSIDE RECORDS SUMMARY | 2025-03-03 14:24 | XMS_ITS | Clinical Summary ---
Author Organization 175 [facility] Address [address] [place] [address] Phone Care Team Providers Care Paleobotanist Name Role Phone Jami Martin MD Primary Care Provider [phone] Social History Tobacco Use Types Packs/Day Years Used Date Smoking Tobacco: Never Assessed Sex and Gender Information Value Date Recorded Sex Assigned at Not on file Legal Sex Male 11:15 PM EST Gender Identity Not on file Sexual Orientation Not on file Plan of Treatment Health Maintenance Due Date Last Done Comments Colorectal Cancer Screening: Colonoscopy 1957 DTaP,Tdap,and Td Vaccines (1 - Tdap) 1976 Pneumococcal Vaccine: 50+ Ye ars (1 of 2 - PCV) 1976 Zoster Vaccines (1 of 2) 07/01/2007 Depression Screening 05/02/2024 Abdominal Aortic Aneurysm (A AA) Screen 10/26/2024 Cholesterol Screening (Lipid Panel) 10/26/2024 Falls Risk Assessment 10/26/2024 Hepatitis C [...] Insurance MEDICARE MEDICAID - [place] Care Teams Paleobotanist Relationship Specialty Start Date End Date Jami Martin MD [address] [place] [address] Dr Vasquez [address] [facility] [place] [address] PCP - General Internal Medicine 02/23/18
--- OUTSIDE RECORDS SUMMARY | 2025-03-03 14:24 | XMS_ITS | Clinical Summary ---
Author Organization Formerly [facility] Address [address] [place] [address] Care Team Providers Care Medical Practice Assistant Name Role Phone Unavailable Primary Care Provider [...] Hypercholesteremia 02/27/2018 Coronary artery disease invo lving [place] coronary artery of [place] heart 02/27/2018 Myocardial infarction Social History Tobacco [...] this topic Medical Devices Implanted Type Area Post Doctoral Fellow Device Identifier Shelf Expiration Date Model / Serial / Lot Stent Stent Heart Insurance MEDICA[place] [facility] [place] * Full Code (Latest Code Status on File) Date Activated Date Inactivated Comments 02/27/2018 12:14 AM
== END 2025-03-01 14:22 | disposition home or self-care (01) ==
LOC: HO.HOSX 14:21
PROVIDERS: Visit Provider Physician Assistant
DX: G56.23 Lesion of ulnar nerve, bilateral upper limbs (principal)
CPT/HCPCS: 73030; 99212

== ENCOUNTER 2025-03-11 13:32 | Outpatient (AMB) | payer MEDICARE, MEDICAID, SELFPAY ==
[2025-03-11 13:39] VITALS: BP 100/62; PULSE 60; BMI 28.5
--- NOTE | 2025-03-11 13:39 | A.OFFVIS_ITS ---
Vital Signs 03/11/25 13:39 Height 5 ft 5 in Weight 171 lb 1.259 oz BMI 28.5 BP 100/62 Blood Pressure Location Rt brachial Position Sitting Pulse 60 Pulse Source Monitor Intake Visit Reasons: 6 mth f/up Dispute Resolution Specialist Required: No Die Mechanic: Die Mechanic Present Allergies No Known Allergies (No Known Allergies*) Allergy (Verified 03/11/25 13:41) Medication List - Last Reconciled 03/11/25 by Enma Quintana NP-C acetaminophen (Acetaminophen Extra Strength) 1,000 mg (2 x 500 mg) PO Q8H PRN albuterol sulfate 90 mcg/actuation 2 puffs inhalation Q4-6H PRN [APAP 6-16 cm H20 humidified AIR As directed] aripiprazole 2 mg PO DAILY aspirin (Adult Aspirin Regimen) 81 mg PO DAILY blood sugar diagnostic (FreeStyle Lite Strips) As directed check the BS QD blood-glucose meter (FreeStyle Lite Meter kit) As directed clopidogrel (Plavix) 75 mg PO DAILY gabapentin 300 mg PO BEDTIME lancets (FreeStyle Lancets) As directed check BS QD memantine 5 mg PO BID metoprolol succinate ER 50 mg PO DAILY pantoprazole 20 mg PO BID 90 days paroxetine HCl 20 mg PO DAILY rosuvastatin (Crestor) 40 mg PO DAILY simethicone (Gas-X Extra Strength) 125 mg PO TID-QID PRN trazodone 100 mg PO BEDTIME HPI HPI 6 mth f/up: Details: Catie is a 69-year-old male with past medical history of hyperlipidemia, sleep apnea, smoking, PID, CVA, RCA PCI 2014, inferior STEMI 2021 [facility] Today he presents with his who does most of the talking. He has not been any concerning cardiac symptoms. No chest discomfort, shortness of breath, heart palpitations, lightheadedness, leg edema. He continues to smoke. His primary complaint is of leg discomfort and wrist discomfort. states he has carpal tunnel and is in need of surgery. They are going to see the provider tomorrow to determine if and when this can be done. He is mostly sedentary and ambulates with a cane. Takes all meds as directed. [facility] Medical History (Updated 03/11/25 @ 17:24 by Enma Quintana NP-C) Bilateral hand numbness Numbness of left hand Shoulder pain, left Seizure disorder History of CVA (cerebrovascular accident) CAD (coronary artery disease) History of ST elevation myocardial infarction (STEMI) PFO (patent foramen ovale) Peripheral arterial disease Hypercholesterolemia Restrictive lung disease COPD (chronic obstructive pulmonary disease) Obstructive sleep apnea Nicotine dependence, cigarettes, uncomplicated GERD (gastroesophageal reflux disease) Chronic low back pain Tubular adenoma of colon Scrotal sac enlargement Hypersomnia Claudication Incisional pain Metabolic encephalopathy Scrotal sac enlargement Vision changes Surgical History History of hydrocelectomy History of colonoscopy S/P cardiac catheterization History of coronary artery stent placement History of aorto-femoral bypass Family History Father Hypertension Mother Hypertension Brother In good health Brother In good health Sister In good health Sister In good health Son In good health Son In good health Son In good health Son In good health Social History Housing: House Alcohol intake: former Patient Tobacco Use Status: Current everyday Tobacco user Tobacco use type: Cigarette Cigarette Packs Per Day: 1 Cigarettes Per Day: 20 Years Smoked: 55 +/- n (07/2023) STill moking (06/2024) e-Cigarette/Vaping Use: Never Used Second Hand Smoke Exposure: Yes service: No Current occupational status: employed Cognitive needs: Yes (walker) Hearing needs: No Vision needs: No Review of Systems Const All systems reviewed & are unremarkable except as noted in HPI and below ENT Denies dizziness Card Denies chest pain, Denies chest pain at rest, Denies chest pain with activity, Denies rapid heart rate, Denies pedal edema, Denies edema, Denies leg edema, Denies lightheadedness, Denies palpitations, Denies dyspnea, Denies dyspnea on exertion and Denies orthopnea Resp Denies cough, Denies dyspnea and Denies dyspnea on exertion GI Denies hematochezia and Denies change in stool character Musc Details: leg and arm pains Reports abnormal gait (uses cane), Denies limited range of motion, Denies muscle cramps, Denies muscle weakness, Denies numbness, Denies radiating pain into limb, Denies stiffness and Denies tingling Neuro Reports abnormal gait (uses cane), Denies dizziness, Denies numbness and Denies tingling Endo Denies palpitations Physical Exam Vital Signs: Last Vital Signs Pulse 60 03/11/25 13:39 BP 100/62 03/11/25 13:39 BMI result Body Mass Index 28.5 Const General: cooperative, healthy appearing, comfortable and no acute distress Orientation/consciousness: patient oriented x3 Neck Neck: Yes normal visual inspection and Yes no JVD Resp Effort & Inspection: normal respiratory effort Auscultation: clear to auscultation bilaterally, no rales, no rhonchi and no wheezes Cardio Rate: regular rate Rhythm: regular rhythm Heart sounds: S1 normal heart sound present, S2 normal heart sound present, no gallops, no murmurs and no rubs Neuro General: patient oriented x3 Extrem General: Yes normal to inspection Psych Appearance: grossly normal Mental Status: mental status grossly normal Office Procedures EKG Details: Today, read by me, normal sinus rhythm, rate 60, QTC 422 milliseconds [id number], Complete Assessment & Plan Assessment & Plan (1) CAD (coronary artery disease): Comment: MABEL Lopez 2014 Dr. Reid angioplasty GERA mid RCA March 2018 STEMI 06/2021, mid RCA thrombus, GERA placed ECHO EF 63% Code(s): I25.10 - Atherosclerotic heart disease of [place] coronary artery without angina pectoris Category: Medical Qualifiers: Coronary Disease-Associated Artery/Lesion type: [place] artery [place] vs. transplanted heart: [place] heart Associated angina: without angina Qualified Code(s): I25.10 - Atherosclerotic heart disease of [place] coronary artery without angina pectoris Plan: History of CAD with remote PCI of the mid RCA and inferior STEMI 06/2021 with mid RCA thrombus, GERA placed. [place] [facility] [place] EF 55-60%, no obvious wall motion abnormalities, [id number] shunt suggesting PFO. Currently no anginal symptoms. EKG today showing sinus rhythm, no ischemic findings, rate 60. He is preop for carpal tunnel surgery. Will update echocardiogram. If it is being done under general then stress test may be needed as he is sedentary. Continue aspirin and Plavix. Continue metoprolol. Continue Crestor with ideal LDL goal less than 70. Smoking cessation encouraged. Increase physical activity as tolerated. Cardiology follow-up 6 months, sooner if needed. (2) History of ST elevation myocardial infarction (STEMI): Comment: (STEMI 06/2021) Code(s): I25.2 - Old myocardial infarction Category: Medical Plan: As above (3) PFO (patent foramen ovale): Code(s): Q21.12 - Patent foramen ovale Category: Medical Plan: Noted on echocardiogram. History of CVA. He is now on dual antiplatelet therapy. (4) History of CVA (cerebrovascular accident): Comment: August 2022 basilar thrombus Code(s): Z86.73 - Personal history of transient ischemic attack (TIA), and cerebral infarction without residual deficits Category: Medical Plan: As above (5) Hypercholesterolemia: Code(s): E78.00 - Pure hypercholesterolemia, unspecified Category: Medical Plan: [place] LDL goal less than 70. Labs done 09/19/2024 shows LDL 54. Continue rosuvastatin 40 mg daily. (6) Preop cardiovascular exam: Code(s): Z01.810 - Encounter for preprocedural cardiovascular examination Category: Medical Plan: Patient is hoping to have carpal tunnel surgery in the near future. No date yet. Updating echo. If having general anesthesia may need nuclear stress test - will discuss with his primary cath lab manager if needed. Plan Time spent on chart review, documentation, interview and assessment Coding Level of Care Code Est Pt Level 4 (71201) Complex EM visit Add On G2211 Diagnoses Coronary artery disease involving [place] coronary artery of [place] heart without angina pectoris I25.10 Coronary Disease-Associated Artery/Lesion type: [place] artery [place] vs. transplanted heart: [place] heart Associated angina: without angina History of ST elevation myocardial infarction (STEMI) I25.2 PFO (patent foramen ovale) Q21.12 History of CVA (cerebrovascular accident) Z86.73 Hypercholesterolemia E78.00 Preop cardiovascular exam Z01.810 CPT Codes EKG - CPT: 23172-[id number], Complete ([id number]) Time Spent (min) 28
--- OUTSIDE RECORDS SUMMARY | 2025-03-11 15:40 | XMS_ITS | Clinical Summary ---
Author Organization 175 [facility] Address [address] [place] [address] Phone Care Team Providers Care Blast Setter Name Role Phone Jami Martin MD Primary Care Provider [phone] Social History Tobacco Use Types Packs/Day Years [...] Insurance MEDICARE [place]ICAID - [place] Care Teams Blast Setter Relationship Specialty Start Date End Date Jami Martin MD [address] [place] [address] Dr Vasquez [address] [facility] [place] [address] PCP - General Internal Medicine 02/23/18
== END 2025-03-11 14:19 | disposition home or self-care (01) ==
LOC: HO.HCS 13:33
PROVIDERS: PCP Internal Medicine; Visit Provider Nurse Practitioner Family
DX: I25.10 Atherosclerotic heart disease of native coronary artery without angina pectoris (principal); I25.2 Old myocardial infarction; Q21.12 Patent foramen ovale; Z86.73 Personal history of transient ischemic attack (TIA), and cerebral infarction without residual deficits; E78.00 Pure hypercholesterolemia, unspecified; Z01.810 Encounter for preprocedural cardiovascular examination
CPT/HCPCS: 93010; 99214; G2211

== ENCOUNTER → 2025-03-11 13:32 | Outpatient (BNVA) | payer MEDICARE, MEDICAID, SELFPAY | PROVIDERS: PCP Internal Medicine; Visit Provider Nurse Practitioner Family | DX: Z01.810 Encounter for preprocedural cardiovascular examination (principal); I25.10 Atherosclerotic heart disease of native coronary artery without angina pectoris; I25.2 Old myocardial infarction; I10 Essential (primary) hypertension; Q21.12 Patent foramen ovale; E78.00 Pure hypercholesterolemia, unspecified; Z86.73 Personal history of transient ischemic attack (TIA), and cerebral infarction without residual deficits; Z98.61 Coronary angioplasty status | CPT/HCPCS: 93005; 99212 ==

== ENCOUNTER 2025-03-12 15:20 | Outpatient (AMB) | payer MEDICARE, MEDICAID, SELFPAY ==
--- NOTE | 2025-03-12 15:54 | A.OFFVIS_ITS ---
Intake Visit Reasons: Newprob-Discuss cubital surgery Intake Note: Catie is a 69 year old male who presents today as a new problem to discuss left cubital surgery. Patient hasn't had anything other surgeries in his hand. Allergies No Known Allergies (No Known Allergies*) Allergy (Verified 03/12/25 16:04) HPI HPI Newprob-Discuss cubital surgery: Details: Catie is a 69 year old right hand dominant Croatian speaking man who presents for a NCS review of his bilateral hand numbness. He is seen today with his , acting as a chief librarian circulation department. He complains of numbness in all his fingers bilaterally, but his chief complaint is of weakness, numbness, and poor physical therapy supervisor strength in his left hand. He says he cannot hold a coffee cup at times. He has a hx of a CVA, [place], COPD, and Diabetes. [facility] Medical History (Updated 03/12/25 @ 16:23 by Jacques Tristan) Bilateral hand numbness Numbness of left hand Shoulder pain, left Seizure disorder History of CVA (cerebrovascular accident) CAD (coronary artery disease) History of ST elevation myocardial infarction (STEMI) PFO (patent foramen ovale) Peripheral arterial disease Hypercholesterolemia Restrictive lung disease COPD (chronic obstructive pulmonary disease) Obstructive sleep apnea Nicotine dependence, cigarettes, uncomplicated GERD (gastroesophageal reflux disease) Chronic low back pain Tubular adenoma of colon Scrotal sac enlargement Hypersomnia Claudication Incisional pain Metabolic encephalopathy Scrotal sac enlargement Vision changes Surgical History History of hydrocelectomy History of colonoscopy S/P cardiac catheterization History of coronary artery stent placement History of aorto-femoral bypass Family History Father Hypertension Mother Hypertension Brother In good health Brother In good health Sister In good health Sister In good health Son In good health Son In good health Son In good health Son In good health Social History Housing: House Alcohol intake: former Patient Tobacco Use Status: Current everyday Tobacco user Tobacco use type: Cigarette Cigarette Packs Per Day: 1 Cigarettes Per Day: 20 Years Smoked: 55 +/- n (07/2023) STill moking (06/2024) e-Cigarette/Vaping Use: Never Used Second Hand Smoke Exposure: Yes service: No Current occupational status: employed Cognitive needs: Yes (walker) Hearing needs: No Vision needs: No Review of Systems Const All systems reviewed & are unremarkable except as noted in HPI and below Physical Exam Const General: cooperative, healthy appearing and no acute distress Orientation/consciousness: patient oriented x3 HEENT Head: Yes normocephalic and Yes atraumatic Eyes EOM: EOMs intact bilaterally Resp Effort & Inspection: normal respiratory effort and able to speak in complete sentences Cardio Jugular venous distension: no JVD Skin General skin exam: turgor normal Rashes: no rashes Neuro General: patient oriented x3 Extrem Other: Evaluation of Bilateral Upper Extremity: The patient is alert, oriented, and in no acute distress Neuro: Median, Ulnar, Radial nerves motor and sensory intact and sensation is normal to the tips of all digits today in clinic No thenar or intrinsic wasting Good APB muscle belly firing and good finger cross Good ABduction & ADduction Vascular: Cap refill brisk ROM: He can make a fist and extend all his digits No locking or catching Skin: No lacerations or abrasions. General: No Ecchymosis. No Erythema or evidence of infection. Nerve Conduction Study IMPRESSION: 1. Mild bilateral median neuropathy across carpal tunnel. 2. Mild bilateral ulnar neuropathy across cubital tunnel. MD YI Connor/RACHAEL Psych Appearance: grossly normal Affect: normal affect Attitude: cooperative Assessment & Plan Assessment & Plan (1) Cubital tunnel syndrome on left: Code(s): G56.22 - Lesion of ulnar nerve, left upper limb Category: Medical (2) Carpal tunnel syndrome of left wrist: Code(s): G56.02 - Carpal tunnel syndrome, left upper limb Category: Medical (3) Cubital tunnel syndrome on right: Code(s): G56.21 - Lesion of ulnar nerve, right upper limb Category: Medical (4) Carpal tunnel syndrome of right wrist: Code(s): G56.01 - Carpal tunnel syndrome, right upper limb Category: Medical (5) CAD (coronary artery disease): Comment: MABEL Lopez 2014 Dr. Reid angioplasty GERA mid RCA March 2018 STEMI 06/2021, mid RCA thrombus, GERA placed ECHO EF 63% Code(s): I25.10 - Atherosclerotic heart disease of [place] coronary artery without angina pectoris Category: Medical Qualifiers: Associated angina: without angina Coronary Disease-Associated Artery/Lesion type: [place] artery [place] vs. transplanted heart: [place] heart Qualified Code(s): I25.10 - Atherosclerotic heart disease of [place] coronary artery without angina pectoris (6) History of ST elevation myocardial infarction (STEMI): Comment: (STEMI 06/2021) Code(s): I25.2 - Old myocardial infarction Category: Medical (7) Peripheral arterial disease: Comment: 04/10/2019 - open aortobifemoral bypass Code(s): I73.9 - Peripheral vascular disease, unspecified Category: Medical (8) Type 2 diabetes mellitus with hyperglycemia: Code(s): E11.65 - Type 2 diabetes mellitus with hyperglycemia Category: Medical (9) History of CVA (cerebrovascular accident): Comment: August 2022 basilar thrombus Code(s): Z86.73 - Personal history of transient ischemic attack (TIA), and cerebral infarction without residual deficits Category: Medical (10) Seizure disorder: Code(s): G40.909 - Epilepsy, unspecified, not intractable, without status epilepticus Category: Medical (11) COPD (chronic obstructive pulmonary disease): Comment: MILD TO MODERATE DEGREE OF OBSTRUCTIVE AIRWAY DISORDER, REMAINS STABLE. RELATIVELY ASYMPTOMATIC, EXCEPT FOR MILD INTERMITTENT COUGH DUE TO SMOKING . HE IS NOT USING SYMBICORT. ONLY USES ALBUTEROL 1 OR 2 PUFFS P.R.N. Code(s): J44.9 - Chronic obstructive pulmonary disease, unspecified Category: Medical Qualifiers: COPD type: emphysema Emphysema type: unspecified Qualified Code(s): J43.9 - Emphysema, unspecified (12) Nicotine dependence, cigarettes, uncomplicated: Comment: (onset 17yo,1-2ppd x 51yrs, now 1/2 to 1ppd - 75pyh), had low-dose CT scan of the chest last year Code(s): F17.210 - Nicotine dependence, cigarettes, uncomplicated Category: Medical Plan Assessment & Plan: 1. Left cubital tunnel syndrome, mild Symptoms intermittent, but daily, worse at night 2. Left carpal tunnel syndrome, mild Symptoms intermittent, but daily, worse at night I educated him about this condition I discussed operative and non-operative treatment options The patient would like to proceed with surgery, beginning with the left side. If he is a high risk for anesthesia, then we may proceed with just a carpal tunnel release under local, but ideally we can also proceed with a cubital tunnel release as well The risks and benefits of operative treatment were discussed with the patient and the patient wishes to proceed with surgery. These risks include, but are not limited to risk of damage to blood vessels, nerves, tendons, infection, recurrence, incomplete relief of preoperative symptoms, persistent pain, possible need for further surgery and the risks associated with regional blocks and anesthesia. The plan is to take the patient to the operating room sometime in the next few weeks for the following procedures: 1. Left cubital tunnel release, under general 2. Left Carpal tunnel release, under general All of the preoperative paperwork including the consent was reviewed today. All the patient's questions were answered. The patient understands that they will be contacted by our asp net software developer soon to schedule this procedure He denies asthma, kidney issues He has a Hx of [place], CVA, CAD, PAD, and is on Plavix. He has COPD, restrictive lung disease, and is a smoker. He has a Hx of a Seizure disorder Discuss possible Cardiac & Pulmonology clearance with anesthesia He is a Diabetic, his most recent HGA1c was 5.8% on 01/07/25.They will need an updated HgA1c that is <8.1% in order to proceed with surgery, and they expressed understanding 3. Right cubital tunnel syndrome, mild Symptoms intermittent, but daily, worse at night 4. Rightcarpal tunnel syndrome, mild Symptoms intermittent, but daily, worse at night We can discuss treatment options when his left side has recovered from surgery Scribed for Mellisa Young MD by Jacques Tristan, medical operations supervisor, on 03/12/25 at 4:15 PM, EST. Coding Level of Care Code Est Pt Level 4 (67315) Diagnoses Cubital tunnel syndrome on left G56.22 Carpal tunnel syndrome of left wrist G56.02 Cubital tunnel syndrome on right G56.21 Carpal tunnel syndrome of right wrist G56.01 Coronary artery disease involving [place] coronary artery of [place] heart without angina pectoris I25.10 Associated angina: without angina Coronary Disease-Associated Artery/Lesion type: [place] artery [place] vs. transplanted heart: [place] heart History of ST elevation myocardial infarction (STEMI) I25.2 Peripheral arterial disease I73.9 Type 2 diabetes mellitus with hyperglycemia E11.65 History of CVA (cerebrovascular accident) Z86.73 Seizure disorder G40.909 Pulmonary emphysema, unspecified emphysema type J43.9 COPD type: emphysema Emphysema type: unspecified Nicotine dependence, cigarettes, uncomplicated F17.210
--- OUTSIDE RECORDS SUMMARY | 2025-03-12 17:00 | XMS_ITS | Clinical Summary ---
Author Organization [facility] Address [address] [place] [address] Care Team Providers Care Mounter Automatic Name Role Phone Unavailable Primary Care Provider [...] Hypercholesteremia 02/27/2018 Coronary artery disease invo lving [place] coronary artery of [place] heart 02/27/2018 Myocardial infarction Social History Tobacco [...] this topic Medical Devices Implanted Type Area Hand Spring Former Device Identifier Shelf Expiration Date Model / Serial / Lot Stent Stent Heart Insurance MEDICAID OUT OF STATE [facility] [place] Advance Directives * Full Code (Latest Code Status on File) Date Activated Date Inactivated Comments 02/27/2018 12:14 AM
--- OUTSIDE RECORDS SUMMARY | 2025-03-12 17:00 | XMS_ITS | Clinical Summary ---
Author Organization 175 [facility] Address [address] [place] [address] Phone Care Team Providers Care Batterboard Setter Name Role Phone Jami Martin MD Primary Care Provider [phone] Social History Tobacco Use Types Packs/Day Years [...] Influencers of Health Screening 10/26/2024 COVID-19 Vaccine (1 - 2024-2 6 season) 2024 Influenza Vaccine (#1) 2024 RSV [...] Insurance MEDICARE [place]ICA[place] - [place] Care Teams Batterboard Setter Relationship Specialty Start Date End Date Jami Martin MD [address] [place] [address] Dr Vasquez [address] [facility] [place] [address] PCP - General Internal Medicine 02/23/18
== END 2025-03-12 16:36 | disposition home or self-care (01) ==
LOC: HO.HOS 15:21
PROVIDERS: PCP Internal Medicine; Visit Provider Orthopaedic Surgery
DX: G56.23 Lesion of ulnar nerve, bilateral upper limbs (principal); G56.03 Carpal tunnel syndrome, bilateral upper limbs; G40.909 Epilepsy, unspecified, not intractable, without status epilepticus; E11.65 Type 2 diabetes mellitus with hyperglycemia; J44.9 Chronic obstructive pulmonary disease, unspecified; I25.10 Atherosclerotic heart disease of native coronary artery without angina pectoris; I25.2 Old myocardial infarction; I73.9 Peripheral vascular disease, unspecified; F17.210 Nicotine dependence, cigarettes, uncomplicated; Z86.73 Personal history of transient ischemic attack (TIA), and cerebral infarction without residual deficits
CPT/HCPCS: 99214

== ENCOUNTER → 2025-03-12 15:20 | Outpatient (BNVA) | payer MEDICARE, MEDICAID, SELFPAY | PROVIDERS: PCP Internal Medicine; Visit Provider Orthopaedic Surgery | DX: M25.532 Pain in left wrist (principal); M25.531 Pain in right wrist; G56.23 Lesion of ulnar nerve, bilateral upper limbs; G56.03 Carpal tunnel syndrome, bilateral upper limbs; Z72.0 Tobacco use; Z79.01 Long term (current) use of anticoagulants | CPT/HCPCS: 99212 ==

== ENCOUNTER 2025-04-09 09:33 | Outpatient (AMB) | payer MEDICARE, MEDICAID, SELFPAY ==
[2025-04-09 09:52] VITALS: BMI 28.5
--- NOTE | 2025-04-09 09:52 | MHC.OFFVIS ---
Vital Signs 04/09/25 09:52 Height 5 ft 5 in Weight 171 lb BMI 28.5 Intake Visit Reasons: Preop LT cubital/CTR 04/18/25 AR Intake Note: Catie is a 69 year old male who presents today pre-operatively with his Gricelda, who aids with interpretation, for discussion of their Left Cubital & Carpal Tunnel Release scheduled for 04/18/[address] Young. Consents signed in office today. Hx of [place], CVA, CAD, PAD - currently on Plavix Hx of COPD, restrictive lung disease; smoker. Hx of a Seizure disorder. Hx of T2DM, most recent HGA1c was 5.8% on 01/07/25. Accompanied by: Spouse Allergies No Known Allergies (No Known Allergies*) Allergy (Verified 04/09/25 09:58) HPI HPI Preop LT cubital/CTR 04/18/25 AR: Details: Catie is a 69 year old male who presents today pre-operatively with his Gricelda, who aids with interpretation, for discussion of their Left Cubital & Carpal Tunnel Release scheduled for 04/18/[address] Young. Reports no new medications or diagnoses since previous evaluation, patient has been cleared by Cardiology for surgery. Consents signed in office today. Hx of [place], CVA, CAD, PAD - currently on Plavix, we will hold for 5 days prior to surgery Hx of COPD, restrictive lung disease; smoker. Hx of a Seizure disorder. Hx of T2DM, most recent HGA1c was 5.8% on 01/07/25. [facility] Medical History (Updated 03/21/25 @ 11:54 by Jacqueline Talbot RN) Type 2 diabetes mellitus Bilateral hand numbness Numbness of left hand Shoulder pain, left Seizure disorder History of CVA (cerebrovascular accident) CAD (coronary artery disease) History of ST elevation myocardial infarction (STEMI) PFO (patent foramen ovale) Peripheral arterial disease Hypercholesterolemia Restrictive lung disease COPD (chronic obstructive pulmonary disease) Obstructive sleep apnea Nicotine dependence, cigarettes, uncomplicated GERD (gastroesophageal reflux disease) Chronic low back pain Tubular adenoma of colon Hypersomnia Claudication Incisional pain Metabolic encephalopathy Vision changes Surgical History (Updated 03/21/25 @ 11:52 by Jacqueline Talbot RN) History of surgery History of hydrocelectomy History of colonoscopy S/P cardiac catheterization History of coronary artery stent placement History of aorto-femoral bypass Family History Father Hypertension Mother Hypertension Brother In good health Brother In good health Sister In good health Sister In good health Son In good health Son In good health Son In good health Son In good health Social History Housing: House Are you a primary healthcare corporate account director to a significant other at home: No Do you presently have visiting nurse or other home services: Yes ([employer]) Alcohol intake: former Patient Tobacco Use Status: Current everyday Tobacco user Tobacco use type: Cigarette Cigarette Packs Per Day: 1 Cigarettes Per Day: 20.0 Years Smoked: 51 e-Cigarette/Vaping Use: Never Used Second Hand Smoke Exposure: Yes service: No Current occupational status: employed Cognitive needs: Yes (walker) Hearing needs: No Vision needs: No Physical Exam Vital Signs: BMI result Body Mass Index 28.5 Const General: cooperative, healthy appearing and no acute distress Orientation/consciousness: patient oriented x3 HEENT Head: Yes normocephalic and Yes atraumatic Eyes EOM: EOMs intact bilaterally Resp Effort & Inspection: normal respiratory effort and able to speak in complete sentences Cardio Jugular venous distension: no JVD Skin General skin exam: turgor normal Rashes: no rashes Neuro General: patient oriented x3 Extrem Other: Evaluation of Bilateral Upper Extremity: The patient is alert, oriented, and in no acute distress Neuro: Median, Ulnar, Radial nerves motor and sensory intact and sensation is normal to the tips of all digits today in clinic No thenar or intrinsic wasting Good APB muscle belly firing and good finger cross Good ABduction & ADduction Vascular: Cap refill brisk ROM: He can make a fist and extend all his digits No locking or catching Skin: No lacerations or abrasions. General: No Ecchymosis. No Erythema or evidence of infection. Nerve Conduction Study IMPRESSION: 1. Mild bilateral median neuropathy across carpal tunnel. 2. Mild bilateral ulnar neuropathy across cubital tunnel. MD YI Connor/RACHAEL Psych Appearance: grossly normal Affect: normal affect Attitude: cooperative Assessment & Plan Assessment & Plan (1) Cubital tunnel syndrome on left: Code(s): G56.22 - Lesion of ulnar nerve, left upper limb Category: Medical (2) Carpal tunnel syndrome of left wrist: Code(s): G56.02 - Carpal tunnel syndrome, left upper limb Category: Medical (3) Cubital tunnel syndrome on right: Code(s): G56.21 - Lesion of ulnar nerve, right upper limb Category: Medical (4) Carpal tunnel syndrome of right wrist: Code(s): G56.01 - Carpal tunnel syndrome, right upper limb Category: Medical (5) CAD (coronary artery disease): Comment: MABEL Lopez 2014 Dr. Reid angioplasty GERA mid RCA March 2018 STEMI 06/2021, mid RCA thrombus, GERA placed ECHO EF 63% Code(s): I25.10 - Atherosclerotic heart disease of [place] coronary artery without angina pectoris Category: Medical Qualifiers: Coronary Disease-Associated Artery/Lesion type: [place] artery [place] vs. transplanted heart: [place] heart Associated angina: without angina Qualified Code(s): I25.10 - Atherosclerotic heart disease of [place] coronary artery without angina pectoris (6) History of ST elevation myocardial infarction (STEMI): Comment: (STEMI 06/2021) Code(s): I25.2 - Old myocardial infarction Category: Medical (7) Peripheral arterial disease: Comment: 04/10/2019 - open aortobifemoral bypass Code(s): I73.9 - Peripheral vascular disease, unspecified Category: Medical (8) Type 2 diabetes mellitus with hyperglycemia: Code(s): E11.65 - Type 2 diabetes mellitus with hyperglycemia Category: Medical (9) History of CVA (cerebrovascular accident): Comment: August 2022 basilar thrombus Code(s): Z86.73 - Personal history of transient ischemic attack (TIA), and cerebral infarction without residual deficits Category: Medical (10) Seizure disorder: Comment: post CVA Code(s): G40.909 - Epilepsy, unspecified, not intractable, without status epilepticus Category: Medical (11) COPD (chronic obstructive pulmonary disease): Comment: MILD TO MODERATE DEGREE OF OBSTRUCTIVE AIRWAY DISORDER, REMAINS STABLE. RELATIVELY ASYMPTOMATIC, EXCEPT FOR MILD INTERMITTENT COUGH DUE TO SMOKING . HE IS NOT USING SYMBICORT. ONLY USES ALBUTEROL 1 OR 2 PUFFS P.R.N. Code(s): J44.9 - Chronic obstructive pulmonary disease, unspecified Category: Medical Qualifiers: COPD type: emphysema Emphysema type: unspecified Qualified Code(s): J43.9 - Emphysema, unspecified (12) Nicotine dependence, cigarettes, uncomplicated: Comment: (onset 17yo,1-2ppd x 51yrs, now 1/2 to 1ppd - 75pyh), had low-dose CT scan of the chest last year Code(s): F17.210 - Nicotine dependence, cigarettes, uncomplicated Category: Medical Plan Assessment & Plan: 1. Left cubital tunnel syndrome, mild Symptoms intermittent, but daily, worse at night 2. Left carpal tunnel syndrome, mild Symptoms intermittent, but daily, worse at night I educated him about this condition I discussed operative and non-operative treatment options The patient would like to proceed with surgery, beginning with the left side. If he is a high risk for anesthesia, then we may proceed with just a carpal tunnel release under local, but ideally we can also proceed with a cubital tunnel release as well The risks and benefits of operative treatment were discussed with the patient and the patient wishes to proceed with surgery. These risks include, but are not limited to risk of damage to blood vessels, nerves, tendons, infection, recurrence, incomplete relief of preoperative symptoms, persistent pain, possible need for further surgery and the risks associated with regional blocks and anesthesia. The plan is to take the patient to the operating room sometime in the next few weeks for the following procedures: 1. Left cubital tunnel release, under general 2. Left Carpal tunnel release, under general All of the preoperative paperwork including the consent was reviewed today. All the patient's questions were answered. The patient understands that they will be contacted by our rehabilitation aide/scheduler soon to schedule this procedure He denies asthma, kidney issues He has a Hx of [place], CVA, CAD, PAD, and is on Plavix. He has COPD, restrictive lung disease, and is a smoker. He has a Hx of a Seizure disorder Discuss possible Cardiac & Pulmonology clearance with anesthesia He is a Diabetic, his most recent HGA1c was 5.8% on 01/07/25. 3. Right cubital tunnel syndrome, mild Symptoms intermittent, but daily, worse at night 4. Rightcarpal tunnel syndrome, mild Symptoms intermittent, but daily, worse at night We can discuss treatment options when his left side has recovered from surgery Coding Level of Care Code Est Pt Level 4 (32243) Diagnoses Cubital tunnel syndrome on left G56.22 Carpal tunnel syndrome of left wrist G56.02 Cubital tunnel syndrome on right G56.21 Carpal tunnel syndrome of right wrist G56.01 Coronary artery disease involving [place]ine coronary artery of [place] heart without angina pectoris I25.10 Coronary Disease-Associated Artery/Lesion type: [place] artery [place] vs. transplanted heart: [place]ine heart Associated angina: without angina History of ST elevation myocardial infarction (STEMI) I25.2 Peripheral arterial disease I73.9 Type 2 diabetes mellitus with hyperglycemia E11.65 History of CVA (cerebrovascular accident) Z86.73 Seizure disorder G40.909 Pulmonary emphysema, unspecified emphysema type J43.9 COPD type: emphysema Emphysema type: unspecified Nicotine dependence, cigarettes, uncomplicated F17.210
== END 2025-04-09 10:32 | disposition home or self-care (01) ==
LOC: HO.HOS 09:34
PROVIDERS: PCP Internal Medicine
DX: G56.23 Lesion of ulnar nerve, bilateral upper limbs (principal); G56.03 Carpal tunnel syndrome, bilateral upper limbs; I25.10 Atherosclerotic heart disease of native coronary artery without angina pectoris; I25.2 Old myocardial infarction; I73.9 Peripheral vascular disease, unspecified; E11.65 Type 2 diabetes mellitus with hyperglycemia; Z86.73 Personal history of transient ischemic attack (TIA), and cerebral infarction without residual deficits; G40.909 Epilepsy, unspecified, not intractable, without status epilepticus; J43.9 Emphysema, unspecified; F17.210 Nicotine dependence, cigarettes, uncomplicated
CPT/HCPCS: 99024

== ENCOUNTER → 2025-04-09 09:33 | Outpatient (BNVA) | payer MEDICARE, MEDICAID, SELFPAY | PROVIDERS: PCP Internal Medicine | DX: G56.23 Lesion of ulnar nerve, bilateral upper limbs (principal); G56.03 Carpal tunnel syndrome, bilateral upper limbs; G40.909 Epilepsy, unspecified, not intractable, without status epilepticus; J43.9 Emphysema, unspecified; I25.10 Atherosclerotic heart disease of native coronary artery without angina pectoris; I25.2 Old myocardial infarction; I10 Essential (primary) hypertension; I73.9 Peripheral vascular disease, unspecified; E11.65 Type 2 diabetes mellitus with hyperglycemia; F17.210 Nicotine dependence, cigarettes, uncomplicated; Z86.73 Personal history of transient ischemic attack (TIA), and cerebral infarction without residual deficits | CPT/HCPCS: 99212 ==

== ENCOUNTER → 2025-04-11 10:46 | Outpatient (REF) | payer MEDICARE, MEDICAID, SELFPAY ==
--- NOTE | 2025-04-11 10:49 | CA_ITS ---
Transthoracic Echocardiogram Patient (Last, First, Middle): Catie Martinez I Gender: Male Date of : 1955 Age: 69 Procedure Date: 04/11/2025 Procedure Type: Transthoracic Echocardiogram Location: OP Height: 165.1 cm Weight: 77.57 kg BSA: 1.85 m2 Heart Rate: bpm BP: 141 / 61 mmHg Medical Sales Specialist: SHANNON Referring MD: Enma Quintana OVERNIGHT STOCKER-Amy Graffiti Cleaner: Enoch Martinez MD Symptoms: I25.10 - Atherosclerotic heart disease of [place] coronary artery without... Study Quality: Adequate ECG Rhythm: Sinus Conclusions: - 1. Low normal LV ejection fraction of 50-55% with underlying regional wall motion abnormality consistent with coronary artery disease 2. Cardiac valvular Dopplers within normal limits 3. Upper limits of normal ascending aortic size 4. No pericardial effusion Findings Left Ventricle Normal left ventricular cavity size. There is mildly increased left ventricular wall thickness. The left ventricular systolic function is low normal. Spectral Doppler is indicative of a normal filling pattern. Wall Motion Rest Echo Findings The inferoseptal wall and mid inferior segment are hypokinetic. The basal inferior segment is akinetic. All other scored wall segments showed normal motion. Right Ventricle Normal right ventricular cavity size and systolic function. Atria Both atria are normal in size. Aortic Valve There is a doming trileaflet aortic valve. There is mild calcification of the aortic valve. There is no aortic valve stenosis. There is no aortic valve regurgitation. Mitral Valve Normal mitral valve structure and function. There is trace mitral valve regurgitation. There is no mitral valve stenosis. Pulmonic Valve The pulmonic valve is likely normal. Tricuspid Valve Normal tricuspid valve structure. Tricuspid regurgitation envelope is inadequate for calculation of right ventricular systolic pressure. Normal right atrial pressure. There is no evidence of pulmonary hypertension. Great Vessels The pulmonary artery was not well visualized. There is no dilatation of the ascending aorta measuring 3.50 cm. Venous The inferior vena cava is normal in size and collapses greater than 50% with inspiration. Pericardium/Pleural There is no evidence of pericardial effusion. Prior Study Comparison No prior study available for comparison. Measurements 2D Linear Measurements IVSd: 1.34 0.6-0.9/0.6-1.0 cm LVIDd: 4.25 3.9-5.3/4.2-5.9 cm LVIDd Index: 2.30 2.4-3.2/2.2-3.1 cm/m2 LVIDs: 3.19 2.0-3.6 cm LVPWd: 1.17 0.7-1.1 cm LA Diam: 3.10 2.7-3.8/3.0-4.0 cm LAIDs Index: 1.68 1.5-2.3 cm/m2 LV Mass: 241.44 67-162/88-224 g LV Mass Index: 130.51 43-95/49-115 g/m2 LVOT Diam: 2.00 3.0+(-)1.3 cm 2D Systolic Function EF 4C: 50.70 >55% EF 2C: 58.60 >55% EF BiP: 53.10 >55% Mitral Valve MV Pk E: 0.87 MV PK A: 0.74 MV Decel Time: 180.00 E/A: 1.20 E'Lateral: 6.85 E'Medial: 5.00 E/E' Med: 17.50 E/E' Lat: 12.80 PHT: 53.00 MVA PHT: 4.15 Decel [place]: 4.84 Aortic Valve AoV Pk Anthony: 1.28 AoV Mn Anthony: 0.81 AoV VTI: 0.29 AoV Pk Grad: 7.00 Aov Mn Grad: 3.00 RIKI Cont.VTI: 2.16 LVOT LVOT Pk Anthony: 0.92 LVOT Mn Anthony: 0.56 LVOT VTI: 0.20 LVOT Pk Grad: 3.00 LVOT Mn Grad: 1.00 LVOT Diam: 2.00 LVOT Area: 3.14 Diastolic Function MV Pk E: 0.87 MV Pk A: 0.74 E/A: 1.20 E'Medial: 5.00 E/E' Med: 17.50 E' Laterial: 6.85 E/E' Lat: 12.80 Right Ventricle TAPSE (mm): 23.90 TVS' Anthony: 10.70 Tricuspid Valve RA Press: 3.00 Great Vessels Aorta Sinus of Valsalva: 3.40 2.0-3.[address] [place]: 2.36 1.7-3.4 cm Ao Asc: 3.50 2.1-3.4 cm Pulmonary Veins Pulm Vein S/D 0.90 Updated in Other Vendor System with Status of Final Enoch Martinez MD electronically signed on 04/12/2025 4:30:41 PM with status of Final
== END ==
LOC: HO.CARD 10:46
PROVIDERS: PCP Internal Medicine; Visit Provider Nurse Practitioner Family
DX: I25.10 Atherosclerotic heart disease of native coronary artery without angina pectoris (principal); Q21.12 Patent foramen ovale
CPT/HCPCS: 93306

== ENCOUNTER → 2025-04-11 10:49 | Outpatient (BNV) | payer MEDICARE, MEDICAID, SELFPAY | PROVIDERS: PCP Internal Medicine; Visit Provider Internal Medicine Cardiovascular Disease | DX: I25.10 Atherosclerotic heart disease of native coronary artery without angina pectoris (principal) | CPT/HCPCS: 93306 ==

== ENCOUNTER 2025-04-18 10:23 | Day surgery (SDC) | payer MEDICARE, MEDICAID, SELFPAY ==
[2025-03-21 11:55] VITALS: BP 141/61; PULSE 52; RESP 20; O2SAT 98; BMI 28.5
--- NOTE | 2025-03-21 12:10 | HO.ANESPROP2 ---
Documented by User: Khushi Melgar NP 04/15/25 13:40 HPI - Anesthesia Eval Consult details Narrative: 69yo M for Left Cubital Tunnel Release, Carpal Tunnel Release - 04/18/25 (HCP) signs consents. Donna Mild URI 2 weeks ago, resolved No CP/SOB with walking Cardiac optimized. 03/2025 office visit. OK'd plavix hold. Pt to continue aspirin periop. Follows [facility] [place] Cardiology for: CAD: RCA PCI 2014, inferior STEMI 2021 PAD s/p aorto-fem bypass PFO - not repaired, on DAPT CVA: 07/2022. On clopidogrel. Left side weakness. Seizures post-CVA, none since. Metabolic encephalopathy DM: FBS ~90-105 COPD: active smoker 1 ppd. PRN albuterol not needed for months. Follows [facility] [place] pulmo [place]: Unable to use CPAP GERD: prn ppi controls, not needed for weeks PMFSH Active Problems Active Problems: All Active Problems Carpal tunnel syndrome of right wrist (Acute) Cubital tunnel syndrome on right (Acute) Carpal tunnel syndrome of left wrist (Acute) Cubital tunnel syndrome on left (Acute) Cubital tunnel syndrome, bilateral (Acute) Cirrhosis (Acute) Hepatic steatosis (Acute) Bilateral leg pain (Acute) Hypogonadism in male (Acute) LFT elevation (Acute) Type 2 diabetes mellitus with hyperglycemia (Acute) Carpal tunnel syndrome on both sides (Acute) Obesity (BMI 30.0-34.9) (Acute) Depression (Acute) Gait instability (Acute) Peripheral neuropathic pain (Acute) Urinary incontinence (Acute) BPH (benign prostatic hyperplasia) (Acute) G tube feedings (Acute) Recurrent epistaxis (Acute) Vision blurring (Acute) Generalized anxiety disorder (Acute) Hydrocele (Acute) Erectile dysfunction (Acute) Hearing deficit (Acute) Cervical radiculopathy (Acute) Painful arc syndrome of left shoulder (Acute) History of ST elevation myocardial infarction (STEMI) (Acute) Shoulder pain, left (Acute) History of CVA (cerebrovascular accident) (Acute) Nicotine dependence, cigarettes, uncomplicated (Acute) Obstructive sleep apnea (Acute) Tubular adenoma of colon (Acute) Seizure disorder (Acute) Restrictive lung disease (Acute) PFO (patent foramen ovale) (Acute) Hypercholesterolemia (Acute) Peripheral arterial disease (Acute) COPD (chronic obstructive pulmonary disease) (Acute) CAD (coronary artery disease) (Acute) GERD (gastroesophageal reflux disease) (Acute) Chronic low back pain (Acute) Past Medical History Medical History Type 2 diabetes mellitus Bilateral hand numbness Numbness of left hand Shoulder pain, left Seizure disorder History of CVA (cerebrovascular accident) CAD (coronary artery disease) History of ST elevation myocardial infarction (STEMI) PFO (patent foramen ovale) Peripheral arterial disease Hypercholesterolemia Restrictive lung disease COPD (chronic obstructive pulmonary disease) Obstructive sleep apnea Nicotine dependence, cigarettes, uncomplicated GERD (gastroesophageal reflux disease) Chronic low back pain Tubular adenoma of colon Hypersomnia Claudication Incisional pain Metabolic encephalopathy Vision changes Family History Family History Father Hypertension Mother Hypertension Brother In good health Brother In good health Sister In good health Sister In good health Son In good health Son In good health Son In good health Son In good health Family history of problems with anesthesia: No Surgical History Surgical History History of surgery History of hydrocelectomy History of colonoscopy S/P cardiac catheterization History of coronary artery stent placement History of aorto-femoral bypass History of Problems with Anesthesia: No Social History Social History Housing: House Are you a primary urgent care physician assistant to a significant other at home: No Do you presently have visiting nurse or other home services: Yes ([employer]) Alcohol intake: former Patient Tobacco Use Status: Current everyday Tobacco user Tobacco use type: Cigarette Cigarette Packs Per Day: 1 Cigarettes Per Day: 20.0 Years Smoked: 51 e-Cigarette/Vaping Use: Never Used Second Hand Smoke Exposure: Yes Use of substances other than those prescribed or required for medical reasons: No Have you been hit, kicked, punched, or otherwise hurt by someone within the past year? If so, by whom?: No Spiritual Healthcare Practices: no Denominational Healthcare Practices: no Cultural Healthcare Practices: no Are you DNR?: No Advance Directives on File: No service: No Current occupational status: employed Cognitive needs: Yes (walker) Hearing needs: No Vision needs: No Meds Allergies Allergy/AdvReac Type Severity Reaction Status Date / Time No Known Allergies (No Known Allergy Verified 04/18/25 11:19 Allergies*) Home Medications ?Medication ?Instructions ?Recorded ?Confirmed ?Last Taken ?Type aripiprazole 2 mg tablet 2 mg PO DAILY 07/15/23 03/20/25 04/18/25 09:00 History memantine 5 mg tablet 5 mg PO BID 12/30/23 03/20/25 Unknown History trazodone 100 mg tablet 100 mg PO BEDTIME 12/30/23 03/20/25 Unknown History Exam Height,Weight and Vital Signs: Height 5 ft 5 in Weight 77.564 kg Last Vital Signs Pulse 52 03/21/25 11:55 Resp 20 03/21/25 11:55 BP 141/61 H 03/21/25 11:55 Pulse Ox 98 03/21/25 11:55 O2 Del Method Room Air 03/21/25 11:55 Pertinent Lab Results Pertinent Lab Results: Laboratory Tests 09/19/24 09:04 WBC 13.1 H Hgb 14.8 Hct 44.4 Plt Count 190 Sodium 140 Potassium 4.0 Chloride 109 H Carbon Dioxide 23 BUN 14 Creatinine 0.78 Narrative Narrative: EKG 03/2025 normal sinus rhythm, rate 60, QTC 422 milliseconds ECHO 04/2025 Conclusions: - 1. Low normal LV ejection fraction of 50-55% with underlying regional wall motion abnormality consistent with coronary artery disease 2. Cardiac valvular Dopplers within normal limits 3. Upper limits of normal ascending aortic size 4. No pericardial effusion Airway Mallampati Class: I TM Dist: >3cm Neck ROM: Full Loose/Missing/Broken Teeth: Yes (edentulous) Heart: RRR Lungs: CTAB Assessment and Plan Assessment Anesthesia Assessment: Anesthesia Plan Discussed, Smoking Cess. Discussed and PAT Visit Final Anesthetic Review Family History of Problems with Anesthesia: No History of Problems with Anesthesia: No Documented by User: Raul Avalos MD 04/18/25 11:30 [facility] Past Medical History Medical History Type 2 diabetes mellitus Bilateral hand numbness Numbness of left hand Shoulder pain, left Seizure disorder History of CVA (cerebrovascular accident) CAD (coronary artery disease) History of ST elevation myocardial infarction (STEMI) PFO (patent foramen ovale) Peripheral arterial disease Hypercholesterolemia Restrictive lung disease COPD (chronic obstructive pulmonary disease) Obstructive sleep apnea Nicotine dependence, cigarettes, uncomplicated GERD (gastroesophageal reflux disease) Chronic low back pain Tubular adenoma of colon Hypersomnia Claudication Incisional pain Metabolic encephalopathy Vision changes Cognitive capacity: declining Functional capacity: independent ambulation Family History Family History Father Hypertension Mother Hypertension Brother In good health Brother In good health Sister In good health Sister In good health Son In good health Son In good health Son In good health Son In good health Surgical History Surgical History History of surgery History of hydrocelectomy History of colonoscopy S/P cardiac catheterization History of coronary artery stent placement History of aorto-femoral bypass Social History Social History Housing: House Are you a primary urgent care physician assistant to a significant other at home: No Do you presently have visiting nurse or other home services: Yes ([employer]) Alcohol intake: former Patient Tobacco Use Status: Current everyday Tobacco user Tobacco use type: Cigarette Cigarette Packs Per Day: 1 Cigarettes Per Day: 20.0 Years Smoked: 51 e-Cigarette/Vaping Use: Never Used Second Hand Smoke Exposure: Yes Use of substances other than those prescribed or required for medical reasons: No Have you been hit, kicked, punched, or otherwise hurt by someone within the past year? If so, by whom?: No Spiritual Healthcare Practices: no Denominational Healthcare Practices: no Cultural Healthcare Practices: no Are you DNR?: No Advance Directives on File: No service: No Current occupational status: employed Cognitive needs: Yes (walker) Hearing needs: No Vision needs: No Meds Allergies Allergy/AdvReac Type Severity Reaction Status Date / Time No Known Allergies (No Known Allergy Verified 04/18/25 11:19 Allergies*) Home Medications ?Medication ?Instructions ?Recorded ?Confirmed ?Last Taken ?Type aripiprazole 2 mg tablet 2 mg PO DAILY 07/15/23 03/20/25 04/18/25 09:00 History memantine 5 mg tablet 5 mg PO BID 12/30/23 03/20/25 Unknown History trazodone 100 mg tablet 100 mg PO BEDTIME 12/30/23 03/20/25 Unknown History Exam Exam Date and Time: 04/18/2025 Airway Other: normal Assessment and Plan Final Anesthetic Review NPO: Yes ASA Class: III Final Preanesthetic Review: No Changes in Pt Med Stat, Meds/Allgs Chart Reviewed, Consent Obtained/Reviewed and Anes Risks/Benef Reviewed Patient Risk: Low Procedure Risk: Low Anesthetic Plan Anesthetic Plan: GA Disposition: Standard PACU
--- NOTE | 2025-04-18 09:41 | MHC.SHP ---
Pre-Procedural Eval Section A - 24 Hr Update-Section A only Date of Service: 04/18/25 The patient is an INPATIENT: No Changes since office visit: No Cold of Flu in the past 2 weeks, No New Medical Problems, No Changes in Medication and No Patient answered all questions The patient has been examined within 24 hours of the surgical procedure. The History & Physical has been completed within 30 days and I have reviewed it.: Yes Section B - Complete if H&P > 30 days Chief Complaint: Lesion of ulnar nerve, left upper limb,carpal Allergies: Allergies Allergy/AdvReac Type Severity Reaction Status Date / Time No Known Allergies (No Known Allergy Verified 04/09/25 09:58 Allergies*) Plan I have reviewed the history and physical and performed a pertinent physical examination on my patient. No changes have occurred unless specified. Time Spent With Patient Time: Total time managing care of this patient today ____ minutes.
--- NOTE | 2025-04-18 09:42 | P.OP_ITS ---
Operative Note Operative Note Date of Service: 04/18/25 Narrative: Operative Note Narrative: Grant Pace KELIN Preop diagnosis: 1. Left Cubital tunnel syndrome 2. Left carpal tunnel syndrome Postop diagnosis: Same Procedure: 1. Left Cubital Tunnel Release 2. Left carpal tunnel release Surgeon: Mellisa Young MD Elevator Constructor Electric: Anesthesia: General Anesthesia Findings: Thickening and fibrosis about the ulnar nerve at the cubital tunnel Implants: none Tourniquet time: 24 minutes EBL: 5.0 ml Specimen: none Drains: None Complications: None Disposition: Brought to the recovery room in stable condition Plan: Follow-up in 10-14 days for wound check, and suture removal Indications: The patient is 69 years old with left carpal tunnel syndrome and left cubital tunnel syndrome . The risks and benefits of operative treatment, including but not limited to risk of damage to blood vessels, nerves, tendons, infection, recurrence, persistent pain or numbness, incomplete resolution of preoperative symptoms, or need for further surgery were discussed with the patient and they wished to proceed with surgery. Procedure: Once consent was obtained patient was brought back to the operating suite and placed in the operating table in a supine position. Perioperative antibiotics and anesthesia was administered by the anesthesia team. The limb was prepped and draped in a standard surgical fashion, and a sterile tourniquet applied to the proximal aspect of the left upper extremity. The limb was elevated exsanguinated with Esmarch bandage and the tourniquet inflated to 250 mm of mercury for a total tourniquet time of 24 minutes. Once assured that we had a good block, a 2.0 cm longitudinal incision was made centered over the left carpal tunnel. The incision was made through the skin to the subcutaneous tissues using a #15 blade. Dissection was made down to the level of the transverse carpal ligament with care being taken to protect the palmar cutaneous nerve. Once the transverse carpal ligament was clearly visualized, a longitudinal incision was made in the transverse carpal ligament 1st using a #15 blade, then using tenotomy scissors under direct visualization. Care was taken to look for and protect the motor branch of the median nerve when seen in this area. Once satisfied with our carpal tunnel release the wound was irrigated with normal saline. A 6 cm gently curved but longitudinally oriented incision was made centered over the cubital tunnel of the left upper extremity. Incision was made through the skin to the subcutaneous tissues using a # 15 Blade. I then dissected down to the level of the medial epicondyle and the cubital tunnel using tenotomy scissors. Care was taken to protect the medial antebrachial cutaneous nerve. The ulnar nerve was identified just posterior to the medial intermuscular septum. The ulnar nerve was released in a proximal to distal direction using tenotomy in iris scissors while directly visualizing and protecting the ulnar nerve. Thickening and fibrosis was appreciated about the ulnar nerve as it passed through the cubital tunnel. The ulnar nerve was assessed as I passed the elbow through full flexion and extension and was found to remain stable within its groove. At this point the tourniquet was deflated and hemostasis obtained with a brief period of local pressure and bipolar electrocautery. The wound was copiously irrigated with normal saline. The subcutaneous layer was closed with 4-0 Vicryl suture, and the skin edges were reapproximated with 5-0 nylon suture. The wound was infiltrated with some 0.25% plain Marcaine for postop pain control and sterile dressings were applied. The patient appears to have tolerated the procedure well and with no complications. All digits were well vascularized at the conclusion of the case.
[2025-04-18 10:49] VITALS: BP 134/59; PULSE 48; RESP 16; TEMP 36.4; O2SAT 98
[2025-04-18 11:10] LABS: Glucose, Whole Blood 104 mg/dL (60-115)
[2025-04-18] MEDS: Albuterol Sulfate (0.083%) 2.5 MG/3 ML VIAL.NEB INHALE (11:13)
[2025-04-18] MEDS: Lactated Ringers 1,000 ML 100 ML IVCONT (11:14)
[2025-04-18 13:00] VITALS: BP 132/70; PULSE 62; RESP 16; TEMP 36.3; O2SAT 98
[2025-04-18 13:05] VITALS: BP 113/61; PULSE 58; RESP 12; O2SAT 99
[2025-04-18 13:10] VITALS: BP 123/60; PULSE 61; RESP 12; O2SAT 96
[2025-04-18 13:15] VITALS: BP 134/65; PULSE 59; RESP 12; O2SAT 96
[2025-04-18 13:30] VITALS: BP 117/57; PULSE 63; RESP 13; TEMP 36.1; O2SAT 97
--- NOTE | 2025-04-18 14:20 | PC.NURSE ---
PATIENT'S WHO IS THE LEGAL GUARDIAN SIGNED DISCHARGE PAPERS. PATIENT'S ALSO TOLD THAT PATIENT RECEIVED TYLENOL AT 1215 IN THE OR AND SO THE NEXT DOSE OF VICODIN WOULD BE AT 1815.
== END 2025-04-18 14:22 | disposition home or self-care (01) ==
PROVIDERS: PCP Internal Medicine; Visit Provider Orthopaedic Surgery
PROC: (CPT 64718; principal; 2025-04-18 11:50)
PROC: (CPT 64721; 2025-04-18 11:50)
DX: G56.02 Carpal tunnel syndrome, left upper limb (principal); G56.22 Lesion of ulnar nerve, left upper limb; R20.0 Anesthesia of skin; Z86.73 Personal history of transient ischemic attack (TIA), and cerebral infarction without residual deficits; I25.10 Atherosclerotic heart disease of native coronary artery without angina pectoris; Z95.5 Presence of coronary angioplasty implant and graft; I25.2 Old myocardial infarction; Q21.12 Patent foramen ovale; I73.9 Peripheral vascular disease, unspecified; E78.00 Pure hypercholesterolemia, unspecified; E11.9 Type 2 diabetes mellitus without complications; J44.9 Chronic obstructive pulmonary disease, unspecified; J84.9 Interstitial pulmonary disease, unspecified; G47.33 Obstructive sleep apnea (adult) (pediatric); G40.909 Epilepsy, unspecified, not intractable, without status epilepticus; Z79.82 Long term (current) use of aspirin; Z79.899 Other long term (current) drug therapy; F17.210 Nicotine dependence, cigarettes, uncomplicated
CPT/HCPCS: 64721; 64718; 82947; J0131; J0690; J1885; J2003; J2004; J2405; J2704; J3010

== ENCOUNTER → 2025-04-18 10:23 | Outpatient (BNV) | payer MEDICARE, MEDICAID, SELFPAY | PROVIDERS: PCP Internal Medicine; Visit Provider Orthopaedic Surgery | DX: G56.22 Lesion of ulnar nerve, left upper limb (principal); G56.02 Carpal tunnel syndrome, left upper limb | CPT/HCPCS: 64718; 64721 ==

== ENCOUNTER 2025-04-23 13:11 | Outpatient (AMB) | payer MEDICARE, MEDICAID, SELFPAY ==
--- NOTE | 2025-04-23 13:19 | MHC.PC.OV ---
Vital Signs 04/23/25 13:23 Height 5 ft 5 in Weight 157 lb BMI 26.1 BP 128/88 Blood Pressure Location Rt brachial Position Sitting Respiration 20 Pulse 76 Pulse Source Pulse Oximeter Temp 98.9 F Temp Source Temporal Artery Scan Pulse Oximetry (%) 98 Oxygen Delivery Method Room Air Intake Visit Reasons: DM, HTN, hx of cva Hydro Pneumatic Tester Required: No Accompanied by: Spouse Allergies No Known Allergies (No Known Allergies*) Allergy (Verified 04/23/25 13:26) Tobacco use date assessed: 02/28/25 Fall risk assessment: No Falls in past year Last assessed Fall Risk: 04/23/25 Dental Screening Dental Screen Date: 02/28/25 HPI HPI Comments History of Present Illness Details History of Present Illness The patient is a 69-year-old male with multiple chronic medical problems, including being overweight despite a recent 10-pound weight loss. 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 He followed up with cardiology on March 11, and an echocardiogram on April 11 showed an ejection fraction of 50-55% with an underlying regional wall motion abnormality consistent with coronary artery disease and normal valves. His other chronic conditions include chronic low back pain, GERD, COPD, peripheral arterial disease, a history of a seizure disorder, obstructive sleep apnea, gastrostomy tube dependence, benign prostatic hyperplasia, diabetes mellitus, hepatic cirrhosis, and osteoporosis. He is a smoker and has been started on CPAP therapy. For his history of tubular adenoma of the colon, his last colonoscopy was in December 2022, and his next colon test is scheduled in June. He also had a carpal tunnel release procedure on April 18 for carpal tunnel syndrome and is now having issues with a left cubital and carpal tunnel release. Recent blood work from September 19, 2024, showed mild leukocytosis. His hemoglobin A1c is 6.0%, creatinine is 0.78, and liver function tests are mildly elevated. His lipid panel showed an LDL of 54 and triglycerides of 313, and he was also found to have low testosterone. Health Maintenance - Last colonoscopy was in December 2022 for a tubular adenoma. - A follow-up colon test is scheduled for June. - Cardiology follow-up was completed on March 11. - An echocardiogram was performed on April 11. - Recent blood work included a complete blood count, hemoglobin A1c (6.0), renal function (creatinine 0.78), liver function tests, a lipid panel (LDL 54, triglycerides 313), PSA, B12, folic acid, and testosterone (low). - The patient was strongly advised to stop smoking. - Lifestyle modifications including a low-fat diet and exercise were recommended. - He has been started on CPAP for obstructive sleep apnea. Social History - Substance Use: The patient is a smoker and has been strongly advised to stop smoking. - Functional Status: The patient has a G-tube. - Diet: A low-fat diet has been recommended. - Exercise: Exercise has been recommended. - Weight Management: The patient is noted to be overweight but has had a recent 10-pound weight loss. Results - Laboratory Studies: - Blood work (September 19, 2024): Revealed mild leukocytosis. - Hemoglobin A1c: 6.0%. - Renal function: Creatinine of 0.78. - Liver function: Mildly elevated ALT and AST. - Lipids: LDL of 54, triglycerides of 313. - Hormones: Low testosterone. - Other: PSA, B12, and folic acid levels were checked. - Diagnostic Tests: - Echocardiogram (April 11): Showed an EF of 50-55% with an underlying regional wall motion abnormality consistent with coronary artery disease and normal valves. - Colonoscopy (December 2022): Revealed a tubular adenoma of the colon. [facility] Medical History Type 2 diabetes mellitus Bilateral hand numbness Numbness of left hand Shoulder pain, left Seizure disorder History of CVA (cerebrovascular accident) CAD (coronary artery disease) History of ST elevation myocardial infarction (STEMI) PFO (patent foramen ovale) Peripheral arterial disease Hypercholesterolemia Restrictive lung disease COPD (chronic obstructive pulmonary disease) Obstructive sleep apnea Nicotine dependence, cigarettes, uncomplicated GERD (gastroesophageal reflux disease) Chronic low back pain Tubular adenoma of colon Hypersomnia Claudication Incisional pain Metabolic encephalopathy Vision changes Surgical History History of surgery History of hydrocelectomy History of colonoscopy S/P cardiac catheterization History of coronary artery stent placement History of aorto-femoral bypass Family History Father Hypertension Mother Hypertension Brother In good health Brother In good health Sister In good health Sister In good health Son In good health Son In good health Son In good health Son In good health Social History Housing: House Are you a primary healthcare administration internship to a significant other at home: No Do you presently have visiting nurse or other home services: Yes (H[employer]) Alcohol intake: former Patient Tobacco Use Status: Current everyday Tobacco user Tobacco use type: Cigarette Cigarette Packs Per Day: 1 Cigarettes Per Day: 20.0 Years Smoked: 51 e-Cigarette/Vaping Use: Never Used Second Hand Smoke Exposure: Yes service: No Current occupational status: employed Cognitive needs: Yes (walker) Hearing needs: No Vision needs: No Questionnaire Thrive Questionnaire Date Thrive assessed: 07/19/24 I am a: Parent/Caregiver What is your living situation today?: I have a steady place to live Within the past 12 months, did the food you bought not last and you didn't have the money to get more?: I choose not to answer this question Within the past 12 months, did you worry whether your food would run out before you got money to buy more?: I choose not to answer this question Do you have trouble paying for medicines?: No Do you have trouble getting transportation to medical appointments?: No Do you have trouble paying your heating and electricity bill?: I choose not to answer this question Do you have trouble taking care of your child, family member or friend?: I choose not to answer this question Do you have trouble with day-to-day activities such as bathing, preparing meals, shopping, managing finances, etc.?: I choose not to answer this question Are you currently unemployed and looking for a job?: I choose not to answer this question Are you interested in more education?: I choose not to answer this question Currently or been in a relationship where the following occur: No concerns reported THRIVE Score: 0 JACQUES-7 AMB Questionnaire JACQUES-7 Date JACQUES - 7 assessed: 10/24/24 Source: Developed by Drs. Meet Flores, Nidia Gordon, Eddy Arriaga and colleagues, with an educational nicole from [employer] Review of Systems Narrative Review of Systems - Musculoskeletal: Reports chronic low back pain. Physical exam (Primary Care) Vital Signs: Last Vital Signs Temp 98.9 F 04/23/25 13:23 Pulse 76 04/23/25 13:23 Resp 20 04/23/25 13:23 BP 128/88 04/23/25 13:23 Pulse Ox 98 04/23/25 13:23 Oxygen Delivery Method Room Air 04/23/25 13:23 BMI result Body Mass Index 26.1 Tobacco/Smoking Status: Tobacco use Status Tobacco use date assessed 02/28/25 04/23/25 13:20 Patient Tobacco Use Status Current everyday Tobacco 04/23/25 13:20 Tobacco use type Cigarette 04/23/25 13:20 e-Cigarette/Vaping Use Never Used 04/23/25 13:20 Thrive Assessment: Date of Thrive Assessment Date Thrive assessed 07/19/24 04/23/25 13:20 Currently or been in a relationship where the following occur: No concerns reported Narrative Physical Exam Const General: alert; No acute distress Eyes Conjunctivae: conjunctivae normal Resp Auscultation: clear to auscultation bilaterally Cardio Rate: regular rate Rhythm: regular rhythm GI Inspection: Yes normal to inspection Extrem General: Yes normal to inspection and No edema Results AMB Hemoglobin A1c AMB Hemoglobin A1c 6.0 % Last Edit by Candi Dolan MA on 04/23/25 13:42 Results Reviewed Results Reviewed: Laboratory Last Values Hgb A1c (Clinic) 6.0 % (4.0-6.0) 04/23/25 13:32 Coding Level of Care Code Est Pt Level 4 (22745) Add On Problem Visit Only Diagnoses Type 2 diabetes mellitus with hyperglycemia E11.65 Coronary artery disease involving [place] coronary artery of [place] heart without angina pectoris I25.10 Associated angina: without angina Coronary Disease-Associated Artery/Lesion type: [place] artery [place] vs. transplanted heart: [place] heart Hypercholesterolemia E78.00 Gastroesophageal reflux disease without esophagitis K21.9 Esophagitis presence: without esophagitis Hepatic steatosis K76.0 History of CVA (cerebrovascular accident) Z86.73 Cubital tunnel syndrome on left G56.22 Pulmonary emphysema, unspecified emphysema type J43.9 COPD type: emphysema Emphysema type: unspecified Obstructive sleep apnea G47.33 Nicotine dependence, cigarettes, uncomplicated F17.210 Assessment & Plan Assessment & Plan (1) Type 2 diabetes mellitus with hyperglycemia: Code(s): E11.65 - Type 2 diabetes mellitus with hyperglycemia Category: Medical Plan: Decrease the amount of carbohydrate intake, pasta, bread, rice and potatoes are all sugar and that is aside from all the sweet stuff, remember that fruits are good but they are Sweet also. Hemoglobin A1c goal of less than 7.0. (2) CAD (coronary artery disease): Comment: [place] 2014 Dr. Reid angioplasty GERA mid RCA March 2018 STEMI 06/2021, mid RCA thrombus, GERA placed ECHO EF 63% Code(s): I25.10 - Atherosclerotic heart disease of [place] coronary artery without angina pectoris Category: Medical Qualifiers: Associated angina: without angina Coronary Disease-Associated Artery/Lesion type: [place] artery [place] vs. transplanted heart: [place] heart Qualified Code(s): I25.10 - Atherosclerotic heart disease of [place] coronary artery without angina pectoris Plan: Control the cholesterol, weight, blood pressure, diabetes continue with aspirin and clopidogrel (3) Hypercholesterolemia: Code(s): E78.00 - Pure hypercholesterolemia, unspecified Category: Medical Plan: Avoid fried foods, chicken skin, eggs, butter margarine, pastries and meat. Be it pork or beef they have a lot of cholesterol LDL goal of less than 70 and triglyceride of less than 150 on rosuvastatin 40 mg once a day (4) GERD (gastroesophageal reflux disease): Code(s): K21.9 - Gastro-esophageal reflux disease without esophagitis Category: Medical Qualifiers: Esophagitis presence: without esophagitis Qualified Code(s): K21.9 - Gastro-esophageal reflux disease without esophagitis Plan: Avoid the foods that causes that usually spicy foods, tomato products, juices, coffee, soda and foods that your sensitive to. After eating do not lie down, allow 3-4 hours before in lie down. And keep the head of bed above 30 degrees to avoid the acid from going up. (5) Hepatic steatosis: Comment: December 2024 Code(s): K76.0 - Fatty (change of) liver, not elsewhere classified Category: Medical Plan: Low-fat diet and exercise (6) History of CVA (cerebrovascular accident): Comment: August 2022 basilar thrombus Code(s): Z86.73 - Personal history of transient ischemic attack (TIA), and cerebral infarction without residual deficits Category: Medical Plan: Control the cholesterol, weight, blood pressure, diabetes on aspirin and Plavix (7) Cubital tunnel syndrome on left: Comment: Status post carpal tunnel release 2024 Code(s): G56.22 - Lesion of ulnar nerve, left upper limb Category: Medical Plan: Status post carpal tunnel release. bandage taken off (8) COPD (chronic obstructive pulmonary disease): Comment: MILD TO MODERATE DEGREE OF OBSTRUCTIVE AIRWAY DISORDER, REMAINS STABLE. RELATIVELY ASYMPTOMATIC, EXCEPT FOR MILD INTERMITTENT COUGH DUE TO SMOKING . HE IS NOT USING SYMBICORT. ONLY USES ALBUTEROL 1 OR 2 PUFFS P.R.N. Code(s): J44.9 - Chronic obstructive pulmonary disease, unspecified Category: Medical Qualifiers: COPD type: emphysema Emphysema type: unspecified Qualified Code(s): J43.9 - Emphysema, unspecified Plan: Patient is strongly advised to stop smoking. On inhalers (9) Obstructive sleep apnea: Comment: Sleep study done 08/24/2023 mild to moderate AHI 15 . Because of multiple comorbidities he was started on CPAP therapy. He is basically remaining noncompliant . He has poor understanding due to mild dementia accounts for that. THIS GENTLEMAN IS JUST NOT ABLE TO USE THE CPAP. Complained of too much hot air coming through the mask. Code(s): G47.33 - Obstructive sleep apnea (adult) (pediatric) Category: Medical Plan: Patient is not able to use the CPAP (10) Nicotine dependence, cigarettes, uncomplicated: Comment: (onset 17yo,1-2ppd x 51yrs, now 1/2 to 1ppd - 75pyh), had low-dose CT scan of the chest last year Code(s): F17.210 - Nicotine dependence, cigarettes, uncomplicated Category: Medical Plan: Patient is strongly advised to stop smoking Plan Plan Patient was informed and verbally consented to the use of an ambient scribe for clinic note documentation during this visit. 1. Coronary Artery Disease And Hypercholesterolemia The patient will continue on aspirin, Plavix (clopidogrel), metoprolol, and Crestor. The goal is to maintain an LDL below 70 and triglycerides below 150. A plan to add Repatha 140 mg once a day was also mentioned. 2. Diabetes Mellitus The goal is to maintain a hemoglobin A1c of less than 7.0%. 3. Tobacco Use Disorder The patient was strongly advised to stop smoking. 4. Chronic Obstructive Pulmonary Disease The patient will continue on his prescribed inhalers. 5. Obstructive Sleep Apnea The patient has started to use his CPAP machine. 6. Gastroesophageal Reflux Disease A low-fat diet and exercise are recommended. 7. History Of Tubular Adenoma Of The Colon The patient has a follow-up colon test scheduled in June. 8. Carpal Tunnel Syndrome The patient is status post a carpal tunnel release in 2024. Discussion Notes I reviewed the patient's extensive and complex medical history. For his cardiovascular health, which includes a history of [place] and CVA, we will continue his current regimen of dual antiplatelet therapy with aspirin and clopidogrel, along with metoprolol and a high-intensity statin, Crestor, targeting an LDL below 70. I again strongly advised him to quit smoking, emphasizing the critical importance of cessation given his CAD, CVA history, and COPD. We discussed the management of his other conditions; he is to continue his inhalers for COPD and has recently begun using a CPAP for his obstructive sleep apnea. For his GERD, I recommended a low-fat diet and exercise. We noted his upcoming colon test in June, which is important for surveillance of his history of tubular adenoma. Patient Instructions - It is very important that you stop smoking. Quitting is one of the best things you can do for your heart, lungs, and overall health. - Continue to take your medications as prescribed, including aspirin, Plavix, metoprolol, and Crestor for your heart and cholesterol. - Continue using your inhalers for your breathing problems (COPD). - Be sure to use your CPAP machine every night to help with your sleep apnea. - Try to eat a low-fat diet and get regular exercise to help with your acid reflux. - Please make sure to go to your appointment for your colon test in June. Orders: Orders AMB Hemoglobin A1c Today Z13.9 - Encounter for screening, unspecified
[2025-04-23 13:23] VITALS: BP 128/88; PULSE 76; RESP 20; TEMP 37.2; O2SAT 98; BMI 26.1
--- OUTSIDE RECORDS SUMMARY | 2025-04-23 14:21 | XMS_ITS | Clinical Summary ---
Author Organization [address] [facility] Address [address] [place] [address] Phone Care Team Providers Care Advanced Manufacturing Technician Name Role Phone Jami Martin MD Primary Care Provider [phone] Social History Tobacco Use Types Packs/Day Years [...] Insurance MEDICARE MEDICAID - [place] Care Teams Advanced Manufacturing Technician Relationship Specialty Start Date End Date Jami Martin MD [address] [place] [address] Dr Vas[address] [facility] [place] [address] PCP - General Internal Medicine 02/23/18
--- OUTSIDE RECORDS SUMMARY | 2025-04-23 14:21 | XMS_ITS | Clinical Summary ---
Author Organization [facility] Address [address] [place] [address] Care Team Providers Care Seamless Tube Roller Name Role Phone Unavailable Primary Care Provider [...] Hypercholesteremia 02/27/2018 Coronary artery disease invo lving [place] coronary artery of [place] heart 02/27/2018 Myocardial infarction Social History Tobacco [...] Influenza Vaccine 11/30/2024 COVID-19 Vaccine ( - 2024-2 6 season) 2024 Hepatitis B Vaccines Aged Out No long er eligible based on patient's age to complete this topic Medical Devices Implanted Type Area Voice Over Artist Device Identifier Shelf Expiration Date Model / Serial / Lot Stent Stent Heart Insurance MEDICAID OUT OF STATE [facility] Advance Directives * Full Code (Latest Code Status on File) Date Activated Date Inactivated Comments 02/27/2018 12:14 AM
== END 2025-04-23 14:30 | disposition home or self-care (01) ==
LOC: HO.HMCH 13:12
PROVIDERS: PCP Internal Medicine; Visit Provider Internal Medicine
DX: E11.65 Type 2 diabetes mellitus with hyperglycemia (principal); I25.10 Atherosclerotic heart disease of native coronary artery without angina pectoris; E78.00 Pure hypercholesterolemia, unspecified; K21.9 Gastro-esophageal reflux disease without esophagitis; K76.0 Fatty (change of) liver, not elsewhere classified; Z86.73 Personal history of transient ischemic attack (TIA), and cerebral infarction without residual deficits; G56.22 Lesion of ulnar nerve, left upper limb; J43.9 Emphysema, unspecified; G47.33 Obstructive sleep apnea (adult) (pediatric); F17.210 Nicotine dependence, cigarettes, uncomplicated; Z13.9 Encounter for screening, unspecified

== ENCOUNTER → 2025-04-23 13:11 | Outpatient (BNVA) | payer MEDICARE, MEDICAID, SELFPAY | PROVIDERS: PCP Internal Medicine; Visit Provider Internal Medicine | DX: E11.65 Type 2 diabetes mellitus with hyperglycemia (principal); I25.10 Atherosclerotic heart disease of native coronary artery without angina pectoris; E78.00 Pure hypercholesterolemia, unspecified; K21.9 Gastro-esophageal reflux disease without esophagitis; K76.0 Fatty (change of) liver, not elsewhere classified; J43.9 Emphysema, unspecified; G56.22 Lesion of ulnar nerve, left upper limb; F17.210 Nicotine dependence, cigarettes, uncomplicated; Z86.73 Personal history of transient ischemic attack (TIA), and cerebral infarction without residual deficits; Z79.899 Other long term (current) drug therapy | CPT/HCPCS: 83036; 99212 ==

== ENCOUNTER 2025-05-01 13:50 | Outpatient (AMB) | payer MEDICARE, MEDICAID, SELFPAY ==
--- NOTE | 2025-05-01 14:10 | MHC.OFFVIS ---
Vital Signs 05/01/25 14:11 Height 5 ft 5 in Weight 157 lb BMI 26.1 Intake Visit Reasons: PO LT cubital/CTR 04/18/25 AR Intake Note: Catie is a 69 year old right hand dominant male who presents today for his first post operative visit s/p Left Cubital & Carpal Tunnel Release 04/18/25. Patient reports that his left arm is doing well, his symptoms have resolved. He would like to be scheduled for his right side however wants to hold off for a little while. Allergies No Known Allergies (No Known Allergies*) Allergy (Verified 04/23/25 13:26) HPI HPI PO LT cubital/CTR 04/18/25 AR: Details: Catie is a 69 year old right hand dominant male who presents today for his first post operative visit s/p Left Cubital & Carpal Tunnel Release 04/18/25. Patient reports that his left arm is doing well, his symptoms have resolved. Denies any pain. He would like to be scheduled for his right side however wants to hold off for a little while. No other acute complaints or concerns [facility] Medical History Type 2 diabetes mellitus Bilateral hand numbness Numbness of left hand Shoulder pain, left Seizure disorder History of CVA (cerebrovascular accident) CAD (coronary artery disease) History of ST elevation myocardial infarction (STEMI) PFO (patent foramen ovale) Peripheral arterial disease Hypercholesterolemia Restrictive lung disease COPD (chronic obstructive pulmonary disease) Obstructive sleep apnea Nicotine dependence, cigarettes, uncomplicated GERD (gastroesophageal reflux disease) Chronic low back pain Tubular adenoma of colon Hypersomnia Claudication Incisional pain Metabolic encephalopathy Vision changes Surgical History History of surgery History of hydrocelectomy History of colonoscopy S/P cardiac catheterization History of coronary artery stent placement History of aorto-femoral bypass Family History Father Hypertension Mother Hypertension Brother In good health Brother In good health Sister In good health Sister In good health Son In good health Son In good health Son In good health Son In good health Social History Housing: House Are you a primary home care manager rn to a significant other at home: No Do you presently have visiting nurse or other home services: Yes ([employer]) Alcohol intake: former Patient Tobacco Use Status: Current everyday Tobacco user Tobacco use type: Cigarette Cigarette Packs Per Day: 1 Cigarettes Per Day: 20.0 Years Smoked: 51 e-Cigarette/Vaping Use: Never Used Second Hand Smoke Exposure: Yes service: No Current occupational status: employed 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 Neuro: Normal sensation of the tips of all digits of the left hand at this time Vascular: Cap refill brisk Pain: No tenderness to palpation about the incision sites a medial left elbow or volar right wrist No pain with range of motion of the right wrist, elbow, or hand ROM: Patient was able to make a closed fist and extend all digits of the left hand fully and without difficulty Range of motion of the left elbow and wrist full and intact Skin: Well approximated and well healing incision site noted on medial left elbow and volar left wrist No lacerations or abrasions. General: No ecchymosis, erythema, or evidence of infection. Psych: Appears grossly normal Affect normal Attitude cooperative Assessment & Plan Assessment & Plan (1) Carpal tunnel syndrome on both sides: Comment: Mild bilateral carpal tunnel syndrome July 2024 Mild bilateral median neuropathy across carpal tunnel. 2. Mild bilateral ulnar neuropathy across cubital tunnel. Code(s): G56.03 - Carpal tunnel syndrome, bilateral upper limbs Category: Medical (2) Cubital tunnel syndrome, bilateral: Code(s): G56.23 - Lesion of ulnar nerve, bilateral upper limbs Category: Medical Plan 1. Status post left cubital and left carpal tunnel releases DOS 04/18/2025 With symptomatic resolution postoperatively Patient appears to be recovering well postoperatively Patient is educated about the typical recovery course No under water times one-week, 2 lb weight limit x2 weeks Patient appears to be recovering very well, and requires no further acute follow-up with us postoperatively Patient is educated and worrisome signs and symptoms, and should call us if they experience any of these, including but not limited to redness, swelling, increased pain, and discharge Patient understands this and is amenable to this plan Follow-up in 6-8 weeks to discuss right carpal tunnel and cubital tunnel releases, sooner with any acute concerns Coding Level of Care Code Global (49966) Diagnoses Carpal tunnel syndrome on both sides G56.03 Cubital tunnel syndrome, bilateral G56.23
[2025-05-01 14:11] VITALS: BMI 26.1
--- OUTSIDE RECORDS SUMMARY | 2025-05-01 15:09 | XMS_ITS | Clinical Summary ---
Author Organization [address] [facility] Address [address] [place] [address] Phone Care Team Providers Care Vegetable Cook Name Role Phone Jami Martin MD Primary Care Provider [phone] Social History Tobacco Use Types Packs/Day Years [...] Insurance MEDICARE MEDICAID - [place] Care Teams Vegetable Cook Relationship Specialty Start Date End Date Jami Martin MD [address] [place] [address] [address] [facility] [place] [address] PCP - General Internal Medicine 02/23/18
--- OUTSIDE RECORDS SUMMARY | 2025-05-01 15:09 | XMS_ITS | Clinical Summary ---
Author Organization [facility] Address [address] [place] [address] Care Team Providers Care Fbi Profiler Name Role Phone Unavailable Primary Care Provider [...] Hypercholesteremia 02/27/2018 Coronary artery disease invo lving [place] coronary artery of [place] heart 02/27/2018 Myocardial infarction Social History Tobacco [...] this topic Medical Devices Implanted Type Area Fender Mechanic Device Identifier Shelf Expiration Date Model / Serial / Lot Stent Stent Heart [place] [facility] [place] * Full Code (Latest Code Status on File) Date Activated Date Inactivated Comments 02/27/2018 12:14 AM
== END 2025-05-01 14:21 | disposition home or self-care (01) ==
LOC: HO.HOS 13:51
PROVIDERS: PCP Internal Medicine
DX: G56.03 Carpal tunnel syndrome, bilateral upper limbs (principal); G56.23 Lesion of ulnar nerve, bilateral upper limbs
CPT/HCPCS: 99024

== ENCOUNTER → 2025-05-01 13:50 | Outpatient (BNVA) | payer MEDICARE, MEDICAID, SELFPAY | PROVIDERS: PCP Internal Medicine | DX: G56.02 Carpal tunnel syndrome, left upper limb (principal); G56.22 Lesion of ulnar nerve, left upper limb; Z98.890 Other specified postprocedural states; F17.210 Nicotine dependence, cigarettes, uncomplicated; Z79.01 Long term (current) use of anticoagulants | CPT/HCPCS: 99212 ==